=== PATIENT | female | born 1930 | race Caucasian/White ===

== ENCOUNTER 2016-06-18 13:18 | Emergency (ER) | payer MEDICARE, OTHER ==
--- NOTE | 2016-06-18 13:25 | ER Document Report ---
ED Medical Screen (RME) - General Stated Complaint: VAGINAL BLEEDING Notes: patient is a 85 year old female p/w vaginal bleeding on xarelto, states it started on and has gotten more severe, going through about 3 pads a day I have greeted and performed a rapid initial assessment of this patient. A comprehensive ED assessment and evaluation of the patient, analysis of test results and completion of the medical decision making process will be conducted by additional ED providers. TRAVEL OUTSIDE OF THE [place] IN LAST 30 DAYS: No - Related Data Allergies/Adverse Reactions: morphine [Morphine] Adverse Reaction (Severe, Verified 06/18/16 13:22) Abnormal behavior Past Medical History - Past Medical History Cardiac Medical History: Reports: Hx Congestive Heart Failure, Hx Coronary Artery Disease, Hx Heart Attack, Hx Hypercholesterolemia, Hx Hypertension Denies: Hx Atrial Fibrillation, Hx Peripheral Vascular Disease, Hx Pulmonary Embolism, Hx Heart Murmur Pulmonary Medical History: Reports: Hx Pneumonia Denies: Hx Asthma, Hx Bronchitis, Hx COPD, Hx Respiratory Failure, Hx Tuberculosis Endocrine Medical History: Reports: Hx Hypothyroidism. Denies: Hx Graves' Disease, Hx Hyperthyroidism Renal/ Medical History: Denies: Hx End Stage Renal Disease, Hx Kidney Stones, Hx Ovarian Cysts, Hx Peritoneal Dialysis, Hx Pelvic Inflammatory Disease Malignancy Medical History: Denies: Hx Breast Cancer, Hx Cervical Cancer, Hx Leukemia, Hx Lung Cancer, Hx Ovarian Cancer GI Medical History: Reports: Hx Gastroesophageal Reflux Disease - Dysphagia. Denies: Hx Crohn's Disease, Hx Hiatal Hernia, Hx Irritable Bowel, Hx Liver Failure, Hx Ulcer Musculoskeltal Medical History: Reports Hx Arthritis, Denies Hx Fibromyalgia, Denies Hx Muscular Dystrophy Traumatic Medical History: Reports: Hx Fractures - fx wrist Infectious Medical History: Denies: Hx HIV Past Surgical History: Reports: Hx Appendectomy, Hx Cardiac Surgery - CABG, Balloon,, Hx Coronary Artery Bypass Graft, Hx Open Heart Surgery. Denies: Hx Bowel Surgery, Hx Section, Hx Cholecystectomy, Hx Colostomy, Hx Gastric Bypass Surgery, Hx Herniorrhaphy, Hx Hysterectomy, Hx Mastectomy, Hx Pacemaker, Hx Tonsillectomy, Hx Tubal Ligation - Immunizations Hx Diphtheria, Pertussis, Tetanus Vaccination: Yes
--- NOTE | 2016-06-18 14:05 | ER Document Report ---
ED GI/ - General Chief Complaint: Vaginal Bleeding Stated Complaint: VAGINAL BLEEDING Notes: The patient is an 85-year-old female, past medical history pacemaker, A. fib on Pradaxa, uterine prolapse, presents with 2 days of intermittent vaginal bleeding. She is also saying that she is noticing spotting over the past 2 days. She has an appointment with gynecology in 2 days to discuss treatment for her uterine prolapse. She denies lightheadedness, dizziness, chest pain, shortness of breath, nausea, vomiting, flank pain, urinary symptoms, abdominal pain, fevers or vaginal pain. TRAVEL OUTSIDE OF THE [place] IN LAST 30 DAYS: No - Related Data Allergies/Adverse Reactions: morphine [Morphine] Adverse Reaction (Severe, Verified 06/18/16 13:22) Abnormal behavior Past Medical History - General Information source: Patient, Relative - Social History Smoking Status: Unknown if Ever Smoked Chew tobacco use (# tins/day): No Frequency of alcohol use: None Drug Abuse: None Family History: CAD - Parents, Other - colon polyps in parents Patient has suicidal ideation: No Patient has homicidal ideation: No - Past Medical History Cardiac Medical History: Reports: Hx Congestive Heart Failure, Hx Coronary Artery Disease, Hx Heart Attack, Hx Hypercholesterolemia, Hx Hypertension Denies: Hx Atrial Fibrillation, Hx Peripheral Vascular Disease, Hx Pulmonary Embolism, Hx Heart Murmur Pulmonary Medical History: Reports: Hx Pneumonia Denies: Hx Asthma, Hx Bronchitis, Hx COPD, Hx Respiratory Failure, Hx Tuberculosis Endocrine Medical History: Reports: Hx Hypothyroidism. Denies: Hx Graves' Disease, Hx Hyperthyroidism Renal/ Medical History: Denies: Hx End Stage Renal Disease, Hx Kidney Stones, Hx Ovarian Cysts, Hx Peritoneal Dialysis, Hx Pelvic Inflammatory Disease Malignancy Medical History: Denies: Hx Breast Cancer, Hx Cervical Cancer, Hx Leukemia, Hx Lung Cancer, Hx Ovarian Cancer GI Medical History: Reports: Hx Gastroesophageal Reflux Disease - Dysphagia. Denies: Hx Crohn's Disease, Hx Hiatal Hernia, Hx Irritable Bowel, Hx Liver Failure, Hx Ulcer Musculoskeltal Medical History: Reports Hx Arthritis, Denies Hx Fibromyalgia, Denies Hx Muscular Dystrophy Traumatic Medical History: Reports: Hx Fractures - fx wrist Infectious Medical History: Denies: Hx HIV Past Surgical History: Reports: Hx Appendectomy, Hx Cardiac Surgery - CABG, Balloon,, Hx Coronary Artery Bypass Graft, Hx Open Heart Surgery. Denies: Hx Bowel Surgery, Hx Section, Hx Cholecystectomy, Hx Colostomy, Hx Gastric Bypass Surgery, Hx Herniorrhaphy, Hx Hysterectomy, Hx Mastectomy, Hx Pacemaker, Hx Tonsillectomy, Hx Tubal Ligation - Immunizations Hx Diphtheria, Pertussis, Tetanus Vaccination: Yes Hx Pneumococcal Vaccination: 12/26/11 Review of Systems - Review of Systems Notes: REVIEW OF SYSTEMS: CONSTITUTIONAL: -fevers, -chills EENT: -eye pain, -difficulty swallowing, -nasal congestion CARDIOVASCULAR:-chest pain, -syncope. RESPIRATORY: -cough, -SOB GASTROINTESTINAL: -abdominal pain, - nausea, -vomiting, -diarrhea GENITOURINARY: +vaginal bleeding, -dysuria, -hematuria MUSCULOSKELETAL: -back pain, -neck pain SKIN: -rash or skin lesions. HEMATOLOGIC: -easy bruising or bleeding. LYMPHATIC: -swollen, enlarged glands. NEUROLOGICAL: -altered mental status or loss of consciousness, -headache, - neurologic symptoms PSYCHIATRIC: -anxiety, -depression. ALL OTHER SYSTEMS REVIEWED AND NEGATIVE. Physical Exam - Vital signs Vitals: Temp Pulse Resp BP Pulse Ox 98.3 F 76 17 160/82 H 98 06/18/16 13:23 06/18/16 13:23 06/18/16 13:23 06/18/16 13:23 06/18/16 13:23 - Notes Notes: PHYSICAL EXAMINATION: GENERAL: Well-appearing, well-nourished and in no acute distress. HEAD: Atraumatic, normocephalic. EYES: Pupils equal round and reactive to light, extraocular movements intact, sclera anicteric, conjunctiva are normal. ENT: nares patent, oropharynx clear without exudates. Moist mucous membranes. NECK: Normal range of motion, supple without lymphadenopathy LUNGS: Breath sounds clear to auscultation bilaterally and equal. No wheezes rales or rhonchi. HEART: Regular rate and rhythm without murmurs ABDOMEN: Soft, nontender, normoactive bowel sounds. No guarding, no rebound. No masses appreciated. : No active vaginal bleeding, nontender uterus and bilateral adnexa, no uterine prolapse seen EXTREMITIES: Normal range of motion, no pitting or edema. No cyanosis. NEUROLOGICAL: Cranial nerves grossly intact. Normal speech, normal gait. Normal sensory and motor exams. PSYCH: Normal mood, normal affect. SKIN: Warm, Dry, normal turgor, no rashes or lesions noted. Course - Re-evaluation Re-evalutation: Patient has no active bleeding at this time. Her hemoglobin is 14 and she is hemodynamically stable. She has an appointment with gynecology in 3 days. Patient is safe for outpatient workup of this postmenopausal vaginal bleeding. Told her that she must keep her appointment due to possibility of uterine malignancy. Given strict return precautions and she understands. - Vital Signs Vital signs: Temp Pulse Resp BP Pulse Ox 98.3 F 76 17 160/82 H 98 06/18/16 13:23 06/18/16 13:23 06/18/16 13:23 06/18/16 13:23 06/18/16 13:23 - Laboratory Result Diagrams: 06/18/16 14:07 06/18/16 14:07 Laboratory results interpreted by me: 06/18/16 06/18/16 14:07 14:07 RDW 15.3 H Sodium 147.3 H Potassium 3.5 L Discharge - Discharge Clinical Impression: Postmenopausal bleeding Condition: Good Disposition: HOME, SELF-CARE Additional Instructions: VAGINAL BLEEDING: You are having an episode of abnormal bleeding. Causes of abnormal vaginal bleeding can include miscarriage or tubal , tumors such as cancer or benign fibroids, medication effects, or hormone imbalance. Testing can eliminate unsuspected , tumors, or infection as a cause. "Dysfunctional uterine bleeding" is due to hormone imbalance, and is especially common at times when the normal cycle is disturbed -- whether by recent , use of control pills or hormones, or impending menopause. If the bleeding is innocent, most commonly a short course of hormones is given to restore the uterus to normal. Sometimes, the normal menstrual cycle corrects itself naturally. Sometimes , brief hormone therapy, or even a D&C is required. Your physician will advise you. Treatment for anemia may be required if bleeding is severe. You should rest and avoid intercourse until the bleeding is controlled. Call the doctor or return for re-examination if you feel faint, have increasing pain, or have a major increase in the amount of bleeding. FIBROIDS: Fibroids are benign growths or tumors in the uterus. They can cause enlargement of the uterus, irregular bleeding, severe bleeding with periods, and abdominal pain. Anemia may result if periods are heavy. Fibroids tend to grow until menopause, then slowly shrink. If fibroids cause severe symptoms, they can be treated surgically. Call or return if vaginal bleeding or pain becomes severe. NORMAL EXAM AND WORKUP: At this time, except for vaginal bleeding, your examination and workup show no significant abnormality. No significant abnormal physical findings were noted. All laboratory, EKG, and imaging (x-ray, CT scans, ultrasound) studies that were ordered show no significant abnormality. Although your examination and all studies that were ordered showed no significant abnormal finding, there are no examinations and no studies that are 100% accurate. There is always the possibility that some abnormality could exist and not be detected with physical examination or within the limits and capabilities of laboratory and other studies. You should return or follow up as you were instructed on your visit today for further evaluation if your symptoms do not resolve. FOLLOW-UP CARE: If you have been referred to a physician for follow-up care, call the physician s office for an appointment as you were instructed or within the next two days. If you experience worsening or a significant change in your symptoms (very heavy bleeding with large clots of blood, passage of tissue, more severe abdominal / pelvic pain or cramping, feeling faint or severe weakness, fever, etc.), notify the physician immediately or return to the Emergency Department at any time for re-evaluation. OBSTETRIC-GYNECOLOGIC (OB-DREDGE PUMP OPERATOR) PHYSICIANS IN [place]: [facility] [address] [place], [place] [id number] [facility] [address] [place] [address] [phone] Referrals: JULIANA SOSA MD [ACTIVE STAFF] - Follow up as needed
[2016-06-18 14:20] LABS: ABSOLUTE BASOPHILS # (AUTO) 0.1 10^3/uL (0.0-0.2); ABSOLUTE EOSINOPHILS # (AUTO) 0.1 10^3/uL (0.0-0.6); ABSOLUTE LYMPHOCYTES (AUTO) 1.3 10^3/uL (0.5-4.7); ABSOLUTE MONOCYTES (AUTO) 0.9 10^3/uL (0.1-1.4); ABSOLUTE NEUT (AUTO) 6.4 10^3/uL (1.7-8.2); BASOPHILS % (AUTO) 0.6 % (0-2); HEMATOCRIT 40.4 % (36.0-47.0); HEMOGLOBIN 13.4 g/dL (12.0-15.5); HGB HCT DIFFERENCE -0.2; LYMPHOCYTES % (AUTO) 14.7 % (13-45); MEAN CORPUSCULAR HEMOGLOBIN 30.2 pg (27.0-33.4); MEAN CORPUSCULAR HGB CONC 33.3 g/dL (32.0-36.0); MEAN CORPUSCULAR VOLUME 91 fl (80-97); MONOCYTES % (AUTO) 10.1 % (3-13); RED BLOOD COUNT 4.45 10^6/uL (3.72-5.28); RED CELL DISTRIBUTION WIDTH 15.3 % (11.5-14.0); SEGMENTED NEUTROPHILS % (AUTO) 73.6 % (42-78); WHITE BLOOD COUNT 8.7 10^3/uL (4.0-10.5)
[2016-06-18 14:37] LABS: ALBUMIN 4.1 g/dL (3.5-5.0); ANION GAP 12 (5-19); BLOOD UREA NITROGEN 15 mg/dL (7-20); CALCIUM 10.2 mg/dL (8.4-10.2); CARBON DIOXIDE 29 mmol/L (22-30); CHLORIDE 106 mmol/L (98-107); CREATININE RESULT 0.71 mg/dL (0.52-1.25); GLUCOSE 102 mg/dL (75-110); POTASSIUM 3.5 mmol/L (3.6-5.0); SODIUM 147.3 mmol/L (137-145)
[2016-06-18 14:38] LABS: ALANINE AMINOTRANSFERASE 24 U/L (9-52); ALKALINE PHOSPHATASE 76 U/L (38-126); ASPARTATE AMINO TRANSFERASE 23 U/L (14-36); BILIRUBIN,TOTAL 0.7 mg/dL (0.2-1.3); TOTAL PROTEIN 6.9 g/dL (6.3-8.2)
[2016-06-18 15:03] VITALS: BP 154/86
== END 2016-06-18 15:03 | disposition home or self-care (01) ==
LOC: ER 13:18
DX: N95.0 Postmenopausal bleeding (principal); I48.91 Unspecified atrial fibrillation; I50.9 Heart failure, unspecified; E78.00 Pure hypercholesterolemia, unspecified; E03.9 Hypothyroidism, unspecified; Z95.0 Presence of cardiac pacemaker; Z95.1 Presence of aortocoronary bypass graft; Z79.02 Long term (current) use of antithrombotics/antiplatelets; Z88.6 Allergy status to analgesic agent; I25.2 Old myocardial infarction
CPT/HCPCS: 36415; 80053; 85025; 99284

== ENCOUNTER 2016-07-02 10:35 | Emergency (ER) | payer MEDICARE, OTHER ==
--- NOTE | 2016-07-02 11:28 | ER Document Report ---
ED Medical Screen (RME) - General Chief Complaint: Breathing Difficulty Stated Complaint: SHORTNESS OF BREATH TRAVEL OUTSIDE OF THE [place] IN LAST 30 DAYS: No - HPI Patient complains to provider of: shortness of breath generalized weakness Notes: 07/02/16 11:28 Patient states today for history of generalized weakness shortness of breath states she cannot get enough air in denies fevers chills productive cough. - Related Data Allergies/Adverse Reactions: morphine [Morphine] Adverse Reaction (Severe, Verified 07/02/16 10:44) Abnormal behavior Past Medical History - Past Medical History Cardiac Medical History: Reports: Hx Congestive Heart Failure, Hx Coronary Artery Disease, Hx Heart Attack, Hx Hypercholesterolemia, Hx Hypertension Denies: Hx Atrial Fibrillation, Hx Peripheral Vascular Disease, Hx Pulmonary Embolism, Hx Heart Murmur Pulmonary Medical History: Reports: Hx Pneumonia Denies: Hx Asthma, Hx Bronchitis, Hx COPD, Hx Respiratory Failure, Hx Tuberculosis Endocrine Medical History: Reports: Hx Hypothyroidism. Denies: Hx Graves' Disease, Hx Hyperthyroidism Renal/ Medical History: Denies: Hx End Stage Renal Disease, Hx Kidney Stones, Hx Ovarian Cysts, Hx Peritoneal Dialysis, Hx Pelvic Inflammatory Disease Malignancy Medical History: Denies: Hx Breast Cancer, Hx Cervical Cancer, Hx Leukemia, Hx Lung Cancer, Hx Ovarian Cancer GI Medical History: Reports: Hx Gastroesophageal Reflux Disease - Dysphagia. Denies: Hx Crohn's Disease, Hx Hiatal Hernia, Hx Irritable Bowel, Hx Liver Failure, Hx Ulcer Musculoskeltal Medical History: Reports Hx Arthritis, Denies Hx Fibromyalgia, Denies Hx Muscular Dystrophy Traumatic Medical History: Reports: Hx Fractures - fx wrist Infectious Medical History: Denies: Hx HIV Past Surgical History: Reports: Hx Appendectomy, Hx Cardiac Surgery - CABG, Balloon,, Hx Coronary Artery Bypass Graft, Hx Open Heart Surgery. Denies: Hx Bowel Surgery, Hx Section, Hx Cholecystectomy, Hx Colostomy, Hx Gastric Bypass Surgery, Hx Herniorrhaphy, Hx Hysterectomy, Hx Mastectomy, Hx Pacemaker, Hx Tonsillectomy, Hx Tubal Ligation - Immunizations Hx Diphtheria, Pertussis, Tetanus Vaccination: Yes Review of Systems - Review of Systems Respiratory: Short of breath Physical Exam - Vital signs Vitals: Temp Pulse Resp BP Pulse Ox 98.3 F 54 L 18 164/81 H 98 07/02/16 10:46 07/02/16 10:46 07/02/16 10:46 07/02/16 10:46 07/02/16 10:46 - Respiratory Respiratory status: No respiratory distress Chest status: Nontender Course - Vital Signs Vital signs: Temp Pulse Resp BP Pulse Ox 98.3 F 54 L 18 164/81 H 98 07/02/16 10:46 07/02/16 10:46 07/02/16 10:46 07/02/16 10:46 07/02/16 10:46
[2016-07-02 12:05] LABS: APPEARANCE,URINE CLEAR; BILIRUBIN,URINE NEGATIVE (NEGATIVE); GLUCOSE, URINE NEGATIVE (NEGATIVE); KETONES,URINE NEGATIVE (NEGATIVE); LEUKOCYTE ESTERASE,URINE NEGATIVE (NEGATIVE); NITRITE,URINE NEGATIVE (NEGATIVE); PROTEIN,URINE NEGATIVE (NEGATIVE); URINE SPECIFIC GRAVITY 1.008; UROBILINOGEN,URINE NEGATIVE mg/dL (<2.0)
[2016-07-02 12:10] LABS: ABSOLUTE EOSINOPHILS # (AUTO) 0.1 10^3/uL (0.0-0.6); ABSOLUTE LYMPHOCYTES (AUTO) 1.8 10^3/uL (0.5-4.7); ABSOLUTE MONOCYTES (AUTO) 1.1 10^3/uL (0.1-1.4); ABSOLUTE NEUT (AUTO) 7.8 10^3/uL (1.7-8.2); BASOPHILS % (AUTO) 0.4 % (0-2); EOSINOPHILS % (AUTO) 1.1 % (0-6); HEMATOCRIT 40.7 % (36.0-47.0); HEMOGLOBIN 13.5 g/dL (12.0-15.5); HGB HCT DIFFERENCE -0.2; LYMPHOCYTES % (AUTO) 16.4 % (13-45); MEAN CORPUSCULAR HEMOGLOBIN 30.3 pg (27.0-33.4); MEAN CORPUSCULAR HGB CONC 33.2 g/dL (32.0-36.0); MEAN CORPUSCULAR VOLUME 91 fl (80-97); MONOCYTES % (AUTO) 9.8 % (3-13); RED BLOOD COUNT 4.46 10^6/uL (3.72-5.28); RED CELL DISTRIBUTION WIDTH 15.8 % (11.5-14.0); SEGMENTED NEUTROPHILS % (AUTO) 72.3 % (42-78); WHITE BLOOD COUNT 10.8 10^3/uL (4.0-10.5)
--- NOTE | 2016-07-02 12:27 | ER Document Report ---
ED Respiratory Problem - General Chief Complaint: Breathing Difficulty Stated Complaint: SHORTNESS OF BREATH Mode of Arrival: Ambulatory Information source: Patient, Relative Notes: Patient presents complaining of generalized weakness that she had yesterday but seems to be better today. Patient does complain of exertional shortness of breath that started yesterday. Patient states that when she ambulates she feels like she has palpitations become short of breath. Symptoms resolved when she is sitting or at rest. Patient denies any chest pain, abdominal pain, cough , nausea, vomiting, or diarrhea. Patient denies any fever or recent illness. Patient denies any urinary symptoms. Patient does report having a uterine biopsy performed last . TRAVEL OUTSIDE OF THE [place] IN LAST 30 DAYS: No - HPI Patient complains to provider of: Short of breath. No: COPD, Cough Onset: Yesterday Duration: Better Quality of pain: No pain Pain Level: Denies Context: denies: Smoker Associated symptoms: Ankle/leg swelling - Chronic, Short of breath. denies: Bloody cough, Chest pain/discomfort, Congestion, Cough, Wheezing Similar symptoms previously: No Recently seen / treated by doctor: No - Related Data Allergies/Adverse Reactions: morphine [Morphine] Adverse Reaction (Severe, Verified 07/02/16 10:44) Abnormal behavior Past Medical History - General Information source: Patient, Relative - Social History Smoking Status: Never Smoker Frequency of alcohol use: None Drug Abuse: None Family History: CAD - Parents, Other - colon polyps in parents Patient has suicidal ideation: No Patient has homicidal ideation: No - Past Medical History Cardiac Medical History: Reports: Hx Congestive Heart Failure, Hx Coronary Artery Disease, Hx Heart Attack, Hx Hypercholesterolemia, Hx Hypertension Denies: Hx Atrial Fibrillation, Hx Peripheral Vascular Disease, Hx Pulmonary Embolism, Hx Heart Murmur Pulmonary Medical History: Reports: Hx Pneumonia Denies: Hx Asthma, Hx Bronchitis, Hx COPD, Hx Respiratory Failure, Hx Tuberculosis Endocrine Medical History: Reports: Hx Hypothyroidism. Denies: Hx Graves' Disease, Hx Hyperthyroidism Renal/ Medical History: Denies: Hx End Stage Renal Disease, Hx Kidney Stones, Hx Ovarian Cysts, Hx Peritoneal Dialysis, Hx Pelvic Inflammatory Disease Malignancy Medical History: Denies: Hx Breast Cancer, Hx Cervical Cancer, Hx Leukemia, Hx Lung Cancer, Hx Ovarian Cancer GI Medical History: Reports: Hx Gastroesophageal Reflux Disease - Dysphagia. Denies: Hx Crohn's Disease, Hx Hiatal Hernia, Hx Irritable Bowel, Hx Liver Failure, Hx Ulcer Musculoskeltal Medical History: Reports Hx Arthritis, Denies Hx Fibromyalgia, Denies Hx Muscular Dystrophy Traumatic Medical History: Reports: Hx Fractures - fx wrist Infectious Medical History: Denies: Hx HIV Past Surgical History: Reports: Hx Appendectomy, Hx Cardiac Surgery - CABG, Balloon,, Hx Coronary Artery Bypass Graft, Hx Open Heart Surgery, Hx Pacemaker. Denies: Hx Bowel Surgery, Hx Section, Hx Cholecystectomy, Hx Colostomy, Hx Gastric Bypass Surgery, Hx Herniorrhaphy, Hx Hysterectomy, Hx Mastectomy, Hx Tonsillectomy, Hx Tubal Ligation - Immunizations Hx Diphtheria, Pertussis, Tetanus Vaccination: Yes Hx Pneumococcal Vaccination: 12/26/11 Review of Systems - Review of Systems Constitutional: No symptoms reported. denies: Fever, Recent illness EENT: No symptoms reported Cardiovascular: Palpitations - With exertion Respiratory: Short of breath. denies: Cough Gastrointestinal: No symptoms reported. denies: Abdominal pain, Nausea, Vomiting Genitourinary: No symptoms reported Female Genitourinary: No symptoms reported Musculoskeletal: Ankle swelling. denies: Back pain Skin: No symptoms reported Hematologic/Lymphatic: No symptoms reported Neurological/Psychological: No symptoms reported Physical Exam - Vital signs Vitals: Temp Pulse Resp BP Pulse Ox 98.3 F 54 L 18 164/81 H 98 07/02/16 10:46 07/02/16 10:46 07/02/16 10:46 07/02/16 10:46 07/02/16 10:46 - General General appearance: Appears well, Alert In distress: None Notes: Appears younger than stated age - HEENT Head: Normocephalic, Atraumatic Eyes: Normal Conjunctiva: Normal Ears: Normal External canal: Normal Tympanic membrane: Normal Nasal: Normal Mouth/Lips: Normal Mucous membranes: Normal Pharynx: Normal. No: Erythema, Exudate, Tonsillar hypertrophy Neck: Normal, Supple. No: Lymphadenopathy - Respiratory Respiratory status: No respiratory distress Chest status: Nontender Breath sounds: Normal. No: Rales, Rhonchi, Stridor, Wheezing Chest palpation: Normal - Cardiovascular Rhythm: Regular Heart sounds: S1 appreciated, S2 appreciated Murmur: No - Abdominal Inspection: Normal Distension: No distension Bowel sounds: Normal Tenderness: Nontender Organomegaly: No organomegaly - Back Back: Normal, Nontender. No: CVA tenderness, Vertebra tenderness - Extremities General upper extremity: Normal inspection, Normal strength General lower extremity: Edema - 1+ right ankle, 3+ left foot/ankle, Normal strength - Neurological Neuro grossly intact: Yes Cognition: Normal Carl Coma Scale Eye Opening: Spontaneous Carl Coma Scale Verbal: Oriented [place] Coma Scale Motor: Obeys Commands [place] Coma Scale Total: 15 - Psychological Associated symptoms: Normal affect, Normal mood - Skin Skin Temperature: Warm Skin Moisture: Dry Skin Color: Normal Course - Re-evaluation Re-evalutation: 07/02/16 13:[address] Davies regarding patient presentation. Recommends obtaining old EKG as well as repeat troponin 07/02/16 1430 Patient ambulatory to bathroom, patient denies any complaints of dyspnea. Patient's vital signs stable. 07/02/16 19:55 Patient continues without any complaints. Reviewed patient's repeat troponin that is trending downward. Patient does have a previous history of elevated indeterminate troponins in the past. Patient denies any chest pain, any shortness of breath, any abdominal pain or back pain. Patient denies any dyspnea. Patient states that she was able to ambulate in the hallways without reproducing her exertional shortness of breath symptoms. RN road tested patient and patient's heart rate remained in the 70s with oxygen saturation remaining 98-100%. Dr. Richardson consulted and reviewed her EKG and feels that without any symptoms that she is likely stable for discharge. Advises having patient return immediately for any return of symptoms, chest pain, or any concerning symptoms. Discussed planning care with patient, patient and family agree with discharge plan of care. Patient advised that she needs to see her thread separator tomorrow for recheck. Patient and family verbalized plan to see Dr. Devi tomorrow for recheck. 07/02/16 19:59 - Vital Signs Vital signs: Temp Pulse Resp BP Pulse Ox 97.4 F 88 16 125/74 97 07/02/16 17:00 07/02/16 17:00 07/02/16 17:00 07/02/16 17:00 07/02/16 17:00 07/02/16 19:59 - Laboratory Result Diagrams: 07/02/16 11:35 07/02/16 11:35 Laboratory results interpreted by me: 07/02/16 07/02/1617 11:35 11:35 11:35 WBC 10.8 H RDW 15.8 H Carbon Dioxide 31 H Calcium 10.7 H Creatine Kinase NT-Pro-B Natriuret Pep 4290 H 07/02/16 11:35 WBC RDW Carbon Dioxide Calcium Creatine Kinase 26 L NT-Pro-B Natriuret Pep 07/02/16 19:54 Labs- Entire Visit 07/02/16 07/02/16 07/02/16 11:35 11:35 11:35 WBC 10.8 H RBC 4.46 Hgb 13.5 Hct 40.7 MCV 91 MCH 30.3 MCHC 33.2 RDW 15.8 H Plt Count 177 Seg Neutrophils % 72.3 Lymphocytes % 16.4 Monocytes % 9.8 Eosinophils % 1.1 Basophils % 0.4 Absolute Neutrophils 7.8 Absolute Lymphocytes 1.8 Absolute Monocytes 1.1 Absolute Eosinophils 0.1 Absolute Basophils 0.0 Sodium 143.4 Potassium 4.5 Chloride 101 Carbon Dioxide 31 H Anion Gap 11 BUN 19 Creatinine 0.70 Est GFR ( Amer) > 60 Est GFR (Non-Af Amer) > 60 Glucose 106 Calcium 10.7 H Magnesium 2.3 Total Bilirubin 0.8 Direct Bilirubin 0.1 Indirect Bilirubin Not Reportable Neonat Total Bilirubin Not Reportable AST 26 ALT 43 Alkaline Phosphatase 76 Creatine Kinase CK-MB (CK-2) Troponin I 0.058 NT-Pro-B Natriuret Pep 4290 H Total Protein 6.7 Albumin 4.2 Lipase 99.0 TSH Urine Color Urine Appearance Urine pH Ur Specific [place] Urine Protein Urine Glucose (UA) Urine Ketones Urine Blood Urine Nitrite Urine Bilirubin Urine Urobilinogen Ur Leukocyte Esterase Urine WBC (Auto) Squamous Epi Cells Auto Urine Mucus (Auto) Urine Ascorbic Acid 07/02/16 07/02/16 07/02/16 11:35 11:35 11:35 WBC RBC Hgb Hct MCV MCH MCHC RDW Plt Count Seg Neutrophils % Lymphocytes % Monocytes % Eosinophils % Basophils % Absolute Neutrophils Absolute Lymphocytes Absolute Monocytes Absolute Eosinophils Absolute Basophils Sodium Potassium Chloride Carbon Dioxide Anion Gap BUN Creatinine Est GFR ( Amer) Est GFR (Non-Af Amer) Glucose Calcium Magnesium Total Bilirubin Direct Bilirubin Indirect Bilirubin Neonat Total Bilirubin AST ALT Alkaline Phosphatase Creatine Kinase 26 L CK-MB (CK-2) Troponin I NT-Pro-B Natriuret Pep Total Protein Albumin Lipase TSH 2.01 Urine Color YELLOW Urine Appearance CLEAR Urine pH 8.0 Ur Specific [place] 1.008 Urine Protein NEGATIVE Urine Glucose (UA) NEGATIVE Urine Ketones NEGATIVE Urine Blood NEGATIVE Urine Nitrite NEGATIVE Urine Bilirubin NEGATIVE Urine Urobilinogen NEGATIVE Ur Leukocyte Esterase NEGATIVE Urine WBC (Auto) 1 Squamous Epi Cells Auto 1 Urine Mucus (Auto) RARE Urine Ascorbic Acid NEGATIVE 07/02/16 07/02/16 11:35 16:18 WBC RBC Hgb Hct MCV MCH MCHC RDW Plt Count Seg Neutrophils % Lymphocytes % Monocytes % Eosinophils % Basophils % Absolute Neutrophils Absolute Lymphocytes Absolute Monocytes Absolute Eosinophils Absolute Basophils Sodium Potassium Chloride Carbon Dioxide Anion Gap BUN Creatinine Est GFR ( Amer) Est GFR (Non-Af Amer) Glucose Calcium Magnesium Total Bilirubin Direct Bilirubin Indirect Bilirubin Neonat Total Bilirubin AST ALT Alkaline Phosphatase Creatine Kinase CK-MB (CK-2) 0.90 Troponin I 0.052 NT-Pro-B Natriuret Pep Total Protein Albumin Lipase TSH Urine Color Urine Appearance Urine pH Ur Specific [place] Urine Protein Urine Glucose (UA) Urine Ketones Urine Blood Urine Nitrite Urine Bilirubin Urine Urobilinogen Ur Leukocyte Esterase Urine WBC (Auto) Squamous Epi Cells Auto Urine Mucus (Auto) Urine Ascorbic Acid 07/02/16 19:59 - Diagnostic Test Radiology reviewed: Reports reviewed Discharge - Discharge Clinical Impression: Exertional dyspnea Condition: Stable Disposition: HOME, SELF-CARE Instructions: Dyspnea, Nonspecific ([facility]) Additional Instructions: Return immediately for any new or worsening symptoms Followup with your primary care provider, call tomorrow to make a followup appointment Follow-up with your thread separator tomorrow for recheck, call tomorrow morning for an appointment time. Referrals: SANNA MANDUJANO MD [Primary Care Provider] - Follow up tomorrow CORRIE GUTIERREZ MD [ACTIVE STAFF] - Follow up tomorrow
[2016-07-02 12:29] LABS: ALANINE AMINOTRANSFERASE 43 U/L (9-52); ALBUMIN 4.2 g/dL (3.5-5.0); ALKALINE PHOSPHATASE 76 U/L (38-126); ANION GAP 11 (5-19); ASPARTATE AMINO TRANSFERASE 26 U/L (14-36); BILIRUBIN,DIRECT 0.1 mg/dL (0.0-0.4); BILIRUBIN,TOTAL 0.8 mg/dL (0.2-1.3); BLOOD UREA NITROGEN 19 mg/dL (7-20); CALCIUM 10.7 mg/dL (8.4-10.2); CARBON DIOXIDE 31 mmol/L (22-30); CHLORIDE 101 mmol/L (98-107); GLUCOSE 106 mg/dL (75-110); MAGNESIUM 2.3 mg/dL (1.6-2.3); POTASSIUM 4.5 mmol/L (3.6-5.0); SODIUM 143.4 mmol/L (137-145); TOTAL PROTEIN 6.7 g/dL (6.3-8.2)
[2016-07-02 12:45] LABS: TROPONIN I 0.058 ng/mL
[2016-07-02 13:38] LABS: ADD ON TESTING BLD IN LAB ACKNOWLEDGE
[2016-07-02 13:54] LABS: CREATINE KINASE 26 U/L (30-135)
[2016-07-02 17:46] VITALS: BP 125/74
--- NOTE | 2016-07-02 21:09 | EKG REPORT ---
SEVERITY:- ABNORMAL ECG - ATRIAL FIBRILLATION, V-RATE 70-70 VENTRICULAR BIGEMINY VENTRICULAR PACED RHYTM : Confirmed by: Sandra Sahni MD 02-Jul-2016 21:08:53
== END 2016-07-02 19:30 | disposition home or self-care (01) ==
LOC: ER 10:35
DX: R06.00 Dyspnea, unspecified (principal); R06.02 Shortness of breath; R53.1 Weakness; R00.2 Palpitations
CPT/HCPCS: 36415; 71020; 80053; 81001; 82550; 82553; 83690; 83735; 83880; 84443; 84484; 85025; 93005; 93010; 99285

== ENCOUNTER 2016-10-29 22:20 | Inpatient (IN) | payer MEDICARE, OTHER ==
[2016-10-29] MEDS ORDERED: FENTANYL CITRATE INJ/PF 100 MCG/2 ML AMPUL IV ONE (22:35)
--- NOTE | 2016-10-29 22:45 | ER Document Report ---
ED General - General Chief Complaint: Arm Injury Stated Complaint: FALL/NECK PAIN Time Seen by Provider: 10/29/16 22:29 Notes: Patient is a 85-year-old female presents with complaint of a fall. She says she was trying to get out her door when the door closed on her arm. When she tried move her arm from the door she then slipped and fell. She then felt a pop in her left forearm. She has pain over her distal left forearm. She denies pain anywhere else. She did not hit her head. No neck pain. She says she fell onto her knees. She is on Xarelto. Since his injury to her forearm she has had some bruising and swelling into her hand. No other complaints at this time. TRAVEL OUTSIDE OF THE [place] IN LAST 30 DAYS: No - Related Data Allergies/Adverse Reactions: morphine [Morphine] Adverse Reaction (Severe, Verified 07/02/16 10:44) Abnormal behavior Past Medical History - Social History Smoking Status: Never Smoker Frequency of alcohol use: None Drug Abuse: None Family History: CAD - Parents, Other - colon polyps in parents - Past Medical History Cardiac Medical History: Reports: Hx Congestive Heart Failure, Hx Coronary Artery Disease, Hx Heart Attack, Hx Hypercholesterolemia, Hx Hypertension Denies: Hx Atrial Fibrillation, Hx Peripheral Vascular Disease, Hx Pulmonary Embolism, Hx Heart Murmur Pulmonary Medical History: Reports: Hx Pneumonia Denies: Hx Asthma, Hx Bronchitis, Hx COPD, Hx Respiratory Failure, Hx Tuberculosis Endocrine Medical History: Reports: Hx Hypothyroidism. Denies: Hx Graves' Disease, Hx Hyperthyroidism Renal/ Medical History: Denies: Hx End Stage Renal Disease, Hx Kidney Stones, Hx Ovarian Cysts, Hx Peritoneal Dialysis, Hx Pelvic Inflammatory Disease Malignancy Medical History: Denies: Hx Breast Cancer, Hx Cervical Cancer, Hx Leukemia, Hx Lung Cancer, Hx Ovarian Cancer GI Medical History: Reports: Hx Gastroesophageal Reflux Disease - Dysphagia. Denies: Hx Crohn's Disease, Hx Hiatal Hernia, Hx Irritable Bowel, Hx Liver Failure, Hx Ulcer Musculoskeltal Medical History: Reports Hx Arthritis, Denies Hx Fibromyalgia, Denies Hx Muscular Dystrophy Traumatic Medical History: Reports: Hx Fractures - fx wrist Infectious Medical History: Denies: Hx HIV Past Surgical History: Reports: Hx Appendectomy, Hx Cardiac Surgery - CABG, Balloon,, Hx Coronary Artery Bypass Graft, Hx Open Heart Surgery, Hx Pacemaker. Denies: Hx Bowel Surgery, Hx Section, Hx Cholecystectomy, Hx Colostomy, Hx Gastric Bypass Surgery, Hx Herniorrhaphy, Hx Hysterectomy, Hx Mastectomy, Hx Tonsillectomy, Hx Tubal Ligation - Immunizations Hx Diphtheria, Pertussis, Tetanus Vaccination: Yes Hx Pneumococcal Vaccination: 12/26/11 Review of Systems - Review of Systems Notes: My Normal Review Basic REVIEW OF SYSTEMS: CONSTITUTIONAL : Denies fever, chills, or sweats. Denies recent illness. RESPIRATORY: Denies cough, cold, or chest congestion. Denies shortness of breath, difficulty breathing, or wheezing. GASTROINTESTINAL: Denies abdominal pain. Denies nausea, vomiting, or diarrhea. Denies constipation. Last BM: MUSCULOSKELETAL: Left distal forearm pain SKIN: Denies rash or skin lesions. HEMATOLOGIC : on Xarelto NEUROLOGICAL: Denies altered mental status or loss of consciousness. Denies headache. Denies weakness or paralysis or loss of use of either side. Denies problems with gait or speech. Denies sensory or motor loss. ALL OTHER SYSTEMS REVIEWED AND NEGATIVE. Physical Exam - Vital signs Vitals: Resp 16 10/30/16 00:16 - Notes Notes: General Appearance: Well nourished, alert, cooperative, no acute distress, mild to moderate obvious discomfort. Vitals: reviewed, See vital signs table. Head: no swelling or tenderness to the head Eyes: PERRL, EOMI, Conjuctiva clear Mouth: No decreasd moisture Neck: Supple, no neck tenderness Extremities: strength 5/5 in all extremities, good pulses in all extremities, left forearm has swelling and bruising that extends into the dorsum of the left hand. Skin: warm, dry, appropriate color, no rash Neuro: speech clear, oriented x 3, normal affect, responds appropriately to questions. Course - Re-evaluation Re-evalutation: 10/30/16 03:59 Patient's x-ray unfortunately continues show that the fracture displaced. When I would reduce that to fill reduced specimen is I release any type of traction of the arm it would immediately to his original displaced form. Being that the fracture is unstable for the patient is in need of likely repair. The patient is a private patient of Dr. Clark. Dr. Kee is covering for Dr. Clark 7 AM in the morning. I spoke with the hospitalist who agrees to admit the patient. I have put in a consult for orthopedics. Dictation of this chart was performed using voice recognition software; therefore, there may be some unintended grammatical errors. - Vital Signs Vital signs: Temp Pulse Resp BP Pulse Ox 16 138/65 H 96 10/30/16 03:00 10/30/16 02:16 10/30/16 03:00 - Laboratory Result Diagrams: 10/30/16 02:45 10/30/16 02:45 Laboratory results interpreted by me: 10/30/16 10/30/16 10/30/16 02:45 02:45 02:45 RBC 3.63 L Hgb 11.6 L Hct 33.0 L RDW 15.6 H Seg Neutrophils % 80.4 H Lymphocytes % 10.1 L PT 19.1 H Sodium 131.2 L Potassium 3.4 L Chloride 90 L Carbon Dioxide 31 H BUN 34 H Est GFR ( Amer) 57 L Est GFR (Non-Af Amer) 47 L Glucose 117 H - EKG Interpretation by Me Additional EKG results interpreted by me: 10/30/16 02:37 EKG is reviewed and interpreted by me. EKG shows a complex rhythm with rate of 72 bpm which is consistent with her old EKG from July 02, 2016. No new concerning ST segment changes. QRS duration and QTc intervals are prolonged. Suspect this rhythm is paced. Occasional PAC. Procedures - Conscious Sedation Conscious sedation Consent obtained: Yes Prior complications: Procedural sedation Pt with a severe systemic disease.: P3. - ASA Classification. Airway Evaluation: Normal anatomy Mallampati Classification: Class 2 Used during procedure: Suction available, IV access obtained, Pulse ox on pt., financial quantitative analyst on pt. Medications administered: Diprivan Reversal agents: None I personally performed/intraservice time: Sedation, Procedure Complications: No Notes: Patient was given a total of 40 mg of propofol which provided brief adequate sedation for fracture reduction and splinting. Patient fully recovered without any difficulty after being sedated for approximately 3 minutes. She never had any episodes of hypotension. No episodes of hypoxemia. She tolerated sedation very well. - Joint Reduction/Fracture Care left forearm Consent obtained: Yes Conscious sedation: Yes Pre-procedure NV exam: Yes Fracture: Closed Manipulation comment: traction Post-procedure NV exam: Yes Reduction attempts: 3 Complications: No Notes: 10/30/16 02:34 Patient's form is reduced but it is a lack of any traction the fracture immediately displaces again. I reduce it 3 times. I tried to splint it in reduction. Despite me splinting it in reduction it still would not hold and reduced form. Follow-up x-rays again shows that it is still displaced. Fracture is unfortunately unstable will not stay in reduced position. Patient still has good capillary refill and good distal sensation and perfusion Discharge - Discharge Clinical Impression: Forearm fracture Qualifiers: Encounter type: initial encounter Fracture type: closed Laterality: left Qualified Code(s): S52.92XA - Unspecified fracture of left forearm, initial encounter for closed fracture Condition: Stable Disposition: ADMITTED INPATIENT Admitting Provider: Hospitalist Unit Admitted: Telemetry
--- NOTE | 2016-10-29 23:34 | RADIOLOGY REPORT (SQ) ---
EXAM DESCRIPTION: HAND LEFT 3 VIEWS COMPLETED DATE/TIME: 10/29/2016 11:11 pm REASON FOR STUDY: trauma COMPARISON: None. EXAM PARAMETERS: NUMBER OF VIEWS: Three views. TECHNIQUE: AP, lateral and oblique radiographic images acquired of the left hand. LIMITATIONS: None. FINDINGS: MINERALIZATION: Normal. BONES: Comminuted fractures of the distal radius and ulnar diaphyses with mild impaction and lateral displacement. No other fracture or dislocation identified. No worrisome bone lesions. JOINTS: No effusions. SOFT TISSUES: Dorsal hand soft tissue swelling -laceration. No radiopaque foreign body. OTHER: No other significant finding. IMPRESSION: Comminuted fractures of the distal left radius and ulnar diaphyses with mild impaction a nd lateral displacement.Dorsal hand soft tissue swelling -laceration. No radiopaque foreign body. TECHNICAL DOCUMENTATION: JOB ID: [id number] [employer]- All Rights Reserved
--- NOTE | 2016-10-29 23:37 | RADIOLOGY REPORT (SQ) ---
EXAM DESCRIPTION: FOREARM LEFT COMPLETED DATE/TIME: 10/29/2016 11:11 pm REASON FOR STUDY: trauma COMPARISON: None. NUMBER OF VIEWS: Two views. TECHNIQUE: Two radiographic images acquired of the left forearm, including elbow and wrist in at julia [address] one projection. LIMITATIONS: None. FINDINGS: MINERALIZATION: Normal. BONES: Comminuted fractures of the distal radius and ulnar diaphyses with mild impaction and 1 cm kennedy jeferson- lateral displacement.. No other fracture identified. SOFT TISSUES: Dorsal swelling -laceration without radiopaque foreign body. OTHER: No other significant finding. IMPRESSION: Comminuted fractures of the distal left radius and ulnar diaphyses with mild impaction a nd 1 cm dorsal- lateral displacement.. Dorsal swelling -laceration without radiopaque foreign body. TECHNICAL DOCUMENTATION: JOB ID: [id number] [employer]- All Rights Reserved
[2016-10-30] MEDS ORDERED: NORMAL SALINE 500 ML IV ONE (00:02)
[2016-10-30] MEDS ORDERED: PROPOFOL INJ 200 MG/20 ML VIAL IV ONE (00:02)
--- NOTE | 2016-10-30 02:50 | RADIOLOGY REPORT (SQ) ---
EXAM DESCRIPTION: FOREARM LEFT COMPLETED DATE/TIME: 10/30/2016 2:10 am REASON FOR STUDY: post reduction COMPARISON: 10/29/2016. NUMBER OF VIEWS: Two views. TECHNIQUE: Two radiographic images acquired of the left forearm, including elbow and wrist in at julia st one projection. LIMITATIONS: None. FINDINGS: MINERALIZATION: Normal. BONES: Comminuted both bone fractures of the mid-distal diaphyses of the left radius and ulna with re sidual [id number] lateral angulation and 50- 75% posterior shafts width displacement seen throu gh casting -bandaging material. SOFT TISSUES: No obvious swelling or foreign body. OTHER: No other significant finding. IMPRESSION: Interval partial reduction -casting of left forearm, "both bone" fractures. TECHNICAL DOCUMENTATION: JOB ID: [id number] [employer]- All Rights Reserved
[2016-10-30 03:23] LABS: ABSOLUTE MONOCYTES (AUTO) 0.9 10^3/uL (0.1-1.4); ABSOLUTE NEUT (AUTO) 8.2 10^3/uL (1.7-8.2); BASOPHILS % (AUTO) 0.3 % (0-2); EOSINOPHILS % (AUTO) 0.2 % (0-6); HEMOGLOBIN 11.6 g/dL (12.0-15.5); HGB HCT DIFFERENCE 1.8; LYMPHOCYTES % (AUTO) 10.1 % (13-45); MEAN CORPUSCULAR HGB CONC 35.3 g/dL (32.0-36.0); MEAN CORPUSCULAR VOLUME 91 fl (80-97); RED BLOOD COUNT 3.63 10^6/uL (3.72-5.28); RED CELL DISTRIBUTION WIDTH 15.6 % (11.5-14.0); SEGMENTED NEUTROPHILS % (AUTO) 80.4 % (42-78); WHITE BLOOD COUNT 10.2 10^3/uL (4.0-10.5)
[2016-10-30 03:31] LABS: ANION GAP 10 (5-19); BLOOD UREA NITROGEN 34 mg/dL (7-20); CALCIUM 9.3 mg/dL (8.4-10.2); CARBON DIOXIDE 31 mmol/L (22-30); CHLORIDE 90 mmol/L (98-107); GLUCOSE 117 mg/dL (75-110); POTASSIUM 3.4 mmol/L (3.6-5.0); SODIUM 131.2 mmol/L (137-145)
[2016-10-30 03:35] LABS: PROTHROMBIN TIME 19.1 SEC (11.4-15.4)
[2016-10-30 03:36] LABS: PARTIAL THROMBOPLASTIN TIME 35.4 SEC (23.5-35.8)
--- NOTE | 2016-10-30 03:36 | EKG REPORT ---
SEVERITY:- ABNORMAL ECG - MULT INTERPOLATED VENT PREMATURE COMPLEXES ATRIAL FIBRILLATION WITH VENTRICULAR PACED RHYTHM : Confirmed by: Sandra Sahni MD 30-Oct-2016 03:35:37
--- NOTE | 2016-10-30 04:11 | RADIOLOGY REPORT (SQ) ---
EXAM DESCRIPTION: CHEST SINGLE VIEW COMPLETED DATE/TIME: 10/30/2016 3:44 am REASON FOR STUDY: pre-op COMPARISON: 07/02/2016. EXAM PARAMETERS: NUMBER OF VIEWS: One view. TECHNIQUE: Single frontal radiographic view of the chest acquired. RADIATION DOSE: NA LIMITATIONS: None. FINDINGS: LUNGS AND PLEURA: Mild interstitial markings. MEDIASTINUM AND HILAR STRUCTURES: No masses. Contour normal. HEART AND VASCULAR STRUCTURES: Mild-moderate enlargement of the cardiac silhouette. Atherosclerosis. BONES: No acute findings. HARDWARE: Sternotomy. Left subclavian cardiac stimulation device and leads. OTHER: No other significant finding. IMPRESSION: No acute cardiopulmonary findings. TECHNICAL DOCUMENTATION: JOB ID: [id number]
[2016-10-30 05:31] LABS: ADD ON TESTING BLD IN LAB ACKNOWLEDGE
[2016-10-30] MEDS ORDERED: ACETAMINOPHEN 325 MG TABLET PO PRN (06:54)
[2016-10-30] MEDS ORDERED: PROMETHAZINE HCL 25 MG TABLET PO PRN (06:55)
[2016-10-30] MEDS ORDERED: POTASSIUM CHLORIDE 20 MEQ/15 ML UDCUP PO ONE (07:00)
[2016-10-30 07:06] LABS: ALANINE AMINOTRANSFERASE 30 U/L (9-52); ALBUMIN 3.8 g/dL (3.5-5.0); ALKALINE PHOSPHATASE 48 U/L (38-126); ASPARTATE AMINO TRANSFERASE 30 U/L (14-36); BILIRUBIN,DIRECT 0.3 mg/dL (0.0-0.4); BILIRUBIN,TOTAL 0.8 mg/dL (0.2-1.3); MAGNESIUM 1.9 mg/dL (1.6-2.3); TOTAL PROTEIN 6.2 g/dL (6.3-8.2)
--- NOTE | 2016-10-30 08:10 | PDOC H&P ---
History of Present Illness Admission Date/PCP: 10/30/16 04:47 SANNA MANDUJANO MD Cardiology Dr. Sahni Patient complains of: Left forearm fracture History of Present Illness: EVGENY HUTCHINSON is a 85 year old female with underlying congestive heart failure, coronary artery disease, status post previous myocardial infarction, atrial fibrillation, on Xarelto for same arthritis, hyperlipidemia, hypothyroidism, along with possible obstructive sleep apnea, with testing in the near future, who presents to the emergency room for evaluation of above complaint. Patient has been discussed with emergency room physician who evaluated the patient. Patient's storm door at her home closed on her left fingers and apparently became jammed, to the point where patient was not able to open the door and release her fingers. As she tried to extricate her fingers from the door, she felt a pop in her left forearm, with subsequent x-rays revealing the fractures. No loss of consciousness. No head trauma. She did not fall. Prior to the above event, patient had no specific complaints. Subsequent unsuccessful attempts by emergency room physician to reduce the fractures under sedation. Sling was applied, and hospitalist service was contacted for admission. Dictation via voice recognition software. Laboratory results are listed in [employer] and are reviewed. X-ray summary results are listed below, with full report(s) reviewed. . EKG reviewed and compared to a prior tracing from July 02 of this year. Social history/personal habits: . Lives alone. Retired. Dips snuff. No alcohol or illicit drug use. Allergies/adverse reactions are listed in [employer] and are reviewed. No problems with tramadol, or the fentanyl that she received in the emergency room. Home medications initially autopopulated into [employer] may not accurately reflect patient's true medications, dosages, and/or frequencies. quality assurance qa lab technician to reconcile medications. Unfortunately, patient not certain of all medications/dosages/frequencies. REVIEW OF SYSTEMS: Constitutional: No fever or chills. Eyes: Reading glasses. ENT: No swallowing problems or complaints. Denies hearing loss. Pulmonary: No current complaints. Cardiovascular: No current complaints, including chest pain. Gastrointestinal: No current complaints, including nausea or vomiting. Skin: No current complaints, including rashes. Hematologic: Easy bruising. Neurologic: No current complaints, including numbness or tingling. Musculoskeletal: See history and present illness. Psychiatric: Denies anxiety or depression. Endocrine: No current complaints, including polyuria. Genitourinary: No current complaints, including dysuria. PHYSICAL EXAMINATION: 5 feet 9 inches tall. 84.8 kg. BMI 27.6 kg/m.Temperature 98.5. Pulse 70 and regular. Blood pressure 123/63. Respirations are 18 and unlabored. 93% saturation on room air. Slightly overweight otherwise well-nourished well-developed elderly female, who appears a number of years younger than her stated age. Pleasant awake alert and cooperative. Somewhat anxious, although no ira agitation. Quite mentally sharp. Daughter is present at her side; patient approves. Floor nurse Adilene is present. Skin is warm and dry. No grossly obvious evidence of rash in areas of skin examined. No subcutaneous nodules palpated. ENT: Hearing grossly normal to normal conversation. Tongue midline on protrusion pink and slightly tacky. Eyes: No scleral icterus. Pupils equal and reactive to light at 4 mm. [place] conjunctivae. No raccoon eyes. Neck is supple and nontender to gentle active range of motion and palpation. Midline trachea. No palpable thyroid nodule mass enlargement or tenderness. Lymphatic: No palpable cervical or clavicular nodes. Neck and lymphatic exams limited by patient body habitus. Psychiatric: Reasonable insight into acute and chronic medical issues. Oriented to time location and why here. Lungs: Auscultation reveals clear and equal breath sounds bilaterally. No use of accessory respiratory muscles. Cardiovascular: Heart regular rate and rhythm, without gallop murmur or rub. No carotid or abdominal aortic bruits. Mild bilateral slightly pitting lower calf and ankle edema. Abdomen:soft slightly distended nontender with positive bowel sounds. Unable to adequately evaluate abdomen for masses or organomegaly due to distention. Extremities: No calf tenderness to compression. Gentle manipulation of lower extremities fails to reveal any obvious evidence of injury or instability to knees or hips. Left upper extremity in a sling. Brisk capillary refill at fingertips. Neurologic: Moves right upper extremity grossly normally. Patellar reflexes absent. Dorsiflexion and plantarflexion of feet 5 / 5 and symmetric. Past Medical History Cardiac Medical History: Reports: Atrial Fibrillation, Congestive Heart Failure , Coronary Artery Disease, Myocardial Infarction, Hyperlipidema, Hypertension Denies: DVT, Peripheral Vascular Disease, Pulmonary Embolism, Heart Murmur Pulmonary Medical History: Reports: Pneumonia, Sleep Apnea - Testing in near future Denies: Asthma, Bronchitis, Chronic Obstructive Pulmonary Disease (COPD), Respiratory Failure, Tuberculosis EENT Medical History: Reports: Eyes - Reading glasses Denies: Ears, Throat Neurological Medical History: Denies: Hemorrhagic CVA, Ischemic CVA, Seizures Endocrine Medical History: Reports: Hypothyroidism Denies: Diabetes Mellitus Type 1, Diabetes Mellitus Type 2, Hyperthyroidism Renal/ Medical History: Denies: End Stage Renal Disease Malignancy Medical History: Reports: Skin Cancer Denies: Breast Cancer, Cervical Cancer, Leukemia, Lung Cancer, Ovarian Cancer GI Medical History: Denies: Cirrhosis, Crohn's Disease, Hepatitis, Hiatal Hernia Musculoskeltal Medical History: Reports: Arthritis Denies: Fibromyalgia Psychiatric Medical History: Reports: Tobacco Dependency Denies: Alcohol Dependency, Depression, General Anxiety Disorder, Substance Abuse Hematology: Reports: Other - Easy bruising Denies: Anemia, Hemophilia, Sickle Cell Disease Infectious Medical History: Denies: Hepatitis B, Hepatitis C, HIV Past Surgical History Past Surgical History: Reports: Appendectomy, Coronary Artery Bypass Graft, Pacemaker Social History Information Source: Patient, Relative - Daughter, Emergency Med Personnel, [facility] Records Lives with: Alone Smoking Status: Unknown if Ever Smoked - Dips snuff Frequency of Alcohol Use: None Hx Recreational Drug Use: No Drugs: None Hx Prescription Drug Abuse: No - Advance Directive Resuscitation Status: Full Code Surrogate healthcare decision maker:: Daughter Francia Pelaez Family History Family History: CAD - Parents, Other - colon polyps in parents Parental Family History Reviewed: Yes - Mother of pneumonia father after myocardial infarction Children Family History Reviewed: Yes - Hypertension Sibling(s) Family History Reviewed.: Yes - Coronary artery disease. Medication/Allergy Home Medications: Amlodipine Besylate [Norvasc 5 mg Tablet] 5 mg PO DAILY 10/30/16 Docusate Sodium [Colace 100 mg Capsule] 100 mg PO DAILY 10/30/16 Folic Acid [Folvite 1 mg Tablet] 1 mg PO DAILY 10/30/16 Furosemide [Lasix] 80 mg PO DAILY 10/30/16 Isosorbide Mononitrate [Isosorbide Mononitrate ER] 30 mg PO DAILY 10/30/16 Levothyroxine Sodium [Synthroid 0.075 mg Tablet] 0.075 mg PO DAILY 10/30/16 Lisinopril [Prinivil 40 mg Tablet] 40 mg PO DAILY 10/30/16 Lorazepam [Ativan 1 mg Tablet] 1 mg PO DAILYP PRN 10/30/16 Metolazone [Zaroxolyn 2.5 mg Tablet] 2.5 mg PO MOWEFR@1000 10/30/16 Metoprolol Succinate [Toprol XL 100 mg Tablet] 100 mg PO DAILY 10/30/16 Nitroglycerin [Nitrostat] 0.4 mg SL Q5MP PRN 10/30/16 Potassium Chloride [Klor-Con 10] 10 meq PO BID 10/30/16 Rivaroxaban [Xarelto] 20 mg PO WSUPPER 10/30/16 Rosuvastatin Calcium [Crestor 20 mg Tablet] 20 mg PO QHS 10/30/16 Tramadol HCl [Ultram 50 mg Tablet] 50 mg PO Q6HP PRN 10/30/16 Trazodone HCl [Desyrel 50 mg Tablet] 50 mg PO QHS 10/30/16 Acetaminophen [Tylenol 325 mg Tablet] 650 mg PO Q8HP PRN tablet 11/03/16 Allergies/Adverse Reactions: morphine [Morphine] Adverse Reaction (Severe, Verified 10/30/16 06:57) Abnormal behavior Physical Exam Vital Signs: Temp Pulse Resp BP Pulse Ox 98.5 F 70 18 123/63 93 10/30/16 06:09 10/30/16 06:09 10/30/16 06:09 10/30/16 06:09 10/30/16 06:09 Intake & Output 10/29/16 10/30/16 10/31/16 00:59 00:59 00:59 Weight 84.822 kg Results Laboratory Results: 10/30/16 10/30/16 06:18 06:18 Magnesium 1.9 Total Bilirubin 0.8 AST 30 ALT 30 Alkaline Phosphatase 48 Total Protein 6.2 L Albumin 3.8 TSH 2.50 Impressions: Hand X-Ray 10/29/16 22:34 IMPRESSION: Comminuted fractures of the distal left radius and ulnar diaphyses with mild impaction and lateral displacement.Dorsal hand soft tissue swelling - laceration. No radiopaque foreign body. Forearm X-Ray 10/30/16 01:27 IMPRESSION: Interval partial reduction -casting of left forearm, "both bone" fractures. Chest X-Ray 10/30/16 02:21 IMPRESSION: No acute cardiopulmonary findings. Assessment & Plan - Diagnosis (1) ARF (acute renal failure) Qualifiers: Acute renal failure type: unspecified Qualified Code(s): N17.9 - Acute kidney failure, unspecified Is this a current diagnosis for this admission?: YesPlan: Perhaps due to an element of dehydration. Follow-up chemistry. (2) Anemia Qualifiers: Anemia type: unspecified type Qualified Code(s): D64.9 - Anemia, unspecified Is this a current diagnosis for this admission?: YesPlan: Follow-up CBC with differential. No need for transfusion at present time. (3) Closed left forearm fracture Qualifiers: Encounter type: initial encounter Qualified Code(s): S52.92XA - Unspecified fracture of left forearm, initial encounter for closed fracture Is this a current diagnosis for this admission?: YesPlan: Orthopedics consult. With underlying cardiac issues, combined with her use of Xarelto, which will obviously be held, preop cardiology consult also. I have strongly encouraged patient not to get out of bed without notifying staff , to avoid a fall with injury. Knee high SCDs for DVT prophylaxis; with patient on Xarelto, no need for Lovenox or heparin. Impression and plans were discussed with patient and daughter, both of whom concur. Time spent in evaluation and management of patient: 66 minutes. (4) Hypokalemia Is this a current diagnosis for this admission?: YesPlan: Potassium replacement. Follow-up chemistry. (5) Anticoagulated Is this a current diagnosis for this admission?: YesPlan: Xarelto will obviously be held for her upcoming surgery. Repeat PT/INR tomorrow morning. (6) Atrial fibrillation Qualifiers: Atrial fibrillation type: chronic Qualified Code(s): I48.2 - Chronic atrial fibrillation Is this a current diagnosis for this admission?: YesPlan: Resume home medications as appropriate once these have been determined and reviewed. (7) CAD (coronary artery disease) Qualifiers: Coronary Disease-Associated Artery/Lesion type: [place] artery [place] vs. transplanted heart: [place] heart Associated angina: without angina Qualified Code(s): I25.10 - Atherosclerotic heart disease of [place] coronary artery without angina pectoris Is this a current diagnosis for this admission?: YesPlan: Resume home medications as appropriate once these have been determined and reviewed. - Time Time Spent: 50 to 70 Minutes Anticipated discharge: Home Within: Other - Inpatient Certification Based on my medical assessment, after consideration of the patient's comorbidities, presenting symptoms, or acuity I expect that the services needed warrant INPATIENT care.: Yes I certify that my determination is in accordance with my understanding of Medicare's requirements for reasonable and necessary INPATIENT services [42 CFR 412.3e].: Yes Medical Necessity: Need for Pain Control, Need for Surgery Post Hospital Care: D/C or Transfer Summary
[2016-10-30] MEDS ORDERED: TRAMADOL HCL 50 MG TABLET PO PRN (08:13)
[2016-10-30] MEDS: DOCUSATE SODIUM 100 MG CAPSULE PO SCH ×2 (09:16→17:16)
--- NOTE | 2016-10-30 11:02 | PDOC CONSULTATION ---
Consultation Consult Date: 10/30/16 Attending physician:: MERARY MURRAY Consult reason:: Left forearm fracture, preop evaluation History of Present Illness Admission Date/PCP: 10/30/16 06:45 SANNA MANDUJANO MD Patient complains of: Left arm fracture History of Present Illness: EVGENY HUTCHINSON is a 85 year old female with underlying congestive heart failure, coronary artery disease, status post previous myocardial infarction, atrial fibrillation, on Xarelto for same arthritis, hyperlipidemia, hypothyroidism, along with possible obstructive sleep apnea, with testing in the near future, who presents to the emergency room for evaluation of above complaint Patient's storm door at her home closed on her left fingers and apparently became jammed, to the point where patient was not able to open the door and release her fingers. As she tried to extricate her fingers from the door, she felt a pop in her left forearm, with subsequent x-rays revealing the fractures. No loss of consciousness. No head trauma. She did not fall. Prior to the above event, patient had no specific complaints. Subsequent unsuccessful attempts by emergency room physician to reduce the fractures under sedation. Today patient was interviewed in presence of patient's daughter. Patient denied any chest pain. She denied any significant shortness of breath. Patient had recent stress test and 2D echo results which will be obtained. Patient claims that she is fairly active for her age. Past Medical History Cardiac Medical History: Reports: Atrial Fibrillation, Congestive Heart Failure , Coronary Artery Disease, Myocardial Infarction, Hyperlipidema, Hypertension Denies: DVT, Peripheral Vascular Disease, Pulmonary Embolism, Heart Murmur Pulmonary Medical History: Reports: Pneumonia, Sleep Apnea - Testing and near future Denies: Asthma, Bronchitis, Chronic Obstructive Pulmonary Disease (COPD), Respiratory Failure, Tuberculosis EENT Medical History: Reports: Eyes - Reading glasses, Other - Easy bruising Denies: Ears, Throat Neurological Medical History: Denies: Hemorrhagic CVA, Ischemic CVA, Seizures Endocrine Medical History: Reports: Hypothyroidism Denies: Diabetes Mellitus Type 1, Diabetes Mellitus Type 2, Hyperthyroidism Renal/ Medical History: Denies: End Stage Renal Disease Malignancy Medical History: Reports: Skin Cancer Denies: Breast Cancer, Cervical Cancer, Leukemia, Lung Cancer, Ovarian Cancer GI Medical History: Reports: Gastroesophageal Reflux Disease - Dysphagia Denies: Cirrhosis, Crohn's Disease, Hepatitis, Hiatal Hernia Musculoskeltal Medical History: Reports: Arthritis Denies: Fibromyalgia Psychiatric Medical History: Reports: Tobacco Dependency Denies: Alcohol Dependency, Depression, General Anxiety Disorder, Substance Abuse Hematology: Reports: Other - Easy bruising Denies: Anemia, Hemophilia, Sickle Cell Disease Infectious Medical History: Denies: Hepatitis B, Hepatitis C, HIV Past Surgical History Past Surgical History: Reports: Appendectomy, Coronary Artery Bypass Graft, Pacemaker Denies: Amputation, Section, Cholecystectomy, Colostomy, Gastric Bypass Surgery, Herniorrhaphy, Hysterectomy, Mastectomy, Tonsillectomy, Tubal Ligation Social History Information Source: Patient Lives with: Alone Smoking Status: Unknown if Ever Smoked - Dips snuff Frequency of Alcohol Use: None Hx Recreational Drug Use: No Drugs: None Hx Prescription Drug Abuse: No - Advance Directive Resuscitation Status: Full Code Surrogate healthcare decision maker:: Patient's daughter is the surrogate decision-maker Family History Family History: CAD - Parents, Other - colon polyps in parents Parental Family History Reviewed: Yes Children Family History Reviewed: Yes Sibling(s) Family History Reviewed.: Yes Medication/Allergy Home Medications: Amlodipine Besylate [Norvasc 5 mg Tablet] 5 mg PO DAILY 10/30/16 Ciprofloxacin HCl [Cipro 500 mg Tablet] 500 mg PO BID 10/30/16 Docusate Sodium [Colace 100 mg Capsule] 100 mg PO DAILY 10/30/16 Folic Acid [Folvite 1 mg Tablet] 1 mg PO DAILY 10/30/16 Furosemide [Lasix] 80 mg PO DAILY 10/30/16 Isosorbide Mononitrate [Isosorbide Mononitrate ER] 30 mg PO DAILY 10/30/16 Levothyroxine Sodium [Synthroid 0.075 mg Tablet] 0.075 mg PO DAILY 10/30/16 Lisinopril [Prinivil 40 mg Tablet] 40 mg PO DAILY 10/30/16 Lorazepam [Ativan 1 mg Tablet] 1 mg PO DAILYP PRN 10/30/16 Metolazone [Zaroxolyn 2.5 Mg Tablet] 2.5 mg PO MOWEFR@1000 10/30/16 Metoprolol Succinate [Toprol XL 100 mg Tablet] 100 mg PO DAILY 10/30/16 Nitroglycerin [Nitrostat] 0.4 mg SL Q5MP PRN 10/30/16 Potassium Chloride [Klor-Con 10] 10 meq PO BID 10/30/16 Rivaroxaban [Xarelto] 20 mg PO WSUPPER 10/30/16 Rosuvastatin Calcium [Crestor 20 mg Tablet] 20 mg PO QHS 10/30/16 Tramadol HCl [Ultram 50 mg Tablet] 50 mg PO Q6HP PRN 10/30/16 Trazodone HCl [Desyrel 50 mg Tablet] 50 mg PO QHS 10/30/16 Allergies/Adverse Reactions: morphine [Morphine] Adverse Reaction (Severe, Verified 10/30/16 06:57) Abnormal behavior Review of Systems Review of Systems: Please see history of present illness and past medical history as wall. Constitutional: No fever or chills reported. Head : No recent chronic headaches, recent head injury. Eyes: No recent eye pain, diplopia, redness, discharge, acute visual changes. Ears: No recent chronic ear pain, acute hearing loss, ear discharge. Oral cavity: No recent ulcerations, bleeding, oral cavity discomfort. Neck: No recent acute neck pain reported. Hematologic: Recent easy bruising or bleeding but no hematologic malignancy reported. Lymphatic: No recent lymphatic malignancy, chronic lymphadenopathy reported yet Cardiovascular system review: See history of present illness. Respiratory system review: No recent chronic cough, hemoptysis, blood clots in the lungs reported. Mild Shortness of breath on exertion Gastrointestinal system review: Negative for any recent acute or chronic abdominal pain, hematemesis, melena, recent change in bowel habits. Genitourinary system review: No recent acute or chronic hematuria, flank pain, UTI etc. reported. Skin system review: Negative for any recent abnormal bruising, no rash, no pruritus reported. Neurologic: No prior history of strokes, mini strokes, seizure disorder. Psychologic: No history of major psychosis or major depression reported. Musculoskeletal: Minor aches and pains reported. No acute joint swelling reported. Endocrine: No recent polyuria, polydipsia, recent heat or cold intolerance. Physical Exam Vital Signs: Temp Pulse Resp BP Pulse Ox 97.4 F 70 16 150/50 H 96 10/30/16 06:45 10/30/16 07:00 10/30/16 06:45 10/30/16 06:45 10/30/16 06:45 Intake & Output 10/29/16 10/30/16 10/31/16 06:59 06:59 06:59 Intake Total 650 Balance 650 Exam: GENERAL: well-nourished and in no acute distress. Alert and oriented x3 HEAD: Atraumatic, normocephalic. EYES: Pupils equal round and reactive to light, extraocular movements intact, sclera anicteric, conjunctiva are normal. ENT: TMs normal, nares patent, oropharynx clear without exudates. Moist mucous membranes. No oral ulcerations or bleeding gums noted NECK: supple without lymphadenopathy. Trachea is central. No cervical or axillary lymphadenopathy noted. Carotids are 2+, JVD WNL LUNGS: Respiration seems nonlabored, no significant accessory muscle action noted. Breath sounds clear to auscultation bilaterally and equal noted. No wheezes rales or rhonchi noted. No significant dullness noted on percussion. CHEST: Palpation of the chest wall shows no significant chest wall tenderness. No other significant abnormalities noted. Pacemaker noted left side of chest. HEART: [place] [employer], No PSH, 1/6 FUENTES aortic area, 1/6 hernandez systolic murmur mitral area, no rubs, no gallops. ABDOMEN: Soft, no significant tenderness appreciated, normoactive bowel sounds. No guarding, no rebound. No rigidity noted . No masses appreciated. EXTREMITIES: Pedal pulses are 1-2+, no calf tenderness noted. No clubbing or cyanosis.trace to 1+ pedal edema noted NEUROLOGICAL: Focused neurological exam showed no significant neurologic deficit. Normal speech, no focal weakness appreciated. PSYCH: Normal mood, normal affect. Judgment and insight within normal limits. SKIN: No significant ecchymosis, rash, ulcerations or signs of pruritus noted. MUSCULOSKELETAL EXAM: No significant joint swelling noted. Results EKG Comments: Shows ventricular paced beats with underlying atrial fibrillation. Impressions: Hand X-Ray 10/29/16 22:34 IMPRESSION: Comminuted fractures of the distal left radius and ulnar diaphyses with mild impaction and lateral displacement.Dorsal hand soft tissue swelling - laceration. No radiopaque foreign body. Forearm X-Ray 10/30/16 01:27 IMPRESSION: Interval partial reduction -casting of left forearm, "both bone" fractures. Chest X-Ray 10/30/16 02:21 IMPRESSION: No acute cardiopulmonary findings. Status: Image reviewed by vt - Chest x-ray reviewed shows dual-chamber pacemaker , status post bypass surgery, no significant CHF noted Assessment & Plan - Diagnosis (1) Pre-operative cardiovascular examination Is this a current diagnosis for this admission?: Yes (2) CAD (coronary artery disease) Qualifiers: Coronary Disease-Associated Artery/Lesion type: craig artery [place] vs. transplanted heart: craig heart Associated angina: without angina Qualified Code(s): I25.10 - Atherosclerotic heart disease of craig coronary artery without angina pectoris Is this a current diagnosis for this admission?: Yes (3) CHF (congestive heart failure) Qualifiers: Congestive heart failure type: diastolic Congestive heart failure chronicity: chronic Qualified Code(s): I50.32 - Chronic diastolic ( congestive) heart failure Is this a current diagnosis for this admission?: Yes (4) Atrial fibrillation Qualifiers: Atrial fibrillation type: chronic Qualified Code(s): I48.2 - Chronic atrial fibrillation Is this a current diagnosis for this admission?: Yes (5) Forearm fracture Qualifiers: Encounter type: initial encounter Fracture type: closed Laterality : left Qualified Code(s): S52.92XA - Unspecified fracture of left forearm, initial encounter for closed fracture (6) Anticoagulated Is this a current diagnosis for this admission?: Yes (7) Renal failure Qualifiers: Renal failure chronicity: unspecified chronicity Qualified Code(s): N19 - Unspecified kidney failure Is this a current diagnosis for this admission?: Yes - Notes Notes: Preop cardiovascular examination: Patient has not had recent chest pain, shortness of breath. Patient has history of chronic atrial fibrillation. Patient had recent 2D echocardiogram and also nuclear stress test. These results were noted to be satisfactory without any significant ischemia being noted or significant valvular dysfunction or significant LV systolic dysfunction being noted. Patient therefore felt to be an acceptable surgical candidate for orthopedic surgery. CAD: Patient has CAD. Currently stable without any angina or angina equivalent symptoms. Discussed symptoms associated with unstable angina, acute coronary syndrome, myocardial infarction etc. continue with medical management. Congestive heart failure: Its chronic and felt to be compensated. Continue baseline diuretic therapy. Left forearm fracture: Patient for internal reduction and fixation under general anesthesia. Patient cleared for such as surgery. Atrial fibrillation: This is chronic patient was being treated with rate control and chronic anticoagulation. Currently anticoagulation on hold. Based on chads score, patient will benefit from continuation of chronic anticoagulation and it should be resumed as early as feasible from surgical standpoint. Chronic anticoagulation for atrial fibrillation: Currently on hold. Resume PENELOPE following surgery. Renal failure: This seems to be just mild renal dysfunction. Continue to observe. - Time Time Spent: 30 to 50 Minutes - CODE STATUS was discussed, patient remains full code. Surrogate decision-maker patient's daughter. Multiple medical problems were addressed. More than 50% of the time spent coordinating care, discussing management plans with involved caregivers. Management plans discussed with involved personnels. Medical decision making was of moderate to high complexity , patient's has multiple comorbidities. Medications reviewed and adjusted accordingly: Yes
--- NOTE | 2016-10-30 11:07 | Progress Note ---
Provider Note Provider Note: pt admitted earlier this morning after accident at home resulted in forearm fracture. she has siginificant cardiac history, followed by dr bernard, and is awaiting cardiology clearance for general anesthesia and orthopedic consult for surgical options. arm remains splinted and in sling from the ED. she continues to c/o sharp, stabbing pain on any movement of the arm, wrist or fingers radiating into her should, improved with rest in the sling and pain meds. she denies numbness or tingling of the fingers though they feel cool to the touch. she is alert and talkative, eating bfast when I arrived this morning and able to recall exact events that brought her to the hospital, daughter is at the bedside. she is breathing easily and lungs are clear to auscultation, cardio is irregular with soft murmur at left 2nd intercostal space, abd is soft and nontender, BLEs show no edema and no JVD, left arm in splint and sling, fingers are cool to the touch and ROM limited by exacerbating pain in the forearm, hand and wrist are swollen, couldnt reach radial artery to ck pulse due to splint, sluggish cap refill at the fingers. pt has an unstable radial and ulnar fracture and requires surgical intervention complicated by chronic and recent xarelto use and cardiac hx, awaiting cardiology and orthopedic surgery evaluation for surgical intervention.
--- NOTE | 2016-10-30 11:18 | Physician Advisory Note ---
Physician Advisor ProgressNote .: [facility] I have reviewed the medical [facility] for this patient. Physician Advisor Statement: Please document: 1. "ARF is ruled out", or document what findings support this dx. - Cr is WNL at 1.1, bicarb is high, not low, .... 2. "Acute hyponatremia, suspect due to ____" [intravascular volume depletion?] 3. Please document most likely type of CHF: "chronic ___ CHF" [syst? diastolic? both?] 4. "Anemia of acute blood loss, baseline Hgb= 13.5 on 07/02/16" (now 11.6) 5. Principal Dx - please document main dx requiring pt to come into hospital as Dx #1 in each note. Status: 85 yo with chronic CHF, persistent Afib on Xarelto, CAD w/past ID & CABG & pacer , HTN, HLD, hypothyroidism, GERD, suspected NIR came in w/Lt forearm fx.s that are displaced & not remaining reduced even with splinting in ED. ED physician reports need for operative repair. Her EKG is read as Afib w/ventricular pacing, multiple PVCs. Initial Hgb is 11.6, with baseline 13.5. ED physician ordered IVF @KVO only. Attending has ordered KCl, tele monitoring, consults to Ortho, Cardiology, & OT , f/u labs for 10/31, falls precautions, prn Tylenol & Ultram. Prior to surgery, she needs information tech eval for clearance. She has acute hyponatemia & hypokalemia, + evidence of respiratory acidosis which is consistent with suspected NIR. She also has shown recurrent hypoxemia as low as 86% on RA overnight, also consistent with NIR. NIR itself increases yuridia-op problems. This hypoxemia, as well as the stresses of surgery, in the setting of significant heart disease increase her risks for yuridia-operative cardiac morbidity/mortality. Her underlying arrythmia tendency is increased acutely due to electrolyte derangements. She has been on Xarelto, so her risks for worsening anemia of acute blood loss developing from fractures & associated bleeding/bruising are increased. Elevated BUN compared to Cr is consistent with intravascular volume depletion. Her CHF is at risk for acute exacerbation from any IVF given for above + IVF for surgery/anesthesia. She has already spent 1 night in hospital care, and is expected to require at least a 2nd MN of hospital care doing pre-op eval & optimizing, and doing closer than usual monitoring after surgery due to co-morbidities & risks for yuridia-op downturns as above. Appropriate for Inpt status. Thanks! CK
[2016-10-30 14:59] LABS: APPEARANCE,URINE CLEAR; BILIRUBIN,URINE NEGATIVE (NEGATIVE); GLUCOSE, URINE 50 mg/dL (NEGATIVE); KETONES,URINE NEGATIVE (NEGATIVE); LEUKOCYTE ESTERASE,URINE NEGATIVE (NEGATIVE); NITRITE,URINE NEGATIVE (NEGATIVE); PROTEIN,URINE NEGATIVE (NEGATIVE); URINE SPECIFIC GRAVITY 1.004; UROBILINOGEN,URINE NEGATIVE mg/dL (<2.0)
[2016-10-30] MEDS ORDERED: DEXTROSE 50%-WATER 25 GM/50 ML DISP.SYRIN IV PRN ×2 (17:27)
[2016-10-30] MEDS ORDERED: GLUCAGON,HUMAN RECOMB 1 MG INJ SUBCUT PRN (17:27)
[2016-10-30] MEDS ORDERED: DEXTROSE 40% GEL 15 GM TUBE PO PRN ×2 (17:27)
--- NOTE | 2016-10-30 17:27 | PDOC CONSULTATION ---
History of Present Illness Admission Date/PCP: 10/30/16 06:45 SANNA MANDUJANO MD History of Present Illness: EVGENY HUTCHINSON is a 85 year old female with wrist/forearm injury. Patient's storm door at her home closed on her left fingers and apparently became jammed, to the point where patient was not able to open the door and release her fingers. As she tried to extricate her fingers from the door, she felt a pop in her left forearm, with subsequent x-rays revealing the fractures. Patient underwent attempted closed reduction in the emergency room which should provide improved alignment but ultimately she was admitted for possible operative intervention. Currently patient states her pain is controlled she denies numbness or tingling. Does note coldness to the fingers. Current pain 6 /10 improved with pain medication. Past Medical History Cardiac Medical History: Reports: Atrial Fibrillation, Congestive Heart Failure , Coronary Artery Disease, Myocardial Infarction, Hyperlipidema, Hypertension Denies: DVT, Peripheral Vascular Disease, Pulmonary Embolism, Heart Murmur Pulmonary Medical History: Reports: Pneumonia, Sleep Apnea - Testing and near future Denies: Asthma, Bronchitis, Chronic Obstructive Pulmonary Disease (COPD), Respiratory Failure, Tuberculosis EENT Medical History: Reports: Eyes - Reading glasses, Other - Easy bruising Denies: Ears, Throat Neurological Medical History: Denies: Hemorrhagic CVA, Ischemic CVA, Seizures Endocrine Medical History: Reports: Hypothyroidism Denies: Diabetes Mellitus Type 1, Diabetes Mellitus Type 2, Hyperthyroidism Renal/ Medical History: Denies: End Stage Renal Disease Malignancy Medical History: Reports: Skin Cancer Denies: Breast Cancer, Cervical Cancer, Leukemia, Lung Cancer, Ovarian Cancer GI Medical History: Reports: Gastroesophageal Reflux Disease - Dysphagia Denies: Cirrhosis, Crohn's Disease, Hepatitis, Hiatal Hernia Musculoskeltal Medical History: Reports: Arthritis Denies: Fibromyalgia Psychiatric Medical History: Reports: Tobacco Dependency Denies: Alcohol Dependency, Depression, General Anxiety Disorder, Substance Abuse Hematology: Reports: Other - Easy bruising Denies: Anemia, Hemophilia, Sickle Cell Disease Infectious Medical History: Denies: Hepatitis B, Hepatitis C, HIV Past Surgical History Past Surgical History: Reports: Appendectomy, Coronary Artery Bypass Graft, Pacemaker Denies: Amputation, Section, Cholecystectomy, Colostomy, Gastric Bypass Surgery, Herniorrhaphy, Hysterectomy, Mastectomy, Tonsillectomy, Tubal Ligation Social History Lives with: Alone Smoking Status: Unknown if Ever Smoked - Dips snuff Frequency of Alcohol Use: None Hx Recreational Drug Use: No Drugs: None Hx Prescription Drug Abuse: No - Advance Directive Resuscitation Status: Full Code Family History Family History: CAD - Parents, Other - colon polyps in parents Parental Family History Reviewed: No Children Family History Reviewed: No Sibling(s) Family History Reviewed.: No Medication/Allergy Home Medications: Amlodipine Besylate [Norvasc 5 mg Tablet] 5 mg PO DAILY 10/30/16 Ciprofloxacin HCl [Cipro 500 mg Tablet] 500 mg PO BID 10/30/16 Docusate Sodium [Colace 100 mg Capsule] 100 mg PO DAILY 10/30/16 Folic Acid [Folvite 1 mg Tablet] 1 mg PO DAILY 10/30/16 Furosemide [Lasix] 80 mg PO DAILY 10/30/16 Isosorbide Mononitrate [Isosorbide Mononitrate ER] 30 mg PO DAILY 10/30/16 Levothyroxine Sodium [Synthroid 0.075 mg Tablet] 0.075 mg PO DAILY 10/30/16 Lisinopril [Prinivil 40 mg Tablet] 40 mg PO DAILY 10/30/16 Lorazepam [Ativan 1 mg Tablet] 1 mg PO DAILYP PRN 10/30/16 Metolazone [Zaroxolyn 2.5 Mg Tablet] 2.5 mg PO MOWEFR@1000 10/30/16 Metoprolol Succinate [Toprol XL 100 mg Tablet] 100 mg PO DAILY 10/30/16 Nitroglycerin [Nitrostat] 0.4 mg SL Q5MP PRN 10/30/16 Potassium Chloride [Klor-Con 10] 10 meq PO BID 10/30/16 Rivaroxaban [Xarelto] 20 mg PO WSUPPER 10/30/16 Rosuvastatin Calcium [Crestor 20 mg Tablet] 20 mg PO QHS 10/30/16 Tramadol HCl [Ultram 50 mg Tablet] 50 mg PO Q6HP PRN 10/30/16 Trazodone HCl [Desyrel 50 mg Tablet] 50 mg PO QHS 10/30/16 Allergies/Adverse Reactions: morphine [Morphine] Adverse Reaction (Severe, Verified 10/30/16 06:57) Abnormal behavior Review of Systems All systems: as per PMH Constitutional: ABSENT: chills, fever(s), headache(s), weight gain, weight loss Eyes: ABSENT: visual disturbances Ears: ABSENT: hearing changes Cardiovascular: PRESENT: other Respiratory: ABSENT: cough, hemoptysis Gastrointestinal: ABSENT: abdominal pain, constipation, diarrhea, hematemesis, hematochezia, nausea, vomiting Genitourinary: ABSENT: dysuria, hematuria Musculoskeletal: PRESENT: as per HPI Integumentary: ABSENT: rash, wounds Neurological: ABSENT: abnormal gait, abnormal speech, confusion, dizziness, focal weakness, syncope Psychiatric: ABSENT: anxiety, depression, homidical ideation, suicidal ideation Endocrine: ABSENT: cold intolerance, heat intolerance, menstrual abnormalities, polydipsia, polyuria Hematologic/Lymphatic: ABSENT: easy bleeding, easy bruising, lymphadenopathy Physical Exam Vital Signs: Temp Pulse Resp BP Pulse Ox 97.6 F 72 20 169/66 H 96 10/30/16 14:48 10/30/16 14:48 10/30/16 14:48 10/30/16 14:48 10/30/16 14:48 Intake & Output 10/29/16 10/30/16 10/31/16 06:59 06:59 06:59 Intake Total 650 Balance 650 General appearance: PRESENT: no acute distress, well-developed, well-nourished Head exam: PRESENT: atraumatic, normocephalic Eye exam: PRESENT: conjunctiva pink, EOMI, PERRLA. ABSENT: scleral icterus Ear exam: PRESENT: normal external ear exam Mouth exam: PRESENT: moist, tongue midline Neck exam: PRESENT: full ROM. ABSENT: carotid bruit, JVD, lymphadenopathy, thyromegaly Cardiovascular exam: PRESENT: irregular rhythm. ABSENT: diastolic murmur, rubs , systolic murmur Pulses: PRESENT: normal dorsalis pedis pul, +2 pedal pulses bilateral Vascular exam: PRESENT: normal capillary refill GI/Abdominal exam: PRESENT: normal bowel sounds, soft. ABSENT: distended, guarding, mass, organolmegaly, rebound, tenderness Rectal exam: PRESENT: deferred Musculoskeletal exam: PRESENT: other - Left upper extremity: Splint intact. Cap refill less than 2 seconds. No pain with passive stretch. EPL/FPL intact. 2 point discrimination 5 mm throughout median ulnar nerve distribution. Mild ecchymosis and swelling of the digits. Neurological exam: PRESENT: alert, awake, oriented to person, oriented to place , oriented to time, oriented to situation, CN II-XII grossly intact. ABSENT: motor sensory deficit Psychiatric exam: PRESENT: appropriate affect, normal mood. ABSENT: homicidal ideation, suicidal ideation Skin exam: PRESENT: dry, intact, warm. ABSENT: cyanosis, rash Results Laboratory Results: 10/30/16 14:30 Urine Color STRAW Urine Appearance CLEAR Urine pH 7.0 Ur Specific [place] 1.004 Urine Protein NEGATIVE Urine Glucose (UA) 50 H Urine Ketones NEGATIVE Urine Blood NEGATIVE Urine Nitrite NEGATIVE Ur Leukocyte Esterase NEGATIVE Urine WBC (Auto) 1 Impressions: Hand X-Ray 10/29/16 22:34 IMPRESSION: Comminuted fractures of the distal left radius and ulnar diaphyses with mild impaction and lateral displacement.Dorsal hand soft tissue swelling - laceration. No radiopaque foreign body. Forearm X-Ray 10/30/16 01:27 IMPRESSION: Interval partial reduction -casting of left forearm, "both bone" fractures. Chest X-Ray 10/30/16 02:21 IMPRESSION: No acute cardiopulmonary findings. Status: Image reviewed by me - Multiple views of the left forearm: Study demonstrates comminuted fracture of the radial and ulnar shaft with notable angulation and displacement. Assessment & Plan - Diagnosis (1) Fx radius/ulna shaft-closed Is this a current diagnosis for this admission?: YesPlan: I have discussed the case with Dr. Camacho and Dr. Richardson who feel patient is medically optimized for operative intervention. Will stop patient's Xarelto. Plan will be to proceed with operative intervention given the amount of displacement and location. This includes open reduction internal fixation left radial/ulnar shaft fractures. We have discussed with the patient the alternatives for further care of this condition. They desire to proceed with surgical intervention. I explained to them the nature of the operation to be performed and the expected postoperative course. The possibility of complications is explained and these could involve anesthetic complications, excessive bleeding, infection, injury to surrounding nerves, vessels and tendons , bruising, healing difficulties, scar formation, posttraumatic arthritis and failure to relieve symptoms. The patient expresses the desire to proceed with the operation.
[2016-10-30] MEDS: TRAZODONE HCL 50 MG TABLET PO SCH (21:36)
[2016-10-30] MEDS: POTASSIUM CHLORIDE 10 MEQ TABLET.SA PO SCH (21:36)
[2016-10-30 23:12] LABS: ANION GAP 8 (5-19); BLOOD UREA NITROGEN 23 mg/dL (7-20); CALCIUM 9.4 mg/dL (8.4-10.2); CARBON DIOXIDE 32 mmol/L (22-30); CHLORIDE 93 mmol/L (98-107); CREATININE RESULT 0.86 mg/dL (0.52-1.25); GLUCOSE 129 mg/dL (75-110); POTASSIUM 3.5 mmol/L (3.6-5.0); SODIUM 133.3 mmol/L (137-145)
[2016-10-31] MEDS ORDERED: POTASSI CL 20 MEQ/50 ML RIDER 20 MEQ/50 ML RTUPB IV ONE (00:30)
[2016-10-31] MEDS: POTASSI CL 20 MEQ/NS 1L 1,000 ML IV PRN ×2 (04:07→16:29)
[2016-10-31 05:36] LABS: ABSOLUTE EOSINOPHILS # (AUTO) 0.2 10^3/uL (0.0-0.6); ABSOLUTE LYMPHOCYTES (AUTO) 1.6 10^3/uL (0.5-4.7); ABSOLUTE MONOCYTES (AUTO) 0.9 10^3/uL (0.1-1.4); ABSOLUTE NEUT (AUTO) 5.6 10^3/uL (1.7-8.2); BASOPHILS % (AUTO) 0.5 % (0-2); HEMATOCRIT 32.5 % (36.0-47.0); HEMOGLOBIN 11.5 g/dL (12.0-15.5); LYMPHOCYTES % (AUTO) 18.9 % (13-45); MEAN CORPUSCULAR HEMOGLOBIN 31.8 pg (27.0-33.4); MEAN CORPUSCULAR HGB CONC 35.3 g/dL (32.0-36.0); MEAN CORPUSCULAR VOLUME 90 fl (80-97); MONOCYTES % (AUTO) 11.3 % (3-13); RED BLOOD COUNT 3.61 10^6/uL (3.72-5.28); RED CELL DISTRIBUTION WIDTH 16.1 % (11.5-14.0); SEGMENTED NEUTROPHILS % (AUTO) 66.3 % (42-78); WHITE BLOOD COUNT 8.4 10^3/uL (4.0-10.5)
[2016-10-31 05:45] LABS: PROTHROMBIN TIME 16.2 SEC (11.4-15.4)
[2016-10-31 05:52] LABS: ANION GAP 6 (5-19); BLOOD UREA NITROGEN 18 mg/dL (7-20); CALCIUM 9.5 mg/dL (8.4-10.2); CARBON DIOXIDE 32 mmol/L (22-30); CHLORIDE 98 mmol/L (98-107); CREATININE RESULT 0.77 mg/dL (0.52-1.25); GLUCOSE 94 mg/dL (75-110); POTASSIUM 3.9 mmol/L (3.6-5.0); SODIUM 136.3 mmol/L (137-145)
[2016-10-31] MEDS ORDERED: LIDOCAINE 2% INJ-PF (20 MG/ML) 10 ML AMPUL ONE (08:55)
[2016-10-31] MEDS ORDERED: DEXAMETHASONE SOD PHOSPHATE INJ 4 MG/1 ML VIAL ONE (08:55)
[2016-10-31] MEDS ORDERED: ONDANSETRON HCL INJ/PF 4 MG/2 ML SDV ONE (08:55)
[2016-10-31] MEDS ORDERED: SUCCINYLCHOLINE CHLORIDE INJ 200 MG/10 ML VIAL ONE (08:55)
[2016-10-31] MEDS: DOCUSATE SODIUM 100 MG CAPSULE PO SCH ×2 (09:51→18:10)
[2016-10-31] MEDS: ISOSORBIDE MONONITRATE 30 MG TAB.ER.24H PO SCH (09:51)
[2016-10-31] MEDS: LEVOTHYROXINE SODIUM 0.075 MG TABLET PO SCH (09:53)
[2016-10-31] MEDS: POTASSIUM CHLORIDE 10 MEQ TABLET.SA PO SCH ×2 (09:53→22:24)
[2016-10-31] MEDS: METOPROLOL SUCCINATE 50 MG TAB.SR.24H PO SCH (09:53)
--- NOTE | 2016-10-31 10:59 | PDOC PROGRESS REPORT ---
Subjective Progress Note for:: 10/31/16 Subjective:: Patient seen on morning rounds. She is presently n.p.o. awaiting surgery on her left wrist later this morning. She denies any chest pain, shortness of breath or dyspnea. She denies any nausea, vomiting or abdominal pain. She has been cleared by cardiology from their standpoint for surgery. She continues to complain of some mild to moderate pain in the left wrist which improves with pain medication. Remaining review of systems is negative. Physical Exam Vital Signs: Temp Pulse Resp BP Pulse Ox 98.4 F 71 18 161/56 H 92 10/31/16 07:41 10/31/16 07:41 10/31/16 07:41 10/31/16 07:41 10/31/16 07:41 Intake & Output 10/30/16 10/31/16 11/01/16 06:59 06:59 06:59 Intake Total 1810 Output Total 200 Balance 1610 Weight 86.6 kg General appearance: PRESENT: no acute distress, well-developed, well-nourished Head exam: PRESENT: atraumatic, normocephalic Eye exam: PRESENT: conjunctiva pink, EOMI, PERRLA. ABSENT: scleral icterus Ear exam: PRESENT: normal external ear exam Mouth exam: PRESENT: moist, tongue midline Neck exam: ABSENT: carotid bruit, JVD, lymphadenopathy, thyromegaly Respiratory exam: PRESENT: clear to auscultation vaishnavi. ABSENT: rales, rhonchi, wheezes Cardiovascular exam: PRESENT: irregular rhythm, +S1, +S2, systolic murmur Pulses: PRESENT: normal dorsalis pedis pul Vascular exam: PRESENT: normal capillary refill GI/Abdominal exam: PRESENT: normal bowel sounds, soft. ABSENT: distended, guarding, mass, organolmegaly, rebound, tenderness Rectal exam: PRESENT: deferred Extremities exam: PRESENT: full ROM. ABSENT: calf tenderness, clubbing, pedal edema Musculoskeletal exam: PRESENT: ambulatory, tenderness, other - Left wrist splinted and in a sling Neurological exam: PRESENT: alert, awake, oriented to person, oriented to place , oriented to time, oriented to situation, CN II-XII grossly intact, normal gait. ABSENT: motor sensory deficit Psychiatric exam: PRESENT: appropriate affect, normal mood. ABSENT: homicidal ideation, suicidal ideation Skin exam: PRESENT: dry, intact, warm. ABSENT: cyanosis, rash Results Laboratory Results: 10/31/16 05:01 10/31/16 05:01 10/30/16 10/30/16 10/31/16 14:30 22:50 05:01 WBC 8.4 RBC 3.61 L Hgb 11.5 L Hct 32.5 L MCV 90 MCH 31.8 MCHC 35.3 RDW 16.1 H Plt Count 178 Seg Neutrophils % 66.3 Lymphocytes % 18.9 Monocytes % 11.3 Eosinophils % 3.0 Basophils % 0.5 Absolute Neutrophils 5.6 Absolute Lymphocytes 1.6 Absolute Monocytes 0.9 Absolute Eosinophils 0.2 Absolute Basophils 0.0 Sodium 133.3 L Potassium 3.5 L Chloride 93 L Carbon Dioxide 32 H Anion Gap 8 BUN 23 H Creatinine 0.86 Est GFR ( Amer) > 60 Est GFR (Non-Af Amer) > 60 Glucose 129 H Calcium 9.4 Urine Color STRAW Urine Appearance CLEAR Urine pH 7.0 Ur Specific [place] 1.004 Urine Protein NEGATIVE Urine Glucose (UA) 50 H Urine Ketones NEGATIVE Urine Blood NEGATIVE Urine Nitrite NEGATIVE Ur Leukocyte Esterase NEGATIVE Urine WBC (Auto) 1 10/31/16 05:01 WBC RBC Hgb Hct MCV MCH MCHC RDW Plt Count Seg Neutrophils % Lymphocytes % Monocytes % Eosinophils % Basophils % Absolute Neutrophils Absolute Lymphocytes Absolute Monocytes Absolute Eosinophils Absolute Basophils Sodium 136.3 L Potassium 3.9 Chloride 98 Carbon Dioxide 32 H Anion Gap 6 BUN 18 Creatinine 0.77 Est GFR ( Amer) > 60 Est GFR (Non-Af Amer) > 60 Glucose 94 Calcium 9.5 Urine Color Urine Appearance Urine pH Ur Specific [place] Urine Protein Urine Glucose (UA) Urine Ketones Urine Blood Urine Nitrite Ur Leukocyte Esterase Urine WBC (Auto) Impressions: Hand X-Ray 10/29/16 22:34 IMPRESSION: Comminuted fractures of the distal left radius and ulnar diaphyses with mild impaction and lateral displacement.Dorsal hand soft tissue swelling - laceration. No radiopaque foreign body. Forearm X-Ray 10/30/16 01:27 IMPRESSION: Interval partial reduction -casting of left forearm, "both bone" fractures. Chest X-Ray 10/30/16 02:21 IMPRESSION: No acute cardiopulmonary findings. Assessment & Plan - Diagnosis (1) Fx radius/ulna shaft-closed Is this a current diagnosis for this admission?: YesPlan: Plan for surgery today with Dr Kee (2) Anticoagulated Is this a current diagnosis for this admission?: YesPlan: Xarelto is on hold for surgery (3) Atrial fibrillation Qualifiers: Atrial fibrillation type: chronic Qualified Code(s): I48.2 - Chronic atrial fibrillation Is this a current diagnosis for this admission?: YesPlan: Rate controlled on xarelto which is on hold at the present time (4) Hyponatremia Is this a current diagnosis for this admission?: YesPlan: Improved with hydration (5) Hypokalemia Is this a current diagnosis for this admission?: YesPlan: Normal today, repleted (6) CAD (coronary artery disease) Qualifiers: Coronary Disease-Associated Artery/Lesion type: [place] artery [place] vs. transplanted heart: [place] heart Associated angina: without angina Qualified Code(s): I25.10 - Atherosclerotic heart disease of [place] coronary artery without angina pectoris Is this a current diagnosis for this admission?: Yes - Time Time Spent with patient: 25-34 minutes Critical Time spent with patient: 15-24 minutes Medications reviewed and adjusted accordingly: Yes Anticipated discharge: Home with Homehealth
--- NOTE | 2016-10-31 14:09 | PDOC PROGRESS REPORT ---
Subjective Progress Note for:: 10/31/16 Subjective:: Patient seems to be doing better with gradual improvement. Pt is denying any chest arm or neck discomfort. Patient denying any PND, orthopnea. Patient denied any sustained palpitations, dizziness, syncope, near syncope. Patient denying any fever chills. Patient denying any other significant discomfort. Patient is maintaining atrial fibrillation. Previous cardiac evaluation including a recent nuclear stress test results were reviewed. This was negative for ischemia. 2D echo shows normal LVEF.. Review of systems: Rest review of systems negative. Medications: Medications have been reviewed. Physical Exam Vital Signs: Temp Pulse Resp BP Pulse Ox 99.1 F 72 94 H 130/60 H 94 10/31/16 13:34 10/31/16 13:34 10/31/16 13:34 10/31/16 13:34 10/31/16 13:34 Intake & Output 10/30/16 10/31/16 11/01/16 06:59 06:59 06:59 Intake Total 1810 Output Total 200 Balance 1610 Weight 86.6 kg Exam: GENERAL: well-nourished and in no acute distress. Alert and oriented x3 HEAD: Atraumatic, normocephalic. EYES: Pupils equal round and reactive to light, extraocular movements intact, sclera anicteric, conjunctiva are normal. ENT: TMs normal, nares patent, oropharynx clear without exudates. Moist mucous membranes. No oral ulcerations or bleeding gums noted NECK: supple without lymphadenopathy. Trachea is central. No cervical or axillary lymphadenopathy noted. Carotids are 2+, JVD WNL LUNGS: Respiration seems nonlabored, no significant accessory muscle action noted. Breath sounds clear to auscultation bilaterally and equal noted. No wheezes rales or rhonchi noted. No significant dullness noted on percussion. CHEST: Palpation of the chest wall shows no significant chest wall tenderness. No other significant abnormalities noted. HEART: [place] [employer], No PSH, 1/6 FUENTES aortic area, 1/6 hernandez systolic murmur mitral area, no rubs, no gallops. ABDOMEN: Soft, no significant tenderness appreciated, normoactive bowel sounds. No guarding, no rebound. No rigidity noted . No masses appreciated. EXTREMITIES: Pedal pulses are 1-2+, no calf tenderness noted. No clubbing or cyanosis.trace to 1+ pedal edema noted NEUROLOGICAL: Focused neurological exam showed no significant neurologic deficit. Normal speech, no focal weakness appreciated. PSYCH: Normal mood, normal affect. Judgment and insight within normal limits. SKIN: No significant ecchymosis, rash, ulcerations or signs of pruritus noted. MUSCULOSKELETAL EXAM: No significant joint swelling noted. Fracture left forearm currently in sling. Results Laboratory Results: 10/31/16 05:01 10/31/16 05:01 10/30/16 10/30/16 10/31/16 14:30 22:50 05:01 WBC 8.4 RBC 3.61 L Hgb 11.5 L Hct 32.5 L MCV 90 MCH 31.8 MCHC 35.3 RDW 16.1 H Plt Count 178 Seg Neutrophils % 66.3 Lymphocytes % 18.9 Monocytes % 11.3 Eosinophils % 3.0 Basophils % 0.5 Absolute Neutrophils 5.6 Absolute Lymphocytes 1.6 Absolute Monocytes 0.9 Absolute Eosinophils 0.2 Absolute Basophils 0.0 Sodium 133.3 L Potassium 3.5 L Chloride 93 L Carbon Dioxide 32 H Anion Gap 8 BUN 23 H Creatinine 0.86 Est GFR ( Amer) > 60 Est GFR (Non-Af Amer) > 60 Glucose 129 H Calcium 9.4 Urine Color STRAW Urine Appearance CLEAR Urine pH 7.0 Ur Specific [place] 1.004 Urine Protein NEGATIVE Urine Glucose (UA) 50 H Urine Ketones NEGATIVE Urine Blood NEGATIVE Urine Nitrite NEGATIVE Ur Leukocyte Esterase NEGATIVE Urine WBC (Auto) 1 10/31/16 05:01 WBC RBC Hgb Hct MCV MCH MCHC RDW Plt Count Seg Neutrophils % Lymphocytes % Monocytes % Eosinophils % Basophils % Absolute Neutrophils Absolute Lymphocytes Absolute Monocytes Absolute Eosinophils Absolute Basophils Sodium 136.3 L Potassium 3.9 Chloride 98 Carbon Dioxide 32 H Anion Gap 6 BUN 18 Creatinine 0.77 Est GFR ( Amer) > 60 Est GFR (Non-Af Amer) > 60 Glucose 94 Calcium 9.5 Urine Color Urine Appearance Urine pH Ur Specific [place] Urine Protein Urine Glucose (UA) Urine Ketones Urine Blood Urine Nitrite Ur Leukocyte Esterase Urine WBC (Auto) EKG Comments: Telemetry strips shows atrial fibrillation, intermittent ventricular paced beats , no sustained tachycardia or bradycardia arrhythmias noted Impressions: Hand X-Ray 10/29/16 22:34 IMPRESSION: Comminuted fractures of the distal left radius and ulnar diaphyses with mild impaction and lateral displacement.Dorsal hand soft tissue swelling - laceration. No radiopaque foreign body. Forearm X-Ray 10/30/16 01:27 IMPRESSION: Interval partial reduction -casting of left forearm, "both bone" fractures. Chest X-Ray 10/30/16 02:21 IMPRESSION: No acute cardiopulmonary findings. Assessment & Plan - Diagnosis (1) Pre-operative cardiovascular examination Is this a current diagnosis for this admission?: Yes (2) CAD (coronary artery disease) Qualifiers: Coronary Disease-Associated Artery/Lesion type: [place] artery [place] vs. transplanted heart: [place] heart Associated angina: without angina Qualified Code(s): I25.10 - Atherosclerotic heart disease of [place] coronary artery without angina pectoris Is this a current diagnosis for this admission?: Yes (3) CHF (congestive heart failure) Qualifiers: Congestive heart failure type: diastolic Congestive heart failure chronicity: chronic Qualified Code(s): I50.32 - Chronic diastolic ( congestive) heart failure Is this a current diagnosis for this admission?: Yes (4) Atrial fibrillation Qualifiers: Atrial fibrillation type: chronic Qualified Code(s): I48.2 - Chronic atrial fibrillation Is this a current diagnosis for this admission?: Yes (5) Forearm fracture Qualifiers: Encounter type: initial encounter Fracture type: closed Laterality : left Qualified Code(s): S52.92XA - Unspecified fracture of left forearm, initial encounter for closed fracture (6) Anticoagulated Is this a current diagnosis for this admission?: Yes (7) Renal failure Qualifiers: Renal failure chronicity: unspecified chronicity Qualified Code(s): N19 - Unspecified kidney failure Is this a current diagnosis for this admission?: Yes (8) Cardiac pacemaker in situ Is this a current diagnosis for this admission?: Yes - Notes Notes: Preop cardiovascular examination: Patient cleared for surgery. This was related to Dr. Kee yesterday. Patient had recent 2D echocardiogram and also nuclear stress test. These results were noted to be satisfactory without any ischemia being noted or significant valvular dysfunction or significant LV systolic dysfunction being noted. Patient therefore felt to be an acceptable surgical candidate for orthopedic surgery. CAD: Patient has CAD. Currently stable without any angina or angina equivalent symptoms. Discussed symptoms associated with unstable angina, acute coronary syndrome, myocardial infarction etc. continue with medical management. Congestive heart failure: Its chronic and felt to be compensated. Continue baseline diuretic therapy. Left forearm fracture: Patient for internal reduction and fixation under general anesthesia. Patient cleared for such as surgery. Atrial fibrillation: This is chronic patient was being treated with rate control and chronic anticoagulation. Currently anticoagulation on hold. Based on chads score, patient will benefit from continuation of chronic anticoagulation and it should be resumed as early as feasible from surgical standpoint. Chronic anticoagulation for atrial fibrillation: Currently on hold. Resume PENELOPE following surgery. Status post pacemaker placement: Telemetry strips reviewed showed normal sensing and pacing function of the pacemaker. Renal failure: This seems to be just mild renal dysfunction. Continue to observe. - Time Time with patient: 15-25 minutes - CODE STATUS was discussed, patient remains full code. Surrogate decision-maker patient spouse. Multiple medical problems were addressed. More than 50% of the time spent coordinating care, discussing management plans with involved caregivers. Management plans discussed with involved personnels. Medical decision making was of moderate to high complexity , patient's has multiple comorbidities. Medications reviewed and adjusted accordingly: Yes
[2016-10-31] MEDS ORDERED: BUPIVACAINE HCL 0.5 % INJ/PF 30 ML SDV ONE (14:11)
[2016-10-31] MEDS ORDERED: FENTANYL CITRATE INJ/PF 100 MCG/2 ML AMPUL ONE (17:58)
[2016-10-31] MEDS ORDERED: HYDROMORPHONE HCL INJ/PF 2 MG/ML AMPULE ONE (17:58)
[2016-10-31] MEDS ORDERED: MIDAZOLAM 2 MG/2 ML INJ ONE (17:58)
[2016-10-31] MEDS ORDERED: EPHEDRINE SULFATE INJ 50 MG/1 ML AMPULE ONE (17:59)
[2016-10-31] MEDS ORDERED: PROPOFOL INJ 200 MG/20 ML VIAL IV ONE (17:59)
[2016-10-31] MEDS ORDERED: CEFAZOLIN INJ 1 GM VIAL ONE (18:00)
[2016-10-31] MEDS ORDERED: DIPHENHYDRAMINE HCL 50 MG/ML VIAL IV PRN (19:00)
[2016-10-31] MEDS ORDERED: FENTANYL CITRATE INJ/PF 100 MCG/2 ML AMPUL IV PRN ×3 (19:00)
[2016-10-31] MEDS ORDERED: PROMETHAZINE HCL INJ 25 MG/1 ML VIAL IV PRN (19:00)
[2016-10-31] MEDS ORDERED: MEPERIDINE HCL/PF INJ 25 MG/1 ML DISP.SYRIN IV PRN (19:00)
[2016-10-31] MEDS ORDERED: ONDANSETRON HCL INJ/PF 4 MG/2 ML SDV IV PRN (19:00)
[2016-10-31] MEDS ORDERED: BUPIVACAINE HCL 0.5 % INJ/PF 30 ML SDV INJ ONE (20:31)
--- NOTE | 2016-10-31 20:37 | Operative Report ---
Operative Report DATE OF SURGERY: 10/31/16 PREOPERATIVE DIAGNOSIS: LEFT radial/ulnar shaft fracture POSTOPERATIVE DIAGNOSIS: Same OPERATION: Open reduction internal fixation left radial/ulnar shaft fracture SURGEON: DEYANIRA DAIGLE ANESTHESIA: GA COMPLICATIONS: None ESTIMATED BLOOD LOSS: Minimal PROCEDURE: Indication for above procedure: 85-year-old female who presented to the emergency room after sustaining an injury when her arm got stuck in a screen door. She ultimately sustained a fall x-rays demonstrated radial and ulnar shaft fractures. At that point closed reduction was attempted in the emergency room but the fracture was unstable and she was subsequently admitted to the internal medicine service. Upon consultation I discussed treatment options including operative versus nonoperative intervention given the unstable fracture pattern I felt patient would benefit from open reduction internal fixation. Risks and benefits were explained she verbalized understanding consented for the procedure. Procedure In Detail: Patient was seen and evaluated in the preoperative holding area. The LEFT upper extremity was initialized and marked. Patient received 2g of Ancef IV for bacterial prophylaxis. Patient was taken back to the operative room where transferred to the operative table and placed under general anesthesia. Once they were adequately anesthetized a nonsterile tourniquet was placed on the upper extremity. A surgical team debriefing was performed ensuring all instrumentation was available, the surgical procedure was discussed with possible concerns reviewed. The upper extremity was prepped with chlorhexidine and alcohol and draped in a sterile fashion. A timeout was done identifying correct patient, procedure and extremity everyone in attendance agree with this and verbalized no concerns. The extremity was exsanguinated the tourniquet was inflated to 250 mmHg. Utilizing volar Jaime approach a long skin incision was made just radial to the FCR tendon. Blunt dissection was performed the radial artery was retracted in a radial direction I continue to follow the FCR tendon opening the FCR tendon sheath. This was then retracted in a ulnar direction the flexor tendons and FPL were identified and retracted as well. I then elevated the pronator quadratus exposing the distal radius. Proximal to the pronator quadratus was the fracture site there is significant comminution. Given the patient's age and high risk for distal radius fracture I felt she would be better served with internal fixation which included protecting the distal radius with plating to avoid postoperative prosthetic fracture. Thus a long [place] [employer] plate was selected. The fracture was reduced and the plate secured onto the bone proximally and distally. C-arm fluoroscopy was obtained demonstrating acceptable reduction of the fracture site and appropriate placement of the plate proximally and distally. I then drilled the oblong hole proximal and distal to the fracture site. The plate was then shifted slightly more distally to improve the contour and avoid tendon irritation. Simultaneously while advancing the plate distally the fracture site was compressed. C-arm fluoroscopy was once again obtained demonstrating acceptable reduction of the radial shaft fracture and appropriate placement of the plate. To further secure the plate distally a reduction tenaculum brought the plate flat down into the distal radius. I then further provide compression with a 24 mm bicortical screw this was later switched out for an 18 mm locking screw. Distal fixation was completed with locking screws and intermittent cortex screws were placed into the shaft, distal to the fracture site. Shaft proximal and was fixated with an additional 3 bicortical locking screws and a cortex screw was placed. C-arm fluoroscopy was then obtained demonstrating appropriate placement of the plate with acceptable reduction of the fracture. Wound was irrigated with normal saline. Then turned my attention to fixation of the distal ulna. Longitudinal skin incision was made centered over the fracture site at the interval of the FCU and ECU tendons. Dorsal branch of the ulnar nerve was retracted dorsally the interval between the FCU and ECU was then split sharply exposing the fracture. There was significant comminution of the fracture and thus interfragmentary compression would not be possible. Furthermore the fracture was slightly distal and there is no plate configuration that would allow fixation distally enough to allow 6 cortices of fixation and simultaneously avoiding the DRUJ. A Eamon one third tubular plate was placed volarly to avoid postoperative irritation. It was secured proximally and distally with reduction tenaculums. C-arm fluoroscopy was obtained demonstrating appropriate reduction of the fracture and placement of the plate. The fracture was first fixated proximally with bicortical fixation. I then fixated distally with bicortical fixation which was switched out for locking screws 2. Fixation was then completed proximally with cortex and locking screws. C-arm fluoroscopy was obtained demonstrating acceptable reduction of the ulnar shaft fracture. Plate was at the appropriate height to avoid DRUJ irritation. There is no crepitus or limitation with pronation or supination. The wound was then copiously irrigated with normal saline. The pronator quadratus was closed with 4-0 Monocryl suture. Subcutaneous tissues were closed with 4-0 Monocryl suture skin was closed with running horizontal mattress 4-0 nylon. 30 cc of 0.5% Marcaine without epinephrine was injected for postoperative pain control. Wound was dressed with Xeroform 4 x 4's and patient was placed in a volar and dorsal plaster splint. Tourniquet was deflated. Patient had good peripheral perfusion and normal capillary refill. Sponge counts, instrument counts, needle counts counts were correct. Patient was then awoken from anesthesia. Transferred from the operating room table to the operating room stretcher. There was no intraoperative complications patient tolerated procedure well stable to PACU. Postoperative plan: Patient will follow in the office in 10-14 days. At that point she will be transitioned to a thermoplastic forearm splint and occupational therapy. We will obtain radiographs at follow-up visit.
--- NOTE | 2016-10-31 20:37 | RADIOLOGY REPORT (SQ) ---
EXAM DESCRIPTION: NO CHG FLUORO COMPLETE DATE/TIME: 10/31/2016 8:29 pm REASON FOR STUDY: ORIF LT WRIST FINDINGS: Please see combined report for performance of procedure and radiologic supervision and int erpretation. IMPRESSION: Please see combined report for performance of procedure and radiologic supervision and i nterpretation.
--- NOTE | 2016-10-31 20:37 | RADIOLOGY REPORT (SQ) ---
EXAM DESCRIPTION: WRIST LEFT 2 VIEWS COMPLETED DATE/TIME: 10/31/2016 8:29 pm REASON FOR STUDY: ORIF LT WRIST COMPARISON: None. FLUOROSCOPY TIME: 57 seconds 10 images saved to PACS. TECHNIQUE: Intra-operative images acquired during surgical procedure to evaluate progress. NUMBER OF IMAGES: 10 images LIMITATIONS: None. FINDINGS: Fluoroscopic images were obtained during placement of orthopedic hardware in the distal ul na and radius. IMPRESSION: IMAGE(S) OBTAINED DURING PROCEDURE. COMMENT: Quality ID [id number]: Final reports for procedures using fluoroscopy that document radiation exp osure indices, or exposure time and number of fluorographic images (if radiation exposure indices are not available) Please consult full operative report of the attending physician for description of the procedure. TECHNICAL DOCUMENTATION: JOB ID: [id number] [employer]- All Rights Reserved
[2016-10-31] MEDS: TRAZODONE HCL 50 MG TABLET PO SCH (22:24)
[2016-10-31] MEDS ORDERED: LORAZEPAM INJ 2 MG/1 ML VIAL ONE (23:27)
[2016-10-31] MEDS ORDERED: LORAZEPAM INJ 2 MG/1 ML VIAL IV PRN (23:34)
[2016-10-31] MEDS ORDERED: LORAZEPAM INJ 2 MG/1 ML VIAL IV ONE (23:45)
[2016-11-01] MEDS: POTASSI CL 20 MEQ/NS 1L 1,000 ML IV PRN (02:35)
[2016-11-01] MEDS ORDERED: HALOPERIDOL LACTATE INJ 5 MG/1 ML VIAL IV PRN (09:53)
[2016-11-01] MEDS: DOCUSATE SODIUM 100 MG CAPSULE PO SCH ×2 (10:09→17:14)
[2016-11-01] MEDS: LEVOTHYROXINE SODIUM 0.075 MG TABLET PO SCH (10:09)
[2016-11-01] MEDS: ISOSORBIDE MONONITRATE 30 MG TAB.ER.24H PO SCH (10:09)
[2016-11-01] MEDS: POTASSIUM CHLORIDE 10 MEQ TABLET.SA PO SCH (10:10)
[2016-11-01] MEDS: METOPROLOL SUCCINATE 50 MG TAB.SR.24H PO SCH (10:10)
--- NOTE | 2016-11-01 11:00 | PDOC PROGRESS REPORT ---
Subjective Progress Note for:: 11/01/16 Subjective:: Patient is noted to be confused and hallucinating. Patient thinks someone has placed arsenic in her food. Pt is denying any chest arm or neck discomfort. Patient denying any PND, orthopnea. Patient denied any sustained palpitations, dizziness, syncope, near syncope. Patient denying any fever chills. Patient denying any other significant discomfort. Patient is maintaining atrial fibrillation. Medications: Medications have been reviewed. Physical Exam Vital Signs: Temp Pulse Resp BP Pulse Ox 99.2 F 90 17 149/90 H 97 11/01/16 08:16 11/01/16 08:16 11/01/16 08:16 11/01/16 08:16 11/01/16 09:06 Intake & Output 10/31/16 11/01/16 11/02/16 06:59 06:59 06:59 Intake Total 1810 3390 Output Total 200 25 Balance 1610 3365 Weight 86.6 kg Exam: GENERAL: well-nourished and in no acute distress. Patient is alert but not oriented to place time. Patient seems oriented to person. She is clearly however confused and hallucinating. HEAD: Atraumatic, normocephalic. EYES: Pupils equal round and reactive to light, extraocular movements intact, sclera anicteric, conjunctiva are normal. ENT: TMs normal, nares patent, oropharynx clear without exudates. Moist mucous membranes. No oral ulcerations or bleeding gums noted NECK: supple without lymphadenopathy or JVD. Trachea is central. No cervical or axillary lymphadenopathy noted. Carotids are 2+ LUNGS: Breath sounds bibasilar fine crackles at bases. No significant dullness noted. CHEST: Palpation of chest wall shows no significant chest wall tenderness. HEART: [place] [employer], No PSH, 2/6 FUENTES aortic area, 1/6 hernandez systolic murmur mitral area, rubs or gallops. ABDOMEN: Soft, no significant tenderness appreciated, normoactive bowel sounds. No guarding, no rebound. No rigidity noted . No masses appreciated. EXTREMITIES: Pedal pulses are 1-2+, no calf tenderness noted, Trace + pedal edema noted. No clubbing or cyanosis. NEUROLOGICAL: Patient is alert but is not able to participate in neurological exam because of patient's current mental status PSYCH: Patient cannot participate in a neurologic and psych exam because of the patient's current mental status SKIN: No significant ecchymosis, rash, ulcerations or signs of pruritus noted. MUSCULOSKELETAL EXAM: No significant joint swelling noted. Left arm is status post surgery and is covered up in bandage and also in a sling. Results Laboratory Results: 10/31/16 05:01 10/31/16 05:01 Impressions: Hand X-Ray 10/29/16 22:34 IMPRESSION: Comminuted fractures of the distal left radius and ulnar diaphyses with mild impaction and lateral displacement.Dorsal hand soft tissue swelling - laceration. No radiopaque foreign body. Forearm X-Ray 10/30/16 01:27 IMPRESSION: Interval partial reduction -casting of left forearm, "both bone" fractures. Chest X-Ray 10/30/16 02:21 IMPRESSION: No acute cardiopulmonary findings. Fluoroscopy 10/31/16 00:00 IMPRESSION: Please see combined report for performance of procedure and radiologic supervision and interpretation. Wrist X-Ray 10/31/16 00:00 IMPRESSION: IMAGE(S) OBTAINED DURING PROCEDURE. Assessment & Plan - Diagnosis (1) Confusion and disorientation Is this a current diagnosis for this admission?: Yes (2) CAD (coronary artery disease) Qualifiers: Coronary Disease-Associated Artery/Lesion type: [place] artery [place] vs. transplanted heart: [place] heart Associated angina: without angina Qualified Code(s): I25.10 - Atherosclerotic heart disease of [place] coronary artery without angina pectoris Is this a current diagnosis for this admission?: Yes (3) CHF (congestive heart failure) Qualifiers: Congestive heart failure type: diastolic Congestive heart failure chronicity: chronic Qualified Code(s): I50.32 - Chronic diastolic ( congestive) heart failure Is this a current diagnosis for this admission?: Yes (4) Atrial fibrillation Qualifiers: Atrial fibrillation type: chronic Qualified Code(s): I48.2 - Chronic atrial fibrillation Is this a current diagnosis for this admission?: Yes (5) Forearm fracture Qualifiers: Encounter type: initial encounter Fracture type: closed Laterality : left Qualified Code(s): S52.92XA - Unspecified fracture of left forearm, initial encounter for closed fracture (6) Anticoagulated Is this a current diagnosis for this admission?: Yes (7) Renal failure Qualifiers: Renal failure chronicity: unspecified chronicity Qualified Code(s): N19 - Unspecified kidney failure Is this a current diagnosis for this admission?: Yes (8) Cardiac pacemaker in situ Is this a current diagnosis for this admission?: Yes - Notes Notes: Postop cardiovascular examination: Patient did find with surgery but this morning is noted to be confused and hallucinating. This could be effect of pain medication and anesthesia. Patient being treated with antipsychotics, Haldol. Will observe for any QTC prolongation etc. An EKG has been ordered. CAD: Patient has CAD. Currently stable without any angina or angina equivalent symptoms. Discussed symptoms associated with unstable angina, acute coronary syndrome, myocardial infarction etc. continue with medical management. Congestive heart failure: Its chronic and felt to be compensated. Continue baseline diuretic therapy. Left forearm fracture: Patient is status post surgery. Atrial fibrillation: This is chronic patient was being treated with rate control and chronic anticoagulation. Currently anticoagulation on hold. Based on chads score, patient will benefit from continuation of chronic anticoagulation. Chronic anticoagulation for atrial fibrillation: Currently on hold. Plan to resume chronic anticoagulation tomorrow or could be started in the evening based on surgeon's evaluation. Status post pacemaker placement: Telemetry strips reviewed showed normal sensing and pacing function of the pacemaker. Renal failure: This seems to be just mild renal dysfunction. Continue to observe. - Time Time with patient: 15-25 minutes - CODE STATUS was discussed, patient remains full code. Surrogate decision-maker unchanged. Multiple medical problems were addressed. More than 50% of the time spent coordinating care, discussing management plans with involved caregivers. Management plans discussed with involved personnels. Medical decision making was of moderate to high complexity , patient's has multiple comorbidities. Medications reviewed and adjusted accordingly: Yes
[2016-11-01 11:15] LABS: ABSOLUTE LYMPHOCYTES (AUTO) 1.1 10^3/uL (0.5-4.7); ABSOLUTE MONOCYTES (AUTO) 1.3 10^3/uL (0.1-1.4); ABSOLUTE NEUT (AUTO) 9.4 10^3/uL (1.7-8.2); BASOPHILS % (AUTO) 0.1 % (0-2); EOSINOPHILS % (AUTO) 0.1 % (0-6); HEMATOCRIT 34.6 % (36.0-47.0); HEMOGLOBIN 11.9 g/dL (12.0-15.5); HGB HCT DIFFERENCE 1.1; LYMPHOCYTES % (AUTO) 9.4 % (13-45); MEAN CORPUSCULAR HEMOGLOBIN 31.6 pg (27.0-33.4); MEAN CORPUSCULAR HGB CONC 34.4 g/dL (32.0-36.0); MEAN CORPUSCULAR VOLUME 92 fl (80-97); MONOCYTES % (AUTO) 11.1 % (3-13); RED BLOOD COUNT 3.77 10^6/uL (3.72-5.28); SEGMENTED NEUTROPHILS % (AUTO) 79.3 % (42-78); WHITE BLOOD COUNT 11.8 10^3/uL (4.0-10.5)
[2016-11-01 11:30] LABS: ANION GAP 11 (5-19); BLOOD UREA NITROGEN 17 mg/dL (7-20); CALCIUM 9.2 mg/dL (8.4-10.2); CARBON DIOXIDE 26 mmol/L (22-30); CHLORIDE 103 mmol/L (98-107); CREATININE RESULT 0.78 mg/dL (0.52-1.25); GLUCOSE 116 mg/dL (75-110); POTASSIUM 5.3 mmol/L (3.6-5.0); SODIUM 139.6 mmol/L (137-145)
--- NOTE | 2016-11-01 11:41 | PDOC PROGRESS REPORT ---
Subjective Progress Note for:: 11/01/16 Subjective:: Patient with substantial confusion and the daughter is quite concerned Physical Exam Vital Signs: Temp Pulse Resp BP Pulse Ox 37.3 C 90 17 149/90 H 97 11/01/16 08:16 11/01/16 08:16 11/01/16 08:16 11/01/16 08:16 11/01/16 09:06 Intake & Output 10/31/16 11/01/16 11/02/16 06:59 06:59 06:59 Intake Total 1810 3390 Output Total 200 25 Balance 1610 3365 Weight 86.6 kg General appearance: PRESENT: no acute distress Head exam: PRESENT: normocephalic Respiratory exam: PRESENT: unlabored Cardiovascular exam: PRESENT: RRR Vascular exam: PRESENT: normal capillary refill Extremities exam: PRESENT: other - Upper extremity immobilized in a short arm splint. Fingers demonstrate moderate swelling and ecchymosis. There is brisk capillary refill. Subjectively sensory examination is intact. Motor function is limited by discomfort. Neurological exam: PRESENT: alert, altered Skin exam: PRESENT: dry, intact, warm. ABSENT: cyanosis, rash Results Laboratory Results: 11/01/16 10:23 11/01/16 10:23 11/01/16 11/01/16 10:23 10:23 WBC 11.8 H RBC 3.77 Hgb 11.9 L Hct 34.6 L MCV 92 MCH 31.6 MCHC 34.4 RDW 16.0 H Plt Count 225 Seg Neutrophils % 79.3 H Lymphocytes % 9.4 L Monocytes % 11.1 Eosinophils % 0.1 Basophils % 0.1 Absolute Neutrophils 9.4 H Absolute Lymphocytes 1.1 Absolute Monocytes 1.3 Absolute Eosinophils 0.0 Absolute Basophils 0.0 Sodium 139.6 Potassium 5.3 H Chloride 103 Carbon Dioxide 26 Anion Gap 11 BUN 17 Creatinine 0.78 Est GFR ( Amer) > 60 Est GFR (Non-Af Amer) > 60 Glucose 116 H Calcium 9.2 Impressions: Hand X-Ray 10/29/16 22:34 IMPRESSION: Comminuted fractures of the distal left radius and ulnar diaphyses with mild impaction and lateral displacement.Dorsal hand soft tissue swelling - laceration. No radiopaque foreign body. Forearm X-Ray 10/30/16 01:27 IMPRESSION: Interval partial reduction -casting of left forearm, "both bone" fractures. Chest X-Ray 10/30/16 02:21 IMPRESSION: No acute cardiopulmonary findings. Fluoroscopy 10/31/16 00:00 IMPRESSION: Please see combined report for performance of procedure and radiologic supervision and interpretation. Wrist X-Ray 10/31/16 00:00 IMPRESSION: IMAGE(S) OBTAINED DURING PROCEDURE. Status: Imported from PACS Assessment & Plan - Diagnosis (1) Closed left forearm fracture Qualifiers: Encounter type: initial encounter Qualified Code(s): S52.92XA - Unspecified fracture of left forearm, initial encounter for closed fracture Is this a current diagnosis for this admission?: YesPlan: 85-year-old white female postop day 1 status post open reduction internal fixation of a left both bone forearm fracture. Postoperative course has been uneventful except for mental status changes that are presumably related to pharmacy. I expect that these should resolve spontaneously with judicious use of narcotics over the next 24-48 hours. - Time Time Spent with patient: 15-24 minutes Anticipated discharge: SNF Within: Other
[2016-11-01] MEDS ORDERED: LORAZEPAM 1 MG TABLET PO PRN (12:37)
--- NOTE | 2016-11-01 12:37 | PDOC PROGRESS REPORT ---
Subjective Progress Note for:: 11/01/16 Subjective:: Patient seen on morning rounds. She underwent ORIF of left wrist yesterday by Dr Kee. She has been confused and at times agitated She denies any chest pain, shortness of breath or dyspnea. She denies any nausea, vomiting or abdominal pain. She is presently sure that someone is poisoning her food. She continues to complain of some mild to moderate pain in the left wrist which improves with pain medication. Remaining review of systems is negative. Physical Exam Vital Signs: Temp Pulse Resp BP Pulse Ox 99.2 F 90 17 149/90 H 97 11/01/16 08:16 11/01/16 08:16 11/01/16 08:16 11/01/16 08:16 11/01/16 09:06 Intake & Output 10/31/16 11/01/16 11/02/16 06:59 06:59 06:59 Intake Total 1810 3390 Output Total 200 25 Balance 1610 3365 Weight 86.6 kg General appearance: PRESENT: no acute distress, well-developed, well-nourished Head exam: PRESENT: atraumatic, normocephalic Eye exam: PRESENT: conjunctiva pink, EOMI, PERRLA. ABSENT: scleral icterus Ear exam: PRESENT: normal external ear exam Mouth exam: PRESENT: moist, tongue midline Neck exam: ABSENT: carotid bruit, JVD, lymphadenopathy, thyromegaly Respiratory exam: PRESENT: clear to auscultation vaishnavi. ABSENT: rales, rhonchi, wheezes Cardiovascular exam: PRESENT: irregular rhythm, +S1, +S2 Pulses: PRESENT: normal carotid pulses, normal radial pulses Vascular exam: PRESENT: normal capillary refill GI/Abdominal exam: PRESENT: normal bowel sounds, soft. ABSENT: distended, guarding, mass, organolmegaly, rebound, tenderness Rectal exam: PRESENT: deferred Extremities exam: PRESENT: full ROM. ABSENT: calf tenderness, clubbing, pedal edema Neurological exam: PRESENT: alert, awake, oriented to person, CN II-XII grossly intact. ABSENT: motor sensory deficit Psychiatric exam: PRESENT: appropriate affect, normal mood. ABSENT: homicidal ideation, suicidal ideation Skin exam: PRESENT: dry, intact, warm. ABSENT: cyanosis, rash Results Laboratory Results: 11/01/16 10:23 11/01/16 10:23 11/01/16 11/01/16 10:23 10:23 WBC 11.8 H RBC 3.77 Hgb 11.9 L Hct 34.6 L MCV 92 MCH 31.6 MCHC 34.4 RDW 16.0 H Plt Count 225 Seg Neutrophils % 79.3 H Lymphocytes % 9.4 L Monocytes % 11.1 Eosinophils % 0.1 Basophils % 0.1 Absolute Neutrophils 9.4 H Absolute Lymphocytes 1.1 Absolute Monocytes 1.3 Absolute Eosinophils 0.0 Absolute Basophils 0.0 Sodium 139.6 Potassium 5.3 H Chloride 103 Carbon Dioxide 26 Anion Gap 11 BUN 17 Creatinine 0.78 Est GFR ( Amer) > 60 Est GFR (Non-Af Amer) > 60 Glucose 116 H Calcium 9.2 Impressions: Hand X-Ray 10/29/16 22:34 IMPRESSION: Comminuted fractures of the distal left radius and ulnar diaphyses with mild impaction and lateral displacement.Dorsal hand soft tissue swelling - laceration. No radiopaque foreign body. Forearm X-Ray 10/30/16 01:27 IMPRESSION: Interval partial reduction -casting of left forearm, "both bone" fractures. Chest X-Ray 10/30/16 02:21 IMPRESSION: No acute cardiopulmonary findings. Fluoroscopy 10/31/16 00:00 IMPRESSION: Please see combined report for performance of procedure and radiologic supervision and interpretation. Wrist X-Ray 10/31/16 00:00 IMPRESSION: IMAGE(S) OBTAINED DURING PROCEDURE. Assessment & Plan - Diagnosis (1) Fx radius/ulna shaft-closed Is this a current diagnosis for this admission?: YesPlan: Patient is POD #1. She has been confused since surgery (2) Confusion and disorientation Is this a current diagnosis for this admission?: YesPlan: Patient has been confused since anesthesia and pain medications. Will add haldol prn, judicious use of pain medications (3) Atrial fibrillation Qualifiers: Atrial fibrillation type: chronic Qualified Code(s): I48.2 - Chronic atrial fibrillation Is this a current diagnosis for this admission?: YesPlan: Rate controlled on xarelto which is on hold at the present time (4) Anticoagulated Is this a current diagnosis for this admission?: YesPlan: Xarelto is on hold for surgery (5) Hyponatremia Is this a current diagnosis for this admission?: YesPlan: Improved with hydration (6) Hypokalemia Is this a current diagnosis for this admission?: YesPlan: Normal today, repleted (7) CAD (coronary artery disease) Qualifiers: Coronary Disease-Associated Artery/Lesion type: [place] artery [place] vs. transplanted heart: [place] heart Associated angina: without angina Qualified Code(s): I25.10 - Atherosclerotic heart disease of [place] coronary artery without angina pectoris Is this a current diagnosis for this admission?: Yes - Time Time Spent with patient: 25-34 minutes Critical Time spent with patient: 15-24 minutes Medications reviewed and adjusted accordingly: Yes Anticipated discharge: Home with Homehealth
--- NOTE | 2016-11-01 13:30 | EKG REPORT ---
SEVERITY:- ABNORMAL ECG - AFIB/FLUT AND V-PACED COMPLEXES PROBABLE LVH WITH SECONDARY REPOL ABNRM : Confirmed by: Lico Sal MD 01-Nov-2016 13:30:20
[2016-11-01 16:39] LABS: ROCKY MTN SPOTTED FEV IGG EIA Positive (Negative)
[2016-11-01] MEDS: RIVAROXABAN 10 MG TABLET PO SCH (17:14)
[2016-11-01] MEDS: TRAZODONE HCL 50 MG TABLET PO SCH (21:09)
[2016-11-02] MEDS ORDERED: AMLODIPINE BESYLATE 10 MG TABLET PO SCH
[2016-11-02] MEDS ORDERED: AMLODIPINE BESYLATE 10 MG TABLET PO PRN (00:07)
[2016-11-02] MEDS: LEVOTHYROXINE SODIUM 0.075 MG TABLET PO SCH (08:03)
[2016-11-02] MEDS: FUROSEMIDE 80 MG TABLET PO SCH (10:14)
[2016-11-02] MEDS: ISOSORBIDE MONONITRATE 30 MG TAB.ER.24H PO SCH (10:15)
[2016-11-02] MEDS: METOPROLOL SUCCINATE 50 MG TAB.SR.24H PO SCH (10:16)
[2016-11-02] MEDS: DOCUSATE SODIUM 100 MG CAPSULE PO SCH ×2 (10:16→17:52)
[2016-11-02] MEDS: AMLODIPINE BESYLATE 10 MG TABLET PO SCH (10:16)
[2016-11-02] MEDS: FOLIC ACID 1 MG TABLET PO SCH (10:17)
[2016-11-02] MEDS: LISINOPRIL 10 MG TABLET PO SCH (10:18)
--- NOTE | 2016-11-02 11:39 | PDOC PROGRESS REPORT ---
Subjective Progress Note for:: 11/02/16 Subjective:: Patient is noted to be still confused and not oriented to place. Pt is denying any chest arm or neck discomfort. Patient denying any PND, orthopnea. Patient denied any sustained palpitations, dizziness, syncope, near syncope. Patient denying any fever chills. Patient denying any other significant discomfort. Patient is maintaining atrial fibrillation. Intermittent ventricular paced rhythm is noted. Medications: Medications have been reviewed. Physical Exam Vital Signs: Temp Pulse Resp BP Pulse Ox 98.7 F 79 18 141/93 H 90 L 11/02/16 04:00 11/02/16 04:00 11/02/16 04:00 11/02/16 04:00 11/02/16 04:00 Intake & Output 11/01/16 11/02/16 11/03/16 06:59 06:59 06:59 Intake Total 3390 1620 Output Total 25 Balance 3365 1620 Exam: GENERAL: well-nourished and in no acute distress. Patient is alert but not oriented to place time but oriented to person. HEAD: Atraumatic, normocephalic. EYES: Pupils equal round and reactive to light, extraocular movements intact, sclera anicteric, conjunctiva are normal. ENT: TMs normal, nares patent, oropharynx clear without exudates. Moist mucous membranes. No oral ulcerations or bleeding gums noted NECK: supple without lymphadenopathy or JVD. Trachea is central. No cervical or axillary lymphadenopathy noted. Carotids are 2+ LUNGS: Breath sounds bibasilar fine crackles at bases. No significant dullness noted. CHEST: Palpation of chest wall shows no significant chest wall tenderness. HEART: [place] [employer], No PSH, 2/6 FUENTES aortic area, 1/6 hernandez systolic murmur mitral area, rubs or gallops. ABDOMEN: Soft, no significant tenderness appreciated, normoactive bowel sounds. No guarding, no rebound. No rigidity noted . No masses appreciated. EXTREMITIES: Pedal pulses are 1-2+, no calf tenderness noted, Trace + pedal edema noted. No clubbing or cyanosis. NEUROLOGICAL: Patient is alert but is not able to participate in neurological exam because of patient's current mental status PSYCH: Patient cannot participate in a neurologic and psych exam because of the patient's current mental status SKIN: No significant ecchymosis, rash, ulcerations or signs of pruritus noted. MUSCULOSKELETAL EXAM: No significant joint swelling noted. Left forearm in sling and is status post surgery. Results Laboratory Results: 11/01/16 10:23 11/01/16 10:23 11/01/16 10:23 Sodium 139.6 Potassium 5.3 H Chloride 103 Carbon Dioxide 26 Anion Gap 11 BUN 17 Creatinine 0.78 Est GFR ( Amer) > 60 Est GFR (Non-Af Amer) > 60 Glucose 116 H Calcium 9.2 Impressions: Hand X-Ray 10/29/16 22:34 IMPRESSION: Comminuted fractures of the distal left radius and ulnar diaphyses with mild impaction and lateral displacement.Dorsal hand soft tissue swelling - laceration. No radiopaque foreign body. Forearm X-Ray 10/30/16 01:27 IMPRESSION: Interval partial reduction -casting of left forearm, "both bone" fractures. Chest X-Ray 10/30/16 02:21 IMPRESSION: No acute cardiopulmonary findings. Fluoroscopy 10/31/16 00:00 IMPRESSION: Please see combined report for performance of procedure and radiologic supervision and interpretation. Wrist X-Ray 10/31/16 00:00 IMPRESSION: IMAGE(S) OBTAINED DURING PROCEDURE. Assessment & Plan - Diagnosis (1) Confusion and disorientation Is this a current diagnosis for this admission?: Yes (2) CAD (coronary artery disease) Qualifiers: Coronary Disease-Associated Artery/Lesion type: [place] artery [place] vs. transplanted heart: [place] heart Associated angina: without angina Qualified Code(s): I25.10 - Atherosclerotic heart disease of [place] coronary artery without angina pectoris Is this a current diagnosis for this admission?: Yes (3) CHF (congestive heart failure) Qualifiers: Congestive heart failure type: diastolic Congestive heart failure chronicity: chronic Qualified Code(s): I50.32 - Chronic diastolic ( congestive) heart failure Is this a current diagnosis for this admission?: Yes (4) Atrial fibrillation Qualifiers: Atrial fibrillation type: chronic Qualified Code(s): I48.2 - Chronic atrial fibrillation Is this a current diagnosis for this admission?: Yes (5) Forearm fracture Qualifiers: Encounter type: initial encounter Fracture type: closed Laterality : left Qualified Code(s): S52.92XA - Unspecified fracture of left forearm, initial encounter for closed fracture (6) Anticoagulated Is this a current diagnosis for this admission?: Yes (7) Renal failure Qualifiers: Renal failure chronicity: unspecified chronicity Qualified Code(s): N19 - Unspecified kidney failure Is this a current diagnosis for this admission?: Yes (8) Cardiac pacemaker in situ Is this a current diagnosis for this admission?: Yes - Notes Notes: Postop cardiovascular examination: Patient has been stable from cardiac standpoint. Twelve-lead EKG from yesterday reviewed. Showed QTC WNL but some nonspecific T-wave changes are noted which are probably post paced beats changes. CAD: Patient has CAD. Currently stable without any angina or angina equivalent symptoms. Congestive heart failure: Its chronic and felt to be compensated. Continue baseline diuretic therapy. Left forearm fracture: Patient is status post surgery. Atrial fibrillation: This is chronic patient was being treated with rate control and chronic anticoagulation. Chronic anticoagulation has been resumed. Chronic anticoagulation for atrial fibrillation: Continue with chronic anticoagulation and rate controlled. Status post pacemaker placement: Telemetry strips reviewed showed normal sensing and pacing function of the pacemaker. Renal failure: Stable. Continue to observe. Patient stable from cardiac standpoint. Will sign off. Please reconsult if needed - Time Time with patient: 15-25 minutes - CODE STATUS was discussed, patient remains full code. Surrogate decision-maker unchanged. Multiple medical problems were addressed. More than 50% of the time spent coordinating care, discussing management plans with involved caregivers. Management plans discussed with involved personnels. Medical decision making was of moderate to high complexity , patient's has multiple comorbidities.
--- NOTE | 2016-11-02 12:15 | PDOC PROGRESS REPORT ---
Subjective Progress Note for:: 11/02/16 Subjective:: Patient seen on morning rounds. She underwent ORIF of left wrist yesterday by Dr Kee. She has been confused and at times agitated She denies any chest pain, shortness of breath or dyspnea. She denies any nausea, vomiting or abdominal pain. She is presently sure that someone is poisoning her food. She continues to complain of some mild to moderate pain in the left wrist which improves with pain medication. Remaining review of systems is negative. Physical Exam Vital Signs: Temp Pulse Resp BP Pulse Ox 98.7 F 79 18 141/93 H 90 L 11/02/16 04:00 11/02/16 04:00 11/02/16 04:00 11/02/16 04:00 11/02/16 04:00 Intake & Output 11/01/16 11/02/16 11/03/16 06:59 06:59 06:59 Intake Total 3390 1620 Output Total 25 Balance 3365 1620 General appearance: PRESENT: no acute distress, well-developed, well-nourished Head exam: PRESENT: atraumatic, normocephalic Eye exam: PRESENT: conjunctiva pink, EOMI, PERRLA. ABSENT: scleral icterus Ear exam: PRESENT: normal external ear exam Neck exam: ABSENT: carotid bruit, JVD, lymphadenopathy, thyromegaly Respiratory exam: PRESENT: clear to auscultation vaishnavi. ABSENT: rales, rhonchi, wheezes Cardiovascular exam: PRESENT: RRR. ABSENT: diastolic murmur, rubs, systolic murmur Pulses: PRESENT: normal dorsalis pedis pul Vascular exam: PRESENT: normal capillary refill GI/Abdominal exam: PRESENT: normal bowel sounds, soft. ABSENT: distended, guarding, mass, organolmegaly, rebound, tenderness Extremities exam: PRESENT: full ROM. ABSENT: calf tenderness, clubbing, pedal edema Musculoskeletal exam: PRESENT: ambulatory, tenderness - left wrist Neurological exam: PRESENT: alert, awake, oriented to person, oriented to place , oriented to time, oriented to situation, CN II-XII grossly intact. ABSENT: motor sensory deficit Psychiatric exam: PRESENT: appropriate affect, normal mood. ABSENT: homicidal ideation, suicidal ideation Skin exam: PRESENT: dry, intact, warm. ABSENT: cyanosis, rash Results Laboratory Results: 11/01/16 10:23 11/01/16 10:23 Impressions: Hand X-Ray 10/29/16 22:34 IMPRESSION: Comminuted fractures of the distal left radius and ulnar diaphyses with mild impaction and lateral displacement.Dorsal hand soft tissue swelling - laceration. No radiopaque foreign body. Forearm X-Ray 10/30/16 01:27 IMPRESSION: Interval partial reduction -casting of left forearm, "both bone" fractures. Chest X-Ray 10/30/16 02:21 IMPRESSION: No acute cardiopulmonary findings. Fluoroscopy 10/31/16 00:00 IMPRESSION: Please see combined report for performance of procedure and radiologic supervision and interpretation. Wrist X-Ray 10/31/16 00:00 IMPRESSION: IMAGE(S) OBTAINED DURING PROCEDURE. Assessment & Plan - Diagnosis (1) Fx radius/ulna shaft-closed Is this a current diagnosis for this admission?: YesPlan: Patient is POD #1. She has been confused since surgery (2) Confusion and disorientation Is this a current diagnosis for this admission?: YesPlan: Patient has been confused since anesthesia and pain medications. Will add haldol prn, judicious use of pain medications (3) Atrial fibrillation Qualifiers: Atrial fibrillation type: chronic Qualified Code(s): I48.2 - Chronic atrial fibrillation Is this a current diagnosis for this admission?: YesPlan: Rate controlled on xarelto which is on hold at the present time (4) Anticoagulated Is this a current diagnosis for this admission?: YesPlan: Xarelto is on hold for surgery (5) Hyponatremia Is this a current diagnosis for this admission?: YesPlan: Improved with hydration (6) Hypokalemia Is this a current diagnosis for this admission?: YesPlan: Normal today, repleted (7) CAD (coronary artery disease) Qualifiers: Coronary Disease-Associated Artery/Lesion type: [place] artery [place] vs. transplanted heart: [place] heart Associated angina: without angina Qualified Code(s): I25.10 - Atherosclerotic heart disease of [place] coronary artery without angina pectoris Is this a current diagnosis for this admission?: Yes - Time Time Spent with patient: 25-34 minutes Critical Time spent with patient: 15-24 minutes Medications reviewed and adjusted accordingly: Yes Anticipated discharge: Home with Homehealth - Inpatient Certification Based on my medical assessment, after consideration of the patient's comorbidities, presenting symptoms, or acuity I expect that the services needed warrant INPATIENT care.: Yes
--- NOTE | 2016-11-02 13:44 | PDOC PROGRESS REPORT ---
Subjective Progress Note for:: 11/02/16 Subjective:: Patient pain is well controlled. The patient is responsive awake and alert today and able to have a conversation. Physical Exam Vital Signs: Temp Pulse Resp BP Pulse Ox 36.9 C 107 H 18 151/72 H 94 11/02/16 12:00 11/02/16 12:00 11/02/16 12:00 11/02/16 12:00 11/02/16 12:00 Intake & Output 11/01/16 11/02/16 11/03/16 06:59 06:59 06:59 Intake Total 3390 1620 Output Total 25 Balance 3365 1620 General appearance: PRESENT: no acute distress Adult Front & Back Image: 1 - Splint and dressing is dry clean and intact. She is wearing the sling as instructed. She has good brisk capillary refill to her digits and now full extension and flexion of her PIP and DIP joints. He has good sensation to light touch. Results Laboratory Results: 11/01/16 10:23 11/01/16 10:23 Impressions: Hand X-Ray 10/29/16 22:34 IMPRESSION: Comminuted fractures of the distal left radius and ulnar diaphyses with mild impaction and lateral displacement.Dorsal hand soft tissue swelling - laceration. No radiopaque foreign body. Forearm X-Ray 10/30/16 01:27 IMPRESSION: Interval partial reduction -casting of left forearm, "both bone" fractures. Chest X-Ray 10/30/16 02:21 IMPRESSION: No acute cardiopulmonary findings. Fluoroscopy 10/31/16 00:00 IMPRESSION: Please see combined report for performance of procedure and radiologic supervision and interpretation. Wrist X-Ray 10/31/16 00:00 IMPRESSION: IMAGE(S) OBTAINED DURING PROCEDURE. Status: Image reviewed by me Assessment & Plan - Plan Summary Plan Summary: 85-year-old female who is status post ORIF of her left radius and ulna fracture. Nonweightbearing left upper extremity Okay to discharge per orthopedics. Awaiting discharge once medically able. Once discharged patient can follow-up in 10-14 days.
[2016-11-02] MEDS: RIVAROXABAN 10 MG TABLET PO SCH (17:52)
[2016-11-02] MEDS: TRAZODONE HCL 50 MG TABLET PO SCH (21:28)
[2016-11-03] MEDS: LEVOTHYROXINE SODIUM 0.075 MG TABLET PO SCH (08:54)
[2016-11-03] MEDS: FOLIC ACID 1 MG TABLET PO SCH (09:22)
[2016-11-03] MEDS: ISOSORBIDE MONONITRATE 30 MG TAB.ER.24H PO SCH (09:22)
[2016-11-03] MEDS: METOPROLOL SUCCINATE 50 MG TAB.SR.24H PO SCH (09:22)
[2016-11-03] MEDS: LISINOPRIL 10 MG TABLET PO SCH (09:22)
[2016-11-03] MEDS: DOCUSATE SODIUM 100 MG CAPSULE PO SCH (09:23)
[2016-11-03] MEDS: FUROSEMIDE 80 MG TABLET PO SCH (09:23)
[2016-11-03] MEDS: AMLODIPINE BESYLATE 10 MG TABLET PO SCH (09:23)
[2016-11-03 09:53] LABS: ANION GAP 11 (5-19); BLOOD UREA NITROGEN 15 mg/dL (7-20); CALCIUM 9.5 mg/dL (8.4-10.2); CARBON DIOXIDE 30 mmol/L (22-30); CHLORIDE 96 mmol/L (98-107); CREATININE RESULT 0.76 mg/dL (0.52-1.25); GLUCOSE 156 mg/dL (75-110); POTASSIUM 3.6 mmol/L (3.6-5.0); SODIUM 137.4 mmol/L (137-145)
[2016-11-03] MEDS ORDERED: BISACODYL 10 MG SUPP.RECT PR ONE (10:30)
[2016-11-03] MEDS ORDERED: NA PHOS,M-B/NA PHOS,DI-BA (ADULT) 133 ML ENEMA PR ONE (11:23)
--- NOTE | 2016-11-03 11:38 | PDOC DISCHARGE SUMMARY ---
General - Admit/Disc Date/PCP Admission Date/Primary Care Provider: 10/30/16 06:45 SANNA MANDUJANO MD Discharge Date: 11/03/16 - Discharge Diagnosis (1) Fx radius/ulna shaft-closed Is this a current diagnosis for this admission?: YesSummary: Patient is ORIF of the left radius/ulnar (2) Confusion and disorientation Is this a current diagnosis for this admission?: YesSummary: Resolved to baseline (3) Atrial fibrillation Is this a current diagnosis for this admission?: Yes (4) Anticoagulated Is this a current diagnosis for this admission?: Yes (5) Hyponatremia Is this a current diagnosis for this admission?: YesSummary: Resolved (6) Hypokalemia Is this a current diagnosis for this admission?: YesSummary: Repleted (7) CAD (coronary artery disease) Is this a current diagnosis for this admission?: Yes - Additional Information Resuscitation Status: Full Code Discharge Diet: Cardiac Discharge Activity: Activity As Tolerated, Balance Activity w/Rest Home Medications: Amlodipine Besylate [Norvasc 5 mg Tablet] 5 mg PO DAILY 10/30/16 Docusate Sodium [Colace 100 mg Capsule] 100 mg PO DAILY 10/30/16 Folic Acid [Folvite 1 mg Tablet] 1 mg PO DAILY 10/30/16 Furosemide [Lasix] 80 mg PO DAILY 10/30/16 Isosorbide Mononitrate [Isosorbide Mononitrate ER] 30 mg PO DAILY 10/30/16 Levothyroxine Sodium [Synthroid 0.075 mg Tablet] 0.075 mg PO DAILY 10/30/16 Lisinopril [Prinivil 40 mg Tablet] 40 mg PO DAILY 10/30/16 Lorazepam [Ativan 1 mg Tablet] 1 mg PO DAILYP PRN 10/30/16 Metolazone [Zaroxolyn 2.5 mg Tablet] 2.5 mg PO MOWEFR@1000 10/30/16 Metoprolol Succinate [Toprol XL 100 mg Tablet] 100 mg PO DAILY 10/30/16 Nitroglycerin [Nitrostat] 0.4 mg SL Q5MP PRN 10/30/16 Potassium Chloride [Klor-Con 10] 10 meq PO BID 10/30/16 Rivaroxaban [Xarelto] 20 mg PO WSUPPER 10/30/16 Rosuvastatin Calcium [Crestor 20 mg Tablet] 20 mg PO QHS 10/30/16 Tramadol HCl [Ultram 50 mg Tablet] 50 mg PO Q6HP PRN 10/30/16 Trazodone HCl [Desyrel 50 mg Tablet] 50 mg PO QHS 10/30/16 Acetaminophen [Tylenol 325 mg Tablet] 650 mg PO Q8HP PRN tablet 11/03/16 History of Present Illness Patient complains of: Left arm pain History of Present Illness: EVGENY HUTHCINSON is a 85 year old female with underlying congestive heart failure, coronary artery disease, status post previous myocardial infarction, atrial fibrillation, on Xarelto for same arthritis, hyperlipidemia, hypothyroidism, along with possible obstructive sleep apnea, with testing in the near future, who presents to the emergency room for evaluation of above complaint. Patient has been discussed with emergency room physician who evaluated the patient. Patient's storm door at her home closed on her left fingers and apparently became jammed, to the point where patient was not able to open the door and release her fingers. As she tried to extricate her fingers from the door, she felt a pop in her left forearm, with subsequent x-rays revealing the fractures. No loss of consciousness. No head trauma. She did not fall. Prior to the above event, patient had no specific complaints. Subsequent unsuccessful attempts by emergency room physician to reduce the fractures under sedation. Sling was applied, and hospitalist service was contacted for admission. Hospital Course Hospital Course: Patient was admitted to the hospitalist service on telemetry. Orthopedic surgery was consulted. Dr. Kee, saw the patient in consult for orthopedics. He planned for an ORIF of her left wrist 10/31/2016. Cardiology consult was obtained due to history of congestive heart failure, atrial fibrillation, and CAD. Dr. Richardson, saw the patient in consult. Patient was cleared from a cardiology standpoint for surgery. Her Xarelto was held for 2 days prior to surgery. On 10/31/2016, surgery was performed by Dr. Kee on the left wrist. She tolerated procedure well. Postoperatively she had periods of confusion and agitation overnight. These cleared with judicious use of narcotic analgesics. Discharge planning was consulted for post discharge planning. Patient will be going to live with her daughter for the interim with home health, physical therapy and Occupational Therapy. Physical Exam Vital Signs: Temp Pulse Resp BP Pulse Ox 98.2 F 90 14 143/72 H 96 11/03/16 07:51 11/03/16 07:51 11/03/16 07:51 11/03/16 07:51 11/03/16 07:51 Intake & Output 11/02/16 11/03/16 11/04/16 06:59 06:59 06:59 Intake Total 1620 920 Balance 1620 920 Weight 86.6 kg General appearance: PRESENT: no acute distress, well-developed, well-nourished Head exam: PRESENT: atraumatic, normocephalic Eye exam: PRESENT: conjunctiva pink, EOMI, PERRLA. ABSENT: scleral icterus Ear exam: PRESENT: normal external ear exam Mouth exam: PRESENT: moist, tongue midline Neck exam: ABSENT: carotid bruit, JVD, lymphadenopathy, thyromegaly Respiratory exam: PRESENT: clear to auscultation vaishnavi. ABSENT: rales, rhonchi, wheezes Cardiovascular exam: PRESENT: irregular rhythm, +S1, +S2 Pulses: PRESENT: normal dorsalis pedis pul Vascular exam: PRESENT: normal capillary refill GI/Abdominal exam: PRESENT: normal bowel sounds, soft. ABSENT: distended, guarding, mass, organolmegaly, rebound, tenderness Rectal exam: PRESENT: deferred Extremities exam: PRESENT: full ROM. ABSENT: calf tenderness, clubbing, pedal edema Musculoskeletal exam: PRESENT: ambulatory, full ROM - left wrist, tenderness Neurological exam: PRESENT: alert, awake, oriented to person, oriented to place , oriented to time, oriented to situation, CN II-XII grossly intact. ABSENT: motor sensory deficit Psychiatric exam: PRESENT: appropriate affect, normal mood. ABSENT: homicidal ideation, suicidal ideation Skin exam: PRESENT: dry, intact, warm. ABSENT: cyanosis, rash Results Laboratory Results: 11/01/16 10:23 11/03/16 08:40 11/03/16 08:40 Sodium 137.4 Potassium 3.6 Chloride 96 L Carbon Dioxide 30 Anion Gap 11 BUN 15 Creatinine 0.76 Est GFR ( Amer) > 60 Est GFR (Non-Af Amer) > 60 Glucose 156 H Calcium 9.5 Impressions: Hand X-Ray 10/29/16 22:34 IMPRESSION: Comminuted fractures of the distal left radius and ulnar diaphyses with mild impaction and lateral displacement.Dorsal hand soft tissue swelling - laceration. No radiopaque foreign body. Forearm X-Ray 10/30/16 01:27 IMPRESSION: Interval partial reduction -casting of left forearm, "both bone" fractures. Chest X-Ray 10/30/16 02:21 IMPRESSION: No acute cardiopulmonary findings. Fluoroscopy 10/31/16 00:00 IMPRESSION: Please see combined report for performance of procedure and radiologic supervision and interpretation. Wrist X-Ray 10/31/16 00:00 IMPRESSION: IMAGE(S) OBTAINED DURING PROCEDURE. Qualifiers PATEINT BEING DISCHARGED WITH ANY OF THE FOLLOWING DIAGNOSIS?: No
[2016-11-03 12:08] VITALS: BP 113/78
== END 2016-11-03 13:22 | disposition home or self-care (01) | DRG 511 ==
LOC: ER 22:20 → EH 10-30 04:47 → UNDOADMIN 10-30 04:47 → EH 10-30 05:47 → 4S 10-30 05:47
PROVIDERS: ADMIT Family Medicine; ATTEND Family Medicine
PROC: 0PSL04Z Reposition Left Ulna with Internal Fixation Device, Open Approach (ICD-10-PCS; 2016-10-31)
PROC: 0PSJ04Z Reposition Left Radius with Internal Fixation Device, Open Approach (ICD-10-PCS; principal; 2016-10-31 18:00)
DX: S52.302A Unspecified fracture of shaft of left radius, initial encounter for closed fracture (principal); I13.0 Hypertensive heart and chronic kidney disease with heart failure and stage 1 through stage 4 chronic kidney disease, or unspecified chronic kidney disease; I50.32 Chronic diastolic (congestive) heart failure; E87.1 Hypo-osmolality and hyponatremia; S52.202A Unspecified fracture of shaft of left ulna, initial encounter for closed fracture; W23.0XXA Caught, crushed, jammed, or pinched between moving objects, initial encounter; Y93.9 Activity, unspecified; Y92.019 Unspecified place in single-family (private) house as the place of occurrence of the external cause; Y99.9 Unspecified external cause status; N18.9 Chronic kidney disease, unspecified; E87.6 Hypokalemia; D64.9 Anemia, unspecified; I25.10 Atherosclerotic heart disease of native coronary artery without angina pectoris; I25.2 Old myocardial infarction; I48.2 Chronic atrial fibrillation; E78.5 Hyperlipidemia, unspecified; E03.9 Hypothyroidism, unspecified; G47.33 Obstructive sleep apnea (adult) (pediatric); M19.90 Unspecified osteoarthritis, unspecified site; Z79.02 Long term (current) use of antithrombotics/antiplatelets; Z79.899 Other long term (current) drug therapy; Z85.828 Personal history of other malignant neoplasm of skin; Z72.0 Tobacco use; Z88.5 Allergy status to narcotic agent; Z95.0 Presence of cardiac pacemaker; Z95.1 Presence of aortocoronary bypass graft
CPT/HCPCS: 01830; 36415; 71010; 80048; 80076; 81001; 83735; 84443; 85025; 85610; 85730; 86757; 93005; 93010; 99285; 99152; G8987-GO; G8988-GO; G8989-GO; J0330; J0690; J1100; J1170; J2060; J2250; J2405; J2704; J3010; J3480; J3490; J7040

== ENCOUNTER → 2017-05-31 | Outpatient (CLI) | payer MEDICARE, OTHER ==
[2017-05-31 13:20] LABS: ANION GAP 14 (5-19); BLOOD UREA NITROGEN 46 mg/dL (7-20); CARBON DIOXIDE 33 mmol/L (22-30); CHLORIDE 91 mmol/L (98-107); GLUCOSE 96 mg/dL (75-110); POTASSIUM 3.5 mmol/L (3.6-5.0); SODIUM 137.9 mmol/L (137-145)
== END ==
LOC: OD 12:08
PROVIDERS: ATTEND Internal Medicine
DX: E87.6 Hypokalemia (principal); I10 Essential (primary) hypertension; Z79.899 Other long term (current) drug therapy
CPT/HCPCS: 36415; 80048

== ENCOUNTER 2018-01-30 08:26 | Emergency (ER) | payer MEDICARE, OTHER ==
[2018-01-30] MEDS ORDERED: FUROSEMIDE INJ/PF 40 MG/4 ML SDV IV ONE (08:58)
--- NOTE | 2018-01-30 09:05 | ER Document Report ---
ED General - General Chief Complaint: Shortness Of Breath Stated Complaint: SHORTNESS OF BREATH Time Seen by Provider: 01/30/18 08:47 TRAVEL OUTSIDE OF THE [place] IN LAST 30 DAYS: No - HPI Notes: Patient is an 87-year-old female with a history of CHF, pacer placement and on Xarelto, CAD, CA, hypercholesteremia, hypertension who presents to the ED complaining of intermittent, but worsening dyspnea on exertion over the last week. Patient states that she does take a fluid pill twice daily, but has noticed increased swelling in her legs as well. Patient states that ambulation exacerbates her symptoms the most. Patient states that she will have an occasional nausea without any vomiting. She is otherwise eating and drinking without any difficulties. She is urinating normally and having normal bowel movements. 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 No other concerns or complaints at this time. Denies any headache, fever, LOC, changes in vision/speech/mentation/hearing, URI, sore throat, chest pain, palpitations, syncope, cough, abdominal pain, vomiting/diarrhea, urinary retention, dysuria, hematuria, back pain, loss of control of bowel or bladder, numbness/tingling, saddle anesthesia, muscle paralysis/weakness, or rash. - Related Data Allergies/Adverse Reactions: morphine [Morphine] Adverse Reaction (Severe, Verified 10/30/16 06:57) Abnormal behavior Past Medical History - Social History Smoking Status: Never Smoker Family History: CAD - Parents, Other - colon polyps in parents - Past Medical History Cardiac Medical History: Reports: Hx Atrial Fibrillation, Hx Congestive Heart Failure, Hx Coronary Artery Disease, Hx Heart Attack, Hx Hypercholesterolemia, Hx Hypertension Denies: Hx DVT, Hx Peripheral Vascular Disease, Hx Pulmonary Embolism, Hx Heart Murmur Pulmonary Medical History: Reports: Hx Pneumonia, Hx Sleep Apnea - Testing in near future Denies: Hx Asthma, Hx Bronchitis, Hx COPD, Hx Respiratory Failure, Hx Tuberculosis Neurological Medical History: Denies: Hx Seizures Endocrine Medical History: Reports: Hx Hypothyroidism. Denies: Hx Diabetes Mellitus Type 1, Hx Diabetes Mellitus Type 2, Hx Graves' Disease, Hx Hyperthyroidism Renal/ Medical History: Denies: Hx End Stage Renal Disease, Hx Kidney Stones, Hx Ovarian Cysts, Hx Peritoneal Dialysis, Hx Pelvic Inflammatory Disease Malignancy Medical History: Reports: Hx Skin Cancer. Denies: Hx Breast Cancer, Hx Cervical Cancer, Hx Leukemia, Hx Lung Cancer, Hx Ovarian Cancer GI Medical History: Reports: Hx Gastroesophageal Reflux Disease - Dysphagia. Denies: Hx Cirrhosis, Hx Crohn's Disease, Hx Hepatitis, Hx Hiatal Hernia, Hx Irritable Bowel, Hx Liver Failure, Hx Pancreatitis, Hx Ulcer Musculoskeletal Medical History: Reports Hx Arthritis, Denies Hx Fibromyalgia, Denies Hx Muscular Dystrophy Psychiatric Medical History: Denies: Hx Depression Traumatic Medical History: Reports: Hx Fractures - fx wrist Infectious Medical History: Denies: Hx Hepatitis, Hx HIV Past Surgical History: Reports: Hx Appendectomy, Hx Cardiac Surgery - CABG, Balloon,, Hx Coronary Artery Bypass Graft, Hx Open Heart Surgery, Hx Pacemaker. Denies: Hx Bowel Surgery, Hx Section, Hx Cholecystectomy, Hx Colostomy, Hx Gastric Bypass Surgery, Hx Herniorrhaphy, Hx Hysterectomy, Hx Mastectomy, Hx Tonsillectomy, Hx Tubal Ligation - Immunizations Hx Diphtheria, Pertussis, Tetanus Vaccination: Yes Hx Pneumococcal Vaccination: 12/26/11 Review of Systems - Review of Systems -: Yes All other systems reviewed and negative Physical Exam - Vital signs Vitals: Temp Resp Pulse Ox 97.4 F 23 H 99 01/30/18 08:30 01/30/18 08:30 01/30/18 08:30 - Notes Notes: PHYSICAL EXAMINATION: GENERAL: Well-appearing, well-nourished and in no acute resp distress. A&Ox4. Pleasant and answers questions appropriately. HEAD: Atraumatic, normocephalic. EYES: Pupils equal round and reactive to light, extraocular movements intact, sclera anicteric, conjunctiva are normal. ENT: Nares patent and without discharge. oropharynx clear without exudates. No tonsilar hypertrophy or erythema. Moist mucous membranes. NECK: Normal range of motion, supple without lymphadenopathy LUNGS: Breath sounds clear to auscultation bilaterally and equal. No wheezes rales or rhonchi. No retractions HEART: Regular rate and rhythm without murmurs, rubs, gallops. ABDOMEN: Soft, nontender, nondistended abdomen. No guarding, no rebound. No masses appreciated. Normal bowel sounds present. No CVA tenderness bilaterally. Musculoskeletal: FROM to passive/active. Strength 5+/5. No asymmetry. Claudia neg b/l. Extremities: 2+ pitting edema b/l. Peripheral pulses 2+. Capillary refill less than 3 seconds. NEUROLOGICAL: Cranial nerves grossly intact. Normal speech, normal gait. Normal sensory, motor exams PSYCH: Normal mood, normal affect. SKIN: Warm, Dry, normal turgor, no rashes or lesions noted. Course - Re-evaluation Re-evalutation: 01/30/18 11:[address] Abrams, her behavioral health counselor. 01/30/18 12:09 I did speak with Dr. Abrams who is in agreement with disposition and plan. Patient is an afebrile, well-hydrated 87-year-old female who presents to the ED with JAMISON, suspect mild acute exac of CHF, and acute UTI. Vitals are acceptable without any significant tachycardia, tachypnea, or hypoxia. PE is otherwise unremarkable aside from noted pitting edema. Patient is nontoxic-appearing and is tolerating p.o. without any difficulties. Pt is currently asymptomatic. CBC , CMP, EKG/cardiac enzymes are all unremarkable for any acute pathology. See UA results/UC pending. Pt given 1g Rocephin IV today. Chest x-ray showed mild vascular congestion. BNP and renal function are close to her normal. She had a BNP of about 4200 a year and a half ago in the emergency department, and with Dr. Abrams recently was 2900 with a creatinine of 1.4. Dr. Abrams is actually impressed with her renal function today. Patient does not have any chest pain, dyspnea, or shortness of breath. Patient's presentation and symptomatology creates low suspicion for ACS, PE, pneumothorax, pericarditis, dissection, respiratory compromise, severe dehydration, sepsis, meningitis, or other systemic emergent condition at this time. Patient is aware that this condition can change from initial presentation and she needs to monitor symptoms closely and seek medical attention for any acute changes. Pt is feeling better and would like to go home. Dr. Abrams is in agreement that we do not need to seek out further labs for ACS as he believes this is just heart failure exacerbation , and does not believe that she needs to be admitted. He recommends increasing her Lasix from 40 mg twice daily to 60 mg twice daily. He then recommends repeat labs in 1 month with her PCM or him. Conservative measures otherwise for symptoms. Recheck with your PCM in 2-3 days. Schedule a follow-up with cardiology. Return to the ED with any worsening/concerning symptoms otherwise as reviewed in discharge. Patient is in agreement. Dr. Lay is also in agreement with this plan. - Vital Signs Vital signs: Temp Pulse Resp BP Pulse Ox 97.4 F 19 171/81 H 100 01/30/18 08:30 01/30/18 11:07 01/30/18 11:07 01/30/18 11:07 - Laboratory Result Diagrams: 01/30/18 08:50 01/30/18 10:10 Laboratory results interpreted by me: 01/30/18 01/30/18 01/30/18 08:50 08:50 08:50 WBC 11.6 H RDW 16.4 H Absolute Neutrophils 8.8 H PT 19.9 H Carbon Dioxide BUN Est GFR (Non-Af Amer) Glucose NT-Pro-B Natriuret Pep Urine Protein 100 H Urine Blood SMALL H Urine Nitrite POSITIVE H Ur Leukocyte Esterase LARGE H 01/30/18 01/30/18 10:10 10:10 WBC RDW Absolute Neutrophils PT Carbon Dioxide 32 H BUN 24 H Est GFR (Non-Af Amer) 56 L Glucose 120 H NT-Pro-B Natriuret Pep 3550 H Urine Protein Urine Blood Urine Nitrite Ur Leukocyte Esterase Discharge - Discharge Clinical Impression: Acute UTI (urinary tract infection) CHF (congestive heart failure) Qualifiers: Heart failure type: unspecified Heart failure chronicity: acute on chronic Qualified Code(s): I50.9 - Heart failure, unspecified Condition: Stable Disposition: HOME, SELF-CARE Instructions: Cephalexin ([facility]), Urinary Tract Infection ([facility]) Additional Instructions: Maintain adequate fluid and food intake Take home medications as directed--Take lasix 60mg twice daily Low sodium/fat diet Monitor blood pressure daily and keep a log Monitor symptoms for any acute changes Recheck with your PCM in 2-3 days Schedule a follow-up with cardiology Return to the ED with any worsening symptoms and/or development of fever, headache, chest pain, palpitations, syncope, shortness of breath, trouble breathing, abdominal pain, n/v/d, blood in stool/urine, loss of control of bowel /bladder, urinary retention, muscle weakness/paralysis, numbness/tingling, or other worsening symptoms that are concerning to you. Prescriptions: Cephalexin Monohydrate [Keflex 500 mg Capsule] 500 mg PO TID #21 capsule Forms: Elevated Blood Pressure Referrals: SANNA MANDUJANO MD [Primary Care Provider] - 02/01/18 FLORIAN ABRAMS MD [NO LOCAL MD] - Follow up in 1 week
[2018-01-30 09:10] LABS: ABSOLUTE BASOPHILS # (AUTO) 0.1 10^3/uL (0.0-0.2); ABSOLUTE EOSINOPHILS # (AUTO) 0.1 10^3/uL (0.0-0.6); ABSOLUTE LYMPHOCYTES (AUTO) 1.6 10^3/uL (0.5-4.7); ABSOLUTE MONOCYTES (AUTO) 0.9 10^3/uL (0.1-1.4); ABSOLUTE NEUT (AUTO) 8.8 10^3/uL (1.7-8.2); BASOPHILS % (AUTO) 0.7 % (0-2); EOSINOPHILS % (AUTO) 1.2 % (0-6); HEMATOCRIT 38.8 % (36.0-47.0); LYMPHOCYTES % (AUTO) 14.1 % (13-45); MEAN CORPUSCULAR HEMOGLOBIN 30.2 pg (27.0-33.4); MEAN CORPUSCULAR HGB CONC 33.5 g/dL (32.0-36.0); MEAN CORPUSCULAR VOLUME 90 fl (80-97); MONOCYTES % (AUTO) 7.9 % (3-13); PLATELET COUNT 243 10^3/uL (150-450); RED CELL DISTRIBUTION WIDTH 16.4 % (11.5-14.0); SEGMENTED NEUTROPHILS % (AUTO) 76.1 % (42-78); TOTAL CELLS COUNTED % (AUTO) 100 %; WHITE BLOOD COUNT 11.6 10^3/uL (4.0-10.5)
[2018-01-30 09:11] LABS: APPEARANCE,URINE CLOUDY; BILIRUBIN,URINE NEGATIVE (NEGATIVE); COLOR,URINE YELLOW; GLUCOSE, URINE NEGATIVE (NEGATIVE); KETONES,URINE NEGATIVE (NEGATIVE); LEUKOCYTE ESTERASE,URINE LARGE (NEGATIVE); NITRITE,URINE POSITIVE (NEGATIVE); PROTEIN,URINE 100 mg/dL (NEGATIVE); URINE SPECIFIC GRAVITY 1.009; UROBILINOGEN,URINE NEGATIVE mg/dL (<2.0)
[2018-01-30 09:16] LABS: INTERNATIONAL RATION (INR) 1.61; PROTHROMBIN TIME 19.9 SEC (11.4-15.4)
--- NOTE | 2018-01-30 09:24 | RADIOLOGY REPORT (SQ) ---
EXAM DESCRIPTION: CHEST SINGLE VIEW COMPLETED DATE/TIME: 01/30/2018 9:13 am REASON FOR STUDY: sob COMPARISON: 07/02/2016. NUMBER OF VIEWS: One view. TECHNIQUE: Single frontal radiographic view of the chest acquired. LIMITATIONS: None. FINDINGS: LUNGS AND PLEURA: No opacities, masses or pneumothorax. No pleural effusion. MEDIASTINUM AND HILAR STRUCTURES: No masses or contour abnormality. HEART AND VASCULATURE: Cardiac enlargement. Mild vascular prominence. BONES: No acute findings. HARDWARE: Pacemaker. Sternotomy wires and coronary bypass markers. OTHER: No other significant finding. IMPRESSION: CARDIAC ENLARGEMENT. MILD VASCULAR PROMINENCE. TECHNICAL DOCUMENTATION: JOB ID: [id number] [employer]- All Rights Reserved Reading location - IP/workstation name: [email or web address]
[2018-01-30] MEDS ORDERED: CEFTRIAXONE 1 GM/D5W RTU 1 GM/50 ML RTUPB IV ONE (09:35)
[2018-01-30 10:47] LABS: ALANINE AMINOTRANSFERASE 23 U/L (9-52); ALKALINE PHOSPHATASE 76 U/L (38-126); ANION GAP 8 (5-19); ASPARTATE AMINO TRANSFERASE 25 U/L (14-36); BILIRUBIN,DIRECT 0.3 mg/dL (0.0-0.4); BLOOD UREA NITROGEN 24 mg/dL (7-20); CALCIUM 9.8 mg/dL (8.4-10.2); CARBON DIOXIDE 32 mmol/L (22-30); CHLORIDE 102 mmol/L (98-107); CREATINE KINASE 33 U/L (30-135); GLUCOSE 120 mg/dL (75-110); POTASSIUM 4.1 mmol/L (3.6-5.0); SODIUM 141.7 mmol/L (137-145); TOTAL PROTEIN 6.9 g/dL (6.3-8.2)
[2018-01-30 10:57] LABS: CREATINE KINASE MB 1.28 ng/mL (<4.55); NT PRO BNP 3550 pg/mL (<450)
[2018-01-30 11:00] LABS: TROPONIN I < 0.012 ng/mL
[2018-01-30 12:56] VITALS: BP 178/77
--- NOTE | 2018-01-30 19:17 | EKG REPORT ---
SEVERITY:- ABNORMAL ECG - ATRIAL FIBRILLATION, V-RATE 70-71 VENTRICULAR-PACED RHYTHM : Confirmed by: Sandra Sahni MD 30-Jan-2018 19:16:43
== END 2018-01-30 12:56 | disposition home or self-care (01) ==
LOC: ER 08:26
DX: I11.0 Hypertensive heart disease with heart failure (principal); I50.9 Heart failure, unspecified; N39.0 Urinary tract infection, site not specified; R11.0 Nausea; I25.10 Atherosclerotic heart disease of native coronary artery without angina pectoris; I25.2 Old myocardial infarction; I48.91 Unspecified atrial fibrillation; Z79.01 Long term (current) use of anticoagulants; Z79.899 Other long term (current) drug therapy; Z95.0 Presence of cardiac pacemaker; Z85.828 Personal history of other malignant neoplasm of skin; Z95.1 Presence of aortocoronary bypass graft
CPT/HCPCS: 93005; 99285; 96375; 96365; 36415; 87086; 82553; 82550; 85025; 85610; 87088; 80053; 81001; 84484; 87186; 83880; 71045; 93010; J1940; J0696

== ENCOUNTER 2018-12-04 18:21 | Emergency (ER) | payer MEDICARE, OTHER ==
[2018-12-04 19:08] LABS: ABSOLUTE BASOPHILS # (AUTO) 0.1 10^3/uL (0.0-0.2); ABSOLUTE LYMPHOCYTES (AUTO) 1.4 10^3/uL (0.5-4.7); ABSOLUTE MONOCYTES (AUTO) 1.1 10^3/uL (0.1-1.4); ABSOLUTE NEUT (AUTO) 9.4 10^3/uL (1.7-8.2); BASOPHILS % (AUTO) 0.9 % (0-2); EOSINOPHILS % (AUTO) 0.2 % (0-6); HEMATOCRIT 36.4 % (36.0-47.0); LYMPHOCYTES % (AUTO) 11.9 % (13-45); MEAN CORPUSCULAR HEMOGLOBIN 29.8 pg (27.0-33.4); MEAN CORPUSCULAR VOLUME 90 fl (80-97); MONOCYTES % (AUTO) 9.4 % (3-13); PLATELET COUNT 273 10^3/uL (150-450); RED BLOOD COUNT 4.03 10^6/uL (3.72-5.28); RED CELL DISTRIBUTION WIDTH 15.7 % (11.5-14.0); SEGMENTED NEUTROPHILS % (AUTO) 77.6 % (42-78); TOTAL CELLS COUNTED % (AUTO) 100 %; WHITE BLOOD COUNT 12.1 10^3/uL (4.0-10.5)
[2018-12-04 19:21] LABS: ALBUMIN 4.2 g/dL (3.5-5.0); ALKALINE PHOSPHATASE 71 U/L (38-126); ANION GAP 13 (5-19); ASPARTATE AMINO TRANSFERASE 28 U/L (14-36); BILIRUBIN,DIRECT 0.3 mg/dL (0.0-0.4); BILIRUBIN,TOTAL 0.9 mg/dL (0.2-1.3); BLOOD UREA NITROGEN 75 mg/dL (7-20); CALCIUM 10.2 mg/dL (8.4-10.2); CARBON DIOXIDE 30 mmol/L (22-30); CHLORIDE 90 mmol/L (98-107); GLUCOSE 109 mg/dL (75-110); POTASSIUM 4.2 mmol/L (3.6-5.0); TOTAL PROTEIN 7.2 g/dL (6.3-8.2)
[2018-12-04 20:45] LABS: APPEARANCE,URINE SLIGHTLY-CLOUDY; BILIRUBIN,URINE NEGATIVE (NEGATIVE); COLOR,URINE YELLOW; GLUCOSE, URINE NEGATIVE (NEGATIVE); KETONES,URINE NEGATIVE (NEGATIVE); LEUKOCYTE ESTERASE,URINE NEGATIVE (NEGATIVE); NITRITE,URINE NEGATIVE (NEGATIVE); PROTEIN,URINE NEGATIVE (NEGATIVE); URINE SPECIFIC GRAVITY 1.009; UROBILINOGEN,URINE NEGATIVE mg/dL (<2.0)
--- NOTE | 2018-12-04 22:03 | RADIOLOGY REPORT (SQ) ---
XR CHEST 1 VIEW EXAM DATE: 12/04/2018 8:49 PM CDT HISTORY: Cough. COMPARISON: 10/30/2016 FINDINGS: Moderate cardiomegaly with prior cardiac surgery and left chest wall pacemaker noted. No consolidation, pleural effusion, or pneumothorax is seen. The bony thorax is intact. IMPRESSION: No evidence of acute cardiopulmonary disease.
--- NOTE | 2018-12-04 22:05 | RADIOLOGY REPORT (SQ) ---
EXAM DESCRIPTION: CT HEAD WITHOUT IV CONTRAST COMPLETED DATE/TME: 12/04/2018 20:50 CLINICAL HISTORY: 88 years, Female, ams COMPARISON: None. TECHNIQUE: 195 Images stored on PACS. All CT scanners at this facility use dose modulation, iterative reconstruction, and/or weight based dosing when appropriate to reduce radiation dose to as low as reasonably achievable (ALARA). [facility]: Dose Right [facility]: CareDose [facility]: Dose Right [facility]: Teradose 4D [facility]: [employer] LIMITATIONS: None. FINDINGS: The globes are intact. Paranasal sinuses and mastoid air cells are unremarkable. No displaced or depressed skull fracture. No intra or extra-axial hemorrhage. CT is limited for evaluation of acute infarct. No CT evidence for large or territorial acute infarct. No mass. No midline shift. Age-appropriate atrophy with small vessel ischemic change IMPRESSION: Atrophy. Small vessel ischemic change. TECHNICAL DOCUMENTATION: Quality ID # [id number]: Final reports with documentation of one or more dose reduction techniques (e.g., Automated exposure control, adjustment of the mA and/or kV according to patient size, use of iterative reconstruction technique) copyright 2011 [employer]- All Rights Reserved
--- NOTE | 2018-12-04 22:23 | ER Document Report ---
ED Neuro Symptoms/Deficit - General Chief Complaint: Altered Mental Status Stated Complaint: ALTERED MENTAL STATUS Primary Care Provider: SANNA MANDUJANO MD [Primary Care Provider] - Follow up as needed Cannot obtain history due to: Altered mental status TRAVEL OUTSIDE OF THE [place] IN LAST 30 DAYS: No - HPI Patient complains to provider of: Other - Per daughter patient was confused after hyperventilating today. However afterwards shortly became alert and oriented x3. She has had similar symptoms in the past and family was concerned about the onset of dementia. Symptoms are: Constant Duration: Better Quality of pain: No pain Loss of consciousness: No loss of consciousness Was STROKE ALERT Called: No Baseline Cognitive: Alert, oriented X 3 Baseline Gait: Walks w/o assistance Character of altered mental status: Confused New weakness: denies: LUE, LLE, RUE, RLE, L facial, R facial, General (diffuse) Altered sensation: denies: LUE, LLE, RUE, RLE, L facial, R facial, General (diffuse) Decreased ability to stand/walk: denies: Weak, Difficult, Off balance, Cannot walk, Cannot stand Associated symptoms: denies: None, Chest pain, Back pain, Chills, Dizzy, Falling injury, Fainting, Fever, Headache, Hurts to breathe, Involuntary movements, Lightheadedness, Nausea, Neck pain, Seizure, Short of breath, Sweaty, Vomiting, Other - Related Data Allergies/Adverse Reactions: morphine [Morphine] Adverse Reaction (Severe, Verified 10/30/16 06:57) Abnormal behavior Past Medical History - Social History Smoking Status: Unknown if Ever Smoked Family History: CAD - Parents, Other - colon polyps in parents Patient has suicidal ideation: No Patient has homicidal ideation: No - Past Medical History Cardiac Medical History: Reports: Hx Atrial Fibrillation, Hx Congestive Heart Failure, Hx Coronary Artery Disease, Hx Heart Attack, Hx Hypercholesterolemia, Hx Hypertension Denies: Hx DVT, Hx Peripheral Vascular Disease, Hx Pulmonary Embolism, Hx Heart Murmur Pulmonary Medical History: Reports: Hx Pneumonia, Hx Sleep Apnea - Testing in near future Denies: Hx Asthma, Hx Bronchitis, Hx COPD, Hx Respiratory Failure, Hx Tubercu losis Neurological Medical History: Denies: Hx Seizures Endocrine Medical History: Reports: Hx Hypothyroidism. Denies: Hx Diabetes Mellitus Type 1, Hx Diabetes Mellitus Type 2, Hx Graves' Disease, Hx Hyperthyroidism Renal/ Medical History: Denies: Hx End Stage Renal Disease, Hx Kidney Stones, Hx Ovarian Cysts, Hx Peritoneal Dialysis, Hx Pelvic Inflammatory Disease Malignancy Medical History: Reports: Hx Skin Cancer. Denies: Hx Breast Cancer, Hx Cervical Cancer, Hx Leukemia, Hx Lung Cancer, Hx Ovarian Cancer GI Medical History: Reports: Hx Gastroesophageal Reflux Disease - Dysphagia. Denies: Hx Cirrhosis, Hx Crohn's Disease, Hx Hepatitis, Hx Hiatal Hernia, Hx Irr itable Bowel, Hx Liver Failure, Hx Pancreatitis, Hx Ulcer Musculoskeletal Medical History: Reports Hx Arthritis, Denies Hx Fibromyalgia, Denies Hx Muscular Dystrophy, Denies Hx Systemic Lupus Erythematosus Psychiatric Medical History: Denies: Hx Depression Traumatic Medical History: Reports: Hx Fractures - fx wrist Infectious Medical History: Denies: Hx Hepatitis, Hx HIV Past Surgical History: Reports: Hx Appendectomy, Hx Cardiac Surgery - CABG, Balloon,, Hx Coronary Artery Bypass Graft, Hx Open Heart Surgery, Hx Pacemaker. Denies: Hx Bowel Surgery, Hx Section, Hx Cholecystectomy, Hx Colostomy, Hx Gastric Bypass Surgery, Hx Herniorrhaphy, Hx Hysterectomy, Hx Mastectomy, Hx Tonsillectomy, Hx Tubal Ligation - Immunizations Hx Diphtheria, Pertussis, Tetanus Vaccination: Yes Hx Pneumococcal Vaccination: 12/26/11 Review of Systems - Review of Systems Constitutional: No symptoms reported EENT: No symptoms reported Cardiovascular: No symptoms reported Respiratory: No symptoms reported Gastrointestinal: No symptoms reported Genitourinary: No symptoms reported Female Genitourinary: No symptoms reported Musculoskeletal: No symptoms reported Skin: No symptoms reported Neurological/Psychological: Confusion -: Yes All other systems reviewed and negative Physical Exam - Vital signs Vitals: Resp Pulse Ox 18 97 12/04/18 18:25 12/04/18 18:25 Notes: PHYSICAL EXAMINATION: GENERAL: Well-appearing, well-nourished and in no acute distress. HEAD: Atraumatic, normocephalic. EYES: Pupils equal round and reactive to light, extraocular movements intact, sclera anicteric, conjunctiva are normal. ENT: nares patent, oropharynx clear without exudates. Moist mucous membranes. NECK: Normal range of motion, supple without lymphadenopathy LUNGS: Breath sounds clear to auscultation bilaterally and equal. No wheezes rales or rhonchi. HEART: Regular rate and rhythm without murmurs ABDOMEN: Soft, nontender, normoactive bowel sounds. No guarding, no rebound. No masses appreciated. EXTREMITIES: Normal range of motion, no pitting or edema. No cyanosis. NEUROLOGICAL: No focal neurological deficits. Moves all extremities spontaneously and on command. Oriented x3 at baseline presently per family PSYCH: Normal mood, normal affect. SKIN: Warm, Dry, normal turgor, no rashes or lesions noted. m/s: 5 out of 5 bilaterally both upper and lower extremities Course - Vital Signs Vital signs: Temp Pulse Resp BP Pulse Ox 98.1 F 70 15 167/77 H 98 12/04/18 18:35 12/04/18 18:35 12/04/18 21:17 12/04/18 21:17 12/04/18 21:17 - Laboratory Result Diagrams: 12/04/18 18:50 12/04/18 18:50 Laboratory results interpreted by me: 12/04/18 12/04/18 18:50 18:50 WBC 12.1 H RDW 15.7 H Lymph % (Auto) 11.9 L Absolute Neuts (auto) 9.4 H Sodium 132.5 L Chloride 90 L BUN 75 H Creatinine 2.69 H Est GFR ( Amer) 20 L Est GFR (MDRD) Non-Af 17 L - EKG Interpretation by Me Additional EKG results interpreted by me: 12/04/18 22:24 EKG shows normal sinus rhythm rate of 71 with a left bundle branch block when compared to his EKG 3118 there is no significant change Discharge - Discharge Clinical Impression: Confusion and disorientation Condition: Good Disposition: HOME, SELF-CARE Instructions: Transient Ischemic Attack ([facility]) Additional Instructions: take one 81 mg asa daily. follow up with your primary doctor for referal to neurologist. return if worse. Forms: Elevated Blood Pressure Referrals: SANNA MANDUJANO MD [Primary Care Provider] - Follow up as needed
[2018-12-04] MEDS ORDERED: ASPIRIN 81 MG TABLET, CHEWABLE PO ONE (22:27)
[2018-12-04 22:50] VITALS: BP 152/65
--- NOTE | 2018-12-05 14:16 | EKG REPORT ---
SEVERITY:- ABNORMAL ECG - A FIB V PACED BEATS : Confirmed by: Sarita Richardson 05-Dec-2018 14:15:20
== END 2018-12-04 22:55 | disposition home or self-care (01) ==
LOC: ER 18:21
DX: R41.0 Disorientation, unspecified (principal); I44.7 Left bundle-branch block, unspecified; I25.10 Atherosclerotic heart disease of native coronary artery without angina pectoris; I10 Essential (primary) hypertension; Z95.1 Presence of aortocoronary bypass graft
CPT/HCPCS: 93005; 36415; 83605; 85025; 80053; 81001; 71045; 70450; 93010; A9270; 99285

== ENCOUNTER 2019-02-16 12:27 | Inpatient (IN) | payer MEDICARE, OTHER ==
[2019-02-16 12:55] LABS: ABSOLUTE BASOPHILS # (AUTO) 0.1 10^3/uL (0.0-0.2); ABSOLUTE EOSINOPHILS # (AUTO) 0.2 10^3/uL (0.0-0.6); ABSOLUTE LYMPHOCYTES (AUTO) 1.5 10^3/uL (0.5-4.7); ABSOLUTE MONOCYTES (AUTO) 0.9 10^3/uL (0.1-1.4); ABSOLUTE NEUT (AUTO) 3.6 10^3/uL (1.7-8.2); BASOPHILS % (AUTO) 0.9 % (0-2); EOSINOPHILS % (AUTO) 3.3 % (0-6); HEMATOCRIT 35.3 % (36.0-47.0); HEMOGLOBIN 12.1 g/dL (12.0-15.5); LYMPHOCYTES % (AUTO) 24.3 % (13-45); MEAN CORPUSCULAR HEMOGLOBIN 30.8 pg (27.0-33.4); MEAN CORPUSCULAR HGB CONC 34.1 g/dL (32.0-36.0); MEAN CORPUSCULAR VOLUME 90 fl (80-97); MONOCYTES % (AUTO) 14.4 % (3-13); PLATELET COUNT 205 10^3/uL (150-450); RED BLOOD COUNT 3.91 10^6/uL (3.72-5.28); RED CELL DISTRIBUTION WIDTH 15.7 % (11.5-14.0); SEGMENTED NEUTROPHILS % (AUTO) 57.1 % (42-78); TOTAL CELLS COUNTED % (AUTO) 100 %; WHITE BLOOD COUNT 6.4 10^3/uL (4.0-10.5)
[2019-02-16 13:11] LABS: ALKALINE PHOSPHATASE 58 U/L (38-126); ANION GAP 16 (5-19); ASPARTATE AMINO TRANSFERASE 31 U/L (14-36); BILIRUBIN,DIRECT 0.4 mg/dL (0.0-0.4); BILIRUBIN,TOTAL 0.9 mg/dL (0.2-1.3); CALCIUM 9.3 mg/dL (8.4-10.2); CARBON DIOXIDE 28 mmol/L (22-30); CHLORIDE 84 mmol/L (98-107); CREATINE KINASE 624 U/L (30-135); GLUCOSE 108 mg/dL (75-110); POTASSIUM 4.2 mmol/L (3.6-5.0); TOTAL PROTEIN 7.3 g/dL (6.3-8.2)
[2019-02-16 13:20] LABS: BLOOD UREA NITROGEN 121 mg/dL (7-20)
[2019-02-16 13:22] LABS: CREATINE KINASE MB 1.78 ng/mL (<4.55)
[2019-02-16 13:24] LABS: TROPONIN I 0.034 ng/mL
[2019-02-16] MEDS ORDERED: NYSTATIN TOPICAL POWDER 15 GM TP ONE (13:28)
--- NOTE | 2019-02-16 13:50 | ER Document Report ---
ED General - General Chief Complaint: Chest Pain Stated Complaint: CHEST PAIN Time Seen by Provider: 02/16/19 13:15 Primary Care Provider: SANNA MANDUJANO MD [Primary Care Provider] - Follow up as needed TRAVEL OUTSIDE OF THE [place] IN LAST 30 DAYS: No - HPI Notes: Patient is an 88-year-old female who presents to the emergency department for evaluation of left-sided chest pain, vomiting, and weakness. Evidently the patient was feeling poorly starting on Sunday. She was seen by her primary care physician on Sunday, diagnosed with a urinary tract infection. She was started on Macrobid, has been taking that as directed. Since then she did feel an improvement, but this morning started having left-sided chest pain. She describes it as sharp in nature. She states it lasted for about an hour. Family members state that she was given a nitroglycerin which seemed to ease her pain somewhat. She did have nausea with one episode of nonbloody, nonbilious emesis with that. I asked her about her blood pressure. She states it does not normally run low. She is still urinating. No ira fevers since initiation of antibiotics per family, but she did have fevers prior to that. At this point she denies any pain of any sort, she states she feels back to baseline. - Related Data Allergies/Adverse Reactions: morphine [Morphine] Adverse Reaction (Severe, Verified 10/30/16 06:57) Abnormal behavior Home Medications: List reviewed, please see notes Past Medical History - General Information source: Patient, Relative - Social History Smoking Status: Former Smoker Frequency of alcohol use: None Family History: CAD - Parents, Other - colon polyps in parents - Past Medical History Cardiac Medical History: Reports: Hx Atrial Fibrillation, Hx Congestive Heart Failure, Hx Coronary Artery Disease, Hx Heart Attack, Hx Hypercholesterolemia, Hx Hypertension Denies: Hx DVT, Hx Peripheral Vascular Disease, Hx Pulmonary Embolism, Hx Heart Murmur Pulmonary Medical History: Reports: Hx Pneumonia, Hx Sleep Apnea - Testing in near future Denies: Hx Asthma, Hx Bronchitis, Hx COPD, Hx Respiratory Failure, Hx Tuberculosis Neurological Medical History: Denies: Hx Seizures Endocrine Medical History: Reports: Hx Hypothyroidism. Denies: Hx Diabetes Mellitus Type 1, Hx Diabetes Mellitus Type 2, Hx Graves' Disease, Hx Hyperthyroidism Renal/ Medical History: Denies: Hx End Stage Renal Disease, Hx Kidney Stones, Hx Ovarian Cysts, Hx Peritoneal Dialysis, Hx Pelvic Inflammatory Disease Malignancy Medical History: Reports: Hx Skin Cancer. Denies: Hx Breast Cancer, Hx Cervical Cancer, Hx Leukemia, Hx Lung Cancer, Hx Ovarian Cancer GI Medical History: Reports: Hx Gastroesophageal Reflux Disease - Dysphagia. Denies: Hx Cirrhosis, Hx Crohn's Disease, Hx Hepatitis, Hx Hiatal Hernia, Hx Irritable Bowel, Hx Liver Failure, Hx Pancreatitis, Hx Ulcer Musculoskeletal Medical History: Reports Hx Arthritis, Denies Hx Fibromyalgia, Denies Hx Muscular Dystrophy, Denies Hx Systemic Lupus Erythematosus Psychiatric Medical History: Denies: Hx Depression Traumatic Medical History: Reports: Hx Fractures - fx wrist Infectious Medical History: Denies: Hx Hepatitis, Hx HIV Past Surgical History: Reports: Hx Appendectomy, Hx Cardiac Surgery - CABG, Balloon,, Hx Coronary Artery Bypass Graft, Hx Open Heart Surgery, Hx Pacemaker. Denies: Hx Bowel Surgery, Hx Section, Hx Cholecystectomy, Hx Colostomy, Hx Gastric Bypass Surgery, Hx Herniorrhaphy, Hx Hysterectomy, Hx Mastectomy, Hx Tonsillectomy, Hx Tubal Ligation - Immunizations Hx Diphtheria, Pertussis, Tetanus Vaccination: Yes Hx Pneumococcal Vaccination: 12/26/11 Review of Systems - Review of Systems Constitutional: See HPI EENT: No symptoms reported Cardiovascular: See HPI Respiratory: No symptoms reported Gastrointestinal: See HPI Genitourinary: See HPI Musculoskeletal: No symptoms reported Skin: No symptoms reported Neurological/Psychological: No symptoms reported Physical Exam - Vital signs Vitals: Resp 21 H 02/16/19 12:35 - Notes Notes: Is a very pleasant 88-year-old female who appears her stated age, no acute distress. Vital signs reviewed, please refer to chart. Head is normocephalic, atraumatic. Pupils equal round, reactive to light. Neck is supple without meningismus. Heart is regular rate and rhythm. Lungs are clear to auscultation bilaterally. Examination of the skin of the chest yields extensive erythematous well-demarcated rash, consistent with Soo. Abdomen is soft, nontender, normoactive bowel sounds throughout. Extremities without cyanosis, clubbing. Posterior calves are nontender. Peripheral pulses are equal. Skin is warm and dry. Patient is awake, alert, neurological exam is nonfocal. Course - Re-evaluation Re-evalutation: 02/16/19 17:10 Patient presents emergency department for evaluation of vomiting, left-sided chest pain. My suspicion is that her chest pain is more related to the candidal infection under her left breast. This was treated with nystatin. Her urine is being treated with Macrobid, there only a few white blood cells per high-power field, no overwhelming signs of infection. She has a normal white count. More concerning, however, as her hyponatremia and acute renal failure. She is given IV fluids. Her troponin was indeterminately elevated, but came down. My suspicion is that this is all secondary to her acute renal failure. Patient remained stable and chest pain-free throughout the course of her stay. I contacted physician judicial administrative assistant Saturnino Wagner, he sent nurse practitioner Florian Dietz to the department to admit the patient. - Vital Signs Vital signs: Temp Pulse Resp BP Pulse Ox 98 F 16 119/83 95 02/16/19 13:09 02/16/19 16:01 02/16/19 16:01 02/16/19 15:03 - Laboratory Result Diagrams: 02/16/19 12:40 02/16/19 12:40 Laboratory results interpreted by me: 02/16/19 02/16/19 02/16/19 12:40 12:40 14:00 Hct 35.3 L RDW 15.7 H [place] % (Auto) 14.4 H Sodium 128.3 L Chloride 84 L BUN 121 H Creatinine 3.73 H Est GFR ( Amer) 14 L Est GFR (MDRD) Non-Af 11 L Creatine Kinase 624 H Urine Blood SMALL H Ur Leukocyte Esterase SMALL H - Diagnostic Test Radiology reviewed: Reports reviewed Radiology results interpreted by me: 02/16/19 17:11 Chest X-Ray 02/16/19 12:29 IMPRESSION: Cardiomegaly. No consolidation or pleural effusion. Discharge - Discharge Clinical Impression: Hyponatremia, Nausea and vomiting, Candidal intertrigo Renal failure Qualifiers: Renal failure chronicity: acute Acute renal failure type: unspecified Qualified Code(s): N17.9 - Acute kidney failure, unspecified Condition: Stable Disposition: ADMITTED INPATIENT Admitting Provider: Yoon (Hospitalist) Unit Admitted: Telemetry Referrals: SANNA MANDUJANO MD [Primary Care Provider] - Follow up as needed
--- NOTE | 2019-02-16 13:56 | RADIOLOGY REPORT (SQ) ---
EXAM DESCRIPTION: CHEST SINGLE VIEW COMPLETED DATE/TIME: 02/16/2019 1:02 pm REASON FOR STUDY: chest pain COMPARISON: Chest x-ray 12/04/2018. EXAM PARAMETERS: NUMBER OF VIEWS: One view. TECHNIQUE: Single frontal radiographic view of the chest acquired. RADIATION DOSE: NA LIMITATIONS: None. FINDINGS: LUNGS AND PLEURA: No consolidation, pneumothorax or pleural effusion. MEDIASTINUM AND HILAR STRUCTURES: No masses. Contour normal. HEART AND VASCULAR STRUCTURES: The heart remains enlarged. No overt vascular congestion. BONES: No acute findings. HARDWARE: Sternotomy wires are present. There is a left-sided pacemaker. IMPRESSION: Cardiomegaly. No consolidation or pleural effusion. TECHNICAL DOCUMENTATION: JOB ID: [id number] [employer]- All Rights Reserved Reading location - IP/workstation name: [email or web address]
[2019-02-16] MEDS ORDERED: NORMAL SALINE 1000 ML 1,000 ML IV ONE (16:24)
[2019-02-16 16:28] LABS: APPEARANCE,URINE SLIGHTLY-CLOUDY; BILIRUBIN,URINE NEGATIVE (NEGATIVE); COLOR,URINE YELLOW; GLUCOSE, URINE NEGATIVE (NEGATIVE); KETONES,URINE NEGATIVE (NEGATIVE); LEUKOCYTE ESTERASE,URINE SMALL (NEGATIVE); NITRITE,URINE NEGATIVE (NEGATIVE); PROTEIN,URINE NEGATIVE (NEGATIVE); URINE SPECIFIC GRAVITY 1.009; UROBILINOGEN,URINE NEGATIVE mg/dL (<2.0)
[2019-02-16] MEDS ORDERED: ONDANSETRON HCL INJ/PF 4 MG/2 ML SDV IV PRN (17:08)
[2019-02-16] MEDS ORDERED: TEMAZEPAM 15 MG CAPSULE PO PRN (17:08)
[2019-02-16] MEDS ORDERED: NORMAL SALINE 1000 ML 1,000 ML IV PRN (17:08)
[2019-02-16] MEDS ORDERED: ACETAMINOPHEN 325 MG TABLET PO PRN (17:08)
[2019-02-16] MEDS ORDERED: MAG HYDROX/AL HYDROX/SIMETH SUSP 30 ML UDCUP PO PRN (17:08)
--- NOTE | 2019-02-16 17:19 | PDOC H&P ---
History of Present Illness Admission Date/PCP: 02/16/2019 SANNA MANDUJANO MD Patient complains of: Chest pain History of Present Illness: EVGENY HUTCHINSON is a 88 year old female resents to emergency department for evaluation of left-sided chest pain vomiting and weakness. Patient reported he started feeling poorly on Sunday he was treated for UTI by her primary care practitioner. She was giving Macrobid and developed severe diarrhea and was given antidiarrheal medication. Patient states the pain in her chest is sharp in nature lasting for about an hour but is gone at this time. She did have nausea one episode of nonbloody nonbilious emesis. Had no treatment prior to arrival no true aggravating factors. Past Medical History Cardiac Medical History: Reports: Atrial Fibrillation, Congestive Heart Failure, Coronary Artery Disease, Myocardial Infarction, Hyperlipidema, Hypertension Denies: DVT, Peripheral Vascular Disease, Pulmonary Embolism, Heart Murmur Pulmonary Medical History: Reports: Pneumonia, Sleep Apnea - Testing in near future Denies: Asthma, Bronchitis, Chronic Obstructive Pulmonary Disease (COPD), Respiratory Failure, Tuberculosis Neurological Medical History: Denies: Seizures Endocrine Medical History: Reports: Hypothyroidism Denies: Diabetes Mellitus Type 1, Diabetes Mellitus Type 2, Hyperthyroidism Renal/ Medical History: Denies: End Stage Renal Disease Malignancy Medical History: Reports: Skin Cancer Denies: Breast Cancer, Cervical Cancer, Leukemia, Lung Cancer, Ovarian Cancer GI Medical History: Reports: Gastroesophageal Reflux Disease - Dysphagia Denies: Cirrhosis, Crohn's Disease, Hepatitis, Hiatal Hernia Musculoskeltal Medical History: Reports: Arthritis Denies: Fibromyalgia Psychiatric Medical History: Denies: Depression Hematology: Denies: Anemia, Hemophilia, Sickle Cell Disease Infectious Medical History: Denies: HIV Past Surgical History Past Surgical History: Reports: Appendectomy, Coronary Artery Bypass Graft, Pacemaker Denies: Amputation, Section, Cholecystectomy, Colostomy, Gastric Bypass Surgery, Herniorrhaphy, Hysterectomy, Mastectomy, Tonsillectomy, Tubal Ligation Social History Information Source: Patient Lives with: Family Smoking Status: Former Smoker Electronic Cigarette use?: No Frequency of Alcohol Use: None Hx Recreational Drug Use: No Drugs: None Hx Prescription Drug Abuse: No - Advance Directive Resuscitation Status: Full Code Family History Family History: CAD - Parents, Other - colon polyps in parents Parental Family History Reviewed: Yes Children Family History Reviewed: Yes Sibling(s) Family History Reviewed.: Yes Medication/Allergy Home Medications: Amlodipine Besylate [Norvasc 5 mg Tablet] 5 mg PO DAILY 10/30/16 Docusate Sodium [Colace 100 mg Capsule] 100 mg PO DAILY 10/30/16 Folic Acid [Folvite 1 mg Tablet] 1 mg PO DAILY 10/30/16 Furosemide [Lasix] 80 mg PO DAILY 10/30/16 Isosorbide Mononitrate [Isosorbide Mononitrate ER] 30 mg PO DAILY 10/30/16 Levothyroxine Sodium [Synthroid 0.075 mg Tablet] 0.075 mg PO DAILY 10/30/16 Lisinopril [Prinivil 40 mg Tablet] 40 mg PO DAILY 10/30/16 Lorazepam [Ativan 1 mg Tablet] 1 mg PO DAILYP PRN 10/30/16 Metolazone [Zaroxolyn 2.5 mg Tablet] 2.5 mg PO MOWEFR@1000 10/30/16 Metoprolol Succinate [Toprol XL 100 mg Tablet] 100 mg PO DAILY 10/30/16 Nitroglycerin [Nitrostat] 0.4 mg SL Q5MP PRN 10/30/16 Potassium Chloride [Klor-Con 10] 10 meq PO BID 10/30/16 Rivaroxaban [Xarelto] 20 mg PO WSUPPER 10/30/16 Rosuvastatin Calcium [Crestor 20 mg Tablet] 20 mg PO QHS 10/30/16 Tramadol HCl [Ultram 50 mg Tablet] 50 mg PO Q6HP PRN 10/30/16 Trazodone HCl [Desyrel 50 mg Tablet] 50 mg PO QHS 10/30/16 Acetaminophen [Tylenol 325 mg Tablet] 650 mg PO Q8HP PRN tablet 11/03/16 Cephalexin Monohydrate [Keflex 500 mg Capsule] 500 mg PO TID #21 capsule 01/30/18 Allergies/Adverse Reactions: morphine [Morphine] Adverse Reaction (Severe, Verified 10/30/16 06:57) Abnormal behavior Review of Systems Constitutional: ABSENT: chills, fever(s), headache(s), weight gain, weight loss Eyes: ABSENT: visual disturbances Ears: ABSENT: hearing changes Cardiovascular: PRESENT: chest pain. ABSENT: dyspnea on exertion, edema, orthropnea, palpitations Respiratory: ABSENT: cough, hemoptysis Gastrointestinal: PRESENT: diarrhea. ABSENT: abdominal pain, constipation, hematemesis, hematochezia, nausea, vomiting Genitourinary: ABSENT: dysuria, hematuria Musculoskeletal: ABSENT: joint swelling Integumentary: ABSENT: rash, wounds Neurological: ABSENT: abnormal gait, abnormal speech, confusion, dizziness, focal weakness, syncope Psychiatric: ABSENT: anxiety, depression, homidical ideation, suicidal ideation Endocrine: ABSENT: cold intolerance, heat intolerance, polydipsia, polyuria Hematologic/Lymphatic: ABSENT: easy bleeding, easy bruising Physical Exam Vital Signs: Temp Pulse Resp BP Pulse Ox 98 F 16 119/83 95 02/16/19 13:09 02/16/19 16:01 02/16/19 16:01 02/16/19 15:03 Intake & Output 02/15/19 02/16/19 02/17/19 06:59 06:59 06:59 Weight 83.915 kg General appearance: PRESENT: no acute distress, well-developed, well-nourished Head exam: PRESENT: atraumatic, normocephalic Eye exam: PRESENT: conjunctiva pink, EOMI, PERRLA. ABSENT: scleral icterus Ear exam: PRESENT: normal external ear exam Mouth exam: PRESENT: moist, tongue midline Neck exam: ABSENT: carotid bruit, JVD, lymphadenopathy, thyromegaly Respiratory exam: PRESENT: clear to auscultation vaishnavi. ABSENT: rales, rhonchi, wheezes Cardiovascular exam: PRESENT: RRR. ABSENT: diastolic murmur, rubs, systolic murmur Pulses: PRESENT: normal dorsalis pedis pul Vascular exam: PRESENT: normal capillary refill GI/Abdominal exam: PRESENT: normal bowel sounds, soft. ABSENT: distended, guarding, mass, organolmegaly, rebound, tenderness Rectal exam: PRESENT: deferred Extremities exam: PRESENT: full ROM. ABSENT: calf tenderness, clubbing, pedal edema Neurological exam: PRESENT: alert, awake, oriented to person, oriented to place, oriented to time, oriented to situation, CN II-XII grossly intact. ABSENT: motor sensory deficit Psychiatric exam: PRESENT: appropriate affect, normal mood. ABSENT: homicidal ideation, suicidal ideation Skin exam: PRESENT: dry, intact, warm. ABSENT: cyanosis, rash Results Laboratory Results: 02/16/19 12:40 02/16/19 12:40 02/16/19 02/16/19 02/16/19 12:40 12:40 14:00 WBC 6.4 RBC 3.91 Hgb 12.1 Hct 35.3 L MCV 90 MCH 30.8 MCHC 34.1 RDW 15.7 H Plt Count 205 Seg Neutrophils % 57.1 Sodium 128.3 L Potassium 4.2 Chloride 84 L Carbon Dioxide 28 Anion Gap 16 BUN 121 H Creatinine 3.73 H Est GFR ( Amer) 14 L Glucose 108 Lactic Acid Calcium 9.3 Total Bilirubin 0.9 AST 31 Alkaline Phosphatase 58 Total Protein 7.3 Albumin 4.0 Urine Color YELLOW Urine Appearance SLIGHTLY-CLOUDY Urine pH 6.0 Ur Specific [place] 1.009 Urine Protein NEGATIVE Urine Glucose (UA) NEGATIVE Urine Ketones NEGATIVE Urine Blood SMALL H Urine Nitrite NEGATIVE Ur Leukocyte Esterase SMALL H Urine WBC (Auto) 5 Urine RBC (Auto) 1 02/16/19 14:20 WBC RBC Hgb Hct MCV MCH MCHC RDW Plt Count Seg Neutrophils % Sodium Potassium Chloride Carbon Dioxide Anion Gap BUN Creatinine Est GFR ( Amer) Glucose Lactic Acid 1.4 Calcium Total Bilirubin AST Alkaline Phosphatase Total Protein Albumin Urine Color Urine Appearance Urine pH Ur Specific [place] Urine Protein Urine Glucose (UA) Urine Ketones Urine Blood Urine Nitrite Ur Leukocyte Esterase Urine WBC (Auto) Urine RBC (Auto) 02/16/19 02/16/19 02/16/19 12:40 12:40 15:35 Creatine Kinase 624 H CK-MB (CK-2) 1.78 Troponin I 0.034 0.027 Impressions: Chest X-Ray 02/16/19 12:29 IMPRESSION: Cardiomegaly. No consolidation or pleural effusion. Assessment and Plan - Diagnosis (1) ARF (acute renal failure) Qualifiers: Is this a current diagnosis for this admission?: Yes Plan: 02/16/2019-most likely from diarrhea present illness. Will hydrate patient with normal saline at 150 mL an hour after a 2 L normal saline bolus. Repeat BMP in a.m. at which time I will reassess patient altogether and hold medications which I think will be causing her acute renal failure keep including Lasix and lisinopril. (2) Chest pain Is this a current diagnosis for this admission?: Yes Plan: 02/16/2019-at this time patient has had 2- troponins. Chest pain has resided. Will follow and refer for outpatient stress test. (3) Diarrhea Is this a current diagnosis for this admission?: Yes Plan: 02/16/2019-this patient was recently placed on antibiotics and had severe diarrhea 2 days later was given antidiarrheal medication will obtain a C. difficile to assure that this is not a present concern. (4) Hyponatremia Is this a current diagnosis for this admission?: Yes Plan: 02/16/2019-mild. Normal saline 150 mL an hour overnight repeat BMP in a.m. (5) Nausea and vomiting Is this a current diagnosis for this admission?: Yes Plan: 02/16/2019-Zofran 4 mg IV every 4 hours.
[2019-02-16] MEDS ORDERED: NORMAL SALINE 1000 ML 2,000 ML IV ONE (18:00)
[2019-02-16] MEDS: CEFTRIAXONE 1 GM/D5W RTU 1 GM/50 ML RTUPB IV SCH (18:23)
[2019-02-16] MEDS: NORMAL SALINE 1000 ML 1,000 ML IV PRN (21:07)
--- NOTE | 2019-02-16 22:15 | EKG REPORT ---
SEVERITY:- ABNORMAL ECG - VENTRICULAR-PACED COMPLEXES LVH WITH IVCD, LAD AND SECONDARY REPOL ABNRM : Confirmed by: Sandra Sahni MD 16-Feb-2019 22:14:48
[2019-02-17] MEDS: NORMAL SALINE 1000 ML 1,000 ML IV PRN ×3 (05:00→20:55)
[2019-02-17 06:08] LABS: ABSOLUTE EOSINOPHILS # (AUTO) 0.3 10^3/uL (0.0-0.6); ABSOLUTE LYMPHOCYTES (AUTO) 1.3 10^3/uL (0.5-4.7); ABSOLUTE MONOCYTES (AUTO) 1.1 10^3/uL (0.1-1.4); ABSOLUTE NEUT (AUTO) 3.7 10^3/uL (1.7-8.2); BASOPHILS % (AUTO) 0.6 % (0-2); EOSINOPHILS % (AUTO) 4.6 % (0-6); HEMATOCRIT 34.7 % (36.0-47.0); HEMOGLOBIN 12.1 g/dL (12.0-15.5); LYMPHOCYTES % (AUTO) 20.9 % (13-45); MEAN CORPUSCULAR HEMOGLOBIN 31.3 pg (27.0-33.4); MEAN CORPUSCULAR VOLUME 90 fl (80-97); MONOCYTES % (AUTO) 16.7 % (3-13); PLATELET COUNT 172 10^3/uL (150-450); RED BLOOD COUNT 3.88 10^6/uL (3.72-5.28); RED CELL DISTRIBUTION WIDTH 16.1 % (11.5-14.0); SEGMENTED NEUTROPHILS % (AUTO) 57.2 % (42-78); TOTAL CELLS COUNTED % (AUTO) 100 %; WHITE BLOOD COUNT 6.4 10^3/uL (4.0-10.5)
[2019-02-17 06:39] LABS: ANION GAP 12 (5-19); CALCIUM 9.1 mg/dL (8.4-10.2); CARBON DIOXIDE 30 mmol/L (22-30); CHLORIDE 95 mmol/L (98-107); GLUCOSE 95 mg/dL (75-110); PHOSPHORUS 4.7 mg/dL (2.5-4.5)
[2019-02-17 06:42] LABS: BLOOD UREA NITROGEN 93 mg/dL (7-20)
[2019-02-17 06:43] LABS: POTASSIUM 2.7 mmol/L (3.6-5.0)
[2019-02-17] MEDS ORDERED: POTASSIUM CHLORIDE 10 MEQ CAPSULE.ER PO SCH (08:00)
--- NOTE | 2019-02-17 08:31 | PDOC PROGRESS REPORT ---
Subjective Progress Note for:: 02/17/19 Subjective:: 02/17/2019-no complaints this a.m. Reason For Visit: ACUTE RENAL FAILURE,UTI,CHEST PAIN Physical Exam Vital Signs: Temp Pulse Resp BP Pulse Ox 97.6 F 69 16 138/70 H 99 02/17/19 03:48 02/17/19 03:48 02/17/19 03:48 02/17/19 03:48 02/17/19 03:48 Intake & Output 02/16/19 02/17/19 02/18/19 06:59 06:59 06:59 Intake Total 3050 Balance 3050 Weight 78.8 kg General appearance: PRESENT: no acute distress, well-developed, well-nourished Head exam: PRESENT: atraumatic, normocephalic Eye exam: PRESENT: conjunctiva pink, EOMI, PERRLA. ABSENT: scleral icterus Ear exam: PRESENT: normal external ear exam Mouth exam: PRESENT: moist, tongue midline Neck exam: ABSENT: carotid bruit, JVD, lymphadenopathy, thyromegaly Respiratory exam: PRESENT: clear to auscultation vaishnavi. ABSENT: rales, rhonchi, wheezes Cardiovascular exam: PRESENT: RRR. ABSENT: diastolic murmur, rubs, systolic murmur Pulses: PRESENT: normal dorsalis pedis pul Vascular exam: PRESENT: normal capillary refill GI/Abdominal exam: PRESENT: normal bowel sounds, soft. ABSENT: distended, guarding, mass, organolmegaly, rebound, tenderness Rectal exam: PRESENT: deferred Extremities exam: PRESENT: full ROM. ABSENT: calf tenderness, clubbing, pedal edema Neurological exam: PRESENT: alert, awake, oriented to person, oriented to place, oriented to time, oriented to situation, CN II-XII grossly intact. ABSENT: motor sensory deficit Psychiatric exam: PRESENT: appropriate affect, normal mood. ABSENT: homicidal ideation, suicidal ideation Skin exam: PRESENT: dry, intact, warm. ABSENT: cyanosis, rash Results Laboratory Results: 02/17/19 05:39 02/17/19 05:39 02/16/19 02/16/19 02/16/19 12:40 12:40 14:00 WBC 6.4 RBC 3.91 Hgb 12.1 Hct 35.3 L MCV 90 MCH 30.8 MCHC 34.1 RDW 15.7 H Plt Count 205 Seg Neutrophils % 57.1 Sodium 128.3 L Potassium 4.2 Chloride 84 L Carbon Dioxide 28 Anion Gap 16 BUN 121 H Creatinine 3.73 H Est GFR ( Amer) 14 L Glucose 108 Lactic Acid Calcium 9.3 Phosphorus Magnesium Total Bilirubin 0.9 AST 31 Alkaline Phosphatase 58 Total Protein 7.3 Albumin 4.0 Urine Color YELLOW Urine Appearance SLIGHTLY-CLOUDY Urine pH 6.0 Ur Specific [place] 1.009 Urine Protein NEGATIVE Urine Glucose (UA) NEGATIVE Urine Ketones NEGATIVE Urine Blood SMALL H Urine Nitrite NEGATIVE Ur Leukocyte Esterase SMALL H Urine WBC (Auto) 5 Urine RBC (Auto) 1 02/16/19 02/17/19 02/17/19 14:20 05:39 05:39 WBC 6.4 RBC 3.88 Hgb 12.1 Hct 34.7 L MCV 90 MCH 31.3 MCHC 35.0 RDW 16.1 H Plt Count 172 Seg Neutrophils % 57.2 Sodium 136.6 L Potassium 2.7 L* D Chloride 95 L Carbon Dioxide 30 Anion Gap 12 BUN 93 H D Creatinine 2.90 H Est GFR ( Amer) 19 L Glucose 95 Lactic Acid 1.4 Calcium 9.1 Phosphorus 4.7 H Magnesium 1.5 L Total Bilirubin AST Alkaline Phosphatase Total Protein Albumin Urine Color Urine Appearance Urine pH Ur Specific [place] Urine Protein Urine Glucose (UA) Urine Ketones Urine Blood Urine Nitrite Ur Leukocyte Esterase Urine WBC (Auto) Urine RBC (Auto) 02/16/19 02/16/19 02/16/19 12:40 12:40 15:35 Creatine Kinase 624 H CK-MB (CK-2) 1.78 Troponin I 0.034 0.027 Impressions: Chest X-Ray 02/16/19 12:29 IMPRESSION: Cardiomegaly. No consolidation or pleural effusion. Assessment and Plan - Diagnosis (1) ARF (acute renal failure) Qualifiers: Is this a current diagnosis for this admission?: Yes Plan: 02/16/2019-most likely from diarrhea present illness. Will hydrate patient with normal saline at 150 mL an hour after a 2 L normal saline bolus. Repeat BMP in a.m. at which time I will reassess patient altogether and hold medications which I think will be causing her acute renal failure keep including Lasix and lisinopril. 02/17/2019-improved. Creatinine has went to 2.9. At this time continue hydration 150 mL an hour normal saline. Repeat BMP in the a.m. Continue to hold Lasix and lisinopril will continue all her home medications excluding any other neurotoxic medications at this time. (2) Chest pain Is this a current diagnosis for this admission?: Yes Plan: 02/16/2019-at this time patient has had 2- troponins. Chest pain has resided. Will follow and refer for outpatient stress test. 02/17/2019-stable continue to follow (3) Diarrhea Is this a current diagnosis for this admission?: Yes Plan: 02/16/2019-this patient was recently placed on antibiotics and had severe diarrhea 2 days later was given antidiarrheal medication will obtain a C. difficile to assure that this is not a present concern. 02/17/2019-await C. difficile. (4) Hyponatremia Is this a current diagnosis for this admission?: Yes Plan: 02/16/2019-mild. Normal saline 150 mL an hour overnight repeat BMP in a.m. 02/17/2019-improved sodium is 136 this morning. Continue to follow (5) Nausea and vomiting Is this a current diagnosis for this admission?: Yes Plan: 02/16/2019-Zofran 4 mg IV every 4 hours. 02/17/2019-continue Zofran as needed (6) Hypokalemia Is this a current diagnosis for this admission?: Yes Plan: 02/17/2019-potassium chloride 40 mEq p.o. every 4 hours x3 doses repeat BMP in a.m. - Time Time Spent with patient: 15-24 minutes - Inpatient Certification Based on my medical assessment, after consideration of the patient's comorbidities, presenting symptoms, or acuity I expect that the services needed warrant INPATIENT care.: Yes I certify that my determination is in accordance with my understanding of Medicare's requirements for reasonable and necessary INPATIENT services [42 CFR 412.3e].: Yes Medical Necessity: Need For IV Fluids
[2019-02-17] MEDS: POTASSIUM CHLORIDE 10 MEQ CAPSULE.ER PO SCH ×3 (10:25→18:42)
[2019-02-17] MEDS: OXYCODONE-ACETAMINOPHEN 5-325 MG TABLET PO PRN (10:26)
[2019-02-17] MEDS: CEFTRIAXONE 1 GM/D5W RTU 1 GM/50 ML RTUPB IV SCH (18:44)
[2019-02-18] MEDS: NORMAL SALINE 1000 ML 1,000 ML IV PRN ×2 (02:58→11:45)
[2019-02-18 04:33] LABS: C DIFFICILE GDH NEGATIVE (NEGATIVE)
[2019-02-18 11:40] LABS: ANION GAP 11 (5-19); BLOOD UREA NITROGEN 48 mg/dL (7-20); CALCIUM 9.2 mg/dL (8.4-10.2); CARBON DIOXIDE 26 mmol/L (22-30); CHLORIDE 106 mmol/L (98-107); GLUCOSE 126 mg/dL (75-110); POTASSIUM 3.4 mmol/L (3.6-5.0)
--- NOTE | 2019-02-18 12:29 | RADIOLOGY REPORT (SQ) ---
EXAM DESCRIPTION: CHEST SINGLE VIEW COMPLETED DATE/TIME: 02/18/2019 11:48 am REASON FOR STUDY: follow up cxr COMPARISON: 02/16/2019 EXAM PARAMETERS: NUMBER OF VIEWS: One view. TECHNIQUE: Single frontal radiographic view of the chest acquired. RADIATION DOSE: NA LIMITATIONS: None. FINDINGS: LUNGS AND PLEURA: Mild hyperinflation. No focal consolidation, pleural effusion or pneumo thorax. MEDIASTINUM AND HILAR STRUCTURES: No masses. Contour normal. HEART AND VASCULAR STRUCTURES: Enlarged, stable. Aortic atherosclerosis with on portal thoracic aort a. BONES: Sternotomy hardware. No acute findings. HARDWARE: CABG and sternotomy hardware. Left sided cardiac pacer with leads overlying right atrium a nd right ventricle. OTHER: No other significant finding. IMPRESSION: Stable enlarged cardiac silhouette without evidence of acute cardiopulmonary process. TECHNICAL DOCUMENTATION: JOB ID: [id number] [facility]- All Rights Reserved Reading location - IP/workstation name: [email or web address]
[2019-02-18] MEDS ORDERED: POTASSIUM CHLORIDE 10 MEQ CAPSULE.ER PO ONE (14:00)
--- NOTE | 2019-02-18 15:44 | PDOC PROGRESS REPORT ---
Subjective Progress Note for:: 02/18/19 Subjective:: This is an 88-year-old female who presented with vomiting, weakness, recent diarrhea and chest pain. She was found to be in acute renal failure and was also found to be hyponatremic. Patient was started on IV fluids. No acute event overnight. She continues to improve. Upon encounter, she appears comfortable. She denies acute complaints. Denies chest pain or s hortness of breath. Her stools are back to her baseline. Reason For Visit: ACUTE RENAL FAILURE,UTI Physical Exam Vital Signs: Temp Pulse Resp BP Pulse Ox 97.9 F 76 16 157/85 H 100 02/18/19 11:57 02/18/19 14:00 02/18/19 11:57 02/18/19 11:57 02/18/19 08:09 Intake & Output 02/17/19 02/18/19 02/19/19 06:59 06:59 06:59 Intake Total 3050 3948 1000 Output Total 1550 Balance 3050 2398 1000 Weight 173 lb 11.588 oz 176 lb 5.917 oz General appearance: PRESENT: no acute distress, well-developed, well-nourished Head exam: PRESENT: atraumatic, normocephalic Eye exam: PRESENT: conjunctiva pink, EOMI, PERRLA. ABSENT: scleral icterus Ear exam: PRESENT: normal external ear exam Mouth exam: PRESENT: moist, tongue midline Neck exam: ABSENT: carotid bruit, JVD, lymphadenopathy, thyromegaly Respiratory exam: PRESENT: clear to auscultation vaishnavi. ABSENT: rales, rhonchi, wheezes Cardiovascular exam: PRESENT: RRR. ABSENT: diastolic murmur, rubs, systolic murmur Pulses: PRESENT: normal dorsalis pedis pul GI/Abdominal exam: PRESENT: normal bowel sounds, soft. ABSENT: distended, guarding, mass, organolmegaly, rebound, tenderness Rectal exam: PRESENT: deferred Extremities exam: PRESENT: full ROM. ABSENT: calf tenderness, clubbing, pedal edema Neurological exam: PRESENT: alert, awake, oriented to person, oriented to place, oriented to time, oriented to situation, CN II-XII grossly intact. ABSENT: motor sensory deficit Results Laboratory Results: 02/17/19 05:39 02/18/19 10:59 02/18/19 10:59 Sodium 143.3 Potassium 3.4 L Chloride 106 Carbon Dioxide 26 Anion Gap 11 BUN 48 H Creatinine 1.62 H Est GFR ( Amer) 36 L Glucose 126 H Calcium 9.2 Magnesium 1.4 L 02/16/19 20:40 Clean Catch Midstream Urine Culture - Final NO GROWTH 2 DAYS 02/16/19 02/16/19 02/16/19 12:40 12:40 15:35 Creatine Kinase 624 H CK-MB (CK-2) 1.78 Troponin I 0.034 0.027 Impressions: Chest X-Ray 02/18/19 00:00 IMPRESSION: Stable enlarged cardiac silhouette without evidence of acute cardiopulmonary process. Assessment and Plan - Diagnosis (1) Acute renal failure Is this a current diagnosis for this admission?: Yes Plan: Likely prerenal related to recent diarrhea and vomiting. Significantly improving with IV fluids. Reduce IV fluids from 150 cc/h to 50 cc/h. (2) Hyponatremia Is this a current diagnosis for this admission?: Yes Plan: Secondary to dehydration and acute renal failure. Resolved with IV fluids. (3) Hypokalemia Is this a current diagnosis for this admission?: Yes Plan: Replace with oral potassium. (4) CAD (coronary artery disease) Qualifiers: Coronary Disease-Associated Artery/Lesion type: [place] artery [place] vs. transplanted heart: [place] heart Associated angina: without angina Qualified Code(s): I25.10 - Atherosclerotic heart disease of [place] coronary artery without angina pectoris Is this a current diagnosis for this admission?: Yes Plan: Stable. Resume home meds. (5) Atrial fibrillation Qualifiers: Atrial fibrillation type: paroxysmal Qualified Code(s): I48.0 - Paroxysmal atrial fibrillation Is this a current diagnosis for this admission?: Yes Plan: Resume home meds. - Time Time Spent with patient: 25-34 minutes
[2019-02-18] MEDS ORDERED: NITROGLYCERIN 0.4 MG/TAB 25 TAB/BOTTLE SL PRN (15:45)
[2019-02-18] MEDS ORDERED: (PENDING PHARMACY ID) (Ondansetron Hcl [Zofran 4 Mg Tablet] 4 MG) PO PRN (15:45)
[2019-02-18] MEDS ORDERED: TRAMADOL HCL 50 MG TABLET PO PRN (15:45)
[2019-02-18] MEDS: MAGNESIUM SULFATE/D5W 1 GM/100 ML RTUPB IV SCH ×2 (15:54→17:16)
[2019-02-18] MEDS ORDERED: ONDANSETRON 4 MG TAB.RAPDIS PO PRN (16:02)
[2019-02-18] MEDS ORDERED: (PENDING PHARMACY ID) (Potassium Chloride [Klor-Con M20] 20 MEQ) PO SCH (18:00)
[2019-02-18] MEDS ORDERED: RIVAROXABAN 15 MG TABLET PO SCH (18:00)
[2019-02-18] MEDS: POTASSIUM CHLORIDE 10 MEQ CAPSULE.ER PO SCH (21:04)
[2019-02-18] MEDS ORDERED: ESCITALOPRAM OXALATE 10 MG TABLET PO SCH (22:00)
[2019-02-18] MEDS ORDERED: MELATONIN 5 MG TABLET PO SCH (22:00)
[2019-02-18] MEDS ORDERED: ATORVASTATIN CALCIUM 40 MG TABLET PO SCH (22:00)
[2019-02-18] MEDS ORDERED: (PENDING PHARMACY ID) (Rosuvastatin Calcium [Crestor 20 Mg Tablet] 20 MG) PO SCH (22:00)
[2019-02-19] MEDS: POTASSIUM CHLORIDE 10 MEQ CAPSULE.ER PO SCH (05:09)
[2019-02-19 05:54] LABS: ANION GAP 9 (5-19); CALCIUM 9.4 mg/dL (8.4-10.2); CARBON DIOXIDE 27 mmol/L (22-30); CHLORIDE 103 mmol/L (98-107); GLUCOSE 114 mg/dL (75-110); POTASSIUM 3.5 mmol/L (3.6-5.0)
[2019-02-19] MEDS ORDERED: LEVOTHYROXINE SODIUM 0.075 MG TABLET PO SCH (06:00)
[2019-02-19 06:05] LABS: BLOOD UREA NITROGEN 28 mg/dL (7-20)
[2019-02-19] MEDS ORDERED: ISOSORBIDE MONONITRATE 30 MG TAB.ER.24H PO SCH (08:00)
[2019-02-19] MEDS: OXYCODONE-ACETAMINOPHEN 5-325 MG TABLET PO PRN (09:15)
[2019-02-19] MEDS ORDERED: POTASSIUM CHLORIDE 10 MEQ CAPSULE.ER PO ONE (09:30)
[2019-02-19] MEDS ORDERED: METOPROLOL SUCCINATE 50 MG TAB.SR.24H PO SCH (10:00)
[2019-02-19] MEDS ORDERED: DILTIAZEM HCL 240 MG CAPSULE.CR PO SCH (10:00)
[2019-02-19] MEDS ORDERED: FOLIC ACID 1 MG TABLET PO SCH (10:00)
[2019-02-19] MEDS ORDERED: BUSPIRONE HCL 10 MG TABLET PO SCH (10:00)
[2019-02-19] MEDS ORDERED: METHOTREXATE SODIUM 2.5 MG TABLET PO SCH (10:00)
[2019-02-19 12:44] VITALS: BP 143/72
--- NOTE | 2019-02-19 15:53 | PDOC DISCHARGE SUMMARY ---
Impression - Admit/DC Date/PCP Admission Date/Primary Care Provider: 02/18/19 10:06 SANNA MANDUJANO MD Discharge Date: 02/19/19 - Discharge Diagnosis (1) Acute renal failure Is this a current diagnosis for this admission?: Yes (2) Hyponatremia Is this a current diagnosis for this admission?: Yes (3) Hypokalemia Is this a current diagnosis for this admission?: Yes (4) CAD (coronary artery disease) Is this a current diagnosis for this admission?: Yes (5) Atrial fibrillation Is this a current diagnosis for this admission?: Yes - Additional Information Resuscitation Status: Full Code Discharge Diet: Cardiac Referrals: SANNA MANDUJANO MD [Primary Care Provider] - 03/04/19 11:00 am CORRIE GUTIERREZ MD [ACTIVE STAFF] - 02/25/19 1:00 pm Prescriptions: Nystatin 1 each MC Q6H PRN #1 powder.ea. PRN Reason: Home Medications: Buspirone HCl [Buspar 15 mg Tablet] 15 mg PO DAILY 02/17/19 Diltiazem HCl [Cardizem Cd 240 mg Capsule.cr] 240 mg PO DAILY 02/17/19 Docusate Sodium [Colace 100 mg Capsule] 100 mg PO DAILY 02/17/19 Escitalopram Oxalate [Lexapro 10 mg Tablet] 10 mg PO QHS 02/17/19 Folic Acid [Folvite 1 mg Tablet] 1 mg PO DAILY 02/17/19 Isosorbide Mononitrate [Imdur 30 mg Tablet.er] 30 mg PO QAM 02/17/19 Levothyroxine Sodium 75 mcg PO Q6AM 02/17/19 Lisinopril [Zestril] 40 mg PO DAILY 02/17/19 Medroxyprogesterone Acet [Provera 10 mg Tablet] 10 mg PO DAILY 02/17/19 Melatonin [Melatonin 5 mg Tablet] 5 mg PO QHS 02/17/19 Metolazone [Zaroxolyn 2.5 mg Tablet] 2.5 mg PO MOWEFR 02/17/19 Metoprolol Succinate [Toprol XL 100 mg Tablet] 100 mg PO DAILY 02/17/19 Nitroglycerin [Nitrostat 0.4 mg (1/150 Gr) Tabs 25/Bottle] 0.4 mg SL Q5MP PRN 02/17/19 Ondansetron HCl [Zofran 4 mg Tablet] 4 mg PO Q6HP PRN 02/17/19 Potassium Chloride [Klor-Con M20] 20 meq PO TID 02/17/19 Rivaroxaban [Xarelto 15 mg Tablet] 15 mg PO QPM 02/17/19 Rosuvastatin Calcium [Crestor 20 mg Tablet] 20 mg PO QHS 02/17/19 Tramadol HCl [Ultram 50 mg Tablet] 50 mg PO DAILYP PRN 02/17/19 Nystatin 1 each MC Q6H PRN #1 powder.ea. 02/19/19 Torsemide [Demadex 20 mg Tablet] 10 mg PO BID #0 02/19/19 History of Present Illiness History of Present Illness: Admitting hospitalist's H&P: EVGENY HUTCHINSON is a 88 year old female resents to emergency department for evaluation of left-sided chest pain vomiting and weakness. Patient reported he started feeling poorly on Sunday he was treated for UTI by her primary care practitioner. She was giving Macrobid and developed severe diarrhea and was given antidiarrheal medication. Patient states the pain in her chest is sharp in nature lasting for about an hour but is gone at this time. She did have nausea one episode of nonbloody nonbilious emesis. Had no treatment prior to arrival no true aggravating factors. Hospital Course Hospital Course: This is an 88-year-old female who presented with vomiting, weakness, recent diarrhea and chest pain. She was found to be in acute renal failure and was also found to be hyponatremic. Patient was started on IV fluids. She significantly improved with IV fluids. Her acute kidney injury also resolved with IV fluid resuscitation. Her hyponatremia also resolved with fluids. Her potassium was repleted. She did not have any recurrence of diarrhea and her stools were back to her baseline. Her torsemide was decreased and adjusted due to recent BRITTNEY. Recommend repeating another BMP on follow-up with PCP and appropriate or adjustment of her torsemide back to her previous dose depending on her repeat creatinine. Physical Exam Vital Signs: Temp Pulse Resp BP Pulse Ox 97.2 F 71 16 143/72 H 93 02/19/19 12:58 02/19/19 12:58 02/19/19 12:58 02/19/19 11:32 02/19/19 12:58 Intake & Output 02/18/19 02/19/19 02/20/19 06:59 06:59 06:59 Intake Total 3948 2019 1000 Output Total 1550 Balance 2398 2019 1000 Weight 176 lb 5.917 oz General appearance: PRESENT: no acute distress, well-developed, well-nourished Head exam: PRESENT: atraumatic, normocephalic Eye exam: PRESENT: conjunctiva pink, EOMI, PERRLA. ABSENT: scleral icterus Mouth exam: PRESENT: moist, tongue midline Neck exam: ABSENT: carotid bruit, JVD, lymphadenopathy, thyromegaly Respiratory exam: PRESENT: clear to auscultation vaishnavi. ABSENT: rales, rhonchi, wheezes Cardiovascular exam: PRESENT: RRR. ABSENT: diastolic murmur, rubs, systolic murmur Pulses: PRESENT: normal dorsalis pedis pul GI/Abdominal exam: PRESENT: normal bowel sounds, soft. ABSENT: distended, guarding, mass, organolmegaly, rebound, tenderness Rectal exam: PRESENT: deferred Extremities exam: PRESENT: full ROM. ABSENT: calf tenderness, clubbing, pedal edema Neurological exam: PRESENT: alert, awake, oriented to person, oriented to place, CN II-XII grossly intact. ABSENT: motor sensory deficit Results Laboratory Results: WBC 6.4 10^3/uL (4.0-10.5) 02/17/19 05:39 RBC 3.88 10^6/uL (3.72-5.28) 02/17/19 05:39 Hgb 12.1 g/dL (12.0-15.5) 02/17/19 05:39 Hct 34.7 % (36.0-47.0) L 02/17/19 05:39 MCV 90 fl (80-97) 02/17/19 05:39 MCH 31.3 pg (27.0-33.4) 02/17/19 05:39 MCHC 35.0 g/dL (32.0-36.0) 02/17/19 05:39 RDW 16.1 % (11.5-14.0) H 02/17/19 05:39 Plt Count 172 10^3/uL (150-450) 02/17/19 05:39 Lymph % (Auto) 20.9 % (13-45) 02/17/19 05:39 [place] % (Auto) 16.7 % (3-13) H 02/17/19 05:39 Eos % (Auto) 4.6 % (0-6) 02/17/19 05:39 Baso % (Auto) 0.6 % (0-2) 02/17/19 05:39 Absolute Neuts (auto) 3.7 10^3/uL (1.7-8.2) 02/17/19 05:39 Absolute Lymphs (auto) 1.3 10^3/uL (0.5-4.7) 02/17/19 05:39 Absolute Monos (auto) 1.1 10^3/uL (0.1-1.4) 02/17/19 05:39 Absolute Eos (auto) 0.3 10^3/uL (0.0-0.6) 02/17/19 05:39 Absolute Basos (auto) 0.0 10^3/uL (0.0-0.2) 02/17/19 05:39 Seg Neutrophils % 57.2 % (42-78) 02/17/19 05:39 Sodium 139.4 mmol/L (137-145) 02/19/19 05:05 Potassium 3.5 mmol/L (3.6-5.0) L 02/19/19 05:05 Chloride 103 mmol/L (98-107) 02/19/19 05:05 Carbon Dioxide 27 mmol/L (22-30) 02/19/19 05:05 Anion Gap 9 (5-19) 02/19/19 05:05 BUN 28 mg/dL (7-20) H D 02/19/19 05:05 Creatinine 1.22 mg/dL (0.52-1.25) 02/19/19 05:05 Est GFR ( Amer) 50 (>60) L 02/19/19 05:05 Est GFR (MDRD) Non-Af 42 (>60) L 02/19/19 05:05 Glucose 114 mg/dL (75-110) H 02/19/19 05:05 Lactic Acid 1.4 mmol/L (0.7-2.1) 02/16/19 14:20 Calcium 9.4 mg/dL (8.4-10.2) 02/19/19 05:05 Phosphorus 4.7 mg/dL (2.5-4.5) H 02/17/19 05:39 Magnesium 1.7 mg/dL (1.6-2.3) 02/19/19 05:05 Total Bilirubin 0.9 mg/dL (0.2-1.3) 02/16/19 12:40 Direct Bilirubin 0.4 mg/dL (0.0-0.4) 02/16/19 12:40 Neonat Total Bilirubin Not Reportable 02/16/19 12:40 Neonat Direct Bilirubin Not Reportable 02/16/19 12:40 Neonat Indirect Bili Not Reportable 02/16/19 12:40 AST 31 U/L (14-36) 02/16/19 12:40 ALT 16 U/L (<35) 02/16/19 12:40 Alkaline Phosphatase 58 U/L (38-126) 02/16/19 12:40 Creatine Kinase 624 U/L (30-135) H 02/16/19 12:40 CK-MB (CK-2) 1.78 ng/mL (<4.55) 02/16/19 12:40 Troponin I 0.027 ng/mL 02/16/19 15:35 Total Protein 7.3 g/dL (6.3-8.2) 02/16/19 12:40 Albumin 4.0 g/dL (3.5-5.0) 02/16/19 12:40 Urine Color YELLOW 02/16/19 14:00 Urine Appearance SLIGHTLY-CLOUDY 02/16/19 14:00 Urine pH 6.0 (5.0-9.0) 02/16/19 14:00 Ur Specific [place] 1.009 02/16/19 14:00 Urine Protein NEGATIVE mg/dL (NEGATIVE) 02/16/19 14:00 Urine Glucose (UA) NEGATIVE mg/dL (NEGATIVE) 02/16/19 14:00 Urine Ketones NEGATIVE mg/dL (NEGATIVE) 02/16/19 14:00 Urine Blood SMALL (NEGATIVE) H 02/16/19 14:00 Urine Nitrite NEGATIVE (NEGATIVE) 02/16/19 14:00 Urine Bilirubin NEGATIVE (NEGATIVE) 02/16/19 14:00 Urine Urobilinogen NEGATIVE mg/dL (<2.0) 02/16/19 14:00 Ur Leukocyte Esterase SMALL (NEGATIVE) H 02/16/19 14:00 Urine WBC (Auto) 5 /HPF 02/16/19 14:00 Urine RBC (Auto) 1 /HPF 02/16/19 14:00 Urine Bacteria (Auto) TRACE /HPF 02/16/19 14:00 Urine Ascorbic Acid NEGATIVE (NEGATIVE) 02/16/19 14:00 Stl C. Difficile GDH Ag NEGATIVE (NEGATIVE) 02/17/19 20:58 Stl C.difficile Tox A&B NEGATIVE (NEGATIVE) 02/17/19 20:58 02/16/19 02/16/19 12:40 15:35 CK-MB (CK-2) 1.78 Troponin I 0.034 0.027 Impressions: Chest X-Ray 02/16/19 12:29 IMPRESSION: Cardiomegaly. No consolidation or pleural effusion. Chest X-Ray 02/18/19 00:00 IMPRESSION: Stable enlarged cardiac silhouette without evidence of acute cardiopulmonary process. Stroke Is this a Stroke Patient?: No Acute Heart Failure - Is this a Heart Failure Patient?: No
== END 2019-02-19 12:40 | disposition home health service (06) | DRG 683 ==
LOC: ER 12:27 → INTOOBSV 17:30 → EH 17:30 → 3N 19:55 → 3W 21:20 → OBSVTOIN 02-18 10:06
PROVIDERS: ADMIT Internal Medicine; ATTEND Internal Medicine
DX: N17.9 Acute kidney failure, unspecified (principal); E87.1 Hypo-osmolality and hyponatremia; R07.9 Chest pain, unspecified; E87.6 Hypokalemia; I48.0 Paroxysmal atrial fibrillation; I50.9 Heart failure, unspecified; I25.10 Atherosclerotic heart disease of native coronary artery without angina pectoris; E78.00 Pure hypercholesterolemia, unspecified; I11.0 Hypertensive heart disease with heart failure; E03.9 Hypothyroidism, unspecified; K21.9 Gastro-esophageal reflux disease without esophagitis; R19.7 Diarrhea, unspecified; L30.4 Erythema intertrigo; I25.2 Old myocardial infarction; Z79.01 Long term (current) use of anticoagulants; Z79.899 Other long term (current) drug therapy
CPT/HCPCS: 36415; 71045; 80048; 80053; 81001; 82550; 82553; 83605; 83735; 84100; 84484; 85025; 87040; 87086; 87324; 87449; 93005; 93010; 99285; G0378; J0696; J3475; J3490; J7030

== ENCOUNTER 2019-03-18 11:33 | Inpatient (IN) | payer MEDICARE, OTHER ==
[2019-03-18] MEDS ORDERED: IPRATROPIUM/ALBUTEROL 0.5-2.5 MG/3 ML AMPUL NEB ONE ×2 (13:46→17:04)
--- NOTE | 2019-03-18 13:50 | ER Document Report ---
ED Medical Screen (RME) - General Chief Complaint: Chest Congestion Stated Complaint: COLD Time Seen by Provider: 03/18/19 13:43 Primary Care Provider: SANNA MANDUJANO MD [Primary Care Provider] - Follow up as needed TRAVEL OUTSIDE OF THE [place] IN LAST 30 DAYS: No - HPI Notes: 03/18/19 13:47 87-year-old female with a medical history of 3 MIs, hypertension presents to the emergency room for productive cough, nasal congestion with intermittent difficulty with coughing only for the last 4 days. Patient has not taken her blood pressure medication today. Patient was supposed to be seen by her primary care provider yesterday but her daughter was unable to take her. Patient "feels awful". Patient not eating or drinking as much. I have greeted and performed a rapid initial assessment of this patient. A comprehensive ED assessment and evaluation of the patient, analysis of test results and completion of the medical decision making process will be conducted by additional ED providers. PHYSICAL EXAMINATION: GENERAL: Acutely ill chronically ill and in no acute distress. HEAD: Atraumatic, normocephalic. EYES: Pupils equal round extraocular movements intact, conjunctiva are normal. ENT: Nares patent NECK: Normal range of motion LUNGS: Wheezing in bilateral upper lobes Musculoskeletal: Normal range of motion NEUROLOGICAL: Normal speech, normal gait. PSYCH: Normal mood, normal affect. SKIN: Warm, Dry, normal turgor, no rashes or lesions noted. - Related Data Allergies/Adverse Reactions: morphine [Morphine] Adverse Reaction (Severe, Verified 03/18/19 13:42) Abnormal behavior Past Medical History - Past Medical History Cardiac Medical History: Reports: Hx Atrial Fibrillation, Hx Congestive Heart Failure, Hx Coronary Artery Disease, Hx Heart Attack, Hx Hypercholesterolemia, Hx Hypertension Denies: Hx DVT, Hx Peripheral Vascular Disease, Hx Pulmonary Embolism, Hx Heart Murmur Pulmonary Medical History: Reports: Hx Pneumonia, Hx Sleep Apnea - Testing in near future Denies: Hx Asthma, Hx Bronchitis, Hx COPD, Hx Respiratory Failure, Hx Tuberculosis Neurological Medical History: Denies: Hx Seizures Endocrine Medical History: Reports: Hx Hypothyroidism. Denies: Hx Diabetes Mellitus Type 1, Hx Diabetes Mellitus Type 2, Hx Graves' Disease, Hx Hyperthyroidism Renal/ Medical History: Denies: Hx End Stage Renal Disease, Hx Kidney Stones, Hx Ovarian Cysts, Hx Peritoneal Dialysis, Hx Pelvic Inflammatory Disease Malignancy Medical History: Reports: Hx Skin Cancer. Denies: Hx Breast Cancer, Hx Cervical Cancer, Hx Leukemia, Hx Lung Cancer, Hx Ovarian Cancer GI Medical History: Reports: Hx Gastroesophageal Reflux Disease - Dysphagia. Denies: Hx Cirrhosis, Hx Crohn's Disease, Hx Hepatitis, Hx Hiatal Hernia, Hx Irritable Bowel, Hx Liver Failure, Hx Pancreatitis, Hx Ulcer Musculoskeltal Medical History: Reports Hx Arthritis, Denies Hx Fibromyalgia, Denies Hx Muscular Dystrophy, Denies Hx Systemic Lupus Erythematosus Psychiatric Medical History: Denies: Hx Depression Traumatic Medical History: Reports: Hx Fractures - fx wrist Infectious Medical History: Denies: Hx Hepatitis, Hx HIV Past Surgical History: Reports: Hx Appendectomy, Hx Cardiac Surgery - CABG, Balloon,, Hx Coronary Artery Bypass Graft, Hx Open Heart Surgery, Hx Pacemaker. Denies: Hx Bowel Surgery, Hx Section, Hx Cholecystectomy, Hx Colostomy, Hx Gastric Bypass Surgery, Hx Herniorrhaphy, Hx Hysterectomy, Hx Mastectomy, Hx Tonsillectomy, Hx Tubal Ligation - Immunizations Hx Diphtheria, Pertussis, Tetanus Vaccination: Yes Physical Exam - Vital signs Vitals: Temp Pulse Resp BP Pulse Ox 98.4 F 71 19 97/52 L 97 03/18/19 12:24 03/18/19 12:24 03/18/19 12:24 03/18/19 12:24 03/18/19 12:24 Course - Vital Signs Vital signs: Temp Pulse Resp BP Pulse Ox 98.4 F 71 19 97/52 L 97 03/18/19 12:24 03/18/19 12:24 03/18/19 12:24 03/18/19 12:24 03/18/19 12:24 Doctor's Discharge - Discharge Referrals: SANNA MANDUJANO MD [Primary Care Provider] - Follow up as needed
--- NOTE | 2019-03-18 14:42 | RADIOLOGY REPORT (SQ) ---
EXAM DESCRIPTION: CHEST 2 VIEWS COMPLETED DATE/TIME: 03/18/2019 2:33 pm REASON FOR STUDY: productive cough COMPARISON: 02/18/2019 EXAM PARAMETERS: NUMBER OF VIEWS: two views TECHNIQUE: Digital Frontal and Lateral radiographic views of the chest acquired. RADIATION DOSE: NA LIMITATIONS: none FINDINGS: LUNGS AND PLEURA: No opacities, masses or pneumothorax. No pleural effusion. Lung jiménez are hyperexpanded. MEDIASTINUM AND HILAR STRUCTURES: No masses or contour abnormalities. HEART AND VASCULAR STRUCTURES: Heart is enlarged. No effusions. No failure. BONES: No acute findings. HARDWARE: Sternotomy wires are in place along with battery pack and leads. OTHER: No other significant finding. IMPRESSION: COPD. No acute findings in the chest. TECHNICAL DOCUMENTATION: JOB ID: [id number] [employer]- All Rights Reserved Reading location - IP/workstation name: [email or web address]
[2019-03-18 16:16] LABS: ABSOLUTE BASOPHILS # (AUTO) 0.1 10^3/uL (0.0-0.2); ABSOLUTE LYMPHOCYTES (AUTO) 1.9 10^3/uL (0.5-4.7); ABSOLUTE MONOCYTES (AUTO) 1.4 10^3/uL (0.1-1.4); ABSOLUTE NEUT (AUTO) 9.6 10^3/uL (1.7-8.2); BASOPHILS % (AUTO) 0.5 % (0-2); EOSINOPHILS % (AUTO) 0.2 % (0-6); HEMATOCRIT 36.1 % (36.0-47.0); HEMOGLOBIN 12.1 g/dL (12.0-15.5); LYMPHOCYTES % (AUTO) 14.7 % (13-45); MEAN CORPUSCULAR HEMOGLOBIN 30.8 pg (27.0-33.4); MEAN CORPUSCULAR HGB CONC 33.6 g/dL (32.0-36.0); MEAN CORPUSCULAR VOLUME 92 fl (80-97); PLATELET COUNT 242 10^3/uL (150-450); RED BLOOD COUNT 3.94 10^6/uL (3.72-5.28); SEGMENTED NEUTROPHILS % (AUTO) 73.6 % (42-78); TOTAL CELLS COUNTED % (AUTO) 100 %
[2019-03-18 16:20] LABS: APPEARANCE,URINE CLEAR; BILIRUBIN,URINE NEGATIVE (NEGATIVE); COLOR,URINE YELLOW; GLUCOSE, URINE NEGATIVE (NEGATIVE); KETONES,URINE NEGATIVE (NEGATIVE); LEUKOCYTE ESTERASE,URINE LARGE (NEGATIVE); NITRITE,URINE NEGATIVE (NEGATIVE); PROTEIN,URINE NEGATIVE (NEGATIVE); UROBILINOGEN,URINE NEGATIVE mg/dL (<2.0)
[2019-03-18 16:33] LABS: A TYPE INFLUENZA AG NEGATIVE (NEGATIVE); B INFLUENZA AG NEGATIVE (NEGATIVE)
[2019-03-18 16:35] LABS: ALBUMIN 4.2 g/dL (3.5-5.0); ALKALINE PHOSPHATASE 78 U/L (38-126); ANION GAP 13 (5-19); ASPARTATE AMINO TRANSFERASE 25 U/L (14-36); BILIRUBIN,DIRECT 0.2 mg/dL (0.0-0.4); BLOOD UREA NITROGEN 70 mg/dL (7-20); CALCIUM 10.3 mg/dL (8.4-10.2); CARBON DIOXIDE 36 mmol/L (22-30); CHLORIDE 88 mmol/L (98-107); GLUCOSE 115 mg/dL (75-110); POTASSIUM 3.8 mmol/L (3.6-5.0); TOTAL PROTEIN 7.6 g/dL (6.3-8.2)
[2019-03-18 16:49] LABS: TROPONIN I 0.018 ng/mL
[2019-03-18] MEDS ORDERED: FUROSEMIDE INJ/PF 20 MG/2 ML SDV IV ONE (17:57)
[2019-03-18] MEDS ORDERED: NITROGLYCERIN 2% OINTMENT 1 GM PACKET TP ONE (18:05)
--- NOTE | 2019-03-18 19:15 | ER Document Report ---
ED Respiratory Problem - General Chief Complaint: Chest Congestion Stated Complaint: COLD Time Seen by Provider: 03/18/19 13:43 Primary Care Provider: SANNA MANDUJANO MD [Primary Care Provider] - Follow up as needed Mode of Arrival: Ambulatory Information source: Patient, Parent, Relative Cannot obtain history due to: Dementia TRAVEL OUTSIDE OF THE [place] IN LAST 30 DAYS: No - HPI Patient complains to provider of: COPD, Cough, Short of breath Onset: Other - 3 days ago Duration: Intermittent episodes Initiating Event: URI Quality of pain: No pain Severity: Moderate Pain Level: 0 - Related Data Allergies/Adverse Reactions: morphine [Morphine] Adverse Reaction (Severe, Verified 03/18/19 13:42) Abnormal behavior Past Medical History - Social History Smoking Status: Former Smoker Family History: CAD - Parents, Other - colon polyps in parents Patient has suicidal ideation: No Patient has homicidal ideation: No - Past Medical History Cardiac Medical History: Reports: Hx Atrial Fibrillation, Hx Congestive Heart Failure, Hx Coronary Artery Disease, Hx Heart Attack, Hx Hypercholesterolemia, Hx Hypertension Denies: Hx DVT, Hx Peripheral Vascular Disease, Hx Pulmonary Embolism, Hx Heart Murmur Pulmonary Medical History: Reports: Hx Pneumonia, Hx Sleep Apnea - Testing in near future Denies: Hx Asthma, Hx Bronchitis, Hx COPD, Hx Respiratory Failure, Hx Tuberculosis Neurological Medical History: Denies: Hx Seizures Endocrine Medical History: Reports: Hx Hypothyroidism. Denies: Hx Diabetes Mellitus Type 1, Hx Diabetes Mellitus Type 2, Hx Graves' Disease, Hx Hyperthyroidism Renal/ Medical History: Denies: Hx End Stage Renal Disease, Hx Kidney Stones, Hx Ovarian Cysts, Hx Peritoneal Dialysis, Hx Pelvic Inflammatory Disease Malignancy Medical History: Reports: Hx Skin Cancer. Denies: Hx Breast Cancer, Hx Cervical Cancer, Hx Leukemia, Hx Lung Cancer, Hx Ovarian Cancer GI Medical History: Reports: Hx Gastroesophageal Reflux Disease - Dysphagia. Denies: Hx Cirrhosis, Hx Crohn's Disease, Hx Hepatitis, Hx Hiatal Hernia, Hx Irritable Bowel, Hx Liver Failure, Hx Pancreatitis, Hx Ulcer Musculoskeletal Medical History: Reports Hx Arthritis, Denies Hx Fibromyalgia, Denies Hx Muscular Dystrophy, Denies Hx Systemic Lupus Erythematosus Psychiatric Medical History: Denies: Hx Depression Traumatic Medical History: Reports: Hx Fractures - fx wrist Infectious Medical History: Denies: Hx Hepatitis, Hx HIV Past Surgical History: Reports: Hx Appendectomy, Hx Cardiac Surgery - CABG, Balloon, pacemaker, Hx Coronary Artery Bypass Graft, Hx Open Heart Surgery, Hx Pacemaker. Denies: Hx Bowel Surgery, Hx Section, Hx Cholecystectomy, H x Colostomy, Hx Gastric Bypass Surgery, Hx Herniorrhaphy, Hx Hysterectomy, Hx Mastectomy, Hx Tonsillectomy, Hx Tubal Ligation - Immunizations Hx Diphtheria, Pertussis, Tetanus Vaccination: Yes Hx Pneumococcal Vaccination: 12/31/18 Review of Systems - Review of Systems Cardiovascular: Edema Physical Exam - Vital signs Vitals: Temp Pulse Resp BP Pulse Ox 98.4 F 71 19 97/52 L 97 03/18/19 12:24 03/18/19 12:24 03/18/19 12:24 03/18/19 12:24 03/18/19 12:24 Interpretation: Normal - General General appearance: Appears well, Alert - HEENT Head: Normocephalic, Atraumatic Eyes: Normal Pupils: PERRL - Respiratory Respiratory status: No respiratory distress, Depressed respirations Chest status: Nontender Breath sounds: Normal, Stridor, Wheezing Chest palpation: Normal, Sucking chest wound - Cardiovascular Rhythm: Regular Heart sounds: Normal auscultation Murmur: No - Abdominal Inspection: Normal Distension: No distension Bowel sounds: Normal Tenderness: Nontender Organomegaly: No organomegaly - Back Back: Normal, Nontender - Extremities General upper extremity: Normal inspection, Nontender, Normal color, Normal ROM, Normal temperature General lower extremity: Normal inspection, Nontender, Normal color, Normal ROM, Normal temperature, Normal weight bearing. No: Claudia's sign - Neurological Neuro grossly intact: Yes Cognition: Normal Orientation: AAOx4 [place] Coma Scale Eye Opening: Spontaneous Carl Coma Scale Verbal: Oriented [place] Coma Scale Motor: Obeys Commands [place] Coma Scale Total: 15 Speech: Normal Motor strength normal: LUE, RUE, LLE, RLE Sensory: Normal - Psychological Associated symptoms: Normal affect, Normal mood - Skin Skin Temperature: Warm Skin Moisture: Dry Skin Color: Normal Course - Vital Signs Vital signs: Temp Pulse Resp BP Pulse Ox 98.4 F 71 17 118/63 100 03/18/19 12:24 03/18/19 12:24 03/18/19 17:01 03/18/19 17:01 03/18/19 17:01 - Laboratory Result Diagrams: 03/18/19 15:15 03/18/19 15:15 Laboratory results interpreted by me: 03/18/19 03/18/19 03/18/19 15:15 15:15 15:15 WBC 13.0 H RDW 16.0 H Absolute Neuts (auto) 9.6 H Chloride 88 L Carbon Dioxide 36 H BUN 70 H Creatinine 2.07 H Est GFR ( Amer) 27 L Est GFR (MDRD) Non-Af 23 L Glucose 115 H Calcium 10.3 H NT-Pro-B Natriuret Pep 6460 H Ur Leukocyte Esterase 03/18/19 15:35 WBC RDW Absolute Neuts (auto) Chloride Carbon Dioxide BUN Creatinine Est GFR ( Amer) Est GFR (MDRD) Non-Af Glucose Calcium NT-Pro-B Natriuret Pep Ur Leukocyte Esterase LARGE H - Diagnostic Test Radiology reviewed: Image reviewed, Reports reviewed - EKG Interpretation by Me Additional EKG results interpreted by me: 03/18/19 19:14 Atrial fibrillation/flutter and V paced complexes. Nonspecific interventricular conduction delay and LVH with secondary repull changes. Discharge - Discharge Clinical Impression: Acute bronchitis with bronchospasm, COPD (chronic obstructive pulmonary disease), Leukocytosis, Chronic renal failure, Chronic atrial fibrillation Condition: Fair Disposition: ADMITTED INPATIENT Admitting Provider: Jose J (Hospitalist) Unit Admitted: Telemetry Referrals: SANNA MANDUJANO MD [Primary Care Provider] - Follow up as needed
[2019-03-18] MEDS ORDERED: METHYLPREDNISOLONE INJ 125 MG/2 ML SDV IV ONE (19:24)
[2019-03-18] MEDS ORDERED: ACETAMINOPHEN 325 MG TABLET PO PRN (19:30)
[2019-03-18] MEDS ORDERED: HYDROCODONE BIT/HOMATROPINE SYRUP 5 ML UDCUP PO PRN (19:30)
[2019-03-18] MEDS ORDERED: IPRATROPIUM/ALBUTEROL 0.5-2.5 MG/3 ML AMPUL NEB PRN (19:30)
[2019-03-18] MEDS ORDERED: DILTIAZEM HCL 90 MG TABLET PO SCH (19:30)
[2019-03-18] MEDS ORDERED: HYDRALAZINE HCL INJ/PF 20 MG/1 ML SDV IV PRN (19:30)
[2019-03-18 19:51] LABS: APPEARANCE,URINE CLEAR; BILIRUBIN,URINE NEGATIVE (NEGATIVE); COLOR,URINE YELLOW; GLUCOSE, URINE NEGATIVE (NEGATIVE); KETONES,URINE NEGATIVE (NEGATIVE); LEUKOCYTE ESTERASE,URINE TRACE (NEGATIVE); NITRITE,URINE NEGATIVE (NEGATIVE); PROTEIN,URINE NEGATIVE (NEGATIVE); URINE SPECIFIC GRAVITY 1.009; UROBILINOGEN,URINE NEGATIVE mg/dL (<2.0)
[2019-03-18 19:54] LABS: A TYPE INFLUENZA AG NEGATIVE (NEGATIVE); B INFLUENZA AG NEGATIVE (NEGATIVE)
[2019-03-18] MEDS: LEVALBUTEROL HCL NEB 1.25 MG/3 ML AMPUL NEB SCH (20:47)
[2019-03-18] MEDS ORDERED: CEFTRIAXONE 1 GM/D5W RTU 1 GM/50 ML RTUPB IV SCH (21:00)
[2019-03-18] MEDS: HEPARIN SOD (PORCINE) 5,000 UNIT/ML 1 ML VIAL SUBCUT SCH (22:15)
[2019-03-18] MEDS: IPRATROPIUM BROMIDE 0.02% NEB 0.5 MG/2.5 ML AMPUL NEB SCH (22:16)
[2019-03-18] MEDS: PREDNISONE 20 MG TABLET PO SCH (22:16)
[2019-03-18] MEDS: DILTIAZEM HCL 90 MG TABLET PO SCH (22:16)
[2019-03-18] MEDS: AZITHROMYCIN 500 MG in DEXTROSE 5%-WATER 250 ML IV SCH (22:17)
--- NOTE | 2019-03-18 22:25 | EKG REPORT ---
SEVERITY:- ABNORMAL ECG - AFIB/FLUT AND V-PACED COMPLEXES PROBABLE LVH WITH SECONDARY REPOL ABNRM BORDERLINE PROLONGED QT INTERVAL : Confirmed by: Sarita Richadrson 18-Mar-2019 22:24:37
--- NOTE | 2019-03-18 22:26 | EKG REPORT ---
SEVERITY:- ABNORMAL ECG - AFIB/FLUT AND V-PACED COMPLEXES NONSPECIFIC INTRAVENTRICULAR CONDUCTION DELAY PROBABLE LVH WITH SECONDARY REPOL ABNRM : Confirmed by: Sarita Richardson 18-Mar-2019 22:25:04
[2019-03-18] MEDS ORDERED: CEFTRIAXONE 1 GM/D5W RTU 1 GM/50 ML RTUPB IV ONE (23:00)
[2019-03-19] MEDS: NORMAL SALINE 1000 ML 1,000 ML IV PRN ×2 (01:19→21:32)
[2019-03-19] MEDS: LEVALBUTEROL HCL NEB 1.25 MG/3 ML AMPUL NEB SCH ×4 (02:35→20:44)
[2019-03-19] MEDS: IPRATROPIUM BROMIDE 0.02% NEB 0.5 MG/2.5 ML AMPUL NEB SCH ×4 (02:35→20:44)
--- NOTE | 2019-03-19 05:14 | PDOC H&P ---
History of Present Illness Admission Date/PCP: 03/18/19 19:55 CODY JACKSON MD Patient complains of: Shortness of breath History of Present Illness: EVGENY HUTCHINSON is a 88 year old female with past medical history of atrial fibrillation, congestive heart failure, coronary artery disease, stage II chronic kidney disease, COPD, chronic bronchitis and dementia. She presents to the emergency room with shortness of breath and nonproductive cough patient was recently on unknown antibiotics for the last 5 days without improvement prompting evaluation emergency room. She is found to have rhonchi and hypoxia. Labs reveal leukocytosis, contraction alkalosis and acute renal failure. She receives IV Lasix and is referred to the hospitalist for admission. Patient is unable to provide any history as she has significant dementia. Past Medical History Cardiac Medical History: Reports: Atrial Fibrillation, Congestive Heart Failure, Coronary Artery Disease, Myocardial Infarction, Hyperlipidema, Hypertension Denies: DVT, Peripheral Vascular Disease, Pulmonary Embolism, Heart Murmur Pulmonary Medical History: Reports: Pneumonia, Sleep Apnea - Testing in near future Denies: Asthma, Bronchitis, Chronic Obstructive Pulmonary Disease (COPD), Respiratory Failure, Tuberculosis EENT Medical History: Reports: None Neurological Medical History: Denies: Seizures Endocrine Medical History: Reports: Hypothyroidism Denies: Diabetes Mellitus Type 1, Diabetes Mellitus Type 2, Hyperthyroidism Renal/ Medical History: Denies: End Stage Renal Disease Malignancy Medical History: Reports: Skin Cancer Denies: Breast Cancer, Cervical Cancer, Leukemia, Lung Cancer, Ovarian Cancer GI Medical History: Reports: Gastroesophageal Reflux Disease - Dysphagia Denies: Cirrhosis, Crohn's Disease, Hepatitis, Hiatal Hernia Musculoskeltal Medical History: Reports: Arthritis Denies: Fibromyalgia Psychiatric Medical History: Reports: Dementia Denies: Depression Hematology: Denies: Anemia, Hemophilia, Sickle Cell Disease Infectious Medical History: Denies: HIV Past Surgical History Past Surgical History: Reports: Appendectomy, Coronary Artery Bypass Graft, Pacemaker Denies: Amputation, Section, Cholecystectomy, Colostomy, Gastric Bypass Surgery, Herniorrhaphy, Hysterectomy, Mastectomy, Tonsillectomy, Tubal Ligation Social History Information Source: Patient, [facility] Records Lives with: Family Smoking Status: Former Smoker Electronic Cigarette use?: No Frequency of Alcohol Use: None Hx Recreational Drug Use: No Drugs: None Hx Prescription Drug Abuse: No - Advance Directive Resuscitation Status: Full Code Family History Family History: CAD - Parents, Other - colon polyps in parents Parental Family History Reviewed: Yes Children Family History Reviewed: Yes Sibling(s) Family History Reviewed.: Yes Medication/Allergy Home Medications: Buspirone HCl [Buspar 15 mg Tablet] 15 mg PO DAILY 02/17/19 Diltiazem HCl [Cardizem Cd 240 mg Capsule.cr] 240 mg PO DAILY 02/17/19 Docusate Sodium [Colace 100 mg Capsule] 100 mg PO DAILY 02/17/19 Escitalopram Oxalate [Lexapro 10 mg Tablet] 10 mg PO QHS 02/17/19 Folic Acid [Folvite 1 mg Tablet] 1 mg PO DAILY 02/17/19 Isosorbide Mononitrate [Imdur 30 mg Tablet.er] 30 mg PO QAM 02/17/19 Levothyroxine Sodium 75 mcg PO Q6AM 02/17/19 Lisinopril [Zestril] 40 mg PO DAILY 02/17/19 Medroxyprogesterone Acet [Provera 10 mg Tablet] 10 mg PO DAILY 02/17/19 Melatonin [Melatonin 5 mg Tablet] 5 mg PO QHS 02/17/19 Metolazone [Zaroxolyn 2.5 mg Tablet] 2.5 mg PO MOWEFR 02/17/19 Metoprolol Succinate [Toprol XL 100 mg Tablet] 100 mg PO DAILY 02/17/19 Nitroglycerin [Nitrostat 0.4 mg (1/150 Gr) Tabs 25/Bottle] 0.4 mg SL Q5MP PRN 02/17/19 Ondansetron HCl [Zofran 4 mg Tablet] 4 mg PO Q6HP PRN 02/17/19 Potassium Chloride [Klor-Con M20] 20 meq PO TID 02/17/19 Rivaroxaban [Xarelto 15 mg Tablet] 15 mg PO QPM 02/17/19 Rosuvastatin Calcium [Crestor 20 mg Tablet] 20 mg PO QHS 02/17/19 Tramadol HCl [Ultram 50 mg Tablet] 50 mg PO DAILYP PRN 02/17/19 Nystatin 1 each MC Q6H PRN #1 powder.ea. 02/19/19 Torsemide [Demadex 20 mg Tablet] 10 mg PO BID #0 02/19/19 Allergies/Adverse Reactions: morphine [Morphine] Adverse Reaction (Severe, Verified 03/18/19 13:42) Abnormal behavior Review of Systems ROS unobtainable: Due to mental status Physical Exam Vital Signs: Temp Pulse Resp BP Pulse Ox 97.8 F 88 19 143/56 H 100 03/19/19 03:27 03/19/19 03:27 03/19/19 03:27 03/19/19 03:27 03/19/19 03:27 Intake & Output 03/17/19 03/18/19 03/19/19 11:59 11:59 11:59 Intake Total 300 Output Total 0 Balance 300 Weight 77.9 kg General appearance: PRESENT: cooperative, mild distress, well-developed, well- nourished. ABSENT: disheveled Head exam: PRESENT: atraumatic, normocephalic Eye exam: PRESENT: conjunctiva pink, EOMI, PERRLA. ABSENT: scleral icterus Ear exam: PRESENT: normal external ear exam Mouth exam: PRESENT: dry mucosa Neck exam: ABSENT: carotid bruit, JVD, lymphadenopathy, thyromegaly Respiratory exam: PRESENT: accessory muscle use, prolonged expiratory phas, retraction, rhonchi, symmetrical, tachypnea. ABSENT: wheezes Cardiovascular exam: PRESENT: RRR. ABSENT: diastolic murmur, rubs, systolic murmur Pulses: PRESENT: normal dorsalis pedis pul Vascular exam: PRESENT: normal capillary refill GI/Abdominal exam: PRESENT: normal bowel sounds, soft. ABSENT: distended, guarding, mass, organolmegaly, rebound, tenderness Rectal exam: PRESENT: deferred Extremities exam: ABSENT: +1 edema Neurological exam: PRESENT: alert, awake, oriented to person, CN II-XII grossly intact. ABSENT: oriented to place Psychiatric exam: PRESENT: appropriate affect, normal mood. ABSENT: homicidal ideation, suicidal ideation Skin exam: PRESENT: dry, intact, warm. ABSENT: cyanosis, rash Results Laboratory Results: 03/18/19 15:15 03/18/19 15:15 03/18/19 03/18/19 03/18/19 15:15 15:15 15:35 WBC 13.0 H RBC 3.94 Hgb 12.1 Hct 36.1 MCV 92 MCH 30.8 MCHC 33.6 RDW 16.0 H Plt Count 242 Seg Neutrophils % 73.6 Sodium 137.3 Potassium 3.8 Chloride 88 L Carbon Dioxide 36 H Anion Gap 13 BUN 70 H Creatinine 2.07 H Est GFR ( Amer) 27 L Glucose 115 H Calcium 10.3 H Total Bilirubin 1.0 AST 25 Alkaline Phosphatase 78 Total Protein 7.6 Albumin 4.2 Urine Color YELLOW Urine Appearance CLEAR Urine pH 6.0 Ur Specific [place] 1.010 Urine Protein NEGATIVE Urine Glucose (UA) NEGATIVE Urine Ketones NEGATIVE Urine Blood NEGATIVE Urine Nitrite NEGATIVE Ur Leukocyte Esterase LARGE H Urine WBC (Auto) 28 Urine RBC (Auto) 1 03/18/19 19:29 WBC RBC Hgb Hct MCV MCH MCHC RDW Plt Count Seg Neutrophils % Sodium Potassium Chloride Carbon Dioxide Anion Gap BUN Creatinine Est GFR ( Amer) Glucose Calcium Total Bilirubin AST Alkaline Phosphatase Total Protein Albumin Urine Color YELLOW Urine Appearance CLEAR Urine pH 6.0 Ur Specific [place] 1.009 Urine Protein NEGATIVE Urine Glucose (UA) NEGATIVE Urine Ketones NEGATIVE Urine Blood NEGATIVE Urine Nitrite NEGATIVE Ur Leukocyte Esterase TRACE H Urine WBC (Auto) 1 Urine RBC (Auto) 1 03/18/19 15:15 Troponin I 0.018 NT-Pro-B Natriuret Pep 6460 H Impressions: Chest X-Ray 03/18/19 13:46 IMPRESSION: COPD. No acute findings in the chest. Assessment and Plan - Diagnosis (1) Acute bronchitis with bronchospasm Is this a current diagnosis for this admission?: Yes Plan: Empiric antibiotics, prednisone, flutter valve. (2) COPD (chronic obstructive pulmonary disease) Is this a current diagnosis for this admission?: Yes Plan: Xopenex, Atrovent, incentive spirometry (3) Chronic atrial fibrillation Is this a current diagnosis for this admission?: Yes Plan: Volume resuscitate, diltiazem ordered. (4) ARF (acute renal failure) Qualifiers: Is this a current diagnosis for this admission?: Yes Plan: Significant prerenal azotemia, IV fluid challenge, follow-up chemistry (5) Dementia Is this a current diagnosis for this admission?: Yes Plan: Supportive care, anticipate sundowning, sensory deprivation. Encourage family to remain. - Time Time Spent with patient: 25-34 minutes - Inpatient Certification Medical Necessity: Need Close Monitoring Due to Risk of Patient Decompensation
[2019-03-19 05:32] LABS: HEMATOCRIT 32.9 % (36.0-47.0); MEAN CORPUSCULAR HEMOGLOBIN 30.7 pg (27.0-33.4); MEAN CORPUSCULAR HGB CONC 33.4 g/dL (32.0-36.0); MEAN CORPUSCULAR VOLUME 92 fl (80-97); PLATELET COUNT 211 10^3/uL (150-450); RED BLOOD COUNT 3.59 10^6/uL (3.72-5.28); RED CELL DISTRIBUTION WIDTH 16.3 % (11.5-14.0)
[2019-03-19 05:39] LABS: BLOOD UREA NITROGEN 61 mg/dL (7-20); CALCIUM 9.4 mg/dL (8.4-10.2); CHLORIDE 93 mmol/L (98-107); GLUCOSE 260 mg/dL (75-110)
[2019-03-19 05:48] LABS: ANION GAP 16 (5-19); CARBON DIOXIDE 27 mmol/L (22-30)
[2019-03-19 05:49] LABS: POTASSIUM 2.6 mmol/L (3.6-5.0)
[2019-03-19] MEDS ORDERED: DILTIAZEM HCL 90 MG TABLET ONE (06:07)
[2019-03-19 06:13] LABS: ABSOLUTE LYMPHOCYTES# (MANUAL) 0.3 10^3/uL (0.5-4.7); ABSOLUTE MONOCYTES # (MANUAL) 0.3 10^3/uL (0.1-1.4); ANISOCYTOSIS 1+; BASOPHILS % (MANUAL) 0 % (0-2); EOSINOPHILS % (MANUAL) 0 % (0-6); LYMPHOCYTES % (MANUAL) 2 % (13-45); MONOCYTES % (MANUAL) 2 % (3-13); OVALOCYTES SLIGHT; POIKILOCYTOSIS SLIGHT; SEGMENTED NEUTROPHILS % (MAN) 96 % (42-78); TOTAL CELLS COUNTED 100
[2019-03-19] MEDS: HEPARIN SOD (PORCINE) 5,000 UNIT/ML 1 ML VIAL SUBCUT SCH ×2 (06:13→13:28)
[2019-03-19 06:14] LABS: PLATELET COMMENT ADEQUATE
[2019-03-19] MEDS: DILTIAZEM HCL 90 MG TABLET PO SCH ×2 (06:14→13:28)
[2019-03-19] MEDS ORDERED: POTASSIUM CHLORIDE 10 MEQ TABLET.ER PO ONE ×2 (08:00→11:24)
[2019-03-19] MEDS: HYDROCODONE BIT/HOMATROPINE 5-1.5 MG TABLET PO PRN (09:54)
[2019-03-19] MEDS: FLUTICASONE NASAL SPRAY 50 MCG/SPRY 120 SPRAY/16 GM NASL SCH ×2 (09:54→21:29)
[2019-03-19] MEDS: PREDNISONE 20 MG TABLET PO SCH (09:54)
[2019-03-19] MEDS ORDERED: POTASSI CL 20 MEQ/50 ML RIDER 20 MEQ/50 ML RTUPB IV ONE (12:00)
--- NOTE | 2019-03-19 15:21 | PDOC PROGRESS REPORT ---
Subjective Progress Note for:: 03/19/19 Subjective:: This is an 88 year old female with past medical history of atrial fibrillation, congestive heart failure, coronary artery disease, stage II chronic kidney disease, COPD, chronic bronchitis and dementia who presented with increasing shortness of breath and cough. She was admitted for COPD exacerbation. Upon encounter, she appears comfortable on room air. She says that her shortness of breath is slightly improved. She does have bilateral wheezes and rhonchi on examination. She did have a recent sick contact as her daughter had a recent URTI. She also complains of chronic watery stools for more than a month now. Reason For Visit: COPD EXACERBATIONS ARF, [place]IA Physical Exam Vital Signs: Temp Pulse Resp BP Pulse Ox 97.9 F 82 16 138/42 H 92 03/19/19 08:08 03/19/19 14:00 03/19/19 14:00 03/19/19 08:08 03/19/19 14:00 Intake & Output 03/18/19 03/19/19 03/20/19 06:59 06:59 06:59 Intake Total 1300 530 Output Total 0 100 Balance 1300 430 Weight 171 lb 11.841 oz General appearance: PRESENT: no acute distress, well-developed, well-nourished Head exam: PRESENT: atraumatic, normocephalic Eye exam: PRESENT: conjunctiva pink, EOMI, PERRLA. ABSENT: scleral icterus Ear exam: PRESENT: normal external ear exam Mouth exam: PRESENT: moist, tongue midline Neck exam: ABSENT: carotid bruit, JVD, lymphadenopathy, thyromegaly Respiratory exam: PRESENT: rhonchi, wheezes. ABSENT: rales Cardiovascular exam: PRESENT: RRR. ABSENT: diastolic murmur, rubs, systolic murmur Pulses: PRESENT: normal dorsalis pedis pul GI/Abdominal exam: PRESENT: normal bowel sounds, soft. ABSENT: distended, guarding, mass, organolmegaly, rebound, tenderness Rectal exam: PRESENT: deferred Extremities exam: PRESENT: full ROM. ABSENT: calf tenderness, clubbing, pedal edema Neurological exam: PRESENT: alert, awake, oriented to person, oriented to place, oriented to time, oriented to situation, CN II-XII grossly intact. ABSENT: motor sensory deficit Results Laboratory Results: 03/19/19 04:51 03/19/19 04:51 03/18/19 03/18/19 03/18/19 15:15 15:15 15:35 WBC 13.0 H RBC 3.94 Hgb 12.1 Hct 36.1 MCV 92 MCH 30.8 MCHC 33.6 RDW 16.0 H Plt Count 242 Seg Neutrophils % 73.6 Sodium 137.3 Potassium 3.8 Chloride 88 L Carbon Dioxide 36 H Anion Gap 13 BUN 70 H Creatinine 2.07 H Est GFR ( Amer) 27 L Glucose 115 H Calcium 10.3 H Magnesium Total Bilirubin 1.0 AST 25 Alkaline Phosphatase 78 Total Protein 7.6 Albumin 4.2 Urine Color YELLOW Urine Appearance CLEAR Urine pH 6.0 Ur Specific [place] 1.010 Urine Protein NEGATIVE Urine Glucose (UA) NEGATIVE Urine Ketones NEGATIVE Urine Blood NEGATIVE Urine Nitrite NEGATIVE Ur Leukocyte Esterase LARGE H Urine WBC (Auto) 28 Urine RBC (Auto) 1 03/18/19 03/19/19 03/19/19 19:29 04:51 04:51 WBC 14.0 H RBC 3.59 L Hgb 11.0 L Hct 32.9 L MCV 92 MCH 30.7 MCHC 33.4 RDW 16.3 H Plt Count 211 Seg Neutrophils % Not Reportable Sodium 136.2 L Potassium 2.6 L* D Chloride 93 L Carbon Dioxide 27 Anion Gap 16 BUN 61 H Creatinine 1.69 H Est GFR ( Amer) 35 L Glucose 260 H Calcium 9.4 Magnesium Total Bilirubin AST Alkaline Phosphatase Total Protein Albumin Urine Color YELLOW Urine Appearance CLEAR Urine pH 6.0 Ur Specific [place] 1.009 Urine Protein NEGATIVE Urine Glucose (UA) NEGATIVE Urine Ketones NEGATIVE Urine Blood NEGATIVE Urine Nitrite NEGATIVE Ur Leukocyte Esterase TRACE H Urine WBC (Auto) 1 Urine RBC (Auto) 1 03/19/19 04:51 WBC RBC Hgb Hct MCV MCH MCHC RDW Plt Count Seg Neutrophils % Sodium Potassium Chloride Carbon Dioxide Anion Gap BUN Creatinine Est GFR ( Amer) Glucose Calcium Magnesium 2.0 Total Bilirubin AST Alkaline Phosphatase Total Protein Albumin Urine Color Urine Appearance Urine pH Ur Specific [place] Urine Protein Urine Glucose (UA) Urine Ketones Urine Blood Urine Nitrite Ur Leukocyte Esterase Urine WBC (Auto) Urine RBC (Auto) 03/18/19 15:15 Troponin I 0.018 NT-Pro-B Natriuret Pep 6460 H Impressions: Chest X-Ray 03/18/19 13:46 IMPRESSION: COPD. No acute findings in the chest. Assessment and Plan - Diagnosis (1) Acute respiratory failure with hypoxia Is this a current diagnosis for this admission?: Yes Plan: Second to COPD exacerbation. She has been weaned off O2 this morning and so far has been saturating well at rest. (2) COPD exacerbation Is this a current diagnosis for this admission?: Yes Plan: Continue breathing treatments and steroids. She did have a recent sick contact as her daughter had a recent URTI. (3) Acute kidney injury Is this a current diagnosis for this admission?: Yes Plan: Likely related to chronic diarrhea. Improved with IV fluids. Creatinine trended down to 1.6 from 2.0. (4) Hypokalemia Is this a current diagnosis for this admission?: Yes Plan: Replace with another 40 meqs PO and 20 meqs IV. (5) Chronic diarrhea Is this a current diagnosis for this admission?: Yes Plan: Will send for C. difficile testing and stool culture. (6) Chronic atrial fibrillation Is this a current diagnosis for this admission?: Yes Plan: Resume Xarelto, lopressor and cardizem. (7) CAD (coronary artery disease) Qualifiers: Coronary Disease-Associated Artery/Lesion type: [place] artery [place] vs. transplanted heart: [place] heart Associated angina: without angina Qualified Code(s): I25.10 - Atherosclerotic heart disease of [place] coronary artery without angina pectoris Is this a current diagnosis for this admission?: Yes - Time Time Spent with patient: 25-34 minutes
[2019-03-19] MEDS ORDERED: NITROGLYCERIN 0.4 MG/TAB 25 TAB/BOTTLE SL PRN (15:22)
[2019-03-19] MEDS ORDERED: (PENDING PHARMACY ID) (Ondansetron Hcl [Zofran 4 Mg Tablet] 4 MG) PO PRN (15:22)
[2019-03-19] MEDS ORDERED: TRAMADOL HCL 50 MG TABLET PO PRN (15:22)
[2019-03-19] MEDS: RIVAROXABAN 15 MG TABLET PO SCH (17:44)
[2019-03-19] MEDS: CEFTRIAXONE 1 GM/D5W RTU 1 GM/50 ML RTUPB IV SCH (17:45)
[2019-03-19] MEDS ORDERED: ONDANSETRON 4 MG TAB.RAPDIS PO PRN (17:50)
[2019-03-19] MEDS ORDERED: (PENDING PHARMACY ID) (Potassium Chloride [Klor-Con M20] 20 MEQ) PO SCH (18:00)
[2019-03-19] MEDS: BUSPIRONE HCL 10 MG TABLET PO SCH (18:28)
[2019-03-19] MEDS: MELATONIN 5 MG TABLET PO SCH (21:29)
[2019-03-19] MEDS: ESCITALOPRAM OXALATE 10 MG TABLET PO SCH (21:29)
[2019-03-19] MEDS: ATORVASTATIN CALCIUM 40 MG TABLET PO SCH (21:29)
[2019-03-19] MEDS: METHYLPREDNISOLONE INJ 40 MG/1 ML SDV IV SCH (21:29)
[2019-03-19] MEDS: AZITHROMYCIN 500 MG in DEXTROSE 5%-WATER 250 ML IV SCH (21:29)
[2019-03-19] MEDS ORDERED: (PENDING PHARMACY ID) (Rosuvastatin Calcium [Crestor 20 Mg Tablet] 20 MG) PO SCH (22:00)
[2019-03-20] MEDS: IPRATROPIUM BROMIDE 0.02% NEB 0.5 MG/2.5 ML AMPUL NEB SCH ×5 (02:28→21:35)
[2019-03-20] MEDS: LEVALBUTEROL HCL NEB 1.25 MG/3 ML AMPUL NEB SCH ×5 (02:28→21:35)
[2019-03-20] MEDS: LEVOTHYROXINE SODIUM 0.075 MG TABLET PO SCH (06:43)
[2019-03-20 07:09] LABS: HEMATOCRIT 33.9 % (36.0-47.0); HEMOGLOBIN 11.3 g/dL (12.0-15.5); MEAN CORPUSCULAR HEMOGLOBIN 30.6 pg (27.0-33.4); MEAN CORPUSCULAR HGB CONC 33.3 g/dL (32.0-36.0); MEAN CORPUSCULAR VOLUME 92 fl (80-97); PLATELET COUNT 260 10^3/uL (150-450); RED BLOOD COUNT 3.69 10^6/uL (3.72-5.28); RED CELL DISTRIBUTION WIDTH 16.5 % (11.5-14.0)
[2019-03-20 07:13] LABS: WHITE BLOOD COUNT 28.7 10^3/uL (4.0-10.5)
[2019-03-20 07:32] LABS: ABSOLUTE LYMPHOCYTES# (MANUAL) 1.1 10^3/uL (0.5-4.7); ABSOLUTE MONOCYTES # (MANUAL) 0.9 10^3/uL (0.1-1.4); BAND NEUTROPHILS % (MANUAL) 1 % (3-5); BASOPHILS % (MANUAL) 0 % (0-2); EOSINOPHILS % (MANUAL) 0 % (0-6); LYMPHOCYTES % (MANUAL) 4 % (13-45); MONOCYTES % (MANUAL) 3 % (3-13); SEGMENTED NEUTROPHILS % (MAN) 92 % (42-78); TOTAL CELLS COUNTED 100
[2019-03-20 07:33] LABS: ANISOCYTOSIS 1+; OVALOCYTES SLIGHT; POIKILOCYTOSIS SLIGHT; TEAR DROP CELLS SLIGHT
[2019-03-20 07:34] LABS: ANION GAP 14 (5-19); BLOOD UREA NITROGEN 64 mg/dL (7-20); CALCIUM 9.9 mg/dL (8.4-10.2); CARBON DIOXIDE 23 mmol/L (22-30); CHLORIDE 97 mmol/L (98-107); GLUCOSE 198 mg/dL (75-110); PLATELET COMMENT ADEQUATE; POTASSIUM 4.3 mmol/L (3.6-5.0)
[2019-03-20] MEDS: ISOSORBIDE MONONITRATE 30 MG TAB.ER.24H PO SCH (07:34)
[2019-03-20] MEDS: MEDROXYPROGESTERONE ACET 10 MG TABLET PO SCH (09:40)
[2019-03-20] MEDS: FLUTICASONE NASAL SPRAY 50 MCG/SPRY 120 SPRAY/16 GM NASL SCH ×2 (09:40→21:56)
[2019-03-20] MEDS: METOPROLOL SUCCINATE 50 MG TAB.SR.24H PO SCH (09:41)
[2019-03-20] MEDS: METHOTREXATE SODIUM 2.5 MG TABLET PO SCH (09:41)
[2019-03-20] MEDS: BUSPIRONE HCL 10 MG TABLET PO SCH ×2 (09:41→17:26)
[2019-03-20] MEDS: POTASSIUM CHLORIDE 10 MEQ TABLET.ER PO SCH ×3 (09:41→17:25)
[2019-03-20] MEDS: DILTIAZEM HCL 240 MG CAPSULE.CR PO SCH (09:42)
[2019-03-20] MEDS: METHYLPREDNISOLONE INJ 40 MG/1 ML SDV IV SCH ×2 (09:43→21:57)
--- NOTE | 2019-03-20 16:39 | PDOC PROGRESS REPORT ---
Subjective Progress Note for:: 03/20/19 Subjective:: This is an 88 year old female with past medical history of atrial fibrillation, congestive heart failure, coronary artery disease, stage II chronic kidney disease, COPD, chronic bronchitis and dementia who presented with increasing shortness of breath and cough. She was admitted for COPD exacerbation. 03/19: Upon encounter, she appears comfortable on room air. She says that her shortness of breath is slightly improved. She does have bilateral wheezes and rhonchi on examination. She did have a recent sick contact as her daughter had a recent URTI. She also complains of chronic watery stools for more than a month now. 03/20: Patient reports that she had 3 watery stools earlier this morning. She says her shortness of breath continued to improve and she is returning to her baseline. She is comfortable and saturating well on room air. Wheezing has s ignificantly improved upon encounter this morning. Stool studies pending. Reason For Visit: COPD EXACERBATIONS ARF, PNEMONIA Physical Exam Vital Signs: Temp Pulse Resp BP Pulse Ox 97.8 F 73 20 129/58 H 95 03/20/19 15:15 03/20/19 15:15 03/20/19 15:15 03/20/19 15:15 03/20/19 15:15 Intake & Output 03/19/19 03/20/19 03/21/19 06:59 06:59 06:59 Intake Total 1300 2570 480 Output Total 0 400 Balance 1300 2170 480 Weight 171 lb 11.841 oz 180 lb 8.937 oz General appearance: PRESENT: no acute distress, well-developed, well-nourished Head exam: PRESENT: atraumatic, normocephalic Eye exam: PRESENT: conjunctiva pink, EOMI, PERRLA. ABSENT: scleral icterus Ear exam: PRESENT: normal external ear exam Mouth exam: PRESENT: moist, tongue midline Neck exam: ABSENT: carotid bruit, JVD, lymphadenopathy, thyromegaly Respiratory exam: PRESENT: rhonchi, wheezes. ABSENT: rales Cardiovascular exam: PRESENT: RRR. ABSENT: diastolic murmur, rubs, systolic murmur Pulses: PRESENT: normal dorsalis pedis pul GI/Abdominal exam: PRESENT: normal bowel sounds, soft. ABSENT: distended, guarding, mass, organolmegaly, rebound, tenderness Rectal exam: PRESENT: deferred Extremities exam: PRESENT: full ROM. ABSENT: calf tenderness, clubbing, pedal edema Neurological exam: PRESENT: alert, awake, oriented to person, oriented to place, CN II-XII grossly intact. ABSENT: motor sensory deficit Results Laboratory Results: 03/20/19 05:59 03/20/19 05:59 03/19/19 03/20/19 03/20/19 15:43 04:35 05:59 WBC 28.7 H D RBC 3.69 L Hgb 11.3 L Hct 33.9 L MCV 92 MCH 30.6 MCHC 33.3 RDW 16.5 H Plt Count 260 Seg Neutrophils % Not Reportable Sodium Potassium 4.2 D Chloride Carbon Dioxide Anion Gap BUN Creatinine Est GFR ( Amer) Glucose Calcium Stool for White Cells NO WBCs SEEN 03/20/19 05:59 WBC RBC Hgb Hct MCV MCH MCHC RDW Plt Count Seg Neutrophils % Sodium 134.3 L Potassium 4.3 Chloride 97 L Carbon Dioxide 23 Anion Gap 14 BUN 64 H Creatinine 1.58 H Est GFR ( Amer) 37 L Glucose 198 H Calcium 9.9 Stool for White Cells 03/18/19 15:15 Troponin I 0.018 NT-Pro-B Natriuret Pep 6460 H Impressions: Chest X-Ray 03/18/19 13:46 IMPRESSION: COPD. No acute findings in the chest. Assessment and Plan - Diagnosis (1) Acute respiratory failure with hypoxia Is this a current diagnosis for this admission?: Yes Plan: 03/19: Secondary to COPD exacerbation. She has been weaned off O2 this morning and so far has been saturating well at rest. 03/20: Improving. (2) COPD exacerbation Is this a current diagnosis for this admission?: Yes Plan: Continue breathing treatments and steroids. She did have a recent sick contact as her daughter had a recent URTI. (3) Acute kidney injury Is this a current diagnosis for this admission?: Yes Plan: 03/19: Likely related to chronic diarrhea. Improved with IV fluids. Creatinine trended down to 1.6 from 2.0. 03/20: Creatinine continue to trend down to 1.5. (4) Hypokalemia Is this a current diagnosis for this admission?: Yes Plan: Repleted. (5) Chronic diarrhea Is this a current diagnosis for this admission?: Yes Plan: Stool studies pending. (6) Chronic atrial fibrillation Is this a current diagnosis for this admission?: Yes Plan: Continue Xarelto, lopressor and cardizem. (7) CAD (coronary artery disease) Qualifiers: Coronary Disease-Associated Artery/Lesion type: [place] artery [place] vs. transplanted heart: [place] heart Associated angina: without angina Qualified Code(s): I25.10 - Atherosclerotic heart disease of [place] coronary artery without angina pectoris Is this a current diagnosis for this admission?: Yes - Time Time Spent with patient: 25-34 minutes
[2019-03-20] MEDS: RIVAROXABAN 15 MG TABLET PO SCH (17:25)
[2019-03-20] MEDS: CEFTRIAXONE 1 GM/D5W RTU 1 GM/50 ML RTUPB IV SCH (17:26)
[2019-03-20] MEDS: ATORVASTATIN CALCIUM 40 MG TABLET PO SCH (21:57)
[2019-03-20] MEDS: MELATONIN 5 MG TABLET PO SCH (21:57)
[2019-03-20] MEDS: AZITHROMYCIN 500 MG in DEXTROSE 5%-WATER 250 ML IV SCH (21:57)
[2019-03-20] MEDS: ESCITALOPRAM OXALATE 10 MG TABLET PO SCH (21:57)
[2019-03-21] MEDS: LEVALBUTEROL HCL NEB 1.25 MG/3 ML AMPUL NEB SCH ×4 (02:17→19:45)
[2019-03-21] MEDS: IPRATROPIUM BROMIDE 0.02% NEB 0.5 MG/2.5 ML AMPUL NEB SCH ×4 (02:17→19:45)
[2019-03-21] MEDS: HYDROCODONE BIT/HOMATROPINE 5-1.5 MG TABLET PO PRN (03:37)
[2019-03-21] MEDS: LEVOTHYROXINE SODIUM 0.075 MG TABLET PO SCH (06:16)
[2019-03-21] MEDS: ISOSORBIDE MONONITRATE 30 MG TAB.ER.24H PO SCH (08:02)
[2019-03-21] MEDS: METOPROLOL SUCCINATE 50 MG TAB.SR.24H PO SCH (09:02)
[2019-03-21] MEDS: METHYLPREDNISOLONE INJ 40 MG/1 ML SDV IV SCH ×2 (09:03→21:24)
[2019-03-21] MEDS: DILTIAZEM HCL 240 MG CAPSULE.CR PO SCH (09:03)
[2019-03-21] MEDS: POTASSIUM CHLORIDE 10 MEQ TABLET.ER PO SCH ×2 (09:03→13:48)
[2019-03-21] MEDS: MEDROXYPROGESTERONE ACET 10 MG TABLET PO SCH (09:04)
[2019-03-21] MEDS: BUSPIRONE HCL 10 MG TABLET PO SCH ×2 (09:04→17:00)
[2019-03-21] MEDS: FLUTICASONE NASAL SPRAY 50 MCG/SPRY 120 SPRAY/16 GM NASL SCH ×2 (09:04→21:25)
[2019-03-21] MEDS: METHOTREXATE SODIUM 2.5 MG TABLET PO SCH (09:04)
[2019-03-21 13:11] LABS: HEMATOCRIT 31.2 % (36.0-47.0); HEMOGLOBIN 10.4 g/dL (12.0-15.5); MEAN CORPUSCULAR HEMOGLOBIN 30.6 pg (27.0-33.4); MEAN CORPUSCULAR HGB CONC 33.3 g/dL (32.0-36.0); MEAN CORPUSCULAR VOLUME 92 fl (80-97); PLATELET COUNT 222 10^3/uL (150-450); RED CELL DISTRIBUTION WIDTH 16.3 % (11.5-14.0); WHITE BLOOD COUNT 15.9 10^3/uL (4.0-10.5)
[2019-03-21 13:25] LABS: ANION GAP 12 (5-19); BLOOD UREA NITROGEN 78 mg/dL (7-20); CALCIUM 10.1 mg/dL (8.4-10.2); CARBON DIOXIDE 24 mmol/L (22-30); CHLORIDE 91 mmol/L (98-107); GLUCOSE 284 mg/dL (75-110); POTASSIUM 5.4 mmol/L (3.6-5.0)
[2019-03-21 13:33] LABS: ABSOLUTE LYMPHOCYTES# (MANUAL) 1.4 10^3/uL (0.5-4.7); ABSOLUTE MONOCYTES # (MANUAL) 0.6 10^3/uL (0.1-1.4); ANISOCYTOSIS 1+; BAND NEUTROPHILS % (MANUAL) 1 % (3-5); BASOPHILS % (MANUAL) 0 % (0-2); EOSINOPHILS % (MANUAL) 0 % (0-6); LYMPHOCYTES % (MANUAL) 9 % (13-45); MONOCYTES % (MANUAL) 4 % (3-13); SEGMENTED NEUTROPHILS % (MAN) 86 % (42-78); TOTAL CELLS COUNTED 100
[2019-03-21 13:34] LABS: PLATELET COMMENT ADEQUATE
[2019-03-21] MEDS: RIVAROXABAN 15 MG TABLET PO SCH (16:20)
--- NOTE | 2019-03-21 17:08 | PDOC PROGRESS REPORT ---
Subjective Progress Note for:: 03/21/19 Subjective:: This is an 88 year old female with past medical history of atrial fibrillation, congestive heart failure, coronary artery disease, stage II chronic kidney disease, COPD, chronic bronchitis and dementia who presented with increasing shortness of breath and cough. She was admitted for COPD exacerbation. 03/19: Upon encounter, she appears comfortable on room air. She says that her shortness of breath is slightly improved. She does have bilateral wheezes and rhonchi on examination. She did have a recent sick contact as her daughter had a recent URTI. She also complains of chronic watery stools for more than a month now. 03/20: Patient reports that she had 3 watery stools earlier this morning. She says her shortness of breath continued to improve and she is returning to her baseline. She is comfortable and saturating well on room air. Wheezing has s ignificantly improved upon encounter this morning. Stool studies pending. 03/21: No acute event overnight. She denies shortness of breath and is at her baseline. Her creatinine slightly trended up today however, her potassium trended up and sodium also went down to 127. Reason For Visit: COPD EXACERBATIONS ARF, PNEMONIA Physical Exam Vital Signs: Temp Pulse Resp BP Pulse Ox 97.5 F 81 16 163/59 H 98 03/21/19 10:52 03/21/19 14:03 03/21/19 14:03 03/21/19 10:52 03/21/19 14:03 Intake & Output 03/20/19 03/21/19 03/22/19 06:59 06:59 06:59 Intake Total 2570 2220 Output Total 400 Balance 2170 2220 Weight 180 lb 8.937 oz 190 lb 14.725 oz General appearance: PRESENT: no acute distress, well-developed, well-nourished Head exam: PRESENT: atraumatic, normocephalic Eye exam: PRESENT: conjunctiva pink, EOMI, PERRLA. ABSENT: scleral icterus Ear exam: PRESENT: normal external ear exam Mouth exam: PRESENT: moist, tongue midline Neck exam: ABSENT: carotid bruit, JVD, lymphadenopathy, thyromegaly Respiratory exam: PRESENT: clear to auscultation vaishnavi. ABSENT: rales, rhonchi, wheezes Cardiovascular exam: PRESENT: RRR. ABSENT: diastolic murmur, rubs, systolic murmur Pulses: PRESENT: normal dorsalis pedis pul GI/Abdominal exam: PRESENT: normal bowel sounds, soft. ABSENT: distended, guarding, mass, organolmegaly, rebound, tenderness Rectal exam: PRESENT: deferred Neurological exam: PRESENT: alert, awake, oriented to person, CN II-XII grossly intact. ABSENT: motor sensory deficit Results Laboratory Results: 03/21/19 12:32 03/21/19 12:32 03/21/19 03/21/19 12:32 12:32 WBC 15.9 H RBC 3.40 L Hgb 10.4 L Hct 31.2 L MCV 92 MCH 30.6 MCHC 33.3 RDW 16.3 H Plt Count 222 Seg Neutrophils % Not Reportable Sodium 127.1 L Potassium 5.4 H Chloride 91 L Carbon Dioxide 24 Anion Gap 12 BUN 78 H Creatinine 1.82 H Est GFR ( Amer) 32 L Glucose 284 H Calcium 10.1 03/18/19 15:15 Troponin I 0.018 NT-Pro-B Natriuret Pep 6460 H Impressions: Chest X-Ray 03/18/19 13:46 IMPRESSION: COPD. No acute findings in the chest. Assessment and Plan - Diagnosis (1) Acute respiratory failure with hypoxia Is this a current diagnosis for this admission?: Yes Plan: 03/19: Secondary to COPD exacerbation. She has been weaned off O2 this morning and so far has been saturating well at rest. 03/20: Improving. 03/21: Resolving. (2) COPD exacerbation Is this a current diagnosis for this admission?: Yes Plan: Resolving. Continue breathing treatments and steroids. She did have a recent sick contact as her daughter had a recent URTI. (3) Acute kidney injury Is this a current diagnosis for this admission?: Yes Plan: 03/19: Likely related to chronic diarrhea. Improved with IV fluids. Creatinine trended down to 1.6 from 2.0. 03/20: Creatinine continue to trend down to 1.5. 03/21: Crea trended up to 1.8. She is on 2 diuretics at home. She reports history of CHF but no echo on record. Will order an echocardiogram. (4) Hypokalemia Is this a current diagnosis for this admission?: Yes Plan: Repleted. (5) Chronic diarrhea Is this a current diagnosis for this admission?: Yes Plan: Stool studies unremarkable so far. C. difficile testing was not done as stools were well formed. (6) Chronic atrial fibrillation Is this a current diagnosis for this admission?: Yes Plan: Continue Xarelto, lopressor and cardizem. (7) CAD (coronary artery disease) Qualifiers: Coronary Disease-Associated Artery/Lesion type: [place] artery [place] vs. transplanted heart: [place] heart Associated angina: without angina Qualified Code(s): I25.10 - Atherosclerotic heart disease of [place] coronary artery witho [place] angina pectoris Is this a current diagnosis for this admission?: Yes (8) Hyperkalemia Is this a current diagnosis for this admission?: Yes Plan: Discontinue potassium PO. (9) Hyponatremia Is this a current diagnosis for this admission?: Yes - Time Time Spent with patient: 25-34 minutes
[2019-03-21] MEDS: CEFTRIAXONE 1 GM/D5W RTU 1 GM/50 ML RTUPB IV SCH (17:21)
[2019-03-21] MEDS: NORMAL SALINE 1000 ML 1,000 ML IV PRN (17:21)
--- NOTE | 2019-03-21 17:41 | RADIOLOGY REPORT (SQ) ---
EXAM DESCRIPTION: CHEST SINGLE VIEW COMPLETED DATE/TIME: 03/21/2019 5:18 pm REASON FOR STUDY: assess for congestion COMPARISON: 03/18/2019. EXAM PARAMETERS: NUMBER OF VIEWS: One view. TECHNIQUE: Single frontal radiographic view of the chest acquired. RADIATION DOSE: NA LIMITATIONS: None. FINDINGS: LUNGS AND PLEURA: Cardiomegaly. Mild vascular prominence. MEDIASTINUM AND HILAR STRUCTURES: No masses. Contour normal. HEART AND VASCULAR STRUCTURES: Heart normal in size. Normal vasculature. BONES: No acute findings. HARDWARE: Sternotomy wires, coronary bypass markers, and pacemaker. OTHER: No other significant finding. IMPRESSION: CARDIOMEGALY. MILD VASCULAR PROMINENCE BUT NO FINDINGS OF CONGESTIVE FAILURE. TECHNICAL DOCUMENTATION: JOB ID: [id number] [email or web address]- All Rights Reserved Reading location - IP/workstation name: [email or web address]
[2019-03-21] MEDS: MELATONIN 5 MG TABLET PO SCH (21:24)
[2019-03-21] MEDS: ATORVASTATIN CALCIUM 40 MG TABLET PO SCH (21:24)
[2019-03-21] MEDS: ESCITALOPRAM OXALATE 10 MG TABLET PO SCH (21:24)
[2019-03-21] MEDS: AZITHROMYCIN 500 MG in DEXTROSE 5%-WATER 250 ML IV SCH (21:25)
[2019-03-22] MEDS: LEVALBUTEROL HCL NEB 1.25 MG/3 ML AMPUL NEB SCH ×4 (02:17→20:35)
[2019-03-22] MEDS: IPRATROPIUM BROMIDE 0.02% NEB 0.5 MG/2.5 ML AMPUL NEB SCH ×4 (02:17→20:35)
[2019-03-22] MEDS: LEVOTHYROXINE SODIUM 0.075 MG TABLET PO SCH (05:30)
[2019-03-22] MEDS: HYDROCODONE BIT/HOMATROPINE 5-1.5 MG TABLET PO PRN (05:31)
[2019-03-22 08:57] LABS: ABSOLUTE LYMPHOCYTES (AUTO) 0.7 10^3/uL (0.5-4.7); ABSOLUTE MONOCYTES (AUTO) 0.4 10^3/uL (0.1-1.4); ABSOLUTE NEUT (AUTO) 10.6 10^3/uL (1.7-8.2); HEMATOCRIT 32.1 % (36.0-47.0); HEMOGLOBIN 10.7 g/dL (12.0-15.5); MEAN CORPUSCULAR HEMOGLOBIN 30.6 pg (27.0-33.4); MEAN CORPUSCULAR HGB CONC 33.2 g/dL (32.0-36.0); MEAN CORPUSCULAR VOLUME 92 fl (80-97); MONOCYTES % (AUTO) 3.8 % (3-13); PLATELET COUNT 202 10^3/uL (150-450); RED BLOOD COUNT 3.49 10^6/uL (3.72-5.28); RED CELL DISTRIBUTION WIDTH 16.5 % (11.5-14.0); SEGMENTED NEUTROPHILS % (AUTO) 90.2 % (42-78); TOTAL CELLS COUNTED % (AUTO) 100 %; WHITE BLOOD COUNT 11.8 10^3/uL (4.0-10.5)
--- NOTE | 2019-03-22 09:12 | XCELERA REPORT ---
[address] [address] Transthoracic Echocardiogram Report Name: EVGENY HUTCHINSON Age: 88 yrs Gender: Female : 1930 Patient Status: Inpatient Patient Location: [address] [place], [place] [address] Study Date: 03/21/2019 05:39 PM Height: 69 in Weight: 190 lb BSA: 2.0 m2 Procedure: A complete two-dimensional transthoracic echocardiogram was performed (2D, M-mode, spectral and color flow Doppler). The study was technically difficult with many images being suboptimal in quality. Reason For Study: assess LVEF,Dr.Mitra briones,aware of echo order Ordering Physician: DEVANTE FRIAS Performed By: Ngozi Pinzon Interpretation Summary The left ventricular ejection fraction is normal. There is mild concentric left ventricular hypertrophy. The left ventricle is grossly normal size. Doppler measurements suggest pseudonormalized left ventricular relaxation, which is associated with grade II/IV or mild to moderate diastolic dysfunction Wall motion cannot be accurately commented on, but no definite regional wall motion abnormalities noted. The right ventricle is moderately dilated. Right ventricular function cannot be assessed due to poor image quality. The left atrium is mildly dilated. The right atrium is moderately dilated. There is a moderate amount of mitral regurgitation The mitral regurgitant jet is eccentrically directed. There is no mitral valve stenosis. There is a trace to mild amount of aortic regurgitation AV not well interrogated. Can not R/O There is a mild to moderate amount of tricuspid regurgitation There is moderate pulmonary hypertension by echo Best estimated right ventricular systolic pressure is elevated at 50-60mmHg. The aortic root is not well visualized but is probably normal size. The inferior vena cava appeared normal and decreased < 50% with respiration (RAP 10-15 mmHg) Minimal pericardial effusion. MMode/2D Measurements & Calculations RVDd: 2.4 cm LVIDd: 4.4 cm FS: 36.7 % Ao root diam: 2.7 cm IVSd: 1.1 cm LVIDs: 2.8 cm EDV(Teich): 89.2 ml Ao root area: 5.9 cm2 LVPWd: 1.0 cm ESV(Teich): 29.7 ml LA dimension: 4.1 cm EF(Teich): 66.7 % Doppler Measurements & Calculations MV E max giovanny: MV dec time: Ao V2 max: LV V1 max P.7 cm/sec 0.18 sec 118.1 cm/sec 1.4 mmHg Ao max P.6 mmHgLV V1 max: 58.7 cm/sec PA V2 max: PI end-d giovanny: TR max giovanny: 100.4 cm/sec 97.7 cm/sec 331.2 cm/sec PA max P.0 mmHg TR max P.9 mmHg Left Ventricle The left ventricle is grossly normal size. There is mild concentric left ventricular hypertrophy. The left ventricular ejection fraction is normal. Doppler measurements suggest pseudonormalized left ventricular relaxation, which is associated with grade II/IV or mild to moderate diastolic dysfunction. Wall motion cannot be accurately commented on, but no definite regional wall motion abnormalities noted. Right Ventricle The right ventricle is moderately dilated. Right ventricular function cannot be assessed due to poor image quality. Atria The right atrium is moderately dilated. The left atrium is mildly dilated. Interarterial septum not well visualized and not well dopplered. Cannot comment on ASD/PFO presence. Mitral Valve The mitral valve leaflets are sclerotic and show some degree of functional abnormality. There is no mitral valve stenosis. There is a moderate amount of mitral regurgitation. The mitral regurgitant jet is eccentrically directed. Aortic Valve The aortic valve is not well visualized secondary to technical limitations. AV not well interrogated. Can not R/O . There is a trace to mild amount of aortic regurgitation. Tricuspid Valve The tricuspid valve is not well visualized secondary to technical limitations. There is no tricuspid stenosis. There is a mild to moderate amount of tricuspid regurgitation. There is moderate pulmonary hypertension by echo. Best estimated right ventricular systolic pressure is elevated at 50-60mmHg. Pulmonic Valve The pulmonic valve is not well visualized. Great Vessels The aortic root is not well visualized but is probably normal size. The inferior vena cava appeared normal and decreased < 50% with respiration (RAP 10-15 mmHg). Effusions Minimal pericardial effusion. : DEVANTE FRIAS Shyamal
[2019-03-22 09:13] LABS: ANION GAP 12 (5-19); BLOOD UREA NITROGEN 81 mg/dL (7-20); CARBON DIOXIDE 20 mmol/L (22-30); CHLORIDE 95 mmol/L (98-107); GLUCOSE 177 mg/dL (75-110)
[2019-03-22] MEDS: BUSPIRONE HCL 10 MG TABLET PO SCH ×2 (09:17→17:03)
[2019-03-22 09:25] LABS: POTASSIUM 6.2 mmol/L (3.6-5.0)
[2019-03-22] MEDS: ISOSORBIDE MONONITRATE 30 MG TAB.ER.24H PO SCH (09:52)
[2019-03-22] MEDS: METHYLPREDNISOLONE INJ 40 MG/1 ML SDV IV SCH (09:54)
[2019-03-22] MEDS: MEDROXYPROGESTERONE ACET 10 MG TABLET PO SCH (09:54)
[2019-03-22] MEDS: METHOTREXATE SODIUM 2.5 MG TABLET PO SCH (09:54)
[2019-03-22] MEDS: FLUTICASONE NASAL SPRAY 50 MCG/SPRY 120 SPRAY/16 GM NASL SCH ×2 (09:54→21:07)
[2019-03-22] MEDS: METOPROLOL SUCCINATE 50 MG TAB.SR.24H PO SCH (09:54)
[2019-03-22] MEDS: DILTIAZEM HCL 240 MG CAPSULE.CR PO SCH (09:55)
[2019-03-22] MEDS ORDERED: NORMAL SALINE 1000 ML 1,000 ML IV ONE (10:15)
[2019-03-22] MEDS ORDERED: DEXTROSE 50%-WATER 25 GM/50 ML DISP.SYRIN IV ONE (10:15)
[2019-03-22] MEDS ORDERED: INSULIN REG, HUMAN 100 UNIT/ML 3 ML VIAL (PYX) IV ONE (10:15)
[2019-03-22] MEDS ORDERED: SODIUM POLYSTYRENE SULFONATE 15 GM/60 ML PO ONE (10:15)
[2019-03-22] MEDS ORDERED: CALCIUM GLUCONATE 1000 MG/10 ML INJ IV ONE (10:15)
--- NOTE | 2019-03-22 11:33 | PDOC PROGRESS REPORT ---
Subjective Progress Note for:: 03/22/19 Subjective:: This is an 88 year old female with past medical history of atrial fibrillation, congestive heart failure, coronary artery disease, stage II chronic kidney disease, COPD, chronic bronchitis and dementia who presented with increasing shortness of breath and cough. She was admitted for COPD exacerbation. 03/19: Upon encounter, she appears comfortable on room air. She says that her shortness of breath is slightly improved. She does have bilateral wheezes and rhonchi on examination. She did have a recent sick contact as her daughter had a recent URTI. She also complains of chronic watery stools for more than a month now. 03/20: Patient reports that she had 3 watery stools earlier this morning. She says her shortness of breath continued to improve and she is returning to her baseline. She is comfortable and saturating well on room air. Wheezing has s ignificantly improved upon encounter this morning. Stool studies pending. 03/21: She denies shortness of breath and is at her baseline. Her creatinine slightly trended up today however, her potassium trended up and sodium also went down to 127. 03/22: No acute event overnight. Her breathing is at her baseline. Denies chest pain or shortness of breath. BMP however came back with profound hyp erkalemia of 6.2. Creatinine remained stable. Reason For Visit: COPD EXACERBATIONS ARF, PNEMONIA Physical Exam Vital Signs: Temp Pulse Resp BP Pulse Ox 97.1 F 69 16 127/73 H 96 03/22/19 00:00 03/22/19 09:01 03/22/19 09:01 03/22/19 00:00 03/22/19 09:01 Intake & Output 03/21/19 03/22/19 03/23/19 06:59 06:59 06:59 Intake Total 2220 1040 Balance 2220 1040 Weight 190 lb 14.725 oz General appearance: PRESENT: no acute distress, well-developed, well-nourished Head exam: PRESENT: atraumatic, normocephalic Eye exam: PRESENT: conjunctiva pink, EOMI, PERRLA. ABSENT: scleral icterus Ear exam: PRESENT: normal external ear exam Mouth exam: PRESENT: moist, tongue midline Neck exam: ABSENT: carotid bruit, JVD, lymphadenopathy, thyromegaly Respiratory exam: PRESENT: rhonchi. ABSENT: rales, wheezes Cardiovascular exam: PRESENT: RRR. ABSENT: diastolic murmur, rubs, systolic murmur Pulses: PRESENT: normal dorsalis pedis pul GI/Abdominal exam: PRESENT: normal bowel sounds, soft. ABSENT: distended, guarding, mass, organolmegaly, rebound, tenderness Rectal exam: PRESENT: deferred Extremities exam: PRESENT: +1 edema Neurological exam: PRESENT: alert, awake, oriented to person, CN II-XII grossly intact. ABSENT: motor sensory deficit Results Laboratory Results: 03/22/19 08:03 03/22/19 08:03 03/21/19 03/21/19 03/21/19 12:32 12:32 12:32 WBC 15.9 H RBC 3.40 L Hgb 10.4 L Hct 31.2 L MCV 92 MCH 30.6 MCHC 33.3 RDW 16.3 H Plt Count 222 Seg Neutrophils % Not Reportable Sodium 127.1 L Potassium 5.4 H Chloride 91 L Carbon Dioxide 24 Anion Gap 12 BUN 78 H Creatinine 1.82 H Est GFR ( Amer) 32 L Glucose 284 H Serum Osmolality 299 Calcium 10.1 03/22/19 03/22/19 08:03 08:03 WBC 11.8 H RBC 3.49 L Hgb 10.7 L Hct 32.1 L MCV 92 MCH 30.6 MCHC 33.2 RDW 16.5 H Plt Count 202 Seg Neutrophils % 90.2 H Sodium 127.3 L Potassium 6.2 H* Chloride 95 L Carbon Dioxide 20 L Anion Gap 12 BUN 81 H Creatinine 1.81 H Est GFR ( Amer) 32 L Glucose 177 H Serum Osmolality Calcium 10.0 03/18/19 15:15 Troponin I 0.018 NT-Pro-B Natriuret Pep 6460 H Impressions: Chest X-Ray 03/21/19 00:00 IMPRESSION: CARDIOMEGALY. MILD VASCULAR PROMINENCE BUT NO FINDINGS OF CONGESTIVE FAILURE. Assessment and Plan - Diagnosis (1) Acute respiratory failure with hypoxia Is this a current diagnosis for this admission?: Yes Plan: 03/19: Secondary to COPD exacerbation. She has been weaned off O2 this morning and so far has been saturating well at rest. 03/20: Improving. 03/21: REsolved. She is back at her baseline. (2) COPD exacerbation Is this a current diagnosis for this admission?: Yes Plan: Resolving. Continue breathing treatments and steroids. She did have a recent sick contact as her daughter had a recent URTI. 03/22: Resolved. (3) Acute kidney injury Is this a current diagnosis for this admission?: Yes Plan: 03/19: Likely related to chronic diarrhea. Improved with IV fluids. Creatinine trended down to 1.6 from 2.0. 03/20: Creatinine continue to trend down to 1.5. 03/21: Crea trended up to 1.8. She is on 2 diuretics at home. She reports history of CHF but no echo on record. Will order an echocardiogram. (4) Hyperkalemia Is this a current diagnosis for this admission?: Yes Plan: 03/21: Discontinue potassium PO. 03/22: Potassium trended up to 6.2. KCl supplements have been DCed yesterday. Will give kayexalate, insulin and glucose. (5) Chronic diarrhea Is this a current diagnosis for this admission?: Yes Plan: Stool studies unremarkable so far. C. difficile testing was not done as stools were well formed. 03/22: Stools have been reported by staff to be well-formed. (6) Chronic atrial fibrillation Is this a current diagnosis for this admission?: Yes Plan: Continue Xarelto, lopressor and cardizem. (7) CAD (coronary artery disease) Qualifiers: Coronary Disease-Associated Artery/Lesion type: augustine artery [place] vs. transplanted heart: augustine heart Associated angina: without angina Qualified Code(s): I25.10 - Atherosclerotic heart disease of augustine coronary artery without angina pectoris Is this a current diagnosis for this admission?: Yes (8) Hyponatremia Is this a current diagnosis for this admission?: Yes - Time Time Spent with patient: 25-34 minutes
[2019-03-22] MEDS ORDERED: FUROSEMIDE INJ/PF 20 MG/2 ML SDV IV ONE (12:00)
[2019-03-22 15:35] LABS: ANION GAP 16 (5-19); BLOOD UREA NITROGEN 78 mg/dL (7-20); CALCIUM 10.4 mg/dL (8.4-10.2); CARBON DIOXIDE 19 mmol/L (22-30); CHLORIDE 94 mmol/L (98-107); GLUCOSE 238 mg/dL (75-110); POTASSIUM 5.8 mmol/L (3.6-5.0)
[2019-03-22] MEDS: RIVAROXABAN 15 MG TABLET PO SCH (17:11)
[2019-03-22] MEDS: TORSEMIDE 20 MG TABLET PO SCH (17:11)
[2019-03-22] MEDS: PREDNISONE 20 MG TABLET PO SCH (17:11)
[2019-03-22] MEDS: CEFTRIAXONE 1 GM/D5W RTU 1 GM/50 ML RTUPB IV SCH (17:12)
[2019-03-22] MEDS: MELATONIN 5 MG TABLET PO SCH (21:06)
[2019-03-22] MEDS: ATORVASTATIN CALCIUM 40 MG TABLET PO SCH (21:06)
[2019-03-22] MEDS: ESCITALOPRAM OXALATE 10 MG TABLET PO SCH (21:06)
[2019-03-22] MEDS: AZITHROMYCIN 500 MG in DEXTROSE 5%-WATER 250 ML IV SCH (21:07)
--- NOTE | 2019-03-22 21:21 | EKG REPORT ---
SEVERITY:- ABNORMAL ECG - AFIB/FLUT AND V-PACED COMPLEXES NONSPECIFIC REPOL ABNORMALITY, DIFFUSE LEADS : Confirmed by: Sarita Richardson 22-Mar-2019 21:20:32
[2019-03-23] MEDS: NORMAL SALINE 1000 ML 1,000 ML IV PRN (00:52)
[2019-03-23] MEDS: IPRATROPIUM BROMIDE 0.02% NEB 0.5 MG/2.5 ML AMPUL NEB SCH ×2 (02:32→08:06)
[2019-03-23] MEDS: LEVALBUTEROL HCL NEB 1.25 MG/3 ML AMPUL NEB SCH ×2 (02:33→08:06)
[2019-03-23] MEDS: LEVOTHYROXINE SODIUM 0.075 MG TABLET PO SCH (05:30)
[2019-03-23 05:51] LABS: ANION GAP 15 (5-19); BLOOD UREA NITROGEN 70 mg/dL (7-20); CALCIUM 9.9 mg/dL (8.4-10.2); CARBON DIOXIDE 22 mmol/L (22-30); CHLORIDE 96 mmol/L (98-107); GLUCOSE 176 mg/dL (75-110)
[2019-03-23 06:10] LABS: POTASSIUM 4.1 mmol/L (3.6-5.0)
[2019-03-23] MEDS: BUSPIRONE HCL 10 MG TABLET PO SCH (09:07)
[2019-03-23] MEDS: PREDNISONE 20 MG TABLET PO SCH (09:07)
[2019-03-23] MEDS: ISOSORBIDE MONONITRATE 30 MG TAB.ER.24H PO SCH (09:07)
[2019-03-23] MEDS: METOPROLOL SUCCINATE 50 MG TAB.SR.24H PO SCH (09:08)
[2019-03-23] MEDS: DILTIAZEM HCL 240 MG CAPSULE.CR PO SCH (09:11)
[2019-03-23] MEDS: TORSEMIDE 20 MG TABLET PO SCH (09:12)
[2019-03-23] MEDS: FLUTICASONE NASAL SPRAY 50 MCG/SPRY 120 SPRAY/16 GM NASL SCH (09:13)
[2019-03-23] MEDS: MEDROXYPROGESTERONE ACET 10 MG TABLET PO SCH (09:14)
[2019-03-23] MEDS: HYDROCODONE BIT/HOMATROPINE 5-1.5 MG TABLET PO PRN (09:19)
[2019-03-23 09:58] VITALS: BP 144/84
--- NOTE | 2019-03-23 15:11 | PDOC DISCHARGE SUMMARY ---
Impression - Admit/DC Date/PCP Admission Date/Primary Care Provider: 03/18/19 19:55 SANNA HOWELL MD Discharge Date: 03/23/19 - Discharge Diagnosis (1) Acute respiratory failure with hypoxia Is this a current diagnosis for this admission?: Yes (2) COPD exacerbation Is this a current diagnosis for this admission?: Yes (3) Acute kidney injury Is this a current diagnosis for this admission?: Yes (4) Hyperkalemia Is this a current diagnosis for this admission?: Yes (5) Chronic diarrhea Is this a current diagnosis for this admission?: Yes (6) Chronic atrial fibrillation Is this a current diagnosis for this admission?: Yes (7) CAD (coronary artery disease) Is this a current diagnosis for this admission?: Yes (8) Hyponatremia Is this a current diagnosis for this admission?: Yes - Additional Information Resuscitation Status: Full Code Discharge Diet: Cardiac Discharge Activity: Activity As Tolerated, Balance Activity w/Rest Referrals: SANNA MANDUJANO MD [EMERITUS] - 03/28/19 11:00 am Prescriptions: Fluticasone/Salmeterol [Advair 250-50 Diskus 14 Dose/Diskus] 14 inh IH DAILY #1 inhaler Prednisone [Deltasone 20 mg Tablet] 20 mg PO BID 5 Days #10 tablet Albuterol Sulfate [Proair HFA Inhalation Aerosol 8.5 gm MDI] 1 puff IH Q4 PRN #1 mdi PRN Reason: Tiotropium [place] [Spiriva Handihaler 5 Cap/Kit (18 Mcg/Cap)] 1 cap IH DAILY #30 capsule Home Medications: Buspirone HCl [Buspar 15 mg Tablet] 15 mg PO BID 03/19/19 Diltiazem HCl [Cardizem Cd 240 mg Capsule.cr] 240 mg PO DAILY 03/19/19 Escitalopram Oxalate [Lexapro 10 mg Tablet] 10 mg PO QHS 03/19/19 Folic Acid [Folvite 1 mg Tablet] 1 mg PO LANGFORD 03/19/19 Isosorbide Mononitrate [Imdur 30 mg Tablet.er] 30 mg PO QAM 03/19/19 Levothyroxine Sodium 75 mcg PO Q6AM 03/19/19 Melatonin [Melatonin 5 mg Tablet] 5 mg PO QHS 03/19/19 Methotrexate Sodium [Rheumatrex 2.5 mg Tablet] 2.5 mg PO MOTUWETHFRSA 03/19/19 Metolazone [Zaroxolyn 2.5 mg Tablet] 2.5 mg PO MOWEFR 03/19/19 Metoprolol Succinate [Toprol XL 100 mg Tablet] 100 mg PO DAILY 03/19/19 Nitroglycerin [Nitrostat 0.4 mg (1/150 Gr) Tabs 25/Bottle] 0.4 mg SL Q5MP PRN 03/19/19 Ondansetron HCl [Zofran 4 mg Tablet] 4 mg PO Q4HP PRN 03/19/19 Rivaroxaban [Xarelto 15 mg Tablet] 15 mg PO WSUPPER 03/19/19 Rosuvastatin Calcium [Crestor 20 mg Tablet] 20 mg PO QHS 03/19/19 Torsemide [Demadex] 20 mg PO BID 03/19/19 Tramadol HCl [Ultram 50 mg Tablet] 50 mg PO Q12HP PRN 03/19/19 Albuterol Sulfate [Proair HFA Inhalation Aerosol 8.5 gm MDI] 1 puff IH Q4 PRN #1 mdi 03/21/19 Fluticasone/Salmeterol [Advair 250-50 Diskus 14 Dose/Diskus] 14 inh IH DAILY #1 inhaler 03/21/19 Lisinopril [Zestril] 20 mg PO DAILY #0 03/21/19 Medroxyprogesterone Acet [Provera 10 mg Tablet] 10 mg PO DAILY #0 03/21/19 Potassium Chloride [Klor-Con M20] 20 meq PO DAILY #0 03/21/19 Prednisone [Deltasone 20 mg Tablet] 20 mg PO BID 5 Days #10 tablet 03/21/19 Tiotropium [place] [Spiriva Handihaler 5 Cap/Kit (18 Mcg/Cap)] 1 cap IH DAILY #30 capsule 03/21/19 History of Present Illiness History of Present Illness: Admitting hospitalist's H&P: EVGENY HUTCHINSON is a 88 year old female with past medical history of atrial fibrillation, congestive heart failure, coronary artery disease, stage II chronic kidney disease, COPD, chronic bronchitis and dementia. She presents to the emergency room with shortness of breath and nonproductive cough patient was recently on unknown antibiotics for the last 5 days without improvement prompting evaluation emergency room. She is found to have rhonchi and hypoxia. Labs reveal leukocytosis, contraction alkalosis and acute renal failure. She receives IV Lasix and is referred to the hospitalist for admission. Patient is unable to provide any history as she has significant dementia. Hospital Course Hospital Course: This is an 88 year old female with past medical history of atrial fibrillation, congestive heart failure, coronary artery disease, stage II chronic kidney disease, COPD, chronic bronchitis and dementia who presented with increasing shortness of breath and cough. She was admitted for COPD exacerbation. 03/19: Upon encounter, she appears comfortable on room air. She says that her shortness of breath is slightly improved. She does have bilateral wheezes and rhonchi on examination. She did have a recent sick contact as her daughter had a recent URTI. She also complains of chronic watery stools for more than a month now. 03/20: Patient reports that she had 3 watery stools earlier this morning. She says her shortness of breath continued to improve and she is returning to her baseline. She is comfortable and saturating well on room air. Wheezing has significantly improved upon encounter this morning. Stool studies pending. She returned to her baseline respiratory status. She however developed hyperkalemia. She has been taking his potassium supplements at home which were continued on this course. Potassium supplements were discontinued. She was also given an insulin, glucose and Kayexalate regimen for hyperkalemia. Her diuretics were also resumed. Her creatinine did trend down and remained stable. Echo was also done which showed preserved EF and grade 2 diastolic dysfunction. She will be continued on her home diuretic regimen. Lisinopril was decreased due to recent BRITTNEY. She will closely follow-up with her PCP in have a repeat BMP and titrate her diuretic dose as deemed warranted. Physical Exam Vital Signs: Temp Pulse Resp BP Pulse Ox 97.4 F 73 16 144/84 H 100 03/23/19 11:24 03/23/19 11:24 03/23/19 11:24 03/23/19 11:24 03/23/19 11:24 Intake & Output 03/22/19 03/23/19 03/24/19 06:59 06:59 06:59 Intake Total 1040 2218 Balance 1040 2218 Weight 191 lb 12.835 oz General appearance: PRESENT: no acute distress, well-developed, well-nourished Head exam: PRESENT: atraumatic, normocephalic Eye exam: PRESENT: conjunctiva pink, EOMI, PERRLA. ABSENT: scleral icterus Ear exam: PRESENT: normal external ear exam Mouth exam: PRESENT: moist, tongue midline Neck exam: ABSENT: carotid bruit, JVD, lymphadenopathy, thyromegaly Respiratory exam: PRESENT: clear to auscultation vaishnavi. ABSENT: rales, rhonchi, wheezes Cardiovascular exam: PRESENT: RRR. ABSENT: diastolic murmur, rubs, systolic murmur Pulses: PRESENT: normal dorsalis pedis pul GI/Abdominal exam: PRESENT: normal bowel sounds, soft. ABSENT: distended, guarding, mass, organolmegaly, rebound, tenderness Extremities exam: PRESENT: +1 edema Neurological exam: PRESENT: alert, awake, oriented to person, oriented to place, oriented to time, CN II-XII grossly intact. ABSENT: motor sensory deficit Results Laboratory Results: WBC 11.8 10^3/uL (4.0-10.5) H 03/22/19 08:03 RBC 3.49 10^6/uL (3.72-5.28) L 03/22/19 08:03 Hgb 10.7 g/dL (12.0-15.5) L 03/22/19 08:03 Hct 32.1 % (36.0-47.0) L 03/22/19 08:03 MCV 92 fl (80-97) 03/22/19 08:03 MCH 30.6 pg (27.0-33.4) 03/22/19 08:03 MCHC 33.2 g/dL (32.0-36.0) 03/22/19 08:03 RDW 16.5 % (11.5-14.0) H 03/22/19 08:03 Plt Count 202 10^3/uL (150-450) 03/22/19 08:03 Lymph % (Auto) 6.0 % (13-45) L 03/22/19 08:03 [place] % (Auto) 3.8 % (3-13) 03/22/19 08:03 Eos % (Auto) 0.0 % (0-6) 03/22/19 08:03 Baso % (Auto) 0.0 % (0-2) 03/22/19 08:03 Absolute Neuts (auto) 10.6 10^3/uL (1.7-8.2) H 03/22/19 08:03 Absolute Lymphs (auto) 0.7 10^3/uL (0.5-4.7) 03/22/19 08:03 Absolute Monos (auto) 0.4 10^3/uL (0.1-1.4) 03/22/19 08:03 Absolute Eos (auto) 0.0 10^3/uL (0.0-0.6) 03/22/19 08:03 Absolute Basos (auto) 0.0 10^3/uL (0.0-0.2) 03/22/19 08:03 Total Counted 100 03/21/19 12:32 Seg Neutrophils % 90.2 % (42-78) H 03/22/19 08:03 Seg Neuts % (Manual) 86 % (42-78) H 03/21/19 12:32 Band Neutrophils % 1 % (3-5) L 03/21/19 12:32 Lymphocytes % (Manual) 9 % (13-45) L 03/21/19 12:32 Monocytes % (Manual) 4 % (3-13) 03/21/19 12:32 Eosinophils % (Manual) 0 % (0-6) 03/21/19 12:32 Basophils % (Manual) 0 % (0-2) 03/21/19 12:32 Abs Neuts (Manual) 13.8 10^3/uL (1.7-8.2) H 03/21/19 12:32 Abs Lymphs (Manual) 1.4 10^3/uL (0.5-4.7) 03/21/19 12:32 Abs Monocytes (Manual) 0.6 10^3/uL (0.1-1.4) 03/21/19 12:32 Absolute Eos (Manual) 0.0 10^3/uL (0.0-0.6) 03/21/19 12:32 Abs Basophils (Manual) 0.0 10^3/uL (0.0-0.2) 03/21/19 12:32 Platelet Comment ADEQUATE 03/21/19 12:32 Poikilocytosis SLIGHT 03/20/19 05:59 Anisocytosis 1+ 03/21/19 12:32 Tear Drop Cells SLIGHT 03/20/19 05:59 Ovalocytes SLIGHT 03/20/19 05:59 Sodium 132.9 mmol/L (137-145) L 03/23/19 05:04 Potassium 4.1 mmol/L (3.6-5.0) D 03/23/19 05:04 Chloride 96 mmol/L (98-107) L 03/23/19 05:04 Carbon Dioxide 22 mmol/L (22-30) 03/23/19 05:04 Anion Gap 15 (5-19) 03/23/19 05:04 BUN 70 mg/dL (7-20) H 03/23/19 05:04 Creatinine 1.66 mg/dL (0.52-1.25) H 03/23/19 05:04 Est GFR ( Amer) 35 (>60) L 03/23/19 05:04 Est GFR (MDRD) Non-Af 29 (>60) L 03/23/19 05:04 Glucose 176 mg/dL (75-110) H 03/23/19 05:04 Serum Osmolality 299 mOsm/kg (275-301) 03/21/19 12:32 Calcium 9.9 mg/dL (8.4-10.2) 03/23/19 05:04 Magnesium 2.0 mg/dL (1.6-2.3) 03/19/19 04:51 Total Bilirubin 1.0 mg/dL (0.2-1.3) 03/18/19 15:15 Direct Bilirubin 0.2 mg/dL (0.0-0.4) 03/18/19 15:15 Neonat Total Bilirubin Not Reportable 03/18/19 15:15 Neonat Direct Bilirubin Not Reportable 03/18/19 15:15 Neonat Indirect Bili Not Reportable 03/18/19 15:15 AST 25 U/L (14-36) 03/18/19 15:15 ALT 16 U/L (<35) 03/18/19 15:15 Alkaline Phosphatase 78 U/L (38-126) 03/18/19 15:15 Troponin I 0.018 ng/mL 03/18/19 15:15 NT-Pro-B Natriuret Pep 45162 pg/mL (<450) H 03/22/19 10:22 Total Protein 7.6 g/dL (6.3-8.2) 03/18/19 15:15 Albumin 4.2 g/dL (3.5-5.0) 03/18/19 15:15 Urine Color YELLOW 03/18/19 19:29 Urine Appearance CLEAR 03/18/19 19:29 Urine pH 6.0 (5.0-9.0) 03/18/19 19:29 Ur Specific [place] 1.009 03/18/19 19:29 Urine Protein NEGATIVE mg/dL (NEGATIVE) 03/18/19 19:29 Urine Glucose (UA) NEGATIVE mg/dL (NEGATIVE) 03/18/19 19:29 Urine Ketones NEGATIVE mg/dL (NEGATIVE) 03/18/19 19:29 Urine Blood NEGATIVE (NEGATIVE) 03/18/19 19:29 Urine Nitrite NEGATIVE (NEGATIVE) 03/18/19 19:29 Urine Bilirubin NEGATIVE (NEGATIVE) 03/18/19 19:29 Urine Urobilinogen NEGATIVE mg/dL (<2.0) 03/18/19 19:29 Ur Leukocyte Esterase TRACE (NEGATIVE) H 03/18/19 19:29 Urine WBC (Auto) 1 /HPF 03/18/19 19:29 Urine RBC (Auto) 1 /HPF 03/18/19 19:29 Urine Bacteria (Auto) TRACE /HPF 03/18/19 15:35 Squamous Epi Cells Auto <1 /HPF 03/18/19 19:29 Urine Mucus (Auto) RARE /LPF 03/18/19 19:29 Urine Ascorbic Acid NEGATIVE (NEGATIVE) 03/18/19 19:29 Stool for White Cells NO WBCs SEEN 03/20/19 04:35 Stl C. Difficile GDH Ag Cancelled 03/20/19 04:35 Stl C.difficile Tox A&B Cancelled 03/20/19 04:35 Influenza A (Rapid) NEGATIVE (NEGATIVE) 03/18/19 19:07 Influenza B (Rapid) NEGATIVE (NEGATIVE) 03/18/19 19:07 03/18/19 03/22/19 15:15 10:22 Troponin I 0.018 NT-Pro-B Natriuret Pep 6460 H 21422 H Impressions: Chest X-Ray 03/18/19 13:46 IMPRESSION: COPD. No acute findings in the chest. Chest X-Ray 03/21/19 00:00 IMPRESSION: CARDIOMEGALY. MILD VASCULAR PROMINENCE BUT NO FINDINGS OF CONGESTIVE FAILURE. Stroke Is this a Stroke Patient?: No Acute Heart Failure - Is this a Heart Failure Patient?: No
[2019-03-23] MEDS ORDERED: FOLIC ACID 1 MG TABLET PO SCH (15:22)
[2019-03-24] MEDS ORDERED: METOLAZONE 2.5 MG TABLET PO SCH (10:00)
== END 2019-03-23 12:25 | disposition home or self-care (01) | DRG 189 ==
LOC: ER 11:33 → EH 19:55 → 4W 03-19 → 4N 03-20 17:56
PROVIDERS: ADMIT Internal Medicine; ATTEND Internal Medicine
DX: J96.01 Acute respiratory failure with hypoxia (principal); J44.1 Chronic obstructive pulmonary disease with (acute) exacerbation; N17.9 Acute kidney failure, unspecified; J44.0 Chronic obstructive pulmonary disease with (acute) lower respiratory infection; I13.0 Hypertensive heart and chronic kidney disease with heart failure and stage 1 through stage 4 chronic kidney disease, or unspecified chronic kidney disease; I48.20 Chronic atrial fibrillation, unspecified; E87.1 Hypo-osmolality and hyponatremia; J20.9 Acute bronchitis, unspecified; E87.6 Hypokalemia; R19.7 Diarrhea, unspecified; I50.9 Heart failure, unspecified; N18.2 Chronic kidney disease, stage 2 (mild); I25.10 Atherosclerotic heart disease of native coronary artery without angina pectoris; E78.00 Pure hypercholesterolemia, unspecified; E03.9 Hypothyroidism, unspecified; K21.9 Gastro-esophageal reflux disease without esophagitis; F03.90 Unspecified dementia, unspecified severity, without behavioral disturbance, psychotic disturbance, mood disturbance, and anxiety; I25.2 Old myocardial infarction; Z79.01 Long term (current) use of anticoagulants; Z79.899 Other long term (current) drug therapy
CPT/HCPCS: 36415; 71045; 71046; 80048; 80053; 81001; 83735; 83880; 83930; 84132; 84484; 85025; 87040; 87045; 87205; 87804; 89055; 93005; 93010; 93306; 94640; 94667; 94668; 94799; 96374; 99284; J0456; J0610; J0696; J1644; J1815; J1940; J2920; J2930; J3480; J3490; J7030; J7060; J7512; J7620; J8610; S0119

== ENCOUNTER 2019-07-05 14:14 | Emergency (ER) | payer MEDICARE, OTHER ==
--- NOTE | 2019-07-05 14:33 | ER Document Report ---
ED General - General Chief Complaint: Urinary Problem Stated Complaint: URINARY PROBLEMS Primary Care Provider: SANNA HOWELL MD [Primary Care Provider] - Follow up as needed Notes: Patient is an 88-year-old white female with a past medical history of [place], hypertension, atrial fibrillation with a pacemaker who presents to the emergency department with a chief complaint of generalized weakness for the past 3 days. She saw her doctor 5 days ago diagnosed her with a urinary infection and placed her on Macrobid for 10 days. She has taken 5 days worth of this medication. She denies any urinary complaints. She states she just generally feels weak. No focal weakness, numbness or tingling. No headache, chest pain, neck pain, shortness of breath, abdominal pain. TRAVEL OUTSIDE OF THE [place] IN LAST 30 DAYS: No - Related Data Allergies/Adverse Reactions: morphine [Morphine] Adverse Reaction (Severe, Verified 07/05/19 14:46) Abnormal behavior Past Medical History - Social History Smoking Status: Unknown if Ever Smoked Family History: CAD - Parents, Other - colon polyps in parents - Past Medical History Cardiac Medical History: Reports: Hx Atrial Fibrillation, Hx Congestive Heart Failure, Hx Coronary Artery Disease, Hx Heart Attack, Hx Hypercholesterolemia, Hx Hypertension Denies: Hx DVT, Hx Peripheral Vascular Disease, Hx Pulmonary Embolism, Hx Heart Murmur Pulmonary Medical History: Reports: Hx Pneumonia, Hx Sleep Apnea - Testing in near future Denies: Hx Asthma, Hx Bronchitis, Hx COPD, Hx Respiratory Failure, Hx Tuberculosis Neurological Medical History: Denies: Hx Seizures Endocrine Medical History: Reports: Hx Hypothyroidism. Denies: Hx Diabetes Mellitus Type 1, Hx Diabetes Mellitus Type 2, Hx Graves' Disease, Hx Hyperthyroidism Renal/ Medical History: Denies: Hx End Stage Renal Disease, Hx Kidney Stones, Hx Ovarian Cysts, Hx Peritoneal Dialysis, Hx Pelvic Inflammatory Disease Malignancy Medical History: Reports: Hx Skin Cancer. Denies: Hx Breast Cancer, Hx Cervical Cancer, Hx Leukemia, Hx Lung Cancer, Hx Ovarian Cancer GI Medical History: Reports: Hx Gastroesophageal Reflux Disease - Dysphagia. Denies: Hx Cirrhosis, Hx Crohn's Disease, Hx Hepatitis, Hx Hiatal Hernia, Hx Irritable Bowel, Hx Liver Failure, Hx Pancreatitis, Hx Ulcer Musculoskeletal Medical History: Reports Hx Arthritis, Denies Hx Fibromyalgia, Denies Hx Muscular Dystrophy, Denies Hx Systemic Lupus Erythematosus Psychiatric Medical History: Reports: Hx Dementia Denies: Hx Depression Traumatic Medical History: Reports: Hx Fractures - fx wrist Infectious Medical History: Denies: Hx Hepatitis, Hx HIV Past Surgical History: Reports: Hx Appendectomy, Hx Cardiac Surgery - CABG, Balloon, pacemaker, Hx Coronary Artery Bypass Graft, Hx Open Heart Surgery, Hx Pacemaker. Denies: Hx Bowel Surgery, Hx Section, Hx Cholecystectomy, Hx Colostomy, Hx Gastric Bypass Surgery, Hx Herniorrhaphy, Hx Hysterectomy, Hx Mastectomy, Hx Tonsillectomy, Hx Tubal Ligation - Immunizations Hx Diphtheria, Pertussis, Tetanus Vaccination: Yes Hx Pneumococcal Vaccination: 12/31/18 Review of Systems - Review of Systems Constitutional: Weakness -: Yes All other systems reviewed and negative Physical Exam - Vital signs Vitals: Pulse Ox 91 L 07/05/19 14:18 - General General appearance: Appears well, Alert In distress: None - HEENT Head: Normocephalic, Atraumatic Eyes: Normal Conjunctiva: Normal Extraocular movements intact: Yes Mouth/Lips: Normal Mucous membranes: Moist Neck: Normal, Supple - Respiratory Respiratory status: No respiratory distress Chest status: Nontender Breath sounds: Normal Chest palpation: Normal - Cardiovascular Rhythm: Other - Paced rhythm Heart sounds: Normal auscultation - Abdominal Inspection: Normal Distension: No distension Bowel sounds: Normal Tenderness: Nontender - Extremities General lower extremity: Other - 2+ left lower extremity pitting edema, 1+ right lower extremity pitting edema - Neurological Neuro grossly intact: Yes Cognition: Normal Orientation: AAOx4 Carl Coma Scale Eye Opening: Spontaneous [place] Coma Scale Verbal: Oriented [place] Coma Scale Motor: Obeys Commands Carl Coma Scale Total: 15 Speech: Normal - Psychological Associated symptoms: Normal affect, Normal mood - Skin Skin Temperature: Warm Skin Moisture: Dry Skin Color: Normal Course - Re-evaluation Re-evalutation: 07/05/19 15:23 EKG at 1509: Paced rhythm ventricularly at 86 bpm. Otherwise normal intervals. Nonspecific ST-T wave changes. No significant change from prior EKG dated 03/22/2019 07/05/19 17:43 Patient's labs largely at baseline. She is some fluid overload. She does at this time admit to some shortness of breath. Her x-ray does show some fluid in the lung. I offered her admission for correction and management. She declined stating she has the same medications at home that they will use here to treat. She is referencing Turosemide and nitro. She states that she has dealt with thi s before and knows how to manage this carefully. She states that she staying with her daughter who will monitor her for any signs or symptoms of worsening and have her return to the ED. Patient given a dose of IV Lasix and sublingual nitro here, will obtain a new set of vital signs and monitor before discharge. 07/05/19 18:15 Reevaluation at this time. Patient's vitals have improved, namely blood pressure. She states she still feeling well. She is requesting discharged home. She is stable and appropriate for discharge and outpatient follow-up. I counseled her return here or any ER immediately with any new, persistent or worsening symptoms. She verbalized understood and agreed. She will otherwise call her physician first thing Sunday morning for continued medication management and reevaluation. - Vital Signs Vital signs: Temp Pulse Resp BP Pulse Ox 97.4 F 20 144/79 H 99 07/05/19 14:21 07/05/19 17:00 07/05/19 16:01 07/05/19 17:00 - Laboratory Result Diagrams: 07/05/19 14:39 07/05/19 14:39 Laboratory results interpreted by me: 07/05/19 07/05/19 07/05/19 14:39 14:39 14:39 RBC 3.50 L Hgb 10.4 L Hct 31.1 L RDW 18.0 H Lymph % (Auto) 9.6 L PT 30.8 H APTT 44.5 H Sodium 132.1 L Potassium 5.3 H BUN 36 H Creatinine 1.45 H Est GFR ( Amer) 41 L Est GFR (MDRD) Non-Af 34 L Creatine Kinase 498 H NT-Pro-B Natriuret Pep 07/05/19 14:39 RBC Hgb Hct RDW Lymph % (Auto) PT APTT Sodium Potassium BUN Creatinine Est GFR ( Amer) Est GFR (MDRD) Non-Af Creatine Kinase NT-Pro-B Natriuret Pep 5340 H Discharge - Discharge Clinical Impression: Generalized weakness Fluid overload Qualifiers: Hypervolemia type: unspecified Qualified Code(s): E87.70 - Fluid overload, unspecified Condition: Stable Disposition: HOME, SELF-CARE Instructions: Congestive Heart Failure ([facility]) Additional Instructions: Please take your home medicines as prescribed. Please call your primary care provider on Sunday morning for reevaluation and further management. Please return here or any ER immediately with any new, persistent or worsening symptoms. Referrals: SANNA HOWELL MD [Primary Care Provider] - Follow up as needed
[2019-07-05 15:00] LABS: ABSOLUTE BASOPHILS # (AUTO) 0.1 10^3/uL (0.0-0.2); ABSOLUTE EOSINOPHILS # (AUTO) 0.2 10^3/uL (0.0-0.6); ABSOLUTE MONOCYTES (AUTO) 1.1 10^3/uL (0.1-1.4); ABSOLUTE NEUT (AUTO) 7.7 10^3/uL (1.7-8.2); BASOPHILS % (AUTO) 1.1 % (0-2); EOSINOPHILS % (AUTO) 2.3 % (0-6); HEMATOCRIT 31.1 % (36.0-47.0); HEMOGLOBIN 10.4 g/dL (12.0-15.5); LYMPHOCYTES % (AUTO) 9.6 % (13-45); MEAN CORPUSCULAR HEMOGLOBIN 29.6 pg (27.0-33.4); MEAN CORPUSCULAR HGB CONC 33.3 g/dL (32.0-36.0); MEAN CORPUSCULAR VOLUME 89 fl (80-97); MONOCYTES % (AUTO) 11.3 % (3-13); PLATELET COUNT 292 10^3/uL (150-450); SEGMENTED NEUTROPHILS % (AUTO) 75.7 % (42-78); TOTAL CELLS COUNTED % (AUTO) 100 %; WHITE BLOOD COUNT 10.2 10^3/uL (4.0-10.5)
[2019-07-05 15:15] LABS: ALBUMIN 3.9 g/dL (3.5-5.0); ALKALINE PHOSPHATASE 105 U/L (38-126); ANION GAP 8 (5-19); ASPARTATE AMINO TRANSFERASE 26 U/L (14-36); BILIRUBIN,DIRECT 0.3 mg/dL (0.0-0.4); BILIRUBIN,TOTAL 0.6 mg/dL (0.2-1.3); BLOOD UREA NITROGEN 36 mg/dL (7-20); CALCIUM 9.7 mg/dL (8.4-10.2); CARBON DIOXIDE 24 mmol/L (22-30); CHLORIDE 100 mmol/L (98-107); CREATINE KINASE 498 U/L (30-135); GLUCOSE 105 mg/dL (75-110); INTERNATIONAL RATION (INR) 2.88; POTASSIUM 5.3 mmol/L (3.6-5.0); PROTHROMBIN TIME 30.8 SEC (11.4-15.4); TOTAL PROTEIN 7.2 g/dL (6.3-8.2)
[2019-07-05 15:16] LABS: PARTIAL THROMBOPLASTIN TIME 44.5 SEC (23.5-35.8)
--- NOTE | 2019-07-05 15:23 | RADIOLOGY REPORT (SQ) ---
EXAM DESCRIPTION: CHEST SINGLE VIEW IMAGES COMPLETED DATE/TIME: 07/05/2019 1:50 pm REASON FOR STUDY: weakness COMPARISON: 03/21/2019 EXAM PARAMETERS: NUMBER OF VIEWS: One view. TECHNIQUE: Single frontal radiographic view of the chest acquired. RADIATION DOSE: NA LIMITATIONS: None. FINDINGS: LUNGS AND PLEURA: New small right pleural effusion with compressive atelectasis/ consolida tion at the right lung base. Lungs are hyperinflated. No pneumothorax. MEDIASTINUM AND HILAR STRUCTURES: No masses. Contour normal. HEART AND VASCULAR STRUCTURES: Postoperative changes of prior CABG. No pulmonary vascular congestion . BONES: No acute findings. HARDWARE: None in the chest. OTHER: No other significant finding. IMPRESSION: New small right pleural effusion with compressive atelectasis and consolidation at the r ight lung base. TECHNICAL DOCUMENTATION: JOB ID: [id number] 2010 Circular- All Rights Reserved Reading location - IP/workstation name: [email or web address]
[2019-07-05 15:27] LABS: NT PRO BNP 5340 pg/mL (<450)
[2019-07-05 15:28] LABS: TROPONIN I < 0.012 ng/mL
[2019-07-05 15:39] LABS: APPEARANCE,URINE CLEAR; BILIRUBIN,URINE NEGATIVE (NEGATIVE); COLOR,URINE YELLOW; GLUCOSE, URINE NEGATIVE (NEGATIVE); KETONES,URINE NEGATIVE (NEGATIVE); PROTEIN,URINE NEGATIVE (NEGATIVE); URINE SPECIFIC GRAVITY 1.008; UROBILINOGEN,URINE NEGATIVE mg/dL (<2.0)
[2019-07-05] MEDS ORDERED: FUROSEMIDE INJ/PF 40 MG/4 ML SDV IV ONE (17:30)
[2019-07-05] MEDS ORDERED: NITROGLYCERIN 0.4 MG/TAB 25 TAB/BOTTLE SL ONE (17:30)
[2019-07-05 18:36] VITALS: BP 126/85
--- NOTE | 2019-07-06 10:45 | EKG REPORT ---
SEVERITY:- ABNORMAL ECG - V-PACED COMPLEXES NONSPECIFIC INTRAVENTRICULAR CONDUCTION DELAY NONSPECIFIC ST DEPRESSION POSSIBLE UNDERLYING A FIB : Confirmed by: Sarita Richardson 06-Jul-2019 10:45:18
== END 2019-07-05 18:56 | disposition home or self-care (01) ==
LOC: ER 14:14
DX: I11.0 Hypertensive heart disease with heart failure (principal); I50.9 Heart failure, unspecified; N39.0 Urinary tract infection, site not specified; R53.1 Weakness; R06.02 Shortness of breath; I25.10 Atherosclerotic heart disease of native coronary artery without angina pectoris; Z95.0 Presence of cardiac pacemaker
CPT/HCPCS: 93005; 99285; 96374; 36415; 82550; 83690; 85025; 85610; 85730; 80053; 81001; 84484; 83880; 71045; 93010; J1940; A9270

== ENCOUNTER 2019-10-09 13:18 | Outpatient (CLI) | payer MEDICARE, OTHER ==
[~2019-10-09 13:18] MED LIST: FERRIC CARBOXYMALTOSE 750 MG in NORMAL SALINE 250 ML IV PRN; NORMAL SALINE 250 ML IV PRN
[2019-10-09 13:28] VITALS: BP 105/77
== END 2019-10-09 14:30 | disposition home or self-care (01) ==
LOC: II 13:18 → 5TH 13:19 → II 14:30
PROVIDERS: ATTEND Internal Medicine Nephrology
DX: D50.8 Other iron deficiency anemias (principal)
CPT/HCPCS: 96365; J7050; J1439

== ENCOUNTER 2019-10-13 20:38 | Inpatient (IN) | payer MEDICARE, OTHER ==
--- NOTE | 2019-10-13 21:52 | ER Document Report ---
Entered by MARI NINO SCRIBE 10/13/19 Acting as scribe for:ROJELIO HAIDER DO ED General - General Stated Complaint: WEAKNESS Time Seen by Provider: 10/13/19 20:41 Primary Care Provider: SANNA HOWELL MD [Primary Care Provider] - Follow up as needed Information source: Patient Notes: This 88 year old female patient presents to the emergency department today with complaints of nausea, vomiting, and diarrhea. Patient reports that the diarrhea started about 1 hour prior to arrival. Family reported that they were going to take the patient to see her primary care physician (Dr. Cristobal) but mention that she was "too weak" to get into the car. TRAVEL OUTSIDE OF THE [place] IN LAST 30 DAYS: No - Related Data Allergies/Adverse Reactions: morphine [Morphine] Adverse Reaction (Severe, Verified 10/13/19 21:50) Abnormal behavior Past Medical History - General Information source: Patient - Social History Smoking Status: Unknown if Ever Smoked Cigarette use (# per day): No Frequency of alcohol use: None Drug Abuse: None Lives with: Family Family History: Reviewed & Not Pertinent, CAD - Parents, Other - colon polyps in parents - Past Medical History Cardiac Medical History: Reports: Hx Atrial Fibrillation, Hx Congestive Heart Failure, Hx Coronary Artery Disease, Hx Heart Attack, Hx Hypercholesterolemia, Hx Hypertension Pulmonary Medical History: Reports: Hx Pneumonia, Hx Sleep Apnea - Testing in near future Endocrine Medical History: Reports: Hx Hypothyroidism Malignancy Medical History: Reports: Hx Skin Cancer GI Medical History: Reports: Hx Gastroesophageal Reflux Disease - Dysphagia Musculoskeletal Medical History: Reports Hx Arthritis Psychiatric Medical History: Reports: Hx Dementia Traumatic Medical History: Reports: Hx Fractures - fx wrist Past Surgical History: Reports: Hx Appendectomy, Hx Cardiac Surgery - CABG, [place], pacemaker, Hx Coronary Artery Bypass Graft, Hx Open Heart Surgery, Hx Pacemaker - Immunizations Hx Diphtheria, Pertussis, Tetanus Vaccination: Yes Hx Pneumococcal Vaccination: 12/31/18 Review of Systems - Review of Systems Constitutional: See HPI, Weakness EENT: No symptoms reported Cardiovascular: No symptoms reported Respiratory: No symptoms reported Gastrointestinal: See HPI, Diarrhea, Nausea, Vomiting Genitourinary: No symptoms reported Female Genitourinary: No symptoms reported Musculoskeletal: No symptoms reported Skin: No symptoms reported Hematologic/Lymphatic: No symptoms reported Neurological/Psychological: No symptoms reported -: Yes All other systems reviewed and negative Physical Exam - Vital signs Vitals: Pulse Ox 88 L 10/13/19 20:41 - Notes Notes: Physical Exam: General: Sleepy but arousable. HEENT: Normocephalic. Atraumatic. PERRL. Extraocular movements intact. Oropharynx clear. Mildly dry mucous membranes. Neck: Supple. Non-tender. Respiratory: No respiratory distress. Clear and equal breath sounds bilaterally. Cardiovascular: Regular rate and rhythm. Abdominal: Obese. Non-tender. No distension. Normal Bowel Sounds. Back: No gross abnormalities. Extremities: Moves all four extremities. Upper extremities: Normal inspection. Normal ROM. Lower extremities: Peripheral edema bilaterally. Normal ROM. Neurological: Normal cognition. AAOx4. Normal speech. Psychological: Normal affect. Normal Mood. Skin: Warm. Dry. Normal color. Course - Re-evaluation Re-evalutation: 10/14/19 01:02 MDM 88 year old female arrives from home after recently starting cephalexin for uti. She was too weak to walk per family today, otherwise they were going to follow up with the PCP. She will provide no reasonable history except she tells me she does not feel well. No fever reportedly. While she initially had some lower abd pain after a period of observation and rexamination, she no longer has abd pain. I have discussed the pt with Dr. Iqbal and he has graciously agreed to see and evaluate for admission. - Vital Signs Vital signs: Temp Pulse Resp BP Pulse Ox 99.4 F 13 102/82 86 L 10/13/19 20:45 10/14/19 00:04 10/14/19 00:04 10/14/19 00:04 - Laboratory Result Diagrams: 10/13/19 21:56 10/13/19 21:56 Laboratory results interpreted by me: 10/13/19 10/13/19 21:56 21:56 WBC 22.0 H Hgb 9.3 L Hct 29.4 L MCV 77 L MCH 24.3 L MCHC 31.6 L RDW 21.4 H Seg Neuts % (Manual) 87 H Band Neutrophils % 2 L Lymphocytes % (Manual) 5 L Abs Neuts (Manual) 19.6 H Sodium 126.2 L Chloride 89 L BUN 35 H Creatinine 1.71 H Est GFR ( Amer) 34 L Est GFR (MDRD) Non-Af 28 L Glucose 118 H - Diagnostic Test Radiology reviewed: Image reviewed, Reports reviewed Discharge - Discharge Clinical Impression: Pleural effusion Anemia Qualifiers: Anemia type: unspecified type Qualified Code(s): D64.9 - Anemia, unspecified Leukocytosis, unspecified Qualifiers: Leukocytosis type: unspecified Qualified Code(s): D72.829 - Elevated white blood cell count, unspecified COPD (chronic obstructive pulmonary disease) Qualifiers: COPD type: unspecified COPD Qualified Code(s): J44.9 - Chronic obstructive pulmonary disease, unspecified Condition: Stable Disposition: ADMITTED OBSERVATION Admitting Provider: Clari (Hospitalist) Referrals: SANNA HOWELL MD [Primary Care Provider] - Follow up as needed I personally performed the services described in the documentation, reviewed and edited the documentation which was dictated to the scribe in my presence, and it accurately records my words and actions.
[2019-10-13 21:56] LABS: APPEARANCE,URINE SLIGHTLY-CLOUDY; BILIRUBIN,URINE NEGATIVE (NEGATIVE); COLOR,URINE YELLOW; GLUCOSE, URINE NEGATIVE (NEGATIVE); KETONES,URINE NEGATIVE (NEGATIVE); LEUKOCYTE ESTERASE,URINE NEGATIVE (NEGATIVE); NITRITE,URINE NEGATIVE (NEGATIVE); PROTEIN,URINE NEGATIVE (NEGATIVE); URINE SPECIFIC GRAVITY 1.006; UROBILINOGEN,URINE NEGATIVE mg/dL (<2.0)
[2019-10-13 22:21] LABS: HEMATOCRIT 29.4 % (36.0-47.0); HEMOGLOBIN 9.3 g/dL (12.0-15.5); MEAN CORPUSCULAR HEMOGLOBIN 24.3 pg (27.0-33.4); MEAN CORPUSCULAR HGB CONC 31.6 g/dL (32.0-36.0); MEAN CORPUSCULAR VOLUME 77 fl (80-97); PLATELET COUNT 306 10^3/uL (150-450); RED BLOOD COUNT 3.82 10^6/uL (3.72-5.28); RED CELL DISTRIBUTION WIDTH 21.4 % (11.5-14.0)
[2019-10-13 22:40] LABS: ABSOLUTE LYMPHOCYTES# (MANUAL) 1.1 10^3/uL (0.5-4.7); ABSOLUTE MONOCYTES # (MANUAL) 1.3 10^3/uL (0.1-1.4); BAND NEUTROPHILS % (MANUAL) 2 % (3-5); BASOPHILS % (MANUAL) 0 % (0-2); EOSINOPHILS % (MANUAL) 0 % (0-6); LYMPHOCYTES % (MANUAL) 5 % (13-45); MONOCYTES % (MANUAL) 6 % (3-13); SEGMENTED NEUTROPHILS % (MAN) 87 % (42-78); TOTAL CELLS COUNTED 100
[2019-10-13 22:46] LABS: ALBUMIN 3.7 g/dL (3.5-5.0); ALKALINE PHOSPHATASE 91 U/L (38-126); ANION GAP 7 (5-19); ANISOCYTOSIS 3+; ASPARTATE AMINO TRANSFERASE 34 U/L (14-36); BILIRUBIN,DIRECT 0.1 mg/dL (0.0-0.4); BILIRUBIN,TOTAL 0.9 mg/dL (0.2-1.3); BLOOD UREA NITROGEN 35 mg/dL (7-20); CALCIUM 9.6 mg/dL (8.4-10.2); CARBON DIOXIDE 30 mmol/L (22-30); CHLORIDE 89 mmol/L (98-107); GLUCOSE 118 mg/dL (75-110); OVALOCYTES SLIGHT; POIKILOCYTOSIS SLIGHT; POLYCHROMASIA SLIGHT; POTASSIUM 4.1 mmol/L (3.6-5.0); TOTAL PROTEIN 6.4 g/dL (6.3-8.2)
[2019-10-13 22:47] LABS: PLATELET COMMENT ADEQUATE
--- NOTE | 2019-10-13 22:58 | RADIOLOGY REPORT (SQ) ---
EXAM DESCRIPTION: X-RAY CHEST- One View CLINICAL HISTORY: Hypertension COMPARISON: July 05, 2019 TECHNIQUE: Single view of the chest. FINDINGS: Lungs appear hyperlucent bilaterally. There is trace blunting of the bilateral costophrenic angles. The pulmonary vascularity is normal. The cardiomediastinal silhouette is persistently enlarged. Cardiothoracic postoperative changes including median sternotomy wires. Left chest wall cardiac pacer device remains in stable positioning. Osseous structures are stable in appearance. IMPRESSION: 1. Persistent enlargement of the cardiac silhouette in the setting of cardiothoracic postoperative changes. 2. Evidence of trace bilateral pleural effusions. 3. Lucent appearance is suggestive of underlying emphysematous changes.
[2019-10-13] MEDS ORDERED: CEFTRIAXONE 1 GM/D5W RTU 1 GM/50 ML RTUPB IV ONE (23:04)
[2019-10-14] MEDS ORDERED: LEVALBUTEROL HCL NEB 0.63 MG/3 ML AMPUL NEB PRN (01:42)
[2019-10-14] MEDS ORDERED: MAGNESIUM HYDROXIDE SUSP 30 ML UDCUP PO PRN (01:42)
[2019-10-14] MEDS ORDERED: HYDROMORPHONE HCL INJ/PF 2 MG/ML AMPULE IV PRN (01:42)
[2019-10-14] MEDS ORDERED: ACETAMINOPHEN 650 MG SUPP.RECT PR PRN (01:42)
[2019-10-14] MEDS ORDERED: HYDRALAZINE HCL INJ/PF 20 MG/1 ML SDV IV PRN (01:42)
[2019-10-14] MEDS ORDERED: MAG HYDROX/AL HYDROX/SIMETH SUSP 30 ML UDCUP PO PRN (01:42)
[2019-10-14] MEDS ORDERED: LORAZEPAM INJ 2 MG/1 ML VIAL IV PRN (01:42)
[2019-10-14] MEDS ORDERED: ACETAMINOPHEN 325 MG TABLET PO PRN (01:42)
[2019-10-14] MEDS ORDERED: GUAIFENESIN SYRP 200 MG/10 ML UDC PO PRN (01:42)
[2019-10-14] MEDS ORDERED: ONDANSETRON HCL INJ/PF 4 MG/2 ML SDV IV PRN (01:45)
[2019-10-14] MEDS ORDERED: DEXTROSE 5%-LACTATED RINGERS 1,000 ML IV PRN (01:45)
[2019-10-14] MEDS: PANTOPRAZOLE SODIUM 40 MG TABLET.DR PO SCH (05:46)
--- NOTE | 2019-10-14 05:52 | PDOC H&P ---
History of Present Illness Admission Date/PCP: 10/14/2019 00:54 SANNA HOWELL MD Patient complains of: Generalized weakness History of Present Illness: EVGENY HUTCHINSON is a 88 year old female who presented to the emergency room with acute generalized weakness. She admits developing gradually worsening generalized weakness beginning this morning. She admits taking cephalexin for a urinary tract infection at the direction of her primary care provider for several days. She developed the accompanying symptoms of nausea and vomiting earlier in the day and then developed the associated symptoms of watery diarrhea just prior to calling EMS. She became so severely weak that she could not get up to walk to the car to follow-up with her primary care provider. Due to the severe weakness EMS was summoned to bring her to the ER. She denies other associated or accompanying signs and symptoms. She admits prior similar episodes with other illnesses. She has not identified any aggravating or ameliorating factors for her weakness. In the emergency room she was found to have an elevated white blood cell count at 22,000, a chronic anemia, chronic renal insufficiency, hyponatremia, mild bilateral pleural effusions with chronic cardiomegaly and evidence of emphysematous pulmonary disease. She continued to be weak despite receiving IV fluids and as such was hospitalized on observation status for further evaluation and treatment. Past Medical History Cardiac Medical History: Reports: Atrial Fibrillation, Congestive Heart Failure, Coronary Artery Disease, Myocardial Infarction, Hyperlipidema, Hypertension Denies: DVT, Peripheral Vascular Disease, Pulmonary Embolism, Heart Murmur Pulmonary Medical History: Reports: Bronchitis, Chronic Obstructive Pulmonary Disease (COPD), Pneumonia, Respiratory Failure, Sleep Apnea Denies: Asthma, Tuberculosis EENT Medical History: Denies: Cataracts, Ears - Hearing aids Neurological Medical History: Denies: Hemorrhagic CVA, Ischemic CVA, Seizures Endocrine Medical History: Reports: Hypothyroidism Denies: Diabetes Mellitus Type 1, Diabetes Mellitus Type 2, Hyperthyroidism Renal/ Medical History: Reports: Chronic Kidney Disease Denies: End Stage Renal Disease, Nephrolithiasis Malignancy Medical History: Reports: Skin Cancer GI Medical History: Reports: Gastroesophageal Reflux Disease Denies: Cirrhosis, Crohn's Disease, Hepatitis, Hiatal Hernia, Peptic Ulcer Disease, Ulcerative Colitis Musculoskeltal Medical History: Reports: Arthritis Denies: Fibromyalgia Skin Medical History: Denies: Eczema, Psoriasis Psychiatric Medical History: Reports: Dementia, Tobacco Dependency Denies: Alcohol Dependency, Depression, Substance Abuse Traumatic Medical History: Reports: None Hematology: Denies: Anemia, Bleeding Tendencies Infectious Medical History: Reports: None Past Surgical History Past Surgical History: Reports: Appendectomy, Cardiac Catheterization, Coronary Artery Bypass Graft, Orthopedic Surgery - ORIF left forearm, Pacemaker Social History Information Source: Patient Lives with: Family Smoking Status: Never Smoker - Patient does not smoke tobacco, but does regularly dip snuff Electronic Cigarette use?: No Frequency of Alcohol Use: None Hx Recreational Drug Use: No Drugs: None Hx Prescription Drug Abuse: No - Advance Directive Resuscitation Status: Full Code Surrogate healthcare decision maker:: Nona Fontaine Family History Family History: CAD - Parents, Hypertension, Malignancy, Other - colon polyps in parents. denies: DM Parental Family History Reviewed: Yes Children Family History Reviewed: No Sibling(s) Family History Reviewed.: Yes Medication/Allergy Home Medications: Buspirone HCl [Buspar 15 mg Tablet] 15 mg PO BID 03/19/19 Diltiazem HCl [Cardizem Cd 240 mg Capsule.cr] 240 mg PO DAILY 03/19/19 Escitalopram Oxalate [Lexapro 10 mg Tablet] 10 mg PO QHS 03/19/19 Folic Acid [Folvite 1 mg Tablet] 1 mg PO LANGFORD 03/19/19 Isosorbide Mononitrate [Imdur 30 mg Tablet.er] 30 mg PO QAM 03/19/19 Levothyroxine Sodium 75 mcg PO Q6AM 03/19/19 Melatonin [Melatonin 5 mg Tablet] 5 mg PO QHS 03/19/19 Methotrexate Sodium [Rheumatrex 2.5 mg Tablet] 2.5 mg PO MOTUWETHFRSA 03/19/19 Metolazone [Zaroxolyn 2.5 mg Tablet] 2.5 mg PO MOWEFR 03/19/19 Metoprolol Succinate [Toprol XL 100 mg Tablet] 100 mg PO DAILY 03/19/19 Nitroglycerin [Nitrostat 0.4 mg (1/150 Gr) Tabs 25/Bottle] 0.4 mg SL Q5MP PRN 03/19/19 Ondansetron HCl [Zofran 4 mg Tablet] 4 mg PO Q4HP PRN 03/19/19 Rivaroxaban [Xarelto 15 mg Tablet] 15 mg PO WSUPPER 03/19/19 Rosuvastatin Calcium [Crestor 20 mg Tablet] 20 mg PO QHS 03/19/19 Torsemide [Demadex] 20 mg PO BID 03/19/19 Tramadol HCl [Ultram 50 mg Tablet] 50 mg PO Q12HP PRN 03/19/19 Albuterol Sulfate [Proair HFA Inhalation Aerosol 8.5 gm MDI] 1 puff IH Q4 PRN #1 mdi 03/21/19 Fluticasone/Salmeterol [Advair 250-50 Diskus 14 Dose/Diskus] 14 inh IH DAILY #1 inhaler 03/21/19 Lisinopril [Zestril] 20 mg PO DAILY #0 03/21/19 Medroxyprogesterone Acet [Provera 10 mg Tablet] 10 mg PO DAILY #0 03/21/19 Potassium Chloride [Klor-Con M20] 20 meq PO DAILY #0 03/21/19 Prednisone [Deltasone 20 mg Tablet] 20 mg PO BID 5 Days #10 tablet 03/21/19 Tiotropium [place] [Spiriva Handihaler 5 Cap/Kit (18 Mcg/Cap)] 1 cap IH DAILY #30 capsule 03/21/19 Allergies/Adverse Reactions: morphine [Morphine] Adverse Reaction (Severe, Verified 10/13/19 21:50) Abnormal behavior Review of Systems Constitutional: PRESENT: as per HPI, weakness. ABSENT: chills, fever(s) Eyes: ABSENT: visual disturbances, other - Eye pain Ears: ABSENT: hearing changes, other - Ear pain Nose, Mouth, and Throat: ABSENT: headache(s), sore throat Cardiovascular: ABSENT: chest pain, palpitations Respiratory: ABSENT: cough, dyspnea Gastrointestinal: PRESENT: diarrhea, nausea, vomiting. ABSENT: abdominal pain, constipation Genitourinary: ABSENT: dysuria, hematuria Musculoskeletal: PRESENT: as per HPI. ABSENT: back pain, joint swelling Integumentary: ABSENT: pruritus, rash Neurological: ABSENT: confusion, convulsions, focal weakness, memory loss, syncope Psychiatric: ABSENT: anxiety, depression Endocrine: ABSENT: cold intolerance, heat intolerance Hematologic/Lymphatic: ABSENT: easy bleeding, easy bruising Allergic/Immunologic: ABSENT: seasonal rhinorrhea Physical Exam Vital Signs: Temp Pulse Resp BP Pulse Ox 99.4 F 13 102/82 86 L 10/13/19 20:45 10/14/19 00:04 10/14/19 00:04 10/14/19 00:04 Intake & Output 10/12/19 10/13/19 10/14/19 23:59 23:59 23:59 Intake Total 50 Balance 50 Weight 97.1 kg General appearance: PRESENT: no acute distress, cooperative Head exam: PRESENT: atraumatic, normocephalic Eye exam: PRESENT: conjunctiva pink. ABSENT: conjunctival injection, scleral icterus Ear exam: PRESENT: normal external ear exam. ABSENT: bleeding, drainage Mouth exam: PRESENT: dry mucosa, neck supple Neck exam: ABSENT: thyromegaly, tracheal deviation Respiratory exam: PRESENT: clear to auscultation vaishnavi, symmetrical, unlabored Cardiovascular exam: PRESENT: RRR. ABSENT: clicks, gallop, rubs Pulses: PRESENT: normal radial pulses, normal dorsalis pedis pul Vascular exam: PRESENT: normal capillary refill. ABSENT: pallor GI/Abdominal exam: PRESENT: normal bowel sounds, soft. ABSENT: tenderness Rectal exam: PRESENT: deferred Extremities exam: ABSENT: joint swelling, pedal edema Musculoskeletal exam: ABSENT: deformity, dislocation Neurological exam: PRESENT: alert, oriented to person, oriented to place, oriented to time, oriented to situation, CN II-XII grossly intact. ABSENT: motor sensory deficit Psychiatric exam: PRESENT: appropriate affect, normal mood Skin exam: PRESENT: dry, intact, warm. ABSENT: jaundice, rash, urticaria Results Laboratory Results: 10/13/19 21:56 10/13/19 21:56 10/13/19 10/13/19 10/13/19 21:22 21:56 21:56 WBC 22.0 H RBC 3.82 Hgb 9.3 L Hct 29.4 L MCV 77 L MCH 24.3 L MCHC 31.6 L RDW 21.4 H Plt Count 306 Seg Neutrophils % Not Reportable Sodium 126.2 L Potassium 4.1 Chloride 89 L Carbon Dioxide 30 Anion Gap 7 BUN 35 H Creatinine 1.71 H Est GFR ( Amer) 34 L Glucose 118 H Lactic Acid Calcium 9.6 Magnesium 1.9 Total Bilirubin 0.9 AST 34 Alkaline Phosphatase 91 Total Protein 6.4 Albumin 3.7 Lipase 48.4 TSH Urine Color YELLOW Urine Appearance SLIGHTLY-CLOUDY Urine pH 6.0 Ur Specific [place] 1.006 Urine Protein NEGATIVE Urine Glucose (UA) NEGATIVE Urine Ketones NEGATIVE Urine Blood NEGATIVE Urine Nitrite NEGATIVE Ur Leukocyte Esterase NEGATIVE Urine WBC (Auto) 4 Urine RBC (Auto) 2 10/13/19 10/13/19 21:56 23:08 WBC RBC Hgb Hct MCV MCH MCHC RDW Plt Count Seg Neutrophils % Sodium Potassium Chloride Carbon Dioxide Anion Gap BUN Creatinine Est GFR ( Amer) Glucose Lactic Acid 1.7 Calcium Magnesium Total Bilirubin AST Alkaline Phosphatase Total Protein Albumin Lipase TSH 4.46 Urine Color Urine Appearance Urine pH Ur Specific [place] Urine Protein Urine Glucose (UA) Urine Ketones Urine Blood Urine Nitrite Ur Leukocyte Esterase Urine WBC (Auto) Urine RBC (Auto) 10/13/19 21:56 Troponin I 0.018 Impressions: Chest X-Ray 10/13/19 20:58 IMPRESSION: 1. Persistent enlargement of the cardiac silhouette in the setting of cardiothoracic postoperative changes. 2. Evidence of trace bilateral pleural effusions. 3. Lucent appearance is suggestive of underlying emphysematous changes. Assessment and Plan - Diagnosis (1) Generalized weakness Is this a current diagnosis for this admission?: Yes (2) Nausea and vomiting Qualifiers: Vomiting type: unspecified Vomiting Intractability: non-intractable Qualified Code(s): R11.2 - Nausea with vomiting, unspecified Is this a current diagnosis for this admission?: Yes (3) Diarrhea Qualifiers: Diarrhea type: unspecified type Qualified Code(s): R19.7 - Diarrhea, unspecified Is this a current diagnosis for this admission?: Yes (4) Hyponatremia Is this a current diagnosis for this admission?: Yes (5) Chronic atrial fibrillation Is this a current diagnosis for this admission?: Yes (6) CAD (coronary artery disease) Qualifiers: Coronary Disease-Associated Artery/Lesion type: [place] artery [place] vs. transplanted heart: [place] heart Associated angina: without angina Qualified Code(s): I25.10 - Atherosclerotic heart disease of [place] coronary artery without angina pectoris Is this a current diagnosis for this admission?: Yes (7) Chronic renal failure Qualifiers: Chronic kidney disease stage: stage 4 (severe) Qualified Code(s): N18.4 - Chronic kidney disease, stage 4 (severe) Is this a current diagnosis for this admission?: Yes (8) Anemia due to chronic kidney disease Qualifiers: Chronic kidney disease stage: stage 4 (severe) Qualified Code(s): N18.4 - Chronic kidney disease, stage 4 (severe); D63.1 - Anemia in chronic kidney disease Is this a current diagnosis for this admission?: Yes (9) COPD (chronic obstructive pulmonary disease) Qualifiers: COPD type: emphysema Emphysema type: unspecified Qualified Code(s): J43.9 - Emphysema, unspecified Is this a current diagnosis for this admission?: Yes - Plan Summary Summary: Patient will be admitted observation status on the medical floor where she will receive routine supportive and symptomatic cares. She will be treated with IV fluids utilizing D5LR at 125 mL/h. Empiric antibiotic therapy was initiated in the emergency room, but will be discontinued at this point as no obvious source of infection has been identified. Stools will be evaluated for C. difficile and other pathogens. A physical therapy consult will be obtained. She will use Ativan 1 mg IV every 4 hours as needed for anxiety or restlessness. She will use Dilaudid 0.5 to 2 mg IV every 3 hours as needed for pain. She will be continued on a cardiac diet. CBCs, metabolic profiles, magnesium levels and additional laboratory and/or radiographic evaluations will be obtained as appropriate. Patient's home meds will be restarted, as appropriate, once her medication list has been verified and reconciled. - Time Time Spent with patient: 15-24 minutes Medications reviewed and adjusted accordingly: Yes Anticipated discharge: Home Within: within 48 hours - Inpatient Certification Based on my medical assessment, after consideration of the patient's comorbidities, presenting symptoms, or acuity I expect that the services needed warrant INPATIENT care.: No I certify that my determination is in accordance with my understanding of Medicare's requirements for reasonable and necessary INPATIENT services [42 CFR 412.3e].: No
[2019-10-14 06:00] LABS: CREATINE KINASE MB 1.78 ng/mL (<4.55); TROPONIN I 0.017 ng/mL
[2019-10-14] MEDS: LEVOTHYROXINE SODIUM 0.075 MG TABLET PO SCH (06:28)
[2019-10-14] MEDS ORDERED: (PENDING PHARMACY ID) (Albuterol Sulfate 1 PUFF) IH PRN (10:45)
[2019-10-14] MEDS ORDERED: (PENDING PHARMACY ID) (Buspirone Hcl [Buspirone Hcl] 7.5 MG) PO SCH (11:00)
[2019-10-14 11:26] LABS: CREATINE KINASE MB 2.08 ng/mL (<4.55); TROPONIN I 0.015 ng/mL
[2019-10-14] MEDS: METOPROLOL SUCCINATE 50 MG TAB.SR.24H PO SCH ×2 (12:34→21:56)
[2019-10-14] MEDS: FLUTICASONE/VILANTEROL 200-25 MCG/DOSE IH SCH (12:34)
[2019-10-14 15:36] LABS: C DIFFICILE GDH POSITIVE (NEGATIVE)
[2019-10-14 16:25] LABS: ANION GAP 9 (5-19); BLOOD UREA NITROGEN 31 mg/dL (7-20); CALCIUM 9.3 mg/dL (8.4-10.2); CARBON DIOXIDE 29 mmol/L (22-30); CHLORIDE 90 mmol/L (98-107); GLUCOSE 144 mg/dL (75-110); POTASSIUM 4.3 mmol/L (3.6-5.0)
[2019-10-14 16:37] LABS: CREATINE KINASE MB 2.45 ng/mL (<4.55); TROPONIN I 0.014 ng/mL
[2019-10-14] MEDS: RIVAROXABAN 15 MG TABLET PO SCH (18:09)
[2019-10-14] MEDS: BUSPIRONE HCL 10 MG TABLET PO SCH (18:09)
[2019-10-14] MEDS: VANCOMYCIN HCL INJ 500 MG VIAL PO SCH ×2 (18:09→23:28)
[2019-10-14] MEDS: LACTOBACILLUS ACIDOPHILUS 250 MG TAB PO SCH (18:09)
--- NOTE | 2019-10-14 18:57 | Progress Note ---
Provider Note Provider Note: Is an 88-year-old female with a past medical history of atrial fibrillation, CHF, CAD, [place], hyperlipidemia, hypertension, COPD, NIR, hypothyroidism, CKD, GERD, arthritis, tobacco dependency and dementia who was admitted early this morning by the outdoor pursuits instructor for nausea, vomiting, diarrhea, hyponatremia, and generalized weakness. H&P, overnight events, vital signs, laboratory results, imaging studies, and orders reviewed. Agree with the plan of care as established by previous provider. In addition, follow-up chemistry shows gradual improvement in her hyponatremia and stability in her BUN/creatinine. Serial troponins are negative. CK remains persistent at 400 C. difficile positive. Continue gentle IV fluids. Start p.o. vancomycin and lactobacillus.
--- NOTE | 2019-10-14 21:46 | EKG REPORT ---
SEVERITY:- ABNORMAL ECG - VENTRICULAR-PACED COMPLEXES NONSPECIFIC REPOL ABNORMALITY, DIFFUSE LEADS : Confirmed by: Dawson Ojeda MD 14-Oct-2019 21:44:51
[2019-10-14] MEDS: MELATONIN 5 MG TABLET PO PRN (21:56)
[2019-10-14] MEDS ORDERED: (PENDING PHARMACY ID) (Fluticasone/Salmeterol 1 PUFF) IH SCH (22:00)
[2019-10-14] MEDS ORDERED: METOPROLOL SUCCINATE 50 MG PO SCH (22:00)
[2019-10-15] MEDS: PANTOPRAZOLE SODIUM 40 MG TABLET.DR PO SCH (05:34)
[2019-10-15] MEDS: LEVOTHYROXINE SODIUM 0.075 MG TABLET PO SCH (05:35)
[2019-10-15] MEDS: VANCOMYCIN HCL INJ 500 MG VIAL PO SCH ×3 (05:35→17:14)
[2019-10-15] MEDS: NORMAL SALINE 1000 ML 1,000 ML IV PRN ×3 (05:40→23:32)
[2019-10-15 06:42] LABS: HEMATOCRIT 29.1 % (36.0-47.0); HEMOGLOBIN 9.4 g/dL (12.0-15.5); MEAN CORPUSCULAR HEMOGLOBIN 24.9 pg (27.0-33.4); MEAN CORPUSCULAR HGB CONC 32.2 g/dL (32.0-36.0); MEAN CORPUSCULAR VOLUME 77 fl (80-97); PLATELET COUNT 254 10^3/uL (150-450); RED BLOOD COUNT 3.76 10^6/uL (3.72-5.28); RED CELL DISTRIBUTION WIDTH 21.3 % (11.5-14.0)
[2019-10-15 07:00] LABS: ANION GAP 7 (5-19); BLOOD UREA NITROGEN 29 mg/dL (7-20); CALCIUM 9.3 mg/dL (8.4-10.2); CARBON DIOXIDE 27 mmol/L (22-30); CHLORIDE 94 mmol/L (98-107); GLUCOSE 122 mg/dL (75-110); POTASSIUM 3.8 mmol/L (3.6-5.0)
[2019-10-15] MEDS ORDERED: (PENDING PHARMACY ID) (Lisinopril [Zestril] 40 MG) PO SCH (10:00)
[2019-10-15] MEDS ORDERED: (PENDING PHARMACY ID) (Diltiazem Hcl [Diltiazem 24hr Er] 240 MG) PO SCH (10:00)
[2019-10-15] MEDS: LACTOBACILLUS ACIDOPHILUS 250 MG TAB PO SCH ×2 (10:47→17:14)
[2019-10-15] MEDS: METOPROLOL SUCCINATE 50 MG TAB.SR.24H PO SCH ×2 (10:47→21:15)
[2019-10-15] MEDS: ISOSORBIDE MONONITRATE 30 MG TAB.ER.24H PO SCH (10:47)
[2019-10-15] MEDS: BUSPIRONE HCL 10 MG TABLET PO SCH ×2 (10:47→17:14)
[2019-10-15] MEDS: ESCITALOPRAM OXALATE 10 MG TABLET PO SCH (10:48)
[2019-10-15] MEDS: FLUTICASONE/VILANTEROL 200-25 MCG/DOSE IH SCH (10:48)
[2019-10-15] MEDS: RIVAROXABAN 15 MG TABLET PO SCH (17:14)
[2019-10-15] MEDS: MELATONIN 5 MG TABLET PO PRN (21:15)
--- NOTE | 2019-10-15 21:17 | PDOC PROGRESS REPORT ---
Subjective Progress Note for:: 10/15/19 Subjective:: The patient is an 88-year-old female with a past medical history of atrial fibrillation, CHF, CAD, [place], hyperlipidemia, hypertension, COPD, NIR, hypothyroidism, CKD, GERD, arthritis, tobacco dependency and dementia who was admitted early this morning by the health claims examiner for nausea, vomiting, diarrhea, hyponatremia, and generalized weakness. She was seen on morning rounds. She is found resting in bed, comfortably, on room air. She reports continued fatigue but otherwise states that she is feeling well. She does admit to occasional abdominal discomfort followed s hortly by a watery bowel movement. She admits to 2-3 bowel movements this morning. Per nursing notes, she has had 8 bowel movements in the last 24 hours. Otherwise, she has no new questions or concerns and is hopeful to be able to discharge home in the near future. She denies fever, chills, chest pain, palpitations, dyspnea, orthopnea, nausea and vomiting. Nursing has noted intermittent confusion. Reason For Visit: NAUSEA,VOMITING,DIARRHEA,HYPONATREMIA Physical Exam Vital Signs: Temp Pulse Resp BP Pulse Ox 98.6 F 82 17 158/49 H 92 10/15/19 19:55 10/15/19 19:55 10/15/19 19:55 10/15/19 19:55 10/15/19 19:55 Intake & Output 10/14/19 10/15/19 10/16/19 06:59 06:59 06:59 Intake Total 024 225 1332 Balance 072 430 1051 Weight 97.1 kg 97.1 kg General appearance: PRESENT: no acute distress, cooperative, well-developed, well-nourished Head exam: PRESENT: atraumatic, normocephalic Eye exam: PRESENT: conjunctiva pink, EOMI, PERRLA. ABSENT: scleral icterus Mouth exam: PRESENT: moist, tongue midline Respiratory exam: PRESENT: clear to auscultation vaishnavi, symmetrical, unlabored. ABSENT: rales, rhonchi, wheezes Cardiovascular exam: PRESENT: RRR. ABSENT: diastolic murmur, rubs, systolic murmur Pulses: PRESENT: normal dorsalis pedis pul Vascular exam: PRESENT: normal capillary refill GI/Abdominal exam: PRESENT: hyperactive bowel sounds, normal bowel sounds, soft. ABSENT: distended, guarding, mass, organolmegaly, rebound, tenderness Rectal exam: PRESENT: deferred Extremities exam: PRESENT: full ROM. ABSENT: calf tenderness, clubbing, pedal edema Musculoskeletal exam: PRESENT: ambulatory - Front wheel walker and assistance Neurological exam: PRESENT: alert, awake, oriented to person, oriented to place, oriented to time, oriented to situation, CN II-XII grossly intact. ABSENT: motor sensory deficit Psychiatric exam: PRESENT: appropriate affect, normal mood. ABSENT: homicidal ideation, suicidal ideation Skin exam: PRESENT: dry, intact, warm. ABSENT: cyanosis, rash Results Laboratory Results: 10/15/19 06:29 10/15/19 06:20 10/15/19 10/15/19 10/15/19 06:20 06:29 06:29 WBC 14.0 H RBC 3.76 Hgb 9.4 L Hct 29.1 L MCV 77 L MCH 24.9 L MCHC 32.2 RDW 21.3 H Plt Count 254 Sodium 128.2 L Potassium 3.8 Chloride 94 L Carbon Dioxide 27 Anion Gap 7 BUN 29 H Creatinine 1.37 H Est GFR ( Amer) 44 L Glucose 122 H Calcium 9.3 Magnesium 1.9 TSH 2.65 10/13/19 10/14/19 10/14/19 21:56 04:13 04:13 Creatine Kinase 445 H CK-MB (CK-2) 1.78 Troponin I 0.018 0.017 10/14/19 10/14/19 10/14/19 10:27 10:27 15:58 Creatine Kinase 424 H 473 H CK-MB (CK-2) 2.08 Troponin I 0.015 10/14/19 15:58 Creatine Kinase CK-MB (CK-2) 2.45 Troponin I 0.014 Impressions: Chest X-Ray 10/13/19 20:58 IMPRESSION: 1. Persistent enlargement of the cardiac silhouette in the setting of cardiothoracic postoperative changes. 2. Evidence of trace bilateral pleural effusions. 3. Lucent appearance is suggestive of underlying emphysematous changes. Assessment and Plan - Diagnosis (1) C. difficile diarrhea Is this a current diagnosis for this admission?: Yes Plan: C. difficile positive. Have started p.o. vancomycin 125 mg every 6 hours. Start lactobacillus 500 mg p.o. twice daily. Continue gentle IV fluids. Encourage p.o. fluids. Supportive care. (2) Anemia due to chronic kidney disease Qualifiers: Chronic kidney disease stage: stage 4 (severe) Qualified Code(s): N18.4 - Chronic kidney disease, stage 4 (severe); D63.1 - Anemia in chronic kidney dis ease Is this a current diagnosis for this admission?: Yes Plan: Hemoglobin is stable. No evidence of active blood loss at this time. Continue to monitor with daily CBC. (3) Generalized weakness Is this a current diagnosis for this admission?: Yes Plan: Improved. PT/OT consulted. Discharge planning consulted; patient to benefit from home health services. (4) COPD (chronic obstructive pulmonary disease) Qualifiers: COPD type: emphysema Emphysema type: unspecified Qualified Code(s): J43.9 - Emphysema, unspecified Is this a current diagnosis for this admission?: Yes Plan: Stable and without exacerbation at this time. Supplemental oxygen as needed to maintain saturations greater than 89%. No indications for steroids or antibiotic therapy. (5) Chronic atrial fibrillation Is this a current diagnosis for this admission?: Yes Plan: Continue home dose Xarelto and metoprolol. Monitor on telemetry. (6) Chronic renal failure Qualifiers: Chronic kidney disease stage: stage 4 (severe) Qualified Code(s): N18.4 - Chronic kidney disease, stage 4 (severe) Is this a current diagnosis for this admission?: Yes Plan: Creatinine is improved; 1.37 today. Acute worsening likely related to mild dehydration in the setting of diarrhea/C. difficile. Continue to avoid nephrotoxic medications as able. Continue gentle IV fluids. Encourage p.o. fluids. Follow-up chemistry. (7) Diarrhea Qualifiers: Diarrhea type: unspecified type Qualified Code(s): R19.7 - Diarrhea, unspecified Is this a current diagnosis for this admission?: Yes Plan: Secondary #1. Management as above (8) Hyponatremia Is this a current diagnosis for this admission?: Yes Plan: Slight improvement. Patient is A&O x4 Hyponatremia is likely secondary to dehydration in the setting of diarrhea. Continue gentle IV fluids. Cardiac diet. Follow-up chemistries. (9) Nausea and vomiting Qualifiers: Vomiting type: unspecified Vomiting Intractability: non-intractable Qualified Code(s): R11.2 - Nausea with vomiting, unspecified Is this a current diagnosis for this admission?: Yes Plan: Resolved. Secondary to #1. Antiemetics as needed. (10) CAD (coronary artery disease) Qualifiers: Coronary Disease-Associated Artery/Lesion type: [place] artery [place] vs. transplanted heart: [place] heart Associated angina: without angina Qualified Code(s): I25.10 - Atherosclerotic heart disease of [place] coronary artery without angina pectoris Is this a current diagnosis for this admission?: Yes Plan: Stable. Patient denies chest pain. Continue to monitor on telemetry. Continue home dose Xarelto, isosorbide, metoprolol - Time Time Spent with patient: 25-34 minutes Medications reviewed and adjusted accordingly: Yes Anticipated discharge: Home with Homehealth Within: within 72 hours
[2019-10-16] MEDS: VANCOMYCIN HCL INJ 500 MG VIAL PO SCH ×3 (00:14→11:39)
[2019-10-16] MEDS ORDERED: FERRIC CARBOXYMALTOSE 750 MG in NORMAL SALINE 250 ML IV PRN (05:00)
[2019-10-16] MEDS: LEVOTHYROXINE SODIUM 0.075 MG TABLET PO SCH (05:33)
[2019-10-16] MEDS: PANTOPRAZOLE SODIUM 40 MG TABLET.DR PO SCH (05:33)
[2019-10-16 06:45] LABS: HEMATOCRIT 28.6 % (36.0-47.0); HEMOGLOBIN 9.2 g/dL (12.0-15.5); MEAN CORPUSCULAR HEMOGLOBIN 25.1 pg (27.0-33.4); MEAN CORPUSCULAR HGB CONC 32.2 g/dL (32.0-36.0); MEAN CORPUSCULAR VOLUME 78 fl (80-97); PLATELET COUNT 234 10^3/uL (150-450); RED BLOOD COUNT 3.67 10^6/uL (3.72-5.28); RED CELL DISTRIBUTION WIDTH 21.6 % (11.5-14.0); WHITE BLOOD COUNT 11.1 10^3/uL (4.0-10.5)
[2019-10-16 07:07] LABS: ANION GAP 6 (5-19); BLOOD UREA NITROGEN 21 mg/dL (7-20); CALCIUM 9.1 mg/dL (8.4-10.2); CARBON DIOXIDE 25 mmol/L (22-30); CHLORIDE 98 mmol/L (98-107); GLUCOSE 116 mg/dL (75-110); POTASSIUM 3.9 mmol/L (3.6-5.0)
[2019-10-16] MEDS: FLUTICASONE/VILANTEROL 200-25 MCG/DOSE IH SCH (10:30)
[2019-10-16] MEDS: METOPROLOL SUCCINATE 50 MG TAB.SR.24H PO SCH (10:30)
[2019-10-16] MEDS: LACTOBACILLUS ACIDOPHILUS 250 MG TAB PO SCH (10:30)
[2019-10-16] MEDS: BUSPIRONE HCL 10 MG TABLET PO SCH (10:30)
[2019-10-16] MEDS: ISOSORBIDE MONONITRATE 30 MG TAB.ER.24H PO SCH (10:30)
[2019-10-16] MEDS: ESCITALOPRAM OXALATE 10 MG TABLET PO SCH (10:30)
[2019-10-16] MEDS ORDERED: NORMAL SALINE 250 ML IV PRN (11:00)
[2019-10-16 14:27] VITALS: BP 139/63
--- NOTE | 2019-10-19 16:00 | PDOC DISCHARGE SUMMARY ---
Impression - Admit/DC Date/PCP Admission Date/Primary Care Provider: 10/15/19 13:51 SANNA HOWELL MD Discharge Date: 10/16/19 - Discharge Diagnosis (1) C. difficile diarrhea Is this a current diagnosis for this admission?: Yes (2) Anemia due to chronic kidney disease Is this a current diagnosis for this admission?: Yes (3) Generalized weakness Is this a current diagnosis for this admission?: Yes (4) COPD (chronic obstructive pulmonary disease) Is this a current diagnosis for this admission?: Yes (5) Chronic atrial fibrillation Is this a current diagnosis for this admission?: Yes (6) Chronic renal failure Is this a current diagnosis for this admission?: Yes (7) Diarrhea Is this a current diagnosis for this admission?: Yes (8) Hyponatremia Is this a current diagnosis for this admission?: Yes (9) Nausea and vomiting Is this a current diagnosis for this admission?: Yes (10) CAD (coronary artery disease) Is this a current diagnosis for this admission?: Yes - Additional Information Resuscitation Status: Full Code Discharge Diet: Cardiac Discharge Activity: Activity As Tolerated, Balance Activity w/Rest, Supervised Activity Referrals: VY HWANG MD [ACTIVE STAFF] - SANNA HOWELL MD [Primary Care Provider] - Follow up as needed Prescriptions: Lactobacillus Acidophilus [Bacid 250 mg Tablet] 500 mg PO BID #60 tab Vancomycin HCl 250 mg PO Q6 #36 capsule Home Medications: Albuterol Sulfate [Proair HFA Inhalation Aerosol 8.5 gm MDI] 1 puff IH Q4HP PRN 10/14/19 Buspirone HCl 15 mg PO DAILYP PRN 10/14/19 Escitalopram Oxalate [Lexapro 10 mg Tablet] 10 mg PO DAILY 10/14/19 Fluticasone/Salmeterol [Advair 250-50 Diskus 14 Dose/Diskus] 1 puff IH Q12 10/14/19 Isosorbide Mononitrate [Imdur 30 mg Tablet.er] 30 mg PO DAILY 10/14/19 Levothyroxine Sodium [Synthroid 0.075 mg Tablet] 0.075 mg PO Q6AM 10/14/19 Lisinopril [Zestril] 40 mg PO DAILY 10/14/19 Metoprolol Succinate [Toprol Xl] 100 mg PO DAILY 10/14/19 Nitroglycerin [Nitrostat 0.4 mg (1/150 Gr) Tabs 25/Bottle] 0.4 mg SL Q5MP PRN 10/14/19 Potassium Chloride [Klor-Con M20] 20 meq PO TID 10/14/19 Rivaroxaban [Xarelto 15 mg Tablet] 15 mg PO DAILY 10/14/19 Rosuvastatin Calcium [Crestor] 20 mg PO QHS 10/14/19 Torsemide [Demadex 20 mg Tablet] 20 mg PO BID 10/14/19 Tramadol HCl [Ultram 50 mg Tablet] 50 mg PO Q12HP PRN 10/14/19 Acetaminophen [Tylenol 325 mg Tablet] 650 mg PO Q4HP PRN tablet 10/16/19 Lactobacillus Acidophilus [Bacid 250 mg Tablet] 500 mg PO BID #60 tab 10/16/19 Vancomycin HCl 250 mg PO Q6 #36 capsule 10/16/19 History of Present Illiness History of Present Illness: H&P per Dr. Montague: EVGENY HUTCHINSON is a 88 year old female who presented to the emergency room with acute generalized weakness. She admits developing gradually worsening generalized weakness beginning this morning. She admits taking cephalexin for a urinary tract infection at the direction of her primary care provider for several days. She developed the accompanying symptoms of nausea and vomiting earlier in the day and then developed the associated symptoms of watery diarrhea just prior to calling EMS. She became so severely weak that she could not get up to walk to the car to follow-up with her primary care provider. Due to the severe weakness EMS was summoned to bring her to the ER. She denies other associated or accompanying signs and symptoms. She admits prior similar episodes with other illnesses. She has not identified any aggravating or ameliorating factors for her weakness. In the emergency room she was found to have an elevated white blood cell count at 22,000, a chronic anemia, chronic renal insufficiency, hyponatremia, mild bilateral pleural effusions with chronic cardiomegaly and evidence of emphysematous pulmonary disease. She continued to be weak despite receiving IV fluids and as such was hospitalized on observation status for further evaluation and treatment. Hospital Course Hospital Course: (1) C. difficile diarrhea Improved; now having formed bowel movements. C. difficile positive. Continue p.o. vancomycin 125 mg every 6 hours to complete a full 10-day course of therapy. Start lactobacillus 500 mg p.o. twice daily. Initially supported with gentle IV fluids. (2) Anemia due to chronic kidney disease Hemoglobin is stable. Outpatient follow-up. (3) Generalized weakness Improved. PT/OT consulted. Patient is discharged home with home health nursing, PT, aide, and child protective services social worker services. (4) COPD (chronic obstructive pulmonary disease) Stable and without exacerbation at this time. Maintaining oxygen saturations on room air. Did not require steroids or antibiotic therapy. (5) Chronic atrial fibrillation Continue home dose Xarelto and metoprolol. (6) Chronic renal failure Resolved Acute worsening likely related to mild dehydration in the setting of diarrhea/C. difficile. Continue to avoid nephrotoxic medications as able. Received gentle IV fluids. Continue to encourage p.o. fluids. Recommend outpatient follow-up chemistry. (7) Diarrhea Secondary #1. Management as above (8) Hyponatremia Improved. Patient is A&O x4 Hyponatremia is likely secondary to dehydration in the setting of diarrhea. (9) Nausea and vomiting Resolved. Secondary to #1. (10) CAD (coronary artery disease) Stable. Patient denies chest pain. Continue home dose Xarelto, isosorbide, metoprolol Physical Exam Vital Signs: Temp Pulse Resp BP Pulse Ox 97.3 F 79 18 139/63 H 97 10/16/19 14:23 10/16/19 14:23 10/16/19 14:23 10/16/19 14:23 10/16/19 14:23 General appearance: PRESENT: no acute distress, cooperative, well-developed, well-nourished Head exam: PRESENT: atraumatic, normocephalic Eye exam: PRESENT: conjunctiva pink, EOMI, PERRLA. ABSENT: scleral icterus Mouth exam: PRESENT: moist, tongue midline Respiratory exam: PRESENT: clear to auscultation vaishnavi, symmetrical, unlabored, other - Room air. ABSENT: rales, rhonchi, wheezes Cardiovascular exam: PRESENT: RRR. ABSENT: diastolic murmur, rubs, systolic murmur Vascular exam: PRESENT: normal capillary refill GI/Abdominal exam: PRESENT: normal bowel sounds, soft. ABSENT: distended, guarding, mass, organolmegaly, rebound, tenderness Rectal exam: PRESENT: deferred Extremities exam: PRESENT: full ROM. ABSENT: calf tenderness, clubbing, pedal edema Musculoskeletal exam: PRESENT: ambulatory - Front wheel walker Neurological exam: PRESENT: alert, awake, oriented to person, oriented to place, oriented to situation, CN II-XII grossly intact. ABSENT: motor sensory deficit Psychiatric exam: PRESENT: appropriate affect, normal mood. ABSENT: homicidal ideation, suicidal ideation Skin exam: PRESENT: dry, intact, warm. ABSENT: cyanosis, rash Results Laboratory Results: WBC 11.1 10^3/uL (4.0-10.5) H 10/16/19 06:20 RBC 3.67 10^6/uL (3.72-5.28) L 10/16/19 06:20 Hgb 9.2 g/dL (12.0-15.5) L 10/16/19 06:20 Hct 28.6 % (36.0-47.0) L 10/16/19 06:20 MCV 78 fl (80-97) L 10/16/19 06:20 MCH 25.1 pg (27.0-33.4) L 10/16/19 06:20 MCHC 32.2 g/dL (32.0-36.0) 10/16/19 06:20 RDW 21.6 % (11.5-14.0) H 10/16/19 06:20 Plt Count 234 10^3/uL (150-450) 10/16/19 06:20 Lymph % (Auto) Not Reportable 10/13/19 21:56 Riley % (Auto) Not Reportable 10/13/19 21:56 Eos % (Auto) Not Reportable 10/13/19 21:56 Baso % (Auto) Not Reportable 10/13/19 21:56 Absolute Neuts (auto) Not Reportable 10/13/19 21:56 Absolute Lymphs (auto) Not Reportable 10/13/19 21:56 Absolute Monos (auto) Not Reportable 10/13/19 21:56 Absolute Eos (auto) Not Reportable 10/13/19 21:56 Absolute Basos (auto) Not Reportable 10/13/19 21:56 Total Counted 100 10/13/19 21:56 Seg Neutrophils % Not Reportable 10/13/19 21:56 Seg Neuts % (Manual) 87 % (42-78) H 10/13/19 21:56 Band Neutrophils % 2 % (3-5) L 10/13/19 21:56 Lymphocytes % (Manual) 5 % (13-45) L 10/13/19 21:56 Monocytes % (Manual) 6 % (3-13) 10/13/19 21:56 Eosinophils % (Manual) 0 % (0-6) 10/13/19 21:56 Basophils % (Manual) 0 % (0-2) 10/13/19 21:56 Abs Neuts (Manual) 19.6 10^3/uL (1.7-8.2) H 10/13/19 21:56 Abs Lymphs (Manual) 1.1 10^3/uL (0.5-4.7) 10/13/19 21:56 Abs Monocytes (Manual) 1.3 10^3/uL (0.1-1.4) 10/13/19 21:56 Absolute Eos (Manual) 0.0 10^3/uL (0.0-0.6) 10/13/19 21:56 Abs Basophils (Manual) 0.0 10^3/uL (0.0-0.2) 10/13/19 21:56 Platelet Comment ADEQUATE 10/13/19 21:56 Polychromasia SLIGHT 10/13/19 21:56 Poikilocytosis SLIGHT 10/13/19 21:56 Anisocytosis 3+ 10/13/19 21:56 Microcytosis SLIGHT 10/13/19 21:56 Ovalocytes SLIGHT 10/13/19 21:56 Sodium 128.7 mmol/L (137-145) L 10/16/19 06:20 Potassium 3.9 mmol/L (3.6-5.0) 10/16/19 06:20 Chloride 98 mmol/L (98-107) 10/16/19 06:20 Carbon Dioxide 25 mmol/L (22-30) 10/16/19 06:20 Anion Gap 6 (5-19) 10/16/19 06:20 BUN 21 mg/dL (7-20) H 10/16/19 06:20 Creatinine 1.11 mg/dL (0.52-1.25) 10/16/19 06:20 Est GFR ( Amer) 56 (>60) L 10/16/19 06:20 Est GFR (MDRD) Non-Af 46 (>60) L 10/16/19 06:20 Glucose 116 mg/dL (75-110) H 10/16/19 06:20 Lactic Acid 1.7 mmol/L (0.7-2.1) 10/13/19 23:08 Calcium 9.1 mg/dL (8.4-10.2) 10/16/19 06:20 Magnesium 1.9 mg/dL (1.6-2.3) 10/15/19 06:20 Total Bilirubin 0.9 mg/dL (0.2-1.3) 10/13/19 21:56 Direct Bilirubin 0.1 mg/dL (0.0-0.4) 10/13/19 21:56 Neonat Total Bilirubin Not Reportable 10/13/19 21:56 Neonat Direct Bilirubin Not Reportable 10/13/19 21:56 Neonat Indirect Bili Not Reportable 10/13/19 21:56 AST 34 U/L (14-36) 10/13/19 21:56 ALT 19 U/L (<35) 10/13/19 21:56 Alkaline Phosphatase 91 U/L (38-126) 10/13/19 21:56 Creatine Kinase 473 U/L (30-135) H 10/14/19 15:58 CK-MB (CK-2) 2.45 ng/mL (<4.55) 10/14/19 15:58 Troponin I 0.014 ng/mL 10/14/19 15:58 Total Protein 6.4 g/dL (6.3-8.2) 10/13/19 21:56 Albumin 3.7 g/dL (3.5-5.0) 10/13/19 21:56 Lipase 48.4 U/L (23-300) 10/13/19 21:56 TSH 2.65 uIU/mL (0.47-4.68) 10/15/19 06:29 Urine Color YELLOW 10/13/19 21:22 Urine Appearance SLIGHTLY-CLOUDY 10/13/19 21:22 Urine pH 6.0 (5.0-9.0) 10/13/19 21:22 Ur Specific Mitchell 1.006 10/13/19 21:22 Urine Protein NEGATIVE mg/dL (NEGATIVE) 10/13/19 21:22 Urine Glucose (UA) NEGATIVE mg/dL (NEGATIVE) 10/13/19 21:22 Urine Ketones NEGATIVE mg/dL (NEGATIVE) 10/13/19 21:22 Urine Blood NEGATIVE (NEGATIVE) 10/13/19 21:22 Urine Nitrite NEGATIVE (NEGATIVE) 10/13/19 21:22 Urine Bilirubin NEGATIVE (NEGATIVE) 10/13/19 21:22 Urine Urobilinogen NEGATIVE mg/dL (<2.0) 10/13/19 21:22 Ur Leukocyte Esterase NEGATIVE (NEGATIVE) 10/13/19 21:22 Urine WBC (Auto) 4 /HPF 10/13/19 21:22 Urine RBC (Auto) 2 /HPF 10/13/19 21:22 U Hyaline Cast (Auto) 1 /LPF 10/13/19 21:22 Squamous Epi Cells Auto <1 /HPF 10/13/19 21:22 Urine Mucus (Auto) RARE /LPF 10/13/19 21:22 Urine Ascorbic Acid NEGATIVE (NEGATIVE) 10/13/19 21:22 Stl C. Difficile GDH Ag POSITIVE (NEGATIVE) 10/14/19 13:15 Stl C.difficile Tox A&B POSITIVE (NEGATIVE) 10/14/19 13:15 10/13/19 10/14/19 10/14/19 21:56 04:13 10:27 CK-MB (CK-2) 1.78 2.08 Troponin I 0.018 0.017 0.015 10/14/19 15:58 CK-MB (CK-2) 2.45 Troponin I 0.014 Impressions: Chest X-Ray 10/13/19 20:58 IMPRESSION: 1. Persistent enlargement of the cardiac silhouette in the setting of cardiothoracic postoperative changes. 2. Evidence of trace bilateral pleural effusions. 3. Lucent appearance is suggestive of underlying emphysematous changes. Plan Plan of Treatment: Patient is discharged home in stable condition to family members with home health services. She is advised to follow-up with her primary care provider within 1 week. Follow-up with Dr. Hwang and Dr. Yun as previously scheduled. Complete full course of antibiotic therapy. Drink plenty water. Return to the emergency department as needed for concerning symptoms Time Spent: Greater than 30 Minutes Stroke Is this a Stroke Patient?: No Acute Heart Failure - Is this a Heart Failure Patient?: No
== END 2019-10-16 15:40 | disposition home health service (06) | DRG 372 ==
LOC: ER 20:38 → EH 10-14 01:57 → 4W 10-14 03:27 → 4S 10-14 17:40 → OBSVTOIN 10-15 13:51
PROVIDERS: ADMIT Emergency Medicine; ATTEND Registered Nurse
DX: A04.72 Enterocolitis due to Clostridium difficile, not specified as recurrent (principal); I48.20 Chronic atrial fibrillation, unspecified; N39.0 Urinary tract infection, site not specified; J90 Pleural effusion, not elsewhere classified; I13.0 Hypertensive heart and chronic kidney disease with heart failure and stage 1 through stage 4 chronic kidney disease, or unspecified chronic kidney disease; N18.4 Chronic kidney disease, stage 4 (severe); D63.1 Anemia in chronic kidney disease; I50.9 Heart failure, unspecified; F03.90 Unspecified dementia, unspecified severity, without behavioral disturbance, psychotic disturbance, mood disturbance, and anxiety; E86.0 Dehydration; E03.9 Hypothyroidism, unspecified; J44.9 Chronic obstructive pulmonary disease, unspecified; I25.10 Atherosclerotic heart disease of native coronary artery without angina pectoris; E78.5 Hyperlipidemia, unspecified; G47.30 Sleep apnea, unspecified; K21.9 Gastro-esophageal reflux disease without esophagitis; M19.90 Unspecified osteoarthritis, unspecified site; F17.220 Nicotine dependence, chewing tobacco, uncomplicated; R13.10 Dysphagia, unspecified; E66.9 Obesity, unspecified; R53.1 Weakness; Z79.01 Long term (current) use of anticoagulants; Z79.899 Other long term (current) drug therapy; I25.2 Old myocardial infarction; Z85.828 Personal history of other malignant neoplasm of skin; Z95.1 Presence of aortocoronary bypass graft; Z95.0 Presence of cardiac pacemaker; Z82.49 Family history of ischemic heart disease and other diseases of the circulatory system; Z80.0 Family history of malignant neoplasm of digestive organs; Z88.6 Allergy status to analgesic agent
CPT/HCPCS: 36415; 71045; 80048; 80053; 81001; 82550; 82553; 83605; 83690; 83735; 84443; 84484; 85025; 85027; 87040; 87045; 87205; 87324; 87449; 93005; 93010; 96365; 99285; G0378; J0696; J1439; J3370; J3490; J7030; J7050; J7121